=== PATIENT | female | born 1945 | race Caucasian/White ===

== ENCOUNTER 2019-05-28 03:19 | Inpatient (IN) | payer MEDICARE, OTHER ==
[2019-05-28] MEDS ORDERED: AZITHROMYCIN 500 MG in SODIUM CHLORIDE 0.9% 250 ML IVPB STA (03:22)
[2019-05-28] MEDS ORDERED: SODIUM CHLORIDE 0.9% 500 ML 500 ML IV STA (03:22)
[2019-05-28] MEDS ORDERED: SODIUM CHLORIDE 0.9% 1,000 ML IV STA (03:22)
[2019-05-28] MEDS ORDERED: IPRATROPIUM-ALBUTEROL 3 ML NEB INHALATION STA ×2 (03:22→06:12)
[2019-05-28] MEDS ORDERED: ACETAMINOPHEN TAB 500 MG TAB PO STA (03:52)
[2019-05-28] MEDS ORDERED: IBUPROFEN 800 MG TAB PO STA (03:52)
--- NOTE | 2019-05-28 03:53 | ED ---
SOB HPI - General Chief Complaint: Shortness of Breath Stated Complaint: SOB Time Seen by Provider: 05/28/19 03:21 Source: EMS, RN notes reviewed, old records reviewed Mode of arrival: EMS Limitations: no limitations - History of Present Illness Initial Comments: This is a 73-year-old female for strength secondary to breathing and shortness of breath coming in by EMS significant hypoxia at home. Patient's friend states that the friend the friend states the patient shortness breath for 2 days she better come to the hospital tonight patient was unable to complete hospital comes in by EMS EMS states patient was hypoxic on arrival significantly short of breath. Also patient admits to feeling warm palpitations fever and chills. MD Complaint: shortness of breath, cough, anxiety -: hour(s), days(s) Severity: severe Quality: aching Consistency: constant Improves With: nothing Worsens With: exertion, movement, coughing Known History Of: COPD Context: recent URI, anxiety, recent illness Associated Symptoms: fever, cough, sputum production, palpitations Treatments Prior to Arrival: oxygen - Related Data Home Medications Medication Instructions Recorded Confirmed Amitriptyline HCl 25 mg PO HS 05/28/19 05/28/19 Celecoxib [CeleBREX] 200 mg PO DAILY 05/28/19 05/28/19 Diclofenac Sodium Gel [Voltaren 2 gm TOPICAL TID 05/28/19 05/28/19 Gel] Fluticasone/Vilanterol [Breo 1 puff INHALATION RT-DAILY 05/28/19 05/28/19 Ellipta 200-25 Mcg INH] Furosemide [Lasix] 20 mg PO DAILY 05/28/19 05/28/19 Ipratropium-Albuterol Nebulize 3 ml INHALATION RT-QID 05/28/19 05/28/19 [Duoneb 0.5 mg-3 mg/3 ml Soln] Levofloxacin 500 mg PO DAILY 05/28/19 05/28/19 Lisinopril [Zestril] 10 mg PO DAILY 05/28/19 05/28/19 Loteprednol Etabonate [Lotemax] 1 drop OP TID 05/28/19 05/28/19 Metoprolol Succinate [Toprol XL] 50 mg PO DAILY 05/28/19 05/28/19 Nepafenac [Ilevro] 1 drop RIGHT EYE DAILY 05/28/19 05/28/19 Omeprazole 40 mg PO DAILY 05/28/19 05/28/19 Potassium Chloride ER [K-Dur 20] 20 meq PO DAILY 05/28/19 05/28/19 Pramipexole Di-HCl [Mirapex] 1.5 mg PO HS 05/28/19 05/28/19 Sertraline [Zoloft] 50 mg PO DAILY 05/28/19 05/28/19 Simvastatin 40 mg PO HS 05/28/19 05/28/19 cloNIDine HCL [Catapres] 0.1 mg PO BID 05/28/19 05/28/19 predniSONE See Taper PO DAILY 05/28/19 05/28/19 Allergies Allergy/AdvReac Type Severity Reaction Status Date / Time aspirin AdvReac Unknown Verified 05/28/19 03:29 Review of Systems ROS Statement: Those systems with pertinent positive or pertinent negative responses have been documented in the HPI. ROS Other: All systems not noted in ROS Statement are negative. Past Medical History Past Medical History: COPD History of Any Multi-Drug Resistant Organisms: None Reported Past Surgical History: Unable to Obtain Past Psychological History: Unable to Obtain Smoking Status: Former smoker Past Alcohol Use History: None Reported Past Drug Use History: None Reported General Exam Limitations: no limitations General appearance: alert, anxious, in distress Head exam: Present: atraumatic, normocephalic, normal inspection Eye exam: Present: normal appearance, PERRL, EOMI. Absent: scleral icterus, conjunctival injection, periorbital swelling ENT exam: Present: normal exam, mucous membranes dry Neck exam: Present: normal inspection. Absent: tenderness, meningismus, lymphadenopathy Respiratory exam: Present: respiratory distress, wheezes, rhonchi, accessory muscle use, decreased breath sounds, prolonged expiratory. Absent: rales, stridor Cardiovascular Exam: Present: normal rhythm, tachycardia, normal heart sounds. Absent: systolic murmur, diastolic murmur, rubs, gallop, clicks GI/Abdominal exam: Present: soft, normal bowel sounds. Absent: distended, tenderness, guarding, rebound, rigid Extremities exam: Present: normal inspection, full ROM, normal capillary refill. Absent: tenderness, pedal edema, joint swelling, calf tenderness Back exam: Present: normal inspection Neurological exam: Present: alert, oriented X3, CN II-XII intact Psychiatric exam: Present: normal affect, normal mood Skin exam: Present: warm, dry, intact, normal color. Absent: rash Course Vital Signs 05/28/19 05/28/19 05/28/19 03:20 03:59 04:00 Temperature 102.7 F H Pulse Rate 131 H 117 H 117 H Respiratory 32 H 21 Rate Blood Pressure 121/71 121/71 O2 Sat by Pulse 96 98 Oximetry 05/28/19 05/28/19 05/28/19 04:06 04:30 04:53 Temperature 101.1 F H Pulse Rate 115 H 113 H Respiratory 24 Rate Blood Pressure 110/75 O2 Sat by Pulse 94 L Oximetry 05/28/19 05/28/19 05/28/19 05:30 06:33 07:05 Temperature 100.8 F H Pulse Rate 117 H 111 H 110 H Respiratory 22 24 Rate Blood Pressure 122/70 102/76 O2 Sat by Pulse 93 L 96 Oximetry 05/28/19 07:14 Temperature Pulse Rate 112 H Respiratory Rate Blood Pressure O2 Sat by Pulse Oximetry - Reevaluation(s) Reevaluation #1: 05/28/19 04:26 Records reviewed. Reevaluation #2: 05/28/19 04:26 Patient denying any chest pain currently Reevaluation #3: 05/28/19 04:27 Fever improved symptoms are improved, patient breathing remains difficult but hypoxia is improving w supplemental o2 Medical Decision Making - Medical Decision Making 73-year-old female to the ER for evaluation patient's with fever shortness of breath, not feeling well. Patient's been off oxygen, she was 70% at home. Patient's brought in the ER feeling better now in the ER with treatment, no current chest pain. Increased cough and congestion still complaining of shortness of breath we will admit for treatment, pulmonary evaluation - Lab Data Result diagrams: 05/31/19 06:50 06/02/19 10:54 Lab Results 05/28/19 05/28/19 05/28/19 Range/Units 03:28 03:28 03:28 WBC 14.4 H (3.8-10.6) k/uL RBC 4.52 (3.80-5.40) m/uL Hgb 14.5 (11.4-16.0) gm/dL Hct 45.7 (34.0-46.0) % MCV 101.2 H (80.0-100.0) fL MCH 32.2 (25.0-35.0) pg MCHC 31.8 (31.0-37.0) g/dL RDW 13.3 (11.5-15.5) % Plt Count 70 L (150-450) k/uL Neutrophils % 92 % Lymphocytes % 0 % Monocytes % 5 % Eosinophils % 1 % Basophils % 3 % Neutrophils # 13.3 H (1.3-7.7) k/uL Lymphocytes # 0.0 L (1.0-4.8) k/uL Monocytes # 0.7 (0-1.0) k/uL Eosinophils # 0.1 (0-0.7) k/uL Basophils # 0.4 H (0-0.2) k/uL Manual Slide Review Performed Macrocytosis Slight PT (9.0-12.0) sec INR (<1.2) APTT (22.0-30.0) sec Sodium 129 L (137-145) mmol/L Potassium 5.3 H (3.5-5.1) mmol/L Chloride 93 L (98-107) mmol/L Carbon Dioxide 28 (22-30) mmol/L Anion Gap 8 mmol/L BUN 30 H (7-17) mg/dL Creatinine 0.91 (0.52-1.04) mg/dL Est GFR (CKD-EPI)AfAm 73 (>60 ml/min/1.73 sqM) Est GFR (CKD-EPI)NonAf 64 (>60 ml/min/1.73 sqM) Glucose 162 H (74-99) mg/dL Lactic Ac Sepsis Rflx Plasma Lactic Acid Barron (0.7-2.0) mmol/L Calcium 8.4 (8.4-10.2) mg/dL Magnesium 1.7 (1.6-2.3) mg/dL Total Bilirubin 1.2 (0.2-1.3) mg/dL AST 52 H (14-36) U/L ALT 26 (4-34) U/L Alkaline Phosphatase 54 (38-126) U/L Troponin I (0.000-0.034) ng/mL NT-Pro-B Natriuret Pep 7310 pg/mL Total Protein 6.3 (6.3-8.2) g/dL Albumin 3.4 L (3.5-5.0) g/dL Influenza Type A RNA (Not Detectd) Influenza Type B (PCR) (Not Detectd) 05/28/19 05/28/19 05/28/19 Range/Units 03:28 03:28 03:28 WBC (3.8-10.6) k/uL RBC (3.80-5.40) m/uL Hgb (11.4-16.0) gm/dL Hct (34.0-46.0) % MCV (80.0-100.0) fL MCH (25.0-35.0) pg MCHC (31.0-37.0) g/dL RDW (11.5-15.5) % Plt Count (150-450) k/uL Neutrophils % % Lymphocytes % % Monocytes % % Eosinophils % % Basophils % % Neutrophils # (1.3-7.7) k/uL Lymphocytes # (1.0-4.8) k/uL Monocytes # (0-1.0) k/uL Eosinophils # (0-0.7) k/uL Basophils # (0-0.2) k/uL Manual Slide Review Macrocytosis PT 10.4 (9.0-12.0) sec INR 1.0 (<1.2) APTT 22.2 (22.0-30.0) sec Sodium (137-145) mmol/L Potassium (3.5-5.1) mmol/L Chloride (98-107) mmol/L Carbon Dioxide (22-30) mmol/L Anion Gap mmol/L BUN (7-17) mg/dL Creatinine (0.52-1.04) mg/dL Est GFR (CKD-EPI)AfAm (>60 ml/min/1.73 sqM) Est GFR (CKD-EPI)NonAf (>60 ml/min/1.73 sqM) Glucose (74-99) mg/dL Lactic Ac Sepsis Rflx Plasma Lactic Acid Barron (0.7-2.0) mmol/L Calcium (8.4-10.2) mg/dL Magnesium (1.6-2.3) mg/dL Total Bilirubin (0.2-1.3) mg/dL AST (14-36) U/L ALT (4-34) U/L Alkaline Phosphatase (38-126) U/L Troponin I 2.660 H* (0.000-0.034) ng/mL NT-Pro-B Natriuret Pep pg/mL Total Protein (6.3-8.2) g/dL Albumin (3.5-5.0) g/dL Influenza Type A RNA Not Detected (Not Detectd) Influenza Type B (PCR) Not Detected (Not Detectd) 05/28/19 05/28/19 Range/Units 03:28 04:23 WBC (3.8-10.6) k/uL RBC (3.80-5.40) m/uL Hgb (11.4-16.0) gm/dL Hct (34.0-46.0) % MCV (80.0-100.0) fL MCH (25.0-35.0) pg MCHC (31.0-37.0) g/dL RDW (11.5-15.5) % Plt Count (150-450) k/uL Neutrophils % % Lymphocytes % % Monocytes % % Eosinophils % % Basophils % % Neutrophils # (1.3-7.7) k/uL Lymphocytes # (1.0-4.8) k/uL Monocytes # (0-1.0) k/uL Eosinophils # (0-0.7) k/uL Basophils # (0-0.2) k/uL Manual Slide Review Macrocytosis PT (9.0-12.0) sec INR (<1.2) APTT (22.0-30.0) sec Sodium (137-145) mmol/L Potassium (3.5-5.1) mmol/L Chloride (98-107) mmol/L Carbon Dioxide (22-30) mmol/L Anion Gap mmol/L BUN (7-17) mg/dL Creatinine (0.52-1.04) mg/dL Est GFR (CKD-EPI)AfAm (>60 ml/min/1.73 sqM) Est GFR (CKD-EPI)NonAf (>60 ml/min/1.73 sqM) Glucose (74-99) mg/dL Lactic Ac Sepsis Rflx Y Plasma Lactic Acid Barron 2.2 H* (0.7-2.0) mmol/L Calcium (8.4-10.2) mg/dL Magnesium (1.6-2.3) mg/dL Total Bilirubin (0.2-1.3) mg/dL AST (14-36) U/L ALT (4-34) U/L Alkaline Phosphatase (38-126) U/L Troponin I (0.000-0.034) ng/mL NT-Pro-B Natriuret Pep pg/mL Total Protein (6.3-8.2) g/dL Albumin (3.5-5.0) g/dL Influenza Type A RNA (Not Detectd) Influenza Type B (PCR) (Not Detectd) - EKG Data -: EKG Interpreted by Me (EKG shows sinus tachycardia of 120, para 120, QRS 70, QTc 440) - Radiology Data Radiology results: report reviewed (Chest x-rays negative for acute disease), image reviewed Critical Care Time Critical Care Time: Yes Total Critical Care Time: 31 Disposition Clinical Impression: Fever, NSTEMI (non-ST elevated myocardial infarction), Hypoxia Disposition: ADMITTED IP TO THIS HOSP Condition: Critical Is patient prescribed a controlled substance at d/c from ED?: No
[2019-05-28 03:58] LABS: Basophils # (A) 0.4 k/uL (0-0.2); Basophils % (A) 3 %; Eosinophils # (A) 0.1 k/uL (0-0.7); Eosinophils % (A) 1 %; HCT 45.7 % (34.0-46.0); HGB 14.5 gm/dL (11.4-16.0); Lymphocytes % (A) 0 %; MCH 32.2 pg (25.0-35.0); MCHC 31.8 g/dL (31.0-37.0); MCV 101.2 fL (80.0-100.0); Macrocytosis Slight; Monocytes # (A) 0.7 k/uL (0-1.0); Monocytes % (A) 5 %; Neutrophils # (A) 13.3 k/uL (1.3-7.7); Neutrophils % (A) 92 %; RBC 4.52 m/uL (3.80-5.40); RDW 13.3 % (11.5-15.5); WBC 14.4 k/uL (3.8-10.6)
[2019-05-28 04:04] LABS: Albumin 3.4 g/dL (3.5-5.0); Calcium 8.4 mg/dL (8.4-10.2); Magnesium 1.7 mg/dL (1.6-2.3); Total Bilirubin 1.2 mg/dL (0.2-1.3); Total Protein 6.3 g/dL (6.3-8.2)
[2019-05-28 04:05] LABS: Potassium 5.3 mmol/L (3.5-5.1)
--- NOTE | 2019-05-28 04:12 | XR ---
EXAMINATION TYPE: XR chest 1V portable DATE OF EXAM: 05/28/2019 COMPARISON: NONE HISTORY: Short of breath TECHNIQUE: Single view FINDINGS: Heart is enlarged. There are large central pulmonary arteries. There is no heart failure. T here are chest leads. Costophrenic angles are fairly clear. There is no pulmonary consolidation. Bony thorax appears intact. IMPRESSION: Cardiomegaly. Large pulmonary arteries could relate to pulmonary hypertension. No heart f ailure seen.
[2019-05-28 04:13] LABS: Partial Thromboplastin Time 22.2 sec (22.0-30.0); Prothrombin Time 10.4 sec (9.0-12.0)
[2019-05-28] MEDS ORDERED: NITROGLYCERIN SL TABS 0.4 MG TAB SUBLINGUAL PRN (04:24)
[2019-05-28 04:30] LABS: Platelet Count 70 k/uL (150-450)
[2019-05-28] MEDS ORDERED: SODIUM CHLORIDE 0.9% 500 ML 500 ML IV ONE (04:32)
[2019-05-28 05:01] LABS: Appearance,Urine Clear (Clear); Bilirubin,Urine Negative (Negative); Blood,Urine Small (Negative); Color,Urine Yellow; Glucose,Urine (UA) Negative (Negative); Ketones,Urine 1+ (Negative); Leukocyte Esterase,Urine Negative (Negative); Mucus,Urine Rare /hpf; Nitrite,Urine Negative (Negative); PH, Urine 7.5 (5.0-8.0); Protein,Urine 1+ (Negative); RBC,Urine 10 /hpf (0-5); Specific Gravity,Urine 1.016 (1.001-1.035); Urobilinogen,Urine <2.0 mg/dL (<2.0); WBC,Urine 1 /hpf (0-5)
--- NOTE | 2019-05-28 05:19 | CT ---
EXAMINATION TYPE: CT angio chest DATE OF EXAM: 05/28/2019 COMPARISON: HISTORY: Patient presents with [place]. CT DLP: 611.6 mGycm Automated exposure control for dose reduction was used. CONTRAST: Performed with IV Contrast, patient injected with 65mL mL of Isovue 370. There are 3-D post processed images. Thoracic aorta is atheromatous. Ascending aorta measures 3.9 cm. There is no dissection. Heart is enl arged. There is no pericardial effusion. There are large central pulmonary arteries. Right ventricle appears fairly normal. There is mild linear density at the lung bases consistent with subsegmental at electasis. There is no evidence of a pulmonary mass. There is normal contrast opacification of the pulmonary arteries. There are no filling defects. There is minor spurring in the thoracic spine. Bony thorax is intact. IMPRESSION: No evidence of pulmonary embolism. Large pulmonary arteries consistent with pulmonary hypertension. C ardiomegaly. Mild atelectasis at the posterior lung bases.
[2019-05-28] MEDS ORDERED: PIPERACILLIN-TAZOBACTAM 3.375 GM in SODIUM CHLORIDE 0.9% 100 ML IVPB STA (06:11)
[2019-05-28] MEDS: SODIUM CHLORIDE 0.9% 500 ML 500 ML IV SCH ×2 (06:18→06:19)
[2019-05-28] MEDS ORDERED: HEPARIN SODIUM,PORCINE 5,000 UNIT/ML 1 ML VIAL IV PRN (06:50)
[2019-05-28] MEDS ORDERED: HEPARIN SODIUM,PORCINE 5,000 UNIT/ML 1 ML VIAL IV ONE (06:50)
[2019-05-28] MEDS: HEPARIN SOD,PORK IN 0.45% NACL 25,000 UNIT in 0.45% NACL 1 250ML.BAG IV SCH (07:01)
[2019-05-28] MEDS: IPRATROPIUM-ALBUTEROL 3 ML NEB INHALATION SCH ×5 (07:05→23:17)
--- NOTE | 2019-05-28 08:26 | P.CRDCN ---
History of Present Illness Consult date: 05/28/19 Consult reason: non-Q-wave [place] History of present illness: This is a 73-year-old female. She has never followed with a student services counselor. She has past medical history of COPD, chronic hypoxic respiratory failure on home O2 at 4 L, restless leg syndrome. Patient is a poor historian, very hard of hearing. Patient states she came into the hospital due to weakness and lightheadedness. She also had chest pain that was in the midsternal area that started in her back came to the front and around her throat area. She intermittently feels it in her left arm. Patient denied having any fever or chills at home that she was aware of. She always has shortness of breath and is dyspneic just getting to the bathroom. She denies any sputum production. She states her left leg sometimes swells. Patient came in to [facility] emergency center for evaluation. She was found to have temperature 102.7, heart rate 131, respiratory rate 32, blood pressure 121/71, pulse ox 96% on nonrebreather. EKG was a sinus tachycardia. Chest x-ray revealed cardiomegaly, pulmonary hypertension and no heart failure. CTA of the chest was done that was negative for pulmonary embolism. There was pulmonary hypertension, cardiomegaly and mild atelectasis. Lactic acid was 2.2, troponin 2.660. Urinalysis was negative for UTI, influenza testing was negative. Sodium 129, potassium 5.3, chloride 93, CO2 28, BUN 30 and creatinine 0.91. WBC 14.4, hemoglobin 14.5, platelet count 70. Patient is status post 4 L of IV fluid and started on Zosyn and azithromycin. Echocardiogram has been ordered, blood culture and repeat troponins, lipid panel. At the time of this evaluation, patient is denying any chest pain. Review Of Systems: Constitutional: Reports fever, reports chills, reports night sweats. No weight change. Reports weakness, reports fatigue reports lethargy. Reports daytime sleepiness. EENT: No headache. No blurred vision or double vision, no loss of vision. No loss of Hearing, no ringing in the ears, no dizziness. No nasal drainage or congestion. No epistaxis. No sore throat. Lungs: Reports chronic shortness of breath, reports cough, no sputum production. No wheezing. Cardiovascular: No chest pain, no lower extremity edema. No palpitations. No paroxysmal nocturnal dyspnea. No orthopnea. No lightheadedness or dizziness. No syncopal episodes. Abdominal: No abdominal pain. No nausea, vomiting. No diarrhea. No constipation. No bloody or tarry stools. Genitourinary: No dysuria, increased frequency, urgency. No urinary retention. Musculoskeletal: No myalgias. Reports muscle weakness, no gait dysfunction, no frequent falls. No back pain. No neck pain. Integumentary: No wounds, no lesions. No rash or pruritus. No unusual bruising. Neurologic: No aphasia. No facial droop. No change in mentation. No head injury. No headache. No paralysis. No paresthesia. Psychiatric: No depression. No anxiety. No mood swings. Endocrine: No abnormal blood sugars. No weight change. No excessive sweating or thirst. No cold intolerance. No weight change. Physical examination: Gen: This is a 73-year-old female. She is resting in bed sleeping, she arouses to verbal stimuli. No significant respiratory distress noted while at rest. VS: Blood pressure 92/68, heart rate 103, pulse ox 96% on 6 L. HEENT: Head is atraumatic, normocephalic. Pupils equal, round. Sclerae is anicteric. Hard of hearing. NECK: Supple. No JVD. No lymphadenopathy. No thyromegaly. LUNGS: Scattered rhonchi. No intercostal retractions. HEART: Regular rate and rhythm. Systolic murmur. ABDOMEN: Soft. Bowel sounds are present. No masses. No tenderness. EXTREMITIES: No pedal edema. No calf tenderness. NEUROLOGICAL: Patient is awake, alert and oriented x3. Generalized weakness. Assessment: Possible acute non-ST elevated myocardial infarction, possible mismatch due to sepsis Sepsis of unclear etiology Acute on chronic hypoxic respiratory failure COPD Hyponatremia Pulmonary hypertension Ruled out for pulmonary embolism Plan: Start on aspirin 81 mg, note allergy: "thins my blood too much" Start Lipitor 80 mg daily, Lopressor 12.5 mg twice daily Serial troponins Obtain 2-D echocardiogram and Doppler study to assess cardiac structure and function Patient may require heart catheterization to evaluate coronary arteries Further medications to follow based upon clinical course Thank you kindly for this consultation. Nurse practitioner note has been reviewed, I agree with documented findings and plan of care. Patient was seen and examined. Past Medical History Past Medical History: COPD History of Any Multi-Drug Resistant Organisms: None Reported Past Surgical History: Unable to Obtain Past Psychological History: Unable to Obtain Smoking Status: Former smoker Past Alcohol Use History: None Reported Past Drug Use History: None Reported Medications and Allergies Home Medications Medication Instructions Recorded Confirmed Type Amitriptyline HCl [Elavil] 10 mg PO HS 07/17/15 07/17/15 History Cyclobenzaprine [Flexeril] 5 mg PO HS 07/17/15 07/17/15 History Furosemide [Lasix] 5 mg PO DAILY 07/17/15 07/17/15 History HYDROcodone/APAP 7.5-325MG [Campo 1 tab PO Q6HR PRN 07/17/15 07/17/15 History 7.5-325] Meloxicam [Mobic] 7.5 mg PO DAILY 07/17/15 07/17/15 History Allergies Allergy/AdvReac Type Severity Reaction Status Date / Time aspirin AdvReac Unknown Verified 05/28/19 03:29 Physical Exam Vitals: Vital Signs Temp Pulse Resp BP Pulse Ox 05/28/19 07:14 112 H 05/28/19 07:05 110 H 05/28/19 06:33 111 H 24 102/76 96 05/28/19 05:30 100.8 F H 117 H 22 122/70 93 L 05/28/19 04:53 101.1 F H 05/28/19 04:30 113 H 24 110/75 94 L 05/28/19 04:06 115 H 05/28/19 04:00 117 H 21 121/71 98 05/28/19 03:59 117 H 05/28/19 03:20 102.7 F H 131 H 32 H 121/71 96 Intake and Output 05/27/19 05/28/19 05/28/19 22:59 06:59 14:59 Other: Weight 90.718 kg Results 05/28/19 03:28 05/28/19 03:28 Cardiac Enzymes 05/28/19 05/28/19 Range/Units 03:28 03:28 AST 52 H (14-36) U/L Troponin I 2.660 H* (0.000-0.034) ng/mL Coagulation 05/28/19 Range/Units 03:28 PT 10.4 (9.0-12.0) sec APTT 22.2 (22.0-30.0) sec CBC 05/28/19 Range/Units 03:28 WBC 14.4 H (3.8-10.6) k/uL RBC 4.52 (3.80-5.40) m/uL Hgb 14.5 (11.4-16.0) gm/dL Hct 45.7 (34.0-46.0) % Plt Count 70 L (150-450) k/uL Comprehensive Metabolic Panel 05/28/19 Range/Units 03:28 Sodium 129 L (137-145) mmol/L Potassium 5.3 H (3.5-5.1) mmol/L Chloride 93 L (98-107) mmol/L Carbon Dioxide 28 (22-30) mmol/L BUN 30 H (7-17) mg/dL Creatinine 0.91 (0.52-1.04) mg/dL Glucose 162 H (74-99) mg/dL Calcium 8.4 (8.4-10.2) mg/dL AST 52 H (14-36) U/L ALT 26 (4-34) U/L Alkaline Phosphatase 54 (38-126) U/L Total Protein 6.3 (6.3-8.2) g/dL Albumin 3.4 L (3.5-5.0) g/dL Current Medications Generic Name Dose Route Start Last Admin Trade Name Freq PRN Reason Stop Dose Admin Albuterol/Ipratropium 3 ml 05/28/19 08:00 05/28/19 07:05 Duoneb 0.5 Mg-3 Mg/3 Ml Soln INHALATION 3 ml RT-Q4H FREDY Administration Heparin Sodium (Porcine) 0 unit 05/28/19 06:50 Heparin IV PER PROTOCOL PRN Low PTT Protocol Sodium Chloride 1,000 mls @ 100 mls/hr 05/28/19 03:22 05/28/19 04:12 Saline 0.9% IV 05/28/19 13:21 100 mls/hr .Q10H STA Administration Piperacillin Sod/Tazobactam 100 mls @ 25 mls/hr 05/28/19 16:00 Sod 3.375 gm/ Sodium Chloride IVPB Q8HR FREDY Heparin Sodium/Sodium Chloride 250 mls @ 10 mls/hr 05/28/19 07:00 05/28/19 07:01 25,000 unit/ Sodium Chloride IV 11.023 units/kg/hr .Q24H FREDY 10 mls/hr Administration Protocol 11.023 UNITS/KG/HR Morphine Sulfate 4 mg 05/28/19 04:24 Morphine Sulfate (Inj) IV Q4HR PRN Chest Pain Nitroglycerin 0.4 mg 05/28/19 04:24 Nitrostat SUBLINGUAL Q5M PRN Chest Pain Pantoprazole Sodium 40 mg 05/28/19 09:00 Protonix IV DAILY FREDY Intake and Output 05/27/19 05/28/19 05/28/19 22:59 06:59 14:59 Other: Weight 90.718 kg 05/28/19 03:28 05/28/19 03:28
[2019-05-28] MEDS ORDERED: PANTOPRAZOLE 40 MG/10 ML VIAL IV SCH (09:00)
[2019-05-28] MEDS: ASPIRIN 81 MG PO SCH (09:14)
[2019-05-28] MEDS: METOPROLOL TARTRATE 12.5 MG TAB PO SCH ×2 (09:14→20:20)
--- NOTE | 2019-05-28 13:14 | P.CNPUL ---
History of Present Illness Consult date: 05/28/19 Requesting physician: Mahamed Fernandez Reason for consult: dyspnea Chief complaint: Shortness of breath, pain between her shoulder blades History of present illness: This is a very pleasant 73-year-old female patient who follows with Dr. Glez as her primary care provider. She has a history of hypertension, hyperlipidemia, hard of hearing chronic obstructive pulmonary disease secondary to chronic tobacco dependence. She's not been seen by a delicatessen clerk in the past. Has been maintained on Breo, DuoNeb inhalations. She had recently been treated with Levaquin and a prednisone taper for cough and congestion. She presented here early this morning via EMS with shortness of breath and pain between her shoulder blades. CT angiogram ruled out pulmonary embolism. There was noted large pulmonary arteries consistent with pulmonary hypertension. Cardiomegaly and mild atelectasis of the lung bases. White count 14.4. Hemoglobin 14.5. Sodium 129. Potassium 5.3. Bicarb 28. Creatinine 0.91. Initial lactate 2.2. Down to 1.4. Troponin 2.66 and 3.96. ProBNP 7310. Influenza screen negative. She is seen today in consultation on the cardiac floor. She is currently resting comfortably in bed. Awake and alert in no acute distress. No worsening shortness of breath, cough or congestion. Maintaining O2 saturations in the low 90s on 5 L/m per nasal cannula. She did have a T-max of 102.7. Currently afebrile. She was initiated on Zosyn, Symbicort, DuoNeb inhalations, IV Solu-Medrol. Denies any further discomfort between her shoulder blades. Echocardiogram pending. She has been initiated on a heparin drip. Review of Systems REVIEW OF SYSTEMS: CONSTITUTIONAL: Denies any recent significant weight loss or weight gain. EYES: Denies change in vision. EARS, NOSE, MOUTH, THROAT: Denies headaches, denies sore throat. CARDIOVASCULAR: Denies chest pain, palpitations or syncopal episodes. Pain between her shoulder blades RESPIRATORY: Positive for shortness of breath, cough, congestion no hemoptysis. GASTROINTESTINAL: Denies change in appetite, denies abdominal pain GENITOURINARY: Denies hematuria, denies infections. MUSKULOSKELETAL: Denies pain, denies swelling. INTEGUMENTARY: Denies rash, denies eczema. NEUROLOGICAL: Denies recent memory loss, no recent seizure activity. PSYCHIATRIC: Denies anxiety, denies depression. HEMATOLOGIC/LYMPHATIC: Denies anemia, denies enlarged lymph nodes. Past Medical History Past Medical History: COPD Additional Past Medical History / Comment(s): Emphysema, 4-5L home O2, miscarriage History of Any Multi-Drug Resistant Organisms: None Reported Past Surgical History: Unable to Obtain Additional Past Surgical History / Comment(s): fibroid adhesions Past Anesthesia/Blood Transfusion Reactions: No Reported Reaction Past Psychological History: Unable to Obtain Smoking Status: Former smoker Past Alcohol Use History: None Reported Past Drug Use History: None Reported Additional History: The patient is unaware of any pertinent family history. Medications and Allergies Home Medications Medication Instructions Recorded Confirmed Type Amitriptyline HCl 25 mg PO HS 05/28/19 05/28/19 History Celecoxib [CeleBREX] 200 mg PO DAILY 05/28/19 05/28/19 History Diclofenac Sodium Gel [Voltaren 2 gm TOPICAL TID 05/28/19 05/28/19 History Gel] Fluticasone/Vilanterol [Breo 1 puff INHALATION RT-DAILY 05/28/19 05/28/19 History Ellipta 200-25 Mcg INH] Furosemide [Lasix] 20 mg PO DAILY 05/28/19 05/28/19 History Ipratropium-Albuterol Nebulize 3 ml INHALATION RT-QID 05/28/19 05/28/19 History [Duoneb 0.5 mg-3 mg/3 ml Soln] Levofloxacin 500 mg PO DAILY 05/28/19 05/28/19 History Lisinopril [Zestril] 10 mg PO DAILY 05/28/19 05/28/19 History Loteprednol Etabonate [Lotemax] 1 drop OP TID 05/28/19 05/28/19 History Metoprolol Succinate [Toprol XL] 50 mg PO DAILY 05/28/19 05/28/19 History Nepafenac [Ilevro] 1 drop RIGHT EYE DAILY 05/28/19 05/28/19 History Omeprazole 40 mg PO DAILY 05/28/19 05/28/19 History Potassium Chloride ER [K-Dur 20] 20 meq PO DAILY 05/28/19 05/28/19 History Pramipexole Di-HCl [Mirapex] 1.5 mg PO HS 05/28/19 05/28/19 History Sertraline [Zoloft] 50 mg PO DAILY 05/28/19 05/28/19 History Simvastatin 40 mg PO HS 05/28/19 05/28/19 History cloNIDine HCL [Catapres] 0.1 mg PO BID 05/28/19 05/28/19 History predniSONE See Taper PO DAILY 05/28/19 05/28/19 History Allergies Allergy/AdvReac Type Severity Reaction Status Date / Time aspirin AdvReac Unknown Verified 05/28/19 03:29 Physical Exam Vitals: Vital Signs Temp Pulse Pulse Resp BP BP Pulse Ox 05/28/19 12:00 109 H 05/28/19 11:42 108 H 05/28/19 08:10 98.6 F 102 H 20 92/68 93 L 05/28/19 07:14 112 H 05/28/19 07:05 110 H 05/28/19 06:33 111 H 24 102/76 96 05/28/19 05:30 100.8 F H 117 H 22 122/70 93 L 05/28/19 04:53 101.1 F H 05/28/19 04:30 113 H 24 110/75 94 L 05/28/19 04:06 115 H 05/28/19 04:00 117 H 21 121/71 98 05/28/19 03:59 117 H 05/28/19 03:20 102.7 F H 131 H 32 H 121/71 96 Intake and Output 05/27/19 05/28/19 05/28/19 22:59 06:59 14:59 Output Total 500 Balance -500 Output: Urine 500 Other: Voiding Method Bedpan # Bowel Movements 0 Weight 90.718 kg 90.718 kg GENERAL EXAM: Alert, pleasant 73-year-old female patient, very hard of hearing, on 5 L nasal cannula, comfortable in no apparent distress. HEAD: Normocephalic. EYES: Normal reaction of pupils, equal size. NOSE: Clear with pink turbinates. THROAT: No erythema or exudates. NECK: No masses, no JVD. CHEST: No chest wall deformity. LUNGS: Equal air entry with few scattered rhonchi, crackles in the posterior bases CVS: S1 and S2 normal with no audible murmur, regular rhythm. ABDOMEN: No hepatosplenomegaly, normal bowel sounds, no guarding or rigidity. SPINE: No scoliosis or deformity SKIN: No rashes CENTRAL NERVOUS SYSTEM: No focal deficits, tone is normal in all 4 extremities. EXTREMITIES: There is no peripheral edema. No clubbing, no cyanosis. Peripheral pulses are intact. Results - Laboratory Findings CBC and BMP: 05/28/19 03:28 05/28/19 03:28 PT/INR, D-dimer PT 10.4 sec (9.0-12.0) 05/28/19 03:28 INR 1.0 (<1.2) 05/28/19 03:28 Abnormal lab findings: Abnormal Labs 05/28/19 05/28/19 05/28/19 03:28 03:28 03:28 WBC 14.4 H MCV 101.2 H Plt Count 70 L Neutrophils # 13.3 H Lymphocytes # 0.0 L Basophils # 0.4 H Sodium 129 L Potassium 5.3 H Chloride 93 L BUN 30 H Glucose 162 H Plasma Lactic Acid Barron AST 52 H Troponin I 2.660 H* Albumin 3.4 L Urine Protein Urine Ketones Urine Blood Urine RBC Urine Mucus 05/28/19 05/28/19 05/28/19 03:28 04:52 07:48 WBC MCV Plt Count Neutrophils # Lymphocytes # Basophils # Sodium Potassium Chloride BUN Glucose Plasma Lactic Acid Barron 2.2 H* AST Troponin I 3.960 H* Albumin Urine Protein 1+ H Urine Ketones 1+ H Urine Blood Small H Urine RBC 10 H Urine Mucus Rare H - Diagnostic Findings Chest x-ray: image reviewed CT scan - chest: image reviewed Assessment and Plan Assessment: 1 Acute on chronic hypoxemic respiratory failure secondary to suspected systolic versus congestive heart failure, basilar atelectasis, acute exacerbation of chronic obstructive pulmonary disease 2 Non-ST segment elevation myocardial infarction, currently on heparin drip 3 History of chronic tobacco dependence 4 Pulmonary hypertension 5 Febrile illness with mild lactic acidosis, recovered 6 Hyperlipidemia 7 Hypertension 8 History of anxiety/depression 9 Gastroesophageal reflux disease Plan: The patient was seen and evaluated by Dr. Moreno CAT scan chest x-ray reviewed Continue Zosyn Continue DuoNeb's and Symbicort, IV Solu-Medrol Continue diuretics Echocardiogram pending Possible cardiac catheterization We will continue to follow I, the cosigning physician, performed a history & physical examination of the patient. Lungs sounds with few scattered rhonchi, crackles in the posterior bases. Maintaining good O2 saturations in the 90s on 5 L nasal cannula. I discussed the assessment and plan of care with my nurse practitioner, Mary Ann Melgar. I attest to the above consultation as dictated by her. Time with Patient: Greater than 30
--- NOTE | 2019-05-28 13:26 | HP ---
HISTORY AND PHYSICAL DATE OF SERVICE: 05/28/2019. CHIEF COMPLAINT: Chest pain, shortness of breath. HISTORY OF PRESENT ILLNESS: This 73-year-old woman with a past medical history of multiple medical problems including COPD, on 4 to 5 L home oxygen, remote history of nicotine dependence, being followed by Dr. Glez in the outpatient setting was complaining of increased shortness of breath. The patient also complained of chest pain which was initially felt in the back between the shoulders and subsequently radiating to the front of the chest and patient came to [facility] and admitted to the hospital for further evaluation and treatment. The patient also had a fever also. The patient had elevated troponin up to 2.6 and 3.[address]-segment elevation myocardial infarction. Cardiology has been consulted. The patient also had features of early sepsis with elevated lactic acid also. Broad-spectrum antibiotics have been initiated. There is no history of any headache, loss of consciousness, any palpitations, hematochezia or melena at this time. PAST MEDICAL HISTORY: History of COPD, history of fibroids. MEDICATIONS: The primary medications are: 1. Prednisone daily. 2. Mirapex 1.5 mg q.h.s. 3. Levaquin 500 mg p.o. daily. 4. Simvastatin 40 mg q.h.s. 5. Zoloft 50 mg p.o. daily. 6. K-Dur 20 mEq p.r.n. 7. Celebrex 200 mg daily. 8. Amitriptyline 25 mg q.h.s. 9. Metoprolol 50 mg p.o. daily. 10.Lisinopril 10 mg p.o. daily. 11.DuoNeb q.i.d. 12.Breo Ellipta 1 puff daily. 13.Catapres 0.1 b.i.d. 14.Lotemax 1 drop t.i.d. 15.Lasix 20 mg p.o. daily. 16.Omeprazole 40 mg p.o. daily. 17.Ilevro 1 drop right eye daily. 18.Voltaren gel 2 applications t.i.d. ALLERGIES: ASPIRIN. FAMILY HISTORY: No history of heart disease or strokes in the family. SOCIAL HISTORY: Previous history of smoking. No history of current smoking or alcohol intake. REVIEW OF SYSTEMS: ENT: Diminished hearing. Diminished vision. CARDIOVASCULAR system: As mentioned earlier. RESPIRATORY: As mentioned earlier. GI no nausea or vomiting. : No dysuria. CENTRAL NERVOUS SYSTEM: No numbness or weakness. ALLERGY/IMMUNOLOGY: No asthma or hayfever. MUSCULOSKELETAL as mentioned earlier. HEMATOLOGY/ONCOLOGY: No history of anemia. ENDOCRINE: No history of diabetes or hypothyroidism. CONSTITUTIONAL: As mentioned earlier. DERMATOLOGY: Negative. RHEUMATOLOGY negative. PSYCHIATRY as mentioned earlier. PHYSICAL EXAMINATION: Alert and oriented times three. Pulse 102, regular. Blood pressure 192/60, respiration 20, temperature 98.6, pulse ox 93% on 5 L. HEENT is conjunctivae normal. NECK: No JVD. CARDIOVASCULAR: S1, S2 muffled. RESPIRATIONS: Breath sounds diminished in the bases. Bilateral scattered rhonchi and crackles. Expiratory wheezing also present. ABDOMEN: Soft, nontender. No mass palpable. LEGS: No edema. No swelling. NERVOUS SYSTEM: Higher functions as mentioned earlier. Moves all 4 limbs. No focal motor or sensory deficits. LYMPHATICS: No lymph nodes palpable in the neck, axillae or groin. SKIN: No ulcer, rash or bleeding. JOINTS: No active deforming arthropathy. LAB: WBC 14.2, hemoglobin 14.5, otherwise sodium is 129, potassium 5.3, and lactic acid is 2.2. Troponin 2.60 and 3.960. EKG showed possibly sinus tachycardia with nonspecific ST-T changes and CT of the chest shows no evidence of pulmonary embolus, large pulmonary arteries and pulmonary hypertension. ASSESSMENT: 1. Chest pain possible acute non ST-segment elevation myocardial infarction. 2. Chronic obstructive pulmonary disease acute exacerbation with acute purulent tracheobronchitis with possible early sepsis, present on admission. 3. Severe pulmonary hypertension. 4. Acute on chronic hypoxic respiratory failure. 5. Hyponatremia. 6. Hyperkalemia. 7. Elevated random blood sugar. 8. Increased WBC. 9. Increased MCV. 10.Hyperlipidemia. 11.Hypertension. 12.Remote history of nicotine dependence. 13.Depression. 14.Gastroesophageal reflux disease. 15.FULL CODE. 16.Obesity with body mass index of 35.4. RECOMMENDATIONS AND DISCUSSION: In this 73-year-old woman who presented with multiple complex medical issues, we will monitor the patient closely, continue the current medications, symptomatic treatment. Otherwise, at this time, I recommend continue with current medications. Cardiology, pulmonology has been consulted. Otherwise, continue with acute coronary syndrome protocol. We will optimize bronchodilators. Continue with empiric antibiotics. Continue the rest of medications. Medication reconciliation done. The overall prognosis extremely guarded because of multiple complex medical issues including acute OR and COPD as well. See orders for details. The patient is started on IV Zosyn. Guarded prognosis. Further recommendations to follow. See orders for details. The patient is on IV heparin. Repeat labs are ordered. MMODL / IJN: [id number] /
[2019-05-28] MEDS ORDERED: VANCOMYCIN IV PER PHARMACY 1 EACH MISC MISCELLANE PRN (14:29)
[2019-05-28] MEDS: PIPERACILLIN-TAZOBACTAM 3.375 GM in SODIUM CHLORIDE 0.9% 100 ML IVPB SCH ×2 (15:30→23:04)
[2019-05-28] MEDS: prednisoLONE ACETATE 1% OPHTH DROPS 5 ML BTL BOTH EYES SCH ×3 (15:32→20:21)
[2019-05-28] MEDS: FUROSEMIDE 20 MG TAB PO SCH (15:32)
[2019-05-28] MEDS: methylPREDNISolone SOD SUCCI 40 MG/ML 1 ML VIAL IV SCH ×2 (15:32→23:04)
[2019-05-28] MEDS: VANCOMYCIN 1,500 MG in SODIUM CHLORIDE 0.9% 250 ML IVPB SCH (15:32)
[2019-05-28] MEDS: LISINOPRIL 10 MG TAB PO SCH (15:33)
[2019-05-28 17:01] LABS: Glucose,Whole Blood 181 mg/dL (75-99)
[2019-05-28] MEDS: INSULIN ASPART (NovoLOG) 100 UNIT/ML VIAL SQ SCH ×2 (17:38→20:21)
[2019-05-28] MEDS: SYMBICORT 160-4.5 MCG INHALER INHALATION SCH (19:28)
[2019-05-28 20:15] LABS: Glucose,Whole Blood 233 mg/dL (75-99)
[2019-05-28] MEDS: AMITRIPTYLINE HCL 25 MG TAB PO SCH (20:20)
[2019-05-28] MEDS: PRAMIPEXOLE 0.5 MG TAB PO SCH (20:20)
[2019-05-28] MEDS: ATORVASTATIN 80 MG TAB PO SCH (20:20)
[2019-05-28] MEDS ORDERED: FLUTICASONE 50MCG/SPRAY NASAL 16GM EA NOSTRIL PRN (23:10)
[2019-05-29] MEDS: ACETAMINOPHEN TAB 325 MG TAB PO PRN (00:51)
[2019-05-29] MEDS: IPRATROPIUM-ALBUTEROL 3 ML NEB INHALATION SCH ×5 (03:27→19:42)
[2019-05-29] MEDS: HEPARIN SOD,PORK IN 0.45% NACL 25,000 UNIT in 0.45% NACL 1 250ML.BAG IV SCH ×2 (05:50→23:09)
[2019-05-29 06:05] LABS: Glucose,Whole Blood 178 mg/dL (75-99)
[2019-05-29] MEDS: INSULIN ASPART (NovoLOG) 100 UNIT/ML VIAL SQ SCH ×4 (06:08→21:05)
[2019-05-29 06:13] LABS: Calcium 7.6 mg/dL (8.4-10.2); Potassium 4.1 mmol/L (3.5-5.1)
[2019-05-29 06:14] LABS: Basophils % (A) 0 %; Eosinophils % (A) 0 %; HCT 41.6 % (34.0-46.0); HGB 13.3 gm/dL (11.4-16.0); Lymphocytes # (A) 0.2 k/uL (1.0-4.8); Lymphocytes % (A) 2 %; MCH 33.3 pg (25.0-35.0); MCHC 31.9 g/dL (31.0-37.0); MCV 104.3 fL (80.0-100.0); Macrocytosis Slight; Mean Platelet Volume 9.8; Monocytes # (A) 0.6 k/uL (0-1.0); Monocytes % (A) 5 %; Neutrophils # (A) 10.4 k/uL (1.3-7.7); Neutrophils % (A) 92 %; Partial Thromboplastin Time 35.1 sec (22.0-30.0); Prothrombin Time 10.2 sec (9.0-12.0); RBC 3.98 m/uL (3.80-5.40); RDW 13.4 % (11.5-15.5); WBC 11.3 k/uL (3.8-10.6)
[2019-05-29 06:16] LABS: Platelet Count 70 k/uL (150-450)
[2019-05-29] MEDS: SYMBICORT 160-4.5 MCG INHALER INHALATION SCH ×2 (08:41→19:42)
[2019-05-29] MEDS: VANCOMYCIN 1,500 MG in SODIUM CHLORIDE 0.9% 250 ML IVPB SCH ×2 (08:56→23:01)
[2019-05-29] MEDS: PIPERACILLIN-TAZOBACTAM 3.375 GM in SODIUM CHLORIDE 0.9% 100 ML IVPB SCH ×3 (08:56→23:01)
[2019-05-29] MEDS: methylPREDNISolone SOD SUCCI 40 MG/ML 1 ML VIAL IV SCH ×3 (08:56→23:01)
[2019-05-29] MEDS: METOPROLOL TARTRATE 12.5 MG TAB PO SCH ×2 (08:57→20:17)
[2019-05-29] MEDS: PANTOPRAZOLE 40 MG TABLET PO SCH (08:57)
[2019-05-29] MEDS: prednisoLONE ACETATE 1% OPHTH DROPS 5 ML BTL BOTH EYES SCH ×3 (08:57→20:19)
[2019-05-29] MEDS: ASPIRIN 81 MG PO SCH (08:57)
[2019-05-29] MEDS: SERTRALINE 50 MG TAB PO SCH (08:57)
[2019-05-29] MEDS: FUROSEMIDE 20 MG TAB PO SCH (08:57)
[2019-05-29] MEDS: LISINOPRIL 10 MG TAB PO SCH (08:57)
[2019-05-29] MEDS ORDERED: NON FORMULARY DRUG (Omeprazole [Omeprazole] 40 MG) PO SCH (09:00)
[2019-05-29] MEDS: ILEVRO RIGHT EYE SCH (09:11)
--- NOTE | 2019-05-29 11:41 | ECHOF ---
Referral Reason:elevTrop MEASUREMENTS -------- HEIGHT: 160.0 cm WEIGHT: 91.2 kg BP: RVIDd: 2.8 cm (< 3.3) IVSd: 1.3 cm (0.6 - 1.1) LVIDd: 4.1 cm (3.9 - 5.3) LVPWd: 1.7 cm (0.6 - 1.1) IVSs: 1.5 cm LVIDs: 3.0 cm LVPWs: 2.0 cm LA Diam: 4.4 cm (2.7 - 3.8) MV EXCURSION: 16.659 mm (> 18.000) MV EF SLOPE: 91 mm/s (70 - 150) EPSS: 0.9 cm AV maxP.78 mmHg AV meanP.93 mmHg RAP: 5.00 mmHg RVSP: 17.78 mmHg FINDINGS -------- Atrial fibrillation. This was a techncally difficult study with suboptimal views, , Lumason utilized for enhancement of im ages. There is mild concentric left ventricular hypertrophy. Overall left ventricular systolic function i s low-normal with, an EF between 50 - 55 %. Left ventricular fillimg pressure cannot be estimated d ue to Atrial fibrillation. The right ventricle is normal in size. The left atrium is mildly dilated. The right atrial size is normal. 5.0mg OF Lumason UTLIZED: 2 OR MORE WALL SEGMENTS NOT VISUALIZED. The aortic valve was not well visualized. There is severe aortic stenosis present. Peak/mean grad ient across the Aortic Valve is 79.78mmHg / 55.93mmHg. The mitral valve was not well visualized. Mild mitral annular calcification present. Mild mitral regurgitation is present. Mild tricuspid regurgitation present. Right ventricular systolic pressure is normal at < 35 mmHg. There is no evidence of pulmonary hypertension. The pulmonic valve was not well visualized. The aortic root size is normal. There is a small, generalized pericardial effusion present. CONCLUSIONS -------- 1. Atrial fibrillation. 2. This was a techncally difficult study with suboptimal views, , Lumason utilized for enhancement of images. 3. There is mild concentric left ventricular hypertrophy. 4. Overall left ventricular systolic function is low-normal with, an EF between 50 - 55 %. 5. Left ventricular fillimg pressure cannot be estimated due to Atrial fibrillation. 6. The right ventricle is normal in size. 7. The left atrium is mildly dilated. 8. The right atrial size is normal. 9. 5.0mg OF Lumason UTLIZED: 2 OR MORE WALL SEGMENTS NOT VISUALIZED. 10. The aortic valve was not well visualized. 11. There is severe aortic stenosis present. 12. Peak/mean gradient across the Aortic Valve is 79.78mmHg / 55.93mmHg. 13. The mitral valve was not well visualized. 14. Mild mitral annular calcification present. 15. Mild mitral regurgitation is present. 16. Mild tricuspid regurgitation present. 17. Right ventricular systolic pressure is normal at < 35 mmHg. 18. There is no evidence of pulmonary hypertension. 19. The pulmonic valve was not well visualized. 20. The aortic root size is normal. 21. There is a small, generalized pericardial effusion present. SLATE ROOFER: Cira Schaeffer RDCS
[2019-05-29 11:50] LABS: Glucose,Whole Blood 219 mg/dL (75-99)
--- NOTE | 2019-05-29 14:09 | P.PN ---
Subjective Progress Note Date: 05/29/19 This is a 73-year-old female admitted with acute on chronic hypoxic respiratory failure, suspected CHF and COPD exacerbation, non-STEMI and multiple other medical issues. Maintained on nebulized bronchodilators, Zosyn, diuretics. Anticoagulated on heparin drip. Echo currently being completed at bedside. One of 3 initial blood cultures reporting presumptive MRSA, repeat blood cultures ordered. Objective - Vital Signs Vital signs: Vital Signs Temp 98.4 F 05/29/19 08:00 Pulse 100 05/29/19 12:38 Resp 24 05/29/19 08:00 BP 116/83 05/29/19 08:00 Pulse Ox 91 L 05/29/19 08:00 Intake & Output 05/28/19 05/29/19 05/29/19 18:59 06:59 18:59 Intake Total 360 232.834 240 Output Total 700 1400 400 Balance -340 -1167.166 -160 Weight 90.718 kg 91.3 kg 91.3 kg Intake: Intake, IV Titration 232.834 Amount Heparin Sod,Pork in 0.45% 232.834 NaCl 25,000 unit In 0.45 % NaCl 1 250ml.bag @ 11. 023 UNITS/KG/HR 10 mls/hr IV .Q24H FREDY Rx#: [id number] Oral 360 240 Output: Urine 700 1400 400 Other: Voiding Method Bedpan Bedside Commode # Voids 1 # Bowel Movements 0 1 1 - Exam PHYSICAL EXAM: VITAL SIGNS: As above GENERAL: Sitting up in bed, no acute distress, HEENT: Conjunctivae normal. eyes normal. Hard of hearing. NECK: No JVD. No thyroid enlargement. No LNs CARDIOVASCULAR: S1, S2 regular.Systolic murmur RESPIRATION: Breath sounds diminished in the bases. Scattered rhonchi and crackles. No wheezing ABDOMEN: Soft, nontender . No guarding. no masses palpable. No ascites, No hepatosplenomegaly.Bowel sounds heard. LEGS: No edema. no swelling PSYCHIATRY: Alert and oriented X3, mood and affect normal. NERVOUS SYSTEM: Cranial N 2-12 grossly normal. Moves all 4 limbs. Diffuse weakness No focal deficits. Strength and sensation grossly intact.. Skin: no rash - Labs CBC & Chem 7: 05/29/19 05:25 05/29/19 05:25 Labs: Abnormal Lab Results - Last 24 Hours (Table) 05/28/19 05/28/19 05/28/19 Range/Units 13:41 13:41 16:49 WBC (3.8-10.6) k/uL MCV (80.0-100.0) fL Plt Count (150-450) k/uL Neutrophils # (1.3-7.7) k/uL Lymphocytes # (1.0-4.8) k/uL APTT 55.5 H (22.0-30.0) sec Carbon Dioxide (22-30) mmol/L BUN (7-17) mg/dL Glucose (74-99) mg/dL POC Glucose (mg/dL) 181 H (75-99) mg/dL Calcium (8.4-10.2) mg/dL Troponin I 4.040 H* (0.000-0.034) ng/mL HDL Cholesterol (40-60) mg/dL 05/28/19 05/29/19 05/29/19 Range/Units 20:14 05:25 05:25 WBC 11.3 H (3.8-10.6) k/uL MCV 104.3 H (80.0-100.0) fL Plt Count 70 L (150-450) k/uL Neutrophils # 10.4 H (1.3-7.7) k/uL Lymphocytes # 0.2 L (1.0-4.8) k/uL APTT (22.0-30.0) sec Carbon Dioxide 32 H (22-30) mmol/L BUN 32 H (7-17) mg/dL Glucose 191 H (74-99) mg/dL POC Glucose (mg/dL) 233 H (75-99) mg/dL Calcium 7.6 L (8.4-10.2) mg/dL Troponin I (0.000-0.034) ng/mL HDL Cholesterol 38 L (40-60) mg/dL 05/29/19 05/29/19 05/29/19 Range/Units 05:25 06:03 11:42 WBC (3.8-10.6) k/uL MCV (80.0-100.0) fL Plt Count (150-450) k/uL Neutrophils # (1.3-7.7) k/uL Lymphocytes # (1.0-4.8) k/uL APTT 35.1 H (22.0-30.0) sec Carbon Dioxide (22-30) mmol/L BUN (7-17) mg/dL Glucose (74-99) mg/dL POC Glucose (mg/dL) 178 H 219 H (75-99) mg/dL Calcium (8.4-10.2) mg/dL Troponin I (0.000-0.034) ng/mL HDL Cholesterol (40-60) mg/dL 05/29/19 Range/Units 12:03 WBC (3.8-10.6) k/uL MCV (80.0-100.0) fL Plt Count (150-450) k/uL Neutrophils # (1.3-7.7) k/uL Lymphocytes # (1.0-4.8) k/uL APTT 38.5 H (22.0-30.0) sec Carbon Dioxide (22-30) mmol/L BUN (7-17) mg/dL Glucose (74-99) mg/dL POC Glucose (mg/dL) (75-99) mg/dL Calcium (8.4-10.2) mg/dL Troponin I (0.000-0.034) ng/mL HDL Cholesterol (40-60) mg/dL Microbiology - Last 24 Hours (Table) 05/28/19 14:35 Blood Culture Gram Stain - Preliminary Blood 05/28/19 04:09 Blood Culture Gram Stain - Preliminary Blood Blood Culture - Preliminary Presumptive MRSA 05/28/19 14:35 Blood Culture - Final Blood 05/28/19 04:09 Blood Culture - Final Blood Assessment and Plan Assessment: Acute on chronic hypoxic respiratory failure secondary to multifactorial, early sepsis-etiology unclear, present on admission , acute CHF exacerbation, acute COPD exacerbation, NSTEMI Possible acute NSTEMI Bacteremia, presumptive MRSA, repeat blood cultures in progress Pulmonary hypertension hypertension Lipidemia Gastroesophageal reflux disease Prior nicotine dependence Anxiety, depression Hyponatremia resolved Plan: Continue on current medication regime, monitoring and symptomatically treatment. Maintain nebulized bronchodilators, steroids, antibiotics, diuretics. Repeat blood cultures in progress. Anticoagulated on heparin drip, cardiac catheterization being discussed, echo results pending. The impression and plan of care has been dictated as directed. : I performed a history and examination of this patient, discussed the same with the dictator. I agree with the dictator's note ,documented as a scribe. Any additional findings or plans will be noted.
--- NOTE | 2019-05-29 14:33 | P.PN ---
Subjective Progress Note Date: 05/29/19 Principal diagnosis: Shortness of breath, pain between the shoulder blades This is a very pleasant 73-year-old female patient who follows with Dr. Glez as her primary care provider. She has a history of hypertension, hyperlipidemia, hard of hearing chronic obstructive pulmonary disease secondary to chronic tobacco dependence. She's not been seen by a bass fisher in the past. Has been maintained on Breo, DuoNeb inhalations. She had recently been treated with Levaquin and a prednisone taper for cough and congestion. She presented here early this morning via EMS with shortness of breath and pain between her shoulder blades. CT angiogram ruled out pulmonary embolism. There was noted large pulmonary arteries consistent with pulmonary hypertension. Cardiomegaly and mild atelectasis of the lung bases. White count 14.4. Hemoglobin 14.5. Sodium 129. Potassium 5.3. Bicarb 28. Creatinine 0.91. Initial lactate 2.2. Down to 1.4. Troponin 2.66 and 3.96. ProBNP 7310. Influenza screen negative. She is seen today in consultation on the cardiac floor. She is currently resting comfortably in bed. Awake and alert in no acute distress. No worsening shortness of breath, cough or congestion. Maintaining O2 saturations in the low 90s on 5 L/m per nasal cannula. She did have a T-max of 102.7. Currently afebrile. She was initiated on Zosyn, Symbicort, DuoNeb inhalations, IV Solu-Medrol. Denies any further discomfort between her shoulder blades. Echocardiogram pending. She has been initiated on a heparin drip. On 05/29/2019 patient is seen in follow-up on selective care unit. In no acute distress, currently on 5 L of oxygen and her pulse oximetry is still marginal with a pulse ox of 91%, afebrile, hemodynamically stable, denies any chest pain, no pain between the shoulder blades, she states she is feeling better today. Lung sounds are positive for a few bibasilar crackles, no rhonchi, no wheezes. Patient CTA chest showed no evidence of pulmonary embolism, he did show evidence of pulmonary hypertension, cardiomegaly and mild atelectasis at the posterior lung bases. Patient continues on nebulized bronchodilators, she is on weight-b ased heparin drip, and she is on empiric antibiotics in the form of Zosyn. Objective - Vital Signs Vital signs: Vital Signs Temp 98.4 F 05/29/19 08:00 Pulse 100 05/29/19 12:38 Resp 24 05/29/19 12:00 BP 130/76 05/29/19 12:00 Pulse Ox 94 L 05/29/19 12:00 Intake & Output 05/28/19 05/29/19 05/29/19 18:59 06:59 18:59 Intake Total 360 232.834 331.362 Output Total 700 1400 400 Balance -340 -1167.166 -68.638 Weight 90.718 kg 91.3 kg 91.3 kg Intake: Intake, IV Titration 232.834 91.362 Amount Heparin Sod,Pork in 0.45% 232.834 91.362 NaCl 25,000 unit In 0.45 % NaCl 1 250ml.bag @ 11. 023 UNITS/KG/HR 10 mls/hr IV .Q24H COUNTS INCLUDE 234 BEDS AT THE [facility] Rx#: [id number] Oral 360 240 Output: Urine 700 1400 400 Other: Voiding Method Bedpan Bedside Commode # Voids 1 # Bowel Movements 0 1 1 - Exam GENERAL EXAM: Alert, very pleasant, 73-year-old white female, 5 L of oxygen with a pulse ox of 91% comfortable in no apparent distress. HEAD: Normocephalic/atraumatic. EYES: Normal reaction of pupils, equal size. Conjunctiva pink, sclera white. NOSE: Clear with pink turbinates. THROAT: No erythema or exudates. NECK: No masses, no JVD, no thyroid enlargement, no adenopathy. CHEST: No chest wall deformity. Symmetrical expansion. LUNGS: Equal air entry with bibasilar crackles, but no wheeze, rhonchi or dullness. CVS: Regular rate and rhythm, normal S1 and S2, no gallops, no murmurs, no rubs ABDOMEN: Soft, nontender. No hepatosplenomegaly, normal bowel sounds, no guarding or rigidity. EXTREMITIES: No clubbing, no edema, no cyanosis, 2+ pulses and upper and lower extremities. MUSCULOSKELETAL: Muscle strength and tone normal. SPINE: No scoliosis or deformity SKIN: No rashes CENTRAL NERVOUS SYSTEM: Alert and oriented -3. No focal deficits, tone is normal in all 4 extremities. PSYCHIATRIC: Alert and oriented -3. Appropriate affect. Intact judgment and insight. - Labs CBC & Chem 7: 05/29/19 05:25 05/29/19 05:25 Labs: Abnormal Lab Results - Last 24 Hours (Table) 05/28/19 05/28/19 05/28/19 Range/Units 13:41 16:49 20:14 WBC (3.8-10.6) k/uL MCV (80.0-100.0) fL Plt Count (150-450) k/uL Neutrophils # (1.3-7.7) k/uL Lymphocytes # (1.0-4.8) k/uL APTT (22.0-30.0) sec Carbon Dioxide (22-30) mmol/L BUN (7-17) mg/dL Glucose (74-99) mg/dL POC Glucose (mg/dL) 181 H 233 H (75-99) mg/dL Calcium (8.4-10.2) mg/dL Troponin I 4.040 H* (0.000-0.034) ng/mL HDL Cholesterol (40-60) mg/dL 05/29/19 05/29/19 05/29/19 Range/Units 05:25 05:25 05:25 WBC 11.3 H (3.8-10.6) k/uL MCV 104.3 H (80.0-100.0) fL Plt Count 70 L (150-450) k/uL Neutrophils # 10.4 H (1.3-7.7) k/uL Lymphocytes # 0.2 L (1.0-4.8) k/uL APTT 35.1 H (22.0-30.0) sec Carbon Dioxide 32 H (22-30) mmol/L BUN 32 H (7-17) mg/dL Glucose 191 H (74-99) mg/dL POC Glucose (mg/dL) (75-99) mg/dL Calcium 7.6 L (8.4-10.2) mg/dL Troponin I (0.000-0.034) ng/mL HDL Cholesterol 38 L (40-60) mg/dL 05/29/19 05/29/19 05/29/19 Range/Units 06:03 11:42 12:03 WBC (3.8-10.6) k/uL MCV (80.0-100.0) fL Plt Count (150-450) k/uL Neutrophils # (1.3-7.7) k/uL Lymphocytes # (1.0-4.8) k/uL APTT 38.5 H (22.0-30.0) sec Carbon Dioxide (22-30) mmol/L BUN (7-17) mg/dL Glucose (74-99) mg/dL POC Glucose (mg/dL) 178 H 219 H (75-99) mg/dL Calcium (8.4-10.2) mg/dL Troponin I (0.000-0.034) ng/mL HDL Cholesterol (40-60) mg/dL Microbiology - Last 24 Hours (Table) 05/28/19 14:35 Blood Culture Gram Stain - Preliminary Blood 05/28/19 04:09 Blood Culture Gram Stain - Preliminary Blood Blood Culture - Preliminary Presumptive MRSA 05/28/19 14:35 Blood Culture - Final Blood 05/28/19 04:09 Blood Culture - Final Blood Assessment and Plan Plan: Assessment: 1 Acute on chronic hypoxemic respiratory failure secondary to suspected systolic versus congestive heart failure, basilar atelectasis, acute exacerbation of chronic obstructive pulmonary disease 2 Non-ST segment elevation myocardial infarction, currently on heparin drip 3 History of chronic tobacco dependence 4 Pulmonary hypertension 5 Febrile illness with mild lactic acidosis, recovered 6 Hyperlipidemia 7 Hypertension 8 History of anxiety/depression 9 Gastroesophageal reflux disease 10 preserved LV function with EF of 50-55%, severe aortic stenosis, 11 presumptive MRSA bacteremia, final culture is pending, patient is covered with Zosyn and vancomycin Plan: Continue current medical treatment continue Zosyn and vancomycin for presumptive MRSA bacteremia, awaiting final culture, continue oral Lasix, continue nebulized bronchodilators, no major rhonchi or wheezing, patient is feeling better today, still on 5 L of oxygen with a pulse ox of 91%, pleasant chest pain or pain between his shoulder blades. She is improving, breathing easier. Echocardiogram was reviewed showing low-normal EF of 50-55%, severe aortic stenosis, cardiology is following. We'll continue to follow I performed a history & physical examination of the patient and discussed their management with my nurse practitioner, Amanda Bateman. I reviewed the nurse practitioner's note and agree with the documented findings and plan of care. Lung sounds are positive for bibasilar crackles. The findings and the impression was discussed with the patient. I attest to the documentation by the nurse practitioner. Time with Patient: Less than 30
[2019-05-29 16:52] LABS: Glucose,Whole Blood 192 mg/dL (75-99)
--- NOTE | 2019-05-29 17:49 | P.PN ---
Subjective This is Tash Patiño PA-C dictating a progress note on this patient The patient was interviewed and examined by me as well as by Dr. De Oliveira Case discussed with Dr. De Oliveira and he agrees with the plan of care IMPRESSION / ASSESSMENT: Sepsis, blood cultures positive for staph aureus, unclear source, on IV antibiotics Abnormal troponins, no acute changes on EKG, possible non-ST elevation [place] versus type II [place] secondary to sepsis, pt currently chest pain free Acute on chronic hypoxic respiratory failure COPD Chest CT showing evidence of pulmonary hypertension Recent echo showing preserved LV systolic function aortic stenosis PLAN: continue aspirin and statins, beta blockers, heparin drip plan for heart catheterization once sepsis improves HPI/interval history Patient is a 73-year-old female with a past medical history of COPD who presented with complaints of weakness and shortness of breath. She also had some back pain between her shoulder blades that radiated around to her chest as well as some substernal chest discomfort. Upon presentation she was febrile and tachycardic. EKG showed sinus tachycardia with no acute ST or T-wave abnormalities. Blood cultures are positive for staph aureus. Troponins are abnormal and trending up. Patient is a poor historian and most of her history was gathered from the chart. Patient seen and examined resting in bed. States she is still short of breath but her breathing has improved. Denies any chest pain. Back pain has also improved. No cough or urinary symptoms. EXAMINATION Patient is afebrile, pulse in the 120s, respirations 24, blood pressure 116/83, oxygen saturation 91% on 3 L nasal cannula Patient seen and examined resting in bed, in no acute distress Lungs mildly diminished bilaterally Heart is tachycardic but regular, systolic murmur audible No elevated JVD No lower extremity edema REVIEW OF LABS, ECG WBC 11.3, hemoglobin 13.3, platelets 70, potassium 4.1, BUN 32, creatinine 0.88 Troponins 4.040, 3.96, 2.66 LDL 67 Echocardiogram shows EF 50-55%, mild concentric LVH, severe aortic stenosis Objective - Vital Signs Vital signs: Vital Signs Temp 98.4 F 05/29/19 08:00 Pulse 100 05/29/19 12:38 Resp 24 05/29/19 12:00 BP 130/76 05/29/19 12:00 Pulse Ox 94 L 05/29/19 12:00 Intake & Output 05/28/19 05/29/19 05/29/19 18:59 06:59 18:59 Intake Total 360 232.834 331.362 Output Total 700 1400 400 Balance -340 -1167.166 -68.638 Weight 90.718 kg 91.3 kg 91.3 kg Intake: Intake, IV Titration 232.834 91.362 Amount Heparin Sod,Pork in 0.45% 232.834 91.362 NaCl 25,000 unit In 0.45 % NaCl 1 250ml.bag @ 11. 023 UNITS/KG/HR 10 mls/hr IV .Q24H [facility] Rx#: [id number] Oral 360 240 Output: Urine 700 1400 400 Other: Voiding Method Bedpan Bedside Commode # Voids 1 # Bowel Movements 0 1 1 - Labs CBC & Chem 7: 05/29/19 05:25 05/29/19 05:25 Labs: Abnormal Lab Results - Last 24 Hours (Table) 05/28/19 05/28/19 05/29/19 Range/Units 16:49 20:14 05:25 WBC (3.8-10.6) k/uL MCV (80.0-100.0) fL Plt Count (150-450) k/uL Neutrophils # (1.3-7.7) k/uL Lymphocytes # (1.0-4.8) k/uL APTT (22.0-30.0) sec Carbon Dioxide 32 H (22-30) mmol/L BUN 32 H (7-17) mg/dL Glucose 191 H (74-99) mg/dL POC Glucose (mg/dL) 181 H 233 H (75-99) mg/dL Calcium 7.6 L (8.4-10.2) mg/dL HDL Cholesterol 38 L (40-60) mg/dL 05/29/19 05/29/19 05/29/19 Range/Units 05:25 05:25 06:03 WBC 11.3 H (3.8-10.6) k/uL MCV 104.3 H (80.0-100.0) fL Plt Count 70 L (150-450) k/uL Neutrophils # 10.4 H (1.3-7.7) k/uL Lymphocytes # 0.2 L (1.0-4.8) k/uL APTT 35.1 H (22.0-30.0) sec Carbon Dioxide (22-30) mmol/L BUN (7-17) mg/dL Glucose (74-99) mg/dL POC Glucose (mg/dL) 178 H (75-99) mg/dL Calcium (8.4-10.2) mg/dL HDL Cholesterol (40-60) mg/dL 05/29/19 05/29/19 Range/Units 11:42 12:03 WBC (3.8-10.6) k/uL MCV (80.0-100.0) fL Plt Count (150-450) k/uL Neutrophils # (1.3-7.7) k/uL Lymphocytes # (1.0-4.8) k/uL APTT 38.5 H (22.0-30.0) sec Carbon Dioxide (22-30) mmol/L BUN (7-17) mg/dL Glucose (74-99) mg/dL POC Glucose (mg/dL) 219 H (75-99) mg/dL Calcium (8.4-10.2) mg/dL HDL Cholesterol (40-60) mg/dL Microbiology - Last 24 Hours (Table) 05/28/19 14:35 Blood Culture Gram Stain - Preliminary Blood 05/28/19 04:09 Blood Culture Gram Stain - Preliminary Blood Blood Culture - Preliminary Presumptive MRSA 05/28/19 14:35 Blood Culture - Final Blood 05/28/19 04:09 Blood Culture - Final Blood
[2019-05-29] MEDS: ATORVASTATIN 80 MG TAB PO SCH (20:16)
[2019-05-29] MEDS: AMITRIPTYLINE HCL 25 MG TAB PO SCH (20:16)
[2019-05-29] MEDS: PRAMIPEXOLE 0.5 MG TAB PO SCH (20:17)
[2019-05-29 20:47] LABS: Glucose,Whole Blood 280 mg/dL (75-99)
[2019-05-30] MEDS: IPRATROPIUM-ALBUTEROL 3 ML NEB INHALATION SCH ×7 (00:34→23:50)
[2019-05-30] MEDS: ALPRAZolam 0.25 MG TAB PO PRN ×2 (00:52→23:11)
[2019-05-30] MEDS: METOPROLOL TARTRATE 12.5 MG TAB PO SCH ×2 (03:29→21:03)
[2019-05-30] MEDS ORDERED: DILTIAZEM DRIP BOLUS FROM BAG 1 MG SOLN IV ONE (03:34)
[2019-05-30] MEDS ORDERED: DILTIAZEM 125 MG in SODIUM CHLORIDE 0.9% 100 ML IV SCH ×2 (04:00→10:00)
[2019-05-30 04:02] LABS: Basophils % (A) 1 %; Eosinophils % (A) 0 %; HCT 40.2 % (34.0-46.0); HGB 12.4 gm/dL (11.4-16.0); Hypochromasia Slight; Lymphocytes # (A) 0.3 k/uL (1.0-4.8); Lymphocytes % (A) 3 %; MCH 32.8 pg (25.0-35.0); MCHC 30.9 g/dL (31.0-37.0); MCV 106.1 fL (80.0-100.0); Macrocytosis Moderate; Mean Platelet Volume 10.1; Monocytes # (A) 0.4 k/uL (0-1.0); Monocytes % (A) 4 %; Neutrophils % (A) 91 %; RBC 3.79 m/uL (3.80-5.40); RDW 13.3 % (11.5-15.5); WBC 9.9 k/uL (3.8-10.6)
[2019-05-30 04:06] LABS: Platelet Count 59 k/uL (150-450)
[2019-05-30 04:47] LABS: Potassium 4.4 mmol/L (3.5-5.1)
[2019-05-30 04:50] LABS: Calcium 7.8 mg/dL (8.4-10.2); Magnesium 2.4 mg/dL (1.6-2.3)
[2019-05-30] MEDS: DILTIAZEM DRIP BOLUS FROM BAG 1 MG SOLN IV ONE ×2 (06:00→06:09)
[2019-05-30 06:27] LABS: Partial Thromboplastin Time 52.1 sec (22.0-30.0); Prothrombin Time 10.1 sec (9.0-12.0)
[2019-05-30 06:38] LABS: Glucose,Whole Blood 223 mg/dL (75-99)
[2019-05-30] MEDS: INSULIN ASPART (NovoLOG) 100 UNIT/ML VIAL SQ SCH ×4 (06:56→21:04)
[2019-05-30] MEDS: SYMBICORT 160-4.5 MCG INHALER INHALATION SCH ×2 (08:02→21:22)
[2019-05-30] MEDS: PIPERACILLIN-TAZOBACTAM 3.375 GM in SODIUM CHLORIDE 0.9% 100 ML IVPB SCH ×3 (09:22→23:11)
[2019-05-30] MEDS: methylPREDNISolone SOD SUCCI 40 MG/ML 1 ML VIAL IV SCH ×3 (09:22→23:10)
[2019-05-30] MEDS: ILEVRO RIGHT EYE SCH (09:23)
[2019-05-30] MEDS: FUROSEMIDE 20 MG TAB PO SCH (09:23)
[2019-05-30] MEDS: SERTRALINE 50 MG TAB PO SCH (09:23)
[2019-05-30] MEDS: PANTOPRAZOLE 40 MG TABLET PO SCH (09:23)
[2019-05-30] MEDS: LISINOPRIL 10 MG TAB PO SCH (09:23)
[2019-05-30] MEDS: ASPIRIN 81 MG PO SCH (09:23)
[2019-05-30] MEDS: prednisoLONE ACETATE 1% OPHTH DROPS 5 ML BTL BOTH EYES SCH ×3 (09:23→21:03)
[2019-05-30 11:56] LABS: Glucose,Whole Blood 247 mg/dL (75-99)
--- NOTE | 2019-05-30 14:33 | P.PN ---
Subjective Progress Note Date: 05/30/19 Principal diagnosis: Shortness of breath, pain between the shoulder blades This is a very pleasant 73-year-old female patient who follows with Dr. Glez as her primary care provider. She has a history of hypertension, hyperlipidemia, hard of hearing chronic obstructive pulmonary disease secondary to chronic tobacco dependence. She's not been seen by a career development facilitator in the past. Has been maintained on Breo, DuoNeb inhalations. She had recently been treated with Levaquin and a prednisone taper for cough and congestion. She presented here early this morning via EMS with shortness of breath and pain between her shoulder blades. CT angiogram ruled out pulmonary embolism. There was noted large pulmonary arteries consistent with pulmonary hypertension. Cardiomegaly and mild atelectasis of the lung bases. White count 14.4. Hemoglobin 14.5. Sodium 129. Potassium 5.3. Bicarb 28. Creatinine 0.91. Initial lactate 2.2. Down to 1.4. Troponin 2.66 and 3.96. ProBNP 7310. Influenza screen negative. She is seen today in consultation on the cardiac floor. She is currently resting comfortably in bed. Awake and alert in no acute distress. No worsening shortness of breath, cough or congestion. Maintaining O2 saturations in the low 90s on 5 L/m per nasal cannula. She did have a T-max of 102.7. Currently afebrile. She was initiated on Zosyn, Symbicort, DuoNeb inhalations, IV Solu-Medrol. Denies any further discomfort between her shoulder blades. Echocardiogram pending. She has been initiated on a heparin drip. On 05/29/2019 patient is seen in follow-up on selective care unit. In no acute distress, currently on 5 L of oxygen and her pulse oximetry is still marginal with a pulse ox of 91%, afebrile, hemodynamically stable, denies any chest pain, no pain between the shoulder blades, she states she is feeling better today. Lung sounds are positive for a few bibasilar crackles, no rhonchi, no wheezes. Patient CTA chest showed no evidence of pulmonary embolism, he did show evidence of pulmonary hypertension, cardiomegaly and mild atelectasis at the posterior lung bases. Patient continues on nebulized bronchodilators, she is on weight-b ased heparin drip, and she is on empiric antibiotics in the form of Zosyn. On 05/30/2019 patient seen in follow-up on selective care unit, she is calm and comfortable, denies any worsening shortness of breath, lung sounds are clear, she is currently on 5 L of oxygen the pulse ox of 93%, afebrile, hemodynamically patient is stable, Cardizem drip has been discontinued, she remains on heparin drip per weight base protocol. Patient is in sinus rhythm with a rate of 89. Denies any chest pain, denies any difficulty breathing. Objective - Vital Signs Vital signs: Vital Signs Temp 98.5 F 05/30/19 12:00 Pulse 92 05/30/19 13:14 Resp 18 05/30/19 12:26 BP 115/62 05/30/19 12:00 Pulse Ox 93 L 05/30/19 12:00 Intake & Output 05/29/19 05/30/19 05/30/19 18:59 06:59 18:59 Intake Total 571.362 612.739 480 Output Total 400 700 1 Balance 171.362 -87.261 479 Weight 91.3 kg 92.3 kg Intake: Intake, IV Titration 91.362 372.739 Amount Heparin Sod,Pork in 0.45% 91.362 122.739 NaCl 25,000 unit In 0.45 % NaCl 1 250ml.bag @ 11. 023 UNITS/KG/HR 10 mls/hr IV .Q24H [facility] Rx#: [id number] Vancomycin 1,500 mg In 250 Sodium Chloride 0.9% 250 ml @ 125 mls/hr IVPB Q16H [facility] Rx#:[id number] Oral 480 240 480 Output: Urine 400 700 Stool 1 Other: Voiding Method Bedside Commode Bedside Commode # Voids 3 1 # Bowel Movements 1 - Exam GENERAL EXAM: Alert, very pleasant, 73-year-old white female, 5 L of oxygen with a pulse ox of 93% comfortable in no apparent distress. HEAD: Normocephalic/atraumatic. EYES: Normal reaction of pupils, equal size. Conjunctiva pink, sclera white. NOSE: Clear with pink turbinates. THROAT: No erythema or exudates. NECK: No masses, no JVD, no thyroid enlargement, no adenopathy. CHEST: No chest wall deformity. Symmetrical expansion. LUNGS: Equal air entry with bibasilar crackles, but no wheeze, rhonchi or dullness. CVS: Regular rate and rhythm, normal S1 and S2, no gallops, no murmurs, no rubs ABDOMEN: Soft, nontender. No hepatosplenomegaly, normal bowel sounds, no guarding or rigidity. EXTREMITIES: No clubbing, no edema, no cyanosis, 2+ pulses and upper and lower extremities. MUSCULOSKELETAL: Muscle strength and tone normal. SPINE: No scoliosis or deformity SKIN: No rashes CENTRAL NERVOUS SYSTEM: Alert and oriented -3. No focal deficits, tone is normal in all 4 extremities. PSYCHIATRIC: Alert and oriented -3. Appropriate affect. Intact judgment and insight. - Labs CBC & Chem 7: 05/30/19 03:41 05/30/19 03:41 Labs: Abnormal Lab Results - Last 24 Hours (Table) 05/29/19 05/29/19 05/29/19 Range/Units 16:44 20:08 20:44 RBC (3.80-5.40) m/uL MCV (80.0-100.0) fL MCHC (31.0-37.0) g/dL Plt Count (150-450) k/uL Neutrophils # (1.3-7.7) k/uL Lymphocytes # (1.0-4.8) k/uL APTT 68.2 H (22.0-30.0) sec Carbon Dioxide (22-30) mmol/L BUN (7-17) mg/dL Glucose (74-99) mg/dL POC Glucose (mg/dL) 192 H 280 H (75-99) mg/dL Calcium (8.4-10.2) mg/dL Magnesium (1.6-2.3) mg/dL Troponin I (0.000-0.034) ng/mL 05/30/19 05/30/19 05/30/19 Range/Units 03:41 03:41 03:41 RBC 3.79 L (3.80-5.40) m/uL MCV 106.1 H (80.0-100.0) fL MCHC 30.9 L (31.0-37.0) g/dL Plt Count 59 L (150-450) k/uL Neutrophils # 9.0 H (1.3-7.7) k/uL Lymphocytes # 0.3 L (1.0-4.8) k/uL APTT (22.0-30.0) sec Carbon Dioxide 37 H (22-30) mmol/L BUN 42 H (7-17) mg/dL Glucose 201 H (74-99) mg/dL POC Glucose (mg/dL) (75-99) mg/dL Calcium 7.8 L (8.4-10.2) mg/dL Magnesium 2.4 H (1.6-2.3) mg/dL Troponin I 2.060 H* (0.000-0.034) ng/mL 05/30/19 05/30/19 05/30/19 Range/Units 05:29 06:25 11:47 RBC (3.80-5.40) m/uL MCV (80.0-100.0) fL MCHC (31.0-37.0) g/dL Plt Count (150-450) k/uL Neutrophils # (1.3-7.7) k/uL Lymphocytes # (1.0-4.8) k/uL APTT 52.1 H (22.0-30.0) sec Carbon Dioxide (22-30) mmol/L BUN (7-17) mg/dL Glucose (74-99) mg/dL POC Glucose (mg/dL) 223 H 247 H (75-99) mg/dL Calcium (8.4-10.2) mg/dL Magnesium (1.6-2.3) mg/dL Troponin I (0.000-0.034) ng/mL Microbiology - Last 24 Hours (Table) 05/29/19 05:25 Blood Culture Gram Stain - Preliminary Blood Blood Culture - Preliminary Presumptive MRSA 05/28/19 14:35 Blood Culture Gram Stain - Final Blood Blood Culture - Final Methicillin resist S. aureus 05/28/19 04:09 Blood Culture Gram Stain - Final Blood Blood Culture - Final Methicillin resist S. aureus 05/29/19 05:25 Blood Culture - Final Blood Assessment and Plan Plan: Assessment: 1 Acute on chronic hypoxemic respiratory failure secondary to suspected systolic versus congestive heart failure, basilar atelectasis, acute exacerbation of chronic obstructive pulmonary disease 2 Non-ST segment elevation myocardial infarction, currently on heparin drip 3 History of chronic tobacco dependence 4 Pulmonary hypertension 5 Febrile illness with mild lactic acidosis, recovered 6 Hyperlipidemia 7 Hypertension 8 History of anxiety/depression 9 Gastroesophageal reflux disease 10 preserved LV function with EF of 50-55%, severe aortic stenosis, 11 presumptive MRSA bacteremia, final culture is pending, patient is covered with Zosyn and vancomycin Plan: No worsening dyspnea, continue weaning FiO2, continue antibiotics per ID service recommendations, patient is being treated for MRSA bacteremia, patient is currently in sinus rhythm with a controlled rate, Cardizem drip is off, patient is afebrile, she is feeling better, we'll continue to follow I performed a history & physical examination of the patient and discussed their management with my nurse practitioner, Amanda Bateman. I reviewed the nurse practitioner's note and agree with the documented findings and plan of care. Lung sounds are positive for bibasilar crackles. The findings and the impression was discussed with the patient. I attest to the documentation by the nurse practitioner. Time with Patient: Less than 30
[2019-05-30] MEDS: VANCOMYCIN 1,500 MG in SODIUM CHLORIDE 0.9% 250 ML IVPB SCH (15:24)
--- NOTE | 2019-05-30 16:13 | P.PN ---
Subjective Progress Note Date: 05/30/19 This is a 73-year-old female admitted with acute on chronic hypoxic respiratory failure, suspected CHF and COPD exacerbation, non-STEMI and multiple other medical issues. Maintained on nebulized bronchodilators, Zosyn, diuretics. Anticoagulated on heparin drip. Echo currently being completed at bedside. One of 3 initial blood cultures reporting presumptive MRSA, repeat blood cultures ordered. 05/30/2019 Feels better today. Last night developed atrial fibrillation with RVR, initiated on Cardizem drip. Converted to sinus rhythm, Cardizem drip discontinued.denies chest pain, palpitations or increased shortness of breath. maintained on heparin drip. Currently on 5 L nasal cannula with pulse ox in the low 90s. Continues on Zosyn and vancomycin, secondary to MRSA bacteremia. Repeat cultures reporting presumptive MRSA. Afebrile, normal WBC. Objective - Vital Signs Vital signs: Vital Signs Temp 98.3 F 05/30/19 15:22 Pulse 93 05/30/19 15:42 Resp 18 05/30/19 15:22 BP 109/66 05/30/19 15:22 Pulse Ox 91 L 05/30/19 15:22 Intake & Output 05/29/19 05/30/19 05/30/19 18:59 06:59 18:59 Intake Total 571.362 612.739 480 Output Total 400 700 1 Balance 171.362 -87.261 479 Weight 91.3 kg 92.3 kg Intake: Intake, IV Titration 91.362 372.739 Amount Heparin Sod,Pork in 0.45% 91.362 122.739 NaCl 25,000 unit In 0.45 % NaCl 1 250ml.bag @ 11. 023 UNITS/KG/HR 10 mls/hr IV .Q24H [facility] Rx#: [id number] Vancomycin 1,500 mg In 250 Sodium Chloride 0.9% 250 ml @ 125 mls/hr IVPB Q16H [facility] Rx#:[id number] Oral 480 240 480 Output: Urine 400 700 Stool 1 Other: Voiding Method Bedside Commode Bedside Commode # Voids 3 1 # Bowel Movements 1 - Exam PHYSICAL EXAM: VITAL SIGNS: As above GENERAL: Sitting up in bed, no acute distress, HEENT: Conjunctivae normal. eyes normal. Hard of hearing. NECK: No JVD. No thyroid enlargement. No LNs CARDIOVASCULAR: S1, S2 regular.Systolic murmur RESPIRATION: Breath sounds diminished in the bases. Scattered crackles. No wheezing. ABDOMEN: Soft, nontender . No guarding. no masses palpable. No ascites, No hepatosplenomegaly.Bowel sounds heard. LEGS: No edema. no swelling. PSYCHIATRY: Alert and oriented X3, mood and affect normal. NERVOUS SYSTEM: Cranial N 2-12 grossly normal. Moves all 4 limbs. Diffuse weakness No focal deficits. Strength and sensation grossly intact.. Skin: no rash - Labs CBC & Chem 7: 05/30/19 03:41 05/30/19 03:41 Labs: Abnormal Lab Results - Last 24 Hours (Table) 05/29/19 05/29/19 05/29/19 Range/Units 16:44 20:08 20:44 RBC (3.80-5.40) m/uL MCV (80.0-100.0) fL MCHC (31.0-37.0) g/dL Plt Count (150-450) k/uL Neutrophils # (1.3-7.7) k/uL Lymphocytes # (1.0-4.8) k/uL APTT 68.2 H (22.0-30.0) sec Carbon Dioxide (22-30) mmol/L BUN (7-17) mg/dL Glucose (74-99) mg/dL POC Glucose (mg/dL) 192 H 280 H (75-99) mg/dL Calcium (8.4-10.2) mg/dL Magnesium (1.6-2.3) mg/dL Troponin I (0.000-0.034) ng/mL 05/30/19 05/30/19 05/30/19 Range/Units 03:41 03:41 03:41 RBC 3.79 L (3.80-5.40) m/uL MCV 106.1 H (80.0-100.0) fL MCHC 30.9 L (31.0-37.0) g/dL Plt Count 59 L (150-450) k/uL Neutrophils # 9.0 H (1.3-7.7) k/uL Lymphocytes # 0.3 L (1.0-4.8) k/uL APTT (22.0-30.0) sec Carbon Dioxide 37 H (22-30) mmol/L BUN 42 H (7-17) mg/dL Glucose 201 H (74-99) mg/dL POC Glucose (mg/dL) (75-99) mg/dL Calcium 7.8 L (8.4-10.2) mg/dL Magnesium 2.4 H (1.6-2.3) mg/dL Troponin I 2.060 H* (0.000-0.034) ng/mL 05/30/19 05/30/19 05/30/19 Range/Units 05:29 06:25 11:47 RBC (3.80-5.40) m/uL MCV (80.0-100.0) fL MCHC (31.0-37.0) g/dL Plt Count (150-450) k/uL Neutrophils # (1.3-7.7) k/uL Lymphocytes # (1.0-4.8) k/uL APTT 52.1 H (22.0-30.0) sec Carbon Dioxide (22-30) mmol/L BUN (7-17) mg/dL Glucose (74-99) mg/dL POC Glucose (mg/dL) 223 H 247 H (75-99) mg/dL Calcium (8.4-10.2) mg/dL Magnesium (1.6-2.3) mg/dL Troponin I (0.000-0.034) ng/mL Microbiology - Last 24 Hours (Table) 05/29/19 05:25 Blood Culture Gram Stain - Preliminary Blood Blood Culture - Preliminary Presumptive MRSA 05/28/19 14:35 Blood Culture Gram Stain - Final Blood Blood Culture - Final Methicillin resist S. aureus 05/28/19 04:09 Blood Culture Gram Stain - Final Blood Blood Culture - Final Methicillin resist S. aureus 05/29/19 05:25 Blood Culture - Final Blood Assessment and Plan Assessment: Acute on chronic hypoxic respiratory failure secondary to multifactorial, early sepsis-secondary to MRSA bacteremia, present on admission , acute CHF exacerbation, acute COPD exacerbation, NSTEMI Possible acute NSTEMI MRSA Bacteremia, preliminary repeat blood culture presumptive MRSA Pulmonary hypertension hypertension Lipidemia Gastroesophageal reflux disease Prior nicotine dependence Anxiety, depression Hyponatremia resolved Plan: Continue on current medication regime, monitoring and symptomatically treatment. Maintain Zosyn, vancomycin ,nebulized bronchodilators, steroids, antibiotics, diuretics. Final Repeat blood cultures in progress. Anticoagulated on heparin drip, cardiac catheterization pending improvement of infection/sepsis. The impression and plan of care has been dictated as directed. : I performed a history and examination of this patient, discussed the same with the dictator. I agree with the dictator's note ,documented as a scribe. Any additional findings or plans will be noted.
[2019-05-30 16:47] LABS: Glucose,Whole Blood 254 mg/dL (75-99)
--- NOTE | 2019-05-30 16:58 | P.PN ---
Subjective This is Tash Patiño PA-C dictating a progress note on this patient The patient was interviewed and examined by me as well as by Dr. De Oliveira Case discussed with Dr. De Oliveira and he agrees with the plan of care IMPRESSION / ASSESSMENT: Sepsis, blood cultures positive for staph aureus, unclear source, on IV antibiotics Abnormal troponins, trending down, no acute changes on EKG, possible non-ST elevation CA versus type II CA secondary to sepsis, pt currently chest pain free Paroxysmal atrial fibrillation with RVR, currently in sinus rhythm Acute on chronic hypoxic respiratory failure COPD Chest CT showing evidence of pulmonary hypertension Recent echo showing preserved LV systolic function aortic stenosis Hypertension PLAN: start anticoagulation with eliquis 5 mg twice a day Consider AMARIS to rule out bacterial endocarditis continue aspirin and statins, beta blockers plan for heart catheterization once sepsis improves Check TSH HPI/interval history Patient is a 73-year-old female with a past medical history of COPD who presented with complaints of weakness and shortness of breath. Blood cultures positive for staph aureus, repeat cultures are again positive today. Troponins are abnormal, trending down today. Overnight the patient went into atrial fibrillation with RVR and was started on IV Cardizem. She converted to sinus rhythm this morning. Patient seen and examined resting in the chair. States she is feeling tired. She did feel fluttering in her neck when she was in atrial fibrillation. No chest pain currently. EXAMINATION Temperature 98.3F, pulse in the 80s, respirations 18, blood pressure 109/66, oxygen saturation 91% on 5 L nasal cannula Patient seen and examined sitting up in the chair, in no acute distress Lungs mildly diminished bilaterally, few scattered wheezes Heart is tachycardic but regular, systolic murmur audible No elevated JVD No lower extremity edema REVIEW OF LABS, ECG WBC 9.9, hemoglobin 12.4, platelets 59, potassium 4.4, BUN 42, creatinine 0.98 Troponins 2.06, 4.040, 3.96, 2.66 LDL 67 Echocardiogram shows EF 50-55%, mild concentric LVH, severe aortic stenosis Objective - Vital Signs Vital signs: Vital Signs Temp 98.3 F 05/30/19 15:22 Pulse 93 05/30/19 15:42 Resp 18 05/30/19 15:22 BP 109/66 05/30/19 15:22 Pulse Ox 91 L 05/30/19 15:22 Intake & Output 05/29/19 05/30/19 05/30/19 18:59 06:59 18:59 Intake Total 571.362 612.739 480 Output Total 400 700 1 Balance 171.362 -87.261 479 Weight 91.3 kg 92.3 kg Intake: Intake, IV Titration 91.362 372.739 Amount Heparin Sod,Pork in 0.45% 91.362 122.739 NaCl 25,000 unit In 0.45 % NaCl 1 250ml.bag @ 11. 023 UNITS/KG/HR 10 mls/hr IV .Q24H [facility] Rx#: [id number] Vancomycin 1,500 mg In 250 Sodium Chloride 0.9% 250 ml @ 125 mls/hr IVPB Q16H [facility] Rx#:[id number] Oral 480 240 480 Output: Urine 400 700 Stool 1 Other: Voiding Method Bedside Commode Bedside Commode # Voids 3 1 # Bowel Movements 1 - Labs CBC & Chem 7: 05/30/19 03:41 05/30/19 03:41 Labs: Abnormal Lab Results - Last 24 Hours (Table) 05/29/19 05/29/19 05/30/19 Range/Units 20:08 20:44 03:41 RBC 3.79 L (3.80-5.40) m/uL MCV 106.1 H (80.0-100.0) fL MCHC 30.9 L (31.0-37.0) g/dL Plt Count 59 L (150-450) k/uL Neutrophils # 9.0 H (1.3-7.7) k/uL Lymphocytes # 0.3 L (1.0-4.8) k/uL APTT 68.2 H (22.0-30.0) sec Carbon Dioxide (22-30) mmol/L BUN (7-17) mg/dL Glucose (74-99) mg/dL POC Glucose (mg/dL) 280 H (75-99) mg/dL Calcium (8.4-10.2) mg/dL Magnesium (1.6-2.3) mg/dL Troponin I (0.000-0.034) ng/mL 05/30/19 05/30/19 05/30/19 Range/Units 03:41 03:41 05:29 RBC (3.80-5.40) m/uL MCV (80.0-100.0) fL MCHC (31.0-37.0) g/dL Plt Count (150-450) k/uL Neutrophils # (1.3-7.7) k/uL Lymphocytes # (1.0-4.8) k/uL APTT 52.1 H (22.0-30.0) sec Carbon Dioxide 37 H (22-30) mmol/L BUN 42 H (7-17) mg/dL Glucose 201 H (74-99) mg/dL POC Glucose (mg/dL) (75-99) mg/dL Calcium 7.8 L (8.4-10.2) mg/dL Magnesium 2.4 H (1.6-2.3) mg/dL Troponin I 2.060 H* (0.000-0.034) ng/mL 05/30/19 05/30/19 05/30/19 Range/Units 06:25 11:47 16:36 RBC (3.80-5.40) m/uL MCV (80.0-100.0) fL MCHC (31.0-37.0) g/dL Plt Count (150-450) k/uL Neutrophils # (1.3-7.7) k/uL Lymphocytes # (1.0-4.8) k/uL APTT (22.0-30.0) sec Carbon Dioxide (22-30) mmol/L BUN (7-17) mg/dL Glucose (74-99) mg/dL POC Glucose (mg/dL) 223 H 247 H 254 H (75-99) mg/dL Calcium (8.4-10.2) mg/dL Magnesium (1.6-2.3) mg/dL Troponin I (0.000-0.034) ng/mL Microbiology - Last 24 Hours (Table) 05/29/19 05:25 Blood Culture Gram Stain - Preliminary Blood Blood Culture - Preliminary Presumptive MRSA 05/28/19 14:35 Blood Culture Gram Stain - Final Blood Blood Culture - Final Methicillin resist S. aureus 05/28/19 04:09 Blood Culture Gram Stain - Final Blood Blood Culture - Final Methicillin resist S. aureus 05/29/19 05:25 Blood Culture - Final Blood
[2019-05-30 20:41] LABS: Glucose,Whole Blood 267 mg/dL (75-99)
[2019-05-30 20:42] LABS: T4, Free (Free Thyroxine) 1.27 ng/dL (0.78-2.19)
[2019-05-30] MEDS: AMITRIPTYLINE HCL 25 MG TAB PO SCH (21:03)
[2019-05-30] MEDS: ATORVASTATIN 80 MG TAB PO SCH (21:03)
[2019-05-30] MEDS: APIXABAN 5 MG TAB PO SCH (21:03)
[2019-05-30] MEDS: PRAMIPEXOLE 0.5 MG TAB PO SCH (21:04)
[2019-05-31 00:47] LABS: Hemoglobin A1C 5.7 % (4.0-6.0)
[2019-05-31] MEDS: IPRATROPIUM-ALBUTEROL 3 ML NEB INHALATION SCH ×5 (03:25→19:48)
[2019-05-31 06:10] LABS: Glucose,Whole Blood 296 mg/dL (75-99)
[2019-05-31] MEDS ORDERED: VANCOMYCIN TROUGH DUE 1 EACH MISC MISCELLANE ONE (07:00)
[2019-05-31] MEDS: INSULIN ASPART (NovoLOG) 100 UNIT/ML VIAL SQ SCH ×4 (07:00→20:48)
[2019-05-31 07:32] LABS: Basophils % (A) 1 %; Eosinophils % (A) 0 %; HCT 36.3 % (34.0-46.0); HGB 11.5 gm/dL (11.4-16.0); Hypochromasia Moderate; Lymphocytes # (A) 0.3 k/uL (1.0-4.8); Lymphocytes % (A) 4 %; MCH 33.4 pg (25.0-35.0); MCHC 31.5 g/dL (31.0-37.0); Macrocytosis Moderate; Mean Platelet Volume 9.8; Monocytes # (A) 0.3 k/uL (0-1.0); Monocytes % (A) 4 %; Neutrophils # (A) 6.3 k/uL (1.3-7.7); Neutrophils % (A) 91 %; RBC 3.43 m/uL (3.80-5.40); RDW 13.3 % (11.5-15.5)
[2019-05-31 07:37] LABS: Platelet Count 76 k/uL (150-450)
[2019-05-31 07:40] LABS: Prothrombin Time 10.3 sec (9.0-12.0)
[2019-05-31 07:44] LABS: Calcium 7.7 mg/dL (8.4-10.2); Potassium 4.4 mmol/L (3.5-5.1)
[2019-05-31] MEDS: SYMBICORT 160-4.5 MCG INHALER INHALATION SCH ×2 (08:09→19:48)
[2019-05-31] MEDS: methylPREDNISolone SOD SUCCI 40 MG/ML 1 ML VIAL IV SCH ×3 (08:23→23:08)
[2019-05-31] MEDS: PIPERACILLIN-TAZOBACTAM 3.375 GM in SODIUM CHLORIDE 0.9% 100 ML IVPB SCH ×3 (08:23→23:08)
[2019-05-31] MEDS: ASPIRIN 81 MG PO SCH (08:24)
[2019-05-31] MEDS: FUROSEMIDE 20 MG TAB PO SCH (08:24)
[2019-05-31] MEDS: PANTOPRAZOLE 40 MG TABLET PO SCH (08:24)
[2019-05-31] MEDS: LISINOPRIL 10 MG TAB PO SCH (08:24)
[2019-05-31] MEDS: METOPROLOL TARTRATE 12.5 MG TAB PO SCH (08:24)
[2019-05-31] MEDS: APIXABAN 5 MG TAB PO SCH ×2 (08:24→20:48)
[2019-05-31] MEDS: SERTRALINE 50 MG TAB PO SCH (08:25)
[2019-05-31] MEDS: ILEVRO RIGHT EYE SCH (08:42)
[2019-05-31 11:40] LABS: Glucose,Whole Blood 230 mg/dL (75-99)
[2019-05-31] MEDS: VANCOMYCIN 1,750 MG in SODIUM CHLORIDE 0.9% 500 ML 500 ML IVPB SCH (12:34)
--- NOTE | 2019-05-31 13:56 | P.PN ---
Subjective Progress Note Date: 05/31/19 Principal diagnosis: Shortness of breath, pain between the shoulder blades This is a very pleasant 73-year-old female patient who follows with Dr. Glez as her primary care provider. She has a history of hypertension, hyperlipidemia, hard of hearing chronic obstructive pulmonary disease secondary to chronic tobacco dependence. She's not been seen by a lift driver in the past. Has been maintained on Breo, DuoNeb inhalations. She had recently been treated with Levaquin and a prednisone taper for cough and congestion. She presented here early this morning via EMS with shortness of breath and pain between her shoulder blades. CT angiogram ruled out pulmonary embolism. There was noted large pulmonary arteries consistent with pulmonary hypertension. Cardiomegaly and mild atelectasis of the lung bases. White count 14.4. Hemoglobin 14.5. Sodium 129. Potassium 5.3. Bicarb 28. Creatinine 0.91. Initial lactate 2.2. Down to 1.4. Troponin 2.66 and 3.96. ProBNP 7310. Influenza screen negative. She is seen today in consultation on the cardiac floor. She is currently resting comfortably in bed. Awake and alert in no acute distress. No worsening shortness of breath, cough or congestion. Maintaining O2 saturations in the low 90s on 5 L/m per nasal cannula. She did have a T-max of 102.7. Currently afebrile. She was initiated on Zosyn, Symbicort, DuoNeb inhalations, IV Solu-Medrol. Denies any further discomfort between her shoulder blades. Echocardiogram pending. She has been initiated on a heparin drip. On 05/29/2019 patient is seen in follow-up on selective care unit. In no acute distress, currently on 5 L of oxygen and her pulse oximetry is still marginal with a pulse ox of 91%, afebrile, hemodynamically stable, denies any chest pain, no pain between the shoulder blades, she states she is feeling better today. Lung sounds are positive for a few bibasilar crackles, no rhonchi, no wheezes. Patient CTA chest showed no evidence of pulmonary embolism, he did show evidence of pulmonary hypertension, cardiomegaly and mild atelectasis at the posterior lung bases. Patient continues on nebulized bronchodilators, she is on weight-b ased heparin drip, and she is on empiric antibiotics in the form of Zosyn. On 05/30/2019 patient seen in follow-up on selective care unit, she is calm and comfortable, denies any worsening shortness of breath, lung sounds are clear, she is currently on 5 L of oxygen the pulse ox of 93%, afebrile, hemodynamically patient is stable, Cardizem drip has been discontinued, she remains on heparin drip per weight base protocol. Patient is in sinus rhythm with a rate of 89. Denies any chest pain, denies any difficulty breathing. On 05/31/2019 patient seen in follow-up. Doing well, she states she is feeling much better, she is afebrile, FiO2 is down to 4 L, her pulse ox is 93%, hemodynamically stable, she denies any difficulty breathing, she remains on Zosyn and vancomycin. Cardiology is following, patient is being considered for AMARIS to rule out bacterial endocarditis. In the plan is for heart catheterization once sepsis improves Objective - Vital Signs Vital signs: Vital Signs Temp 97.9 F 05/31/19 12:00 Pulse 96 05/31/19 12:00 Resp 20 05/31/19 12:00 BP 156/89 05/31/19 12:00 Pulse Ox 93 L 05/31/19 12:00 Intake & Output 05/30/19 05/31/19 05/31/19 18:59 06:59 18:59 Intake Total 720 800 Output Total 1 602 2 Balance 719 -602 798 Weight 95.2 kg Intake: Oral 720 800 Output: Urine 600 Stool 1 2 2 Other: Voiding Method Bedside Commode Toilet Toilet # Voids 1 2 300 # Bowel Movements 1 - Exam GENERAL EXAM: Alert, very pleasant, 73-year-old white female, 4 L of oxygen with a pulse ox of 93% comfortable in no apparent distress. HEAD: Normocephalic/atraumatic. EYES: Normal reaction of pupils, equal size. Conjunctiva pink, sclera white. NOSE: Clear with pink turbinates. THROAT: No erythema or exudates. NECK: No masses, no JVD, no thyroid enlargement, no adenopathy. CHEST: No chest wall deformity. Symmetrical expansion. LUNGS: Equal air entry with bibasilar crackles, but no wheeze, rhonchi or dullness. CVS: Regular rate and rhythm, normal S1 and S2, no gallops, no murmurs, no rubs ABDOMEN: Soft, nontender. No hepatosplenomegaly, normal bowel sounds, no guarding or rigidity. EXTREMITIES: No clubbing, no edema, no cyanosis, 2+ pulses and upper and lower extremities. MUSCULOSKELETAL: Muscle strength and tone normal. SPINE: No scoliosis or deformity SKIN: No rashes CENTRAL NERVOUS SYSTEM: Alert and oriented -3. No focal deficits, tone is normal in all 4 extremities. PSYCHIATRIC: Alert and oriented -3. Appropriate affect. Intact judgment and insight. - Labs CBC & Chem 7: 05/31/19 06:50 05/31/19 06:50 Labs: Abnormal Lab Results - Last 24 Hours (Table) 05/30/19 05/30/19 05/30/19 Range/Units 03:41 16:36 20:31 RBC (3.80-5.40) m/uL MCV (80.0-100.0) fL Plt Count (150-450) k/uL Lymphocytes # (1.0-4.8) k/uL Carbon Dioxide (22-30) mmol/L BUN (7-17) mg/dL Glucose (74-99) mg/dL POC Glucose (mg/dL) 254 H 267 H (75-99) mg/dL Calcium (8.4-10.2) mg/dL TSH 0.369 L (0.465-4.680) mIU/L 05/31/19 05/31/19 05/31/19 Range/Units 05:54 06:50 06:50 RBC 3.43 L (3.80-5.40) m/uL MCV 106.0 H (80.0-100.0) fL Plt Count 76 L (150-450) k/uL Lymphocytes # 0.3 L (1.0-4.8) k/uL Carbon Dioxide 36 H (22-30) mmol/L BUN 42 H (7-17) mg/dL Glucose 280 H (74-99) mg/dL POC Glucose (mg/dL) 296 H (75-99) mg/dL Calcium 7.7 L (8.4-10.2) mg/dL TSH (0.465-4.680) mIU/L 05/31/19 Range/Units 11:38 RBC (3.80-5.40) m/uL MCV (80.0-100.0) fL Plt Count (150-450) k/uL Lymphocytes # (1.0-4.8) k/uL Carbon Dioxide (22-30) mmol/L BUN (7-17) mg/dL Glucose (74-99) mg/dL POC Glucose (mg/dL) 230 H (75-99) mg/dL Calcium (8.4-10.2) mg/dL TSH (0.465-4.680) mIU/L Microbiology - Last 24 Hours (Table) 05/28/19 04:09 Blood Culture Gram Stain - Final Blood Blood Culture - Final Methicillin resist S. aureus 05/29/19 05:25 Blood Culture Gram Stain - Preliminary Blood Blood Culture - Preliminary Presumptive MRSA 05/28/19 14:35 Blood Culture Gram Stain - Final Blood Blood Culture - Final Methicillin resist S. aureus Assessment and Plan Plan: Assessment: 1 Acute on chronic hypoxemic respiratory failure secondary to suspected systolic versus congestive heart failure, basilar atelectasis, acute exacerbation of chronic obstructive pulmonary disease 2 Non-ST segment elevation myocardial infarction, currently on heparin drip 3 History of chronic tobacco dependence 4 Pulmonary hypertension 5 Febrile illness with mild lactic acidosis, recovered 6 Hyperlipidemia 7 Hypertension 8 History of anxiety/depression 9 Gastroesophageal reflux disease 10 preserved LV function with EF of 50-55%, severe aortic stenosis, 11 MRSA bacteremia, final culture is pending, patient is covered with Zosyn and vancomycin Plan: Continue with antibiotics per ID service recommendations, no fever, no chills, continue weaning FiO2, continue Symbicort and nebulized bronchodilators continue IV steroids we'll continue to follow with cardiology. I performed a history & physical examination of the patient and discussed their management with my nurse practitioner, Amanda Bateman. I reviewed the nurse practitioner's note and agree with the documented findings and plan of care. Lung sounds are positive for bibasilar crackles. The findings and the impression was discussed with the patient. I attest to the documentation by the nurse practitioner. Time with Patient: Less than 30
--- NOTE | 2019-05-31 15:06 | P.PN ---
Subjective This is Tash Patiño PA-C dictating a progress note on this patient The patient was interviewed and examined by me as well as by Dr. De Oliveira Case discussed with Dr. De Oliveira and he agrees with the plan of care IMPRESSION / ASSESSMENT: Sepsis, blood cultures positive for staph aureus, unclear source, on IV antibiotics repeat cultures are positive preliminarily Abnormal troponins, trending down, no acute changes on EKG, possible non-ST e levation NC versus type II NC secondary to sepsis, pt remains chest pain free Paroxysmal atrial fibrillation with RVR, currently in sinus rhythm, anticoagulation with eliquis Acute on chronic hypoxic respiratory failure COPD Chest CT showing evidence of pulmonary hypertension Recent echo showing preserved LV systolic function aortic stenosis Hypertension, blood pressure is been elevated Abnormal TSH PLAN: Increase metoprolol to [address] De Oliveira will speak with Dr. Madrigal, plan for AMARIS tomorrow to rule out bacterial endocarditis plan for heart catheterization once sepsis improves Management of abnormal TSH by medicine HPI/interval history Patient is a 73-year-old female with a past medical history of COPD who presented with complaints of weakness and shortness of breath. She was febrile and her Blood cultures positive for staph aureus, repeat cultures were positive. She had an episode of atrial fibrillation with RVR. She converted on IV Cardizem she has been in sinus rhythm overnight. She was started on anticoagulation yesterday. Patient seen and examined resting in bed. States her breathing has improved. No chest pain or palpitations. EXAMINATION Patient is afebrile, pulse in the 90s, respirations 20, blood pressure 156/89, oxygen saturation 93% on 3 L nasal cannula Patient seen and examined resting in bed, appears comfortable, in no acute distress Lungs mildly diminished bilaterally, expiratory wheezing Heart is tachycardic but regular, systolic murmur audible No elevated JVD No lower extremity edema REVIEW OF LABS, ECG WBC 7.0, hemoglobin 11.5, platelets 76, potassium 4.4, BUN 42, creatinine 0.93 TSH suppressed at 0.369 Echocardiogram shows EF 50-55%, mild concentric LVH, severe aortic stenosis Objective - Vital Signs Vital signs: Vital Signs Temp 97.9 F 05/31/19 12:00 Pulse 96 05/31/19 12:00 Resp 20 05/31/19 12:00 BP 156/89 05/31/19 12:00 Pulse Ox 93 L 05/31/19 12:00 Intake & Output 05/30/19 05/31/19 05/31/19 18:59 06:59 18:59 Intake Total 720 800 Output Total 1 602 2 Balance 719 -602 798 Weight 95.2 kg Intake: Oral 720 800 Output: Urine 600 Stool 1 2 2 Other: Voiding Method Bedside Commode Toilet Toilet # Voids 1 2 300 # Bowel Movements 1 - Labs CBC & Chem 7: 05/31/19 06:50 05/31/19 06:50 Labs: Abnormal Lab Results - Last 24 Hours (Table) 05/30/19 05/30/19 05/30/19 Range/Units 03:41 16:36 20:31 RBC (3.80-5.40) m/uL MCV (80.0-100.0) fL Plt Count (150-450) k/uL Lymphocytes # (1.0-4.8) k/uL Carbon Dioxide (22-30) mmol/L BUN (7-17) mg/dL Glucose (74-99) mg/dL POC Glucose (mg/dL) 254 H 267 H (75-99) mg/dL Calcium (8.4-10.2) mg/dL TSH 0.369 L (0.465-4.680) mIU/L 05/31/19 05/31/19 05/31/19 Range/Units 05:54 06:50 06:50 RBC 3.43 L (3.80-5.40) m/uL MCV 106.0 H (80.0-100.0) fL Plt Count 76 L (150-450) k/uL Lymphocytes # 0.3 L (1.0-4.8) k/uL Carbon Dioxide 36 H (22-30) mmol/L BUN 42 H (7-17) mg/dL Glucose 280 H (74-99) mg/dL POC Glucose (mg/dL) 296 H (75-99) mg/dL Calcium 7.7 L (8.4-10.2) mg/dL TSH (0.465-4.680) mIU/L 05/31/19 Range/Units 11:38 RBC (3.80-5.40) m/uL MCV (80.0-100.0) fL Plt Count (150-450) k/uL Lymphocytes # (1.0-4.8) k/uL Carbon Dioxide (22-30) mmol/L BUN (7-17) mg/dL Glucose (74-99) mg/dL POC Glucose (mg/dL) 230 H (75-99) mg/dL Calcium (8.4-10.2) mg/dL TSH (0.465-4.680) mIU/L Microbiology - Last 24 Hours (Table) 05/28/19 04:09 Blood Culture Gram Stain - Final Blood Blood Culture - Final Methicillin resist S. aureus 05/29/19 05:25 Blood Culture Gram Stain - Preliminary Blood Blood Culture - Preliminary Presumptive MRSA
[2019-05-31 16:30] LABS: Glucose,Whole Blood 240 mg/dL (75-99)
[2019-05-31] MEDS: prednisoLONE ACETATE 1% OPHTH DROPS 5 ML BTL BOTH EYES SCH ×3 (16:45→20:48)
--- NOTE | 2019-05-31 16:57 | P.PN ---
Subjective Progress Note Date: 05/31/19 This is a 73-year-old female admitted with acute on chronic hypoxic respiratory failure, suspected CHF and COPD exacerbation, non-STEMI and multiple other medical issues. Maintained on nebulized bronchodilators, Zosyn, diuretics. Anticoagulated on heparin drip. Echo currently being completed at bedside. One of 3 initial blood cultures reporting presumptive MRSA, repeat blood cultures ordered. 05/30/2019 Feels better today. Last night developed atrial fibrillation with RVR, initiated on Cardizem drip. Converted to sinus rhythm, Cardizem drip discontinued.denies chest pain, palpitations or increased shortness of breath. maintained on heparin drip. Currently on 5 L nasal cannula with pulse ox in the low 90s. Continues on Zosyn and vancomycin, secondary to MRSA bacteremia. Repeat cultures reporting presumptive MRSA. Afebrile, normal WBC. 05/31/2019 maintained on Zosyn, vancomycin .feels better today, breathing improved with less exertional shortness of breath. Denies cough. Denies chest pain. Ambulated in the ghotra, tolerating exertion well. Heart catheterization pending as per cardiology. Scheduled for AMARIS tomorrow , ruling out bacterial endocarditis. Afebrile, oxygen weaned down to 4 L, maintaining O2 sats of 90s. Objective - Vital Signs Vital signs: Vital Signs Temp 98.0 F 05/31/19 08:34 Pulse 97 05/31/19 08:34 Resp 19 05/31/19 08:34 BP 148/86 05/31/19 08:34 Pulse Ox 98 05/31/19 08:34 Intake & Output 05/30/19 05/31/19 05/31/19 18:59 06:59 18:59 Intake Total 720 280 Output Total 1 602 1 Balance 719 -602 279 Weight 95.2 kg Intake: Oral 720 280 Output: Urine 600 Stool 1 2 1 Other: Voiding Method Bedside Commode Toilet Toilet # Voids 1 2 300 # Bowel Movements 1 - Exam PHYSICAL EXAM: VITAL SIGNS: As above GENERAL: Sitting up in chair, no acute distress HEENT: Conjunctivae normal. eyes normal. Hard of hearing. NECK: No JVD. No thyroid enlargement. No LNs CARDIOVASCULAR: S1, S2 regular.Systolic murmur RESPIRATION: Breath sounds diminished in the bases. bibasilar crackles. No wheezing. ABDOMEN: Soft, nontender . No guarding. no masses palpable. No ascites, No hepatosplenomegaly.Bowel sounds heard. LEGS: No edema. no swelling. PSYCHIATRY: Alert and oriented X3, mood and affect normal. NERVOUS SYSTEM: Cranial N 2-12 grossly normal. Moves all 4 limbs. Diffuse w eakness No focal deficits. Strength and sensation grossly intact.. Skin: no rash - Labs CBC & Chem 7: 05/31/19 06:50 05/31/19 06:50 Labs: Abnormal Lab Results - Last 24 Hours (Table) 05/30/19 05/30/19 05/30/19 Range/Units 03:41 11:47 16:36 RBC (3.80-5.40) m/uL MCV (80.0-100.0) fL Plt Count (150-450) k/uL Lymphocytes # (1.0-4.8) k/uL Carbon Dioxide (22-30) mmol/L BUN (7-17) mg/dL Glucose (74-99) mg/dL POC Glucose (mg/dL) 247 H 254 H (75-99) mg/dL Calcium (8.4-10.2) mg/dL TSH 0.369 L (0.465-4.680) mIU/L 05/30/19 05/31/19 05/31/19 Range/Units 20:31 05:54 06:50 RBC 3.43 L (3.80-5.40) m/uL MCV 106.0 H (80.0-100.0) fL Plt Count 76 L (150-450) k/uL Lymphocytes # 0.3 L (1.0-4.8) k/uL Carbon Dioxide (22-30) mmol/L BUN (7-17) mg/dL Glucose (74-99) mg/dL POC Glucose (mg/dL) 267 H 296 H (75-99) mg/dL Calcium (8.4-10.2) mg/dL TSH (0.465-4.680) mIU/L 05/31/19 Range/Units 06:50 RBC (3.80-5.40) m/uL MCV (80.0-100.0) fL Plt Count (150-450) k/uL Lymphocytes # (1.0-4.8) k/uL Carbon Dioxide 36 H (22-30) mmol/L BUN 42 H (7-17) mg/dL Glucose 280 H (74-99) mg/dL POC Glucose (mg/dL) (75-99) mg/dL Calcium 7.7 L (8.4-10.2) mg/dL TSH (0.465-4.680) mIU/L Microbiology - Last 24 Hours (Table) 05/28/19 04:09 Blood Culture Gram Stain - Final Blood Blood Culture - Final Methicillin resist S. aureus 05/29/19 05:25 Blood Culture Gram Stain - Preliminary Blood Blood Culture - Preliminary Presumptive MRSA 05/28/19 14:35 Blood Culture Gram Stain - Final Blood Blood Culture - Final Methicillin resist S. aureus Assessment and Plan Assessment: Acute on chronic hypoxic respiratory failure secondary to multifactorial, early sepsis-secondary to MRSA bacteremia, present on admission , acute CHF exacerbation, acute COPD exacerbation, NSTEMI Possible acute NSTEMI MRSA Bacteremia, preliminary repeat blood culture presumptive MRSA Pulmonary hypertension hypertension Lipidemia Gastroesophageal reflux disease Prior nicotine dependence Anxiety, depression Hyponatremia resolved Plan: Continue on current medication regime, monitoring and symptomatically treatment. AMARIS pending .continue antibiotics, nebulized bronchodilators, steroids, antibiotics, diuretics. Final Repeat blood cultures in progress. cardiac catheterization pending. Patient expressing significant worry and stress related to her dog, possible eviction from apartment; rn social services assisting. The impression and plan of care has been dictated as directed. : I performed a history and examination of this patient, discussed the same with the dictator. I agree with the dictator's note ,documented as a scribe. Any additional findings or plans will be noted.
[2019-05-31] MEDS ORDERED: DILTIAZEM DRIP BOLUS FROM BAG 1 MG SOLN IV ONE (20:09)
[2019-05-31] MEDS: DILTIAZEM 125 MG in SODIUM CHLORIDE 0.9% 100 ML IV SCH (20:34)
[2019-05-31 20:36] LABS: Glucose,Whole Blood 311 mg/dL (75-99)
[2019-05-31] MEDS: METOPROLOL TARTRATE 25 MG TAB PO SCH (20:47)
[2019-05-31] MEDS: PRAMIPEXOLE 0.5 MG TAB PO SCH (20:48)
[2019-05-31] MEDS: ATORVASTATIN 80 MG TAB PO SCH (20:48)
[2019-05-31] MEDS: AMITRIPTYLINE HCL 25 MG TAB PO SCH (20:48)
[2019-05-31] MEDS: VANCOMYCIN 1,500 MG in SODIUM CHLORIDE 0.9% 250 ML IVPB SCH (21:25)
[2019-06-01] MEDS: IPRATROPIUM-ALBUTEROL 3 ML NEB INHALATION SCH ×7 (00:09→23:43)
[2019-06-01] MEDS: VANCOMYCIN 1,750 MG in SODIUM CHLORIDE 0.9% 500 ML 500 ML IVPB SCH ×2 (03:39→20:27)
[2019-06-01 06:38] LABS: Glucose,Whole Blood 215 mg/dL (75-99)
[2019-06-01] MEDS: INSULIN ASPART (NovoLOG) 100 UNIT/ML VIAL SQ SCH ×4 (07:06→20:43)
[2019-06-01] MEDS: methylPREDNISolone SOD SUCCI 40 MG/ML 1 ML VIAL IV SCH ×2 (08:02→20:28)
[2019-06-01] MEDS: PIPERACILLIN-TAZOBACTAM 3.375 GM in SODIUM CHLORIDE 0.9% 100 ML IVPB SCH ×3 (08:02→23:32)
[2019-06-01] MEDS: ILEVRO RIGHT EYE SCH (08:03)
[2019-06-01] MEDS: prednisoLONE ACETATE 1% OPHTH DROPS 5 ML BTL BOTH EYES SCH ×3 (08:03→20:35)
[2019-06-01] MEDS: SYMBICORT 160-4.5 MCG INHALER INHALATION SCH ×2 (08:38→18:58)
[2019-06-01] MEDS ORDERED: fentaNYL (PF) 50 MCG/ML 2 ML AMP ONE (10:57)
[2019-06-01] MEDS ORDERED: SODIUM CHLORIDE 0.9% 500 ML 500 ML IV ONE (11:29)
[2019-06-01] MEDS: BENZOCAINE SPRAY 1 CAN MUCOUS MEM ONE ×2 (11:29→11:46)
[2019-06-01] MEDS ORDERED: MIDAZOLAM 2 MG/2 ML VIAL IVP ONE (11:46)
[2019-06-01] MEDS ORDERED: fentaNYL (PF) 50 MCG/ML 2 ML AMP IV ONE (11:46)
[2019-06-01] MEDS: ASPIRIN 81 MG PO SCH (12:22)
[2019-06-01] MEDS: APIXABAN 5 MG TAB PO SCH ×2 (12:23→20:27)
[2019-06-01] MEDS: SERTRALINE 50 MG TAB PO SCH (12:23)
[2019-06-01] MEDS: FUROSEMIDE 20 MG TAB PO SCH (12:23)
[2019-06-01] MEDS: LISINOPRIL 10 MG TAB PO SCH (12:23)
[2019-06-01] MEDS: PANTOPRAZOLE 40 MG TABLET PO SCH (12:23)
[2019-06-01] MEDS: METOPROLOL TARTRATE 25 MG TAB PO SCH ×2 (12:23→20:27)
[2019-06-01] MEDS: DILTIAZEM 125 MG in SODIUM CHLORIDE 0.9% 100 ML IV SCH ×2 (12:25→20:35)
--- NOTE | 2019-06-01 13:00 | P.PN ---
Subjective Progress Note Date: 06/01/19 Principal diagnosis: Shortness of breath, pain between the shoulder blades This is a very pleasant 73-year-old female patient who follows with Dr. Glez as her primary care provider. She has a history of hypertension, hyperlipidemia, hard of hearing chronic obstructive pulmonary disease secondary to chronic tobacco dependence. 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 Has been maintained on Breo, DuoNeb inhalations. She had recently been treated with Levaquin and a prednisone taper for cough and congestion. She presented here early this morning via EMS with shortness of breath and pain between her shoulder blades. CT angiogram ruled out pulmonary embolism. There was noted large pulmonary arteries consistent with pulmonary hypertension. Cardiomegaly and mild atelectasis of the lung bases. White count 14.4. Hemoglobin 14.5. Sodium 129. Potassium 5.3. Bicarb 28. Creatinine 0.91. Initial lactate 2.2. Down to 1.4. Troponin 2.66 and 3.96. ProBNP 7310. Influenza screen negative. She is seen today in consultation on the cardiac floor. She is currently resting comfortably in bed. Awake and alert in no acute distress. No worsening shortness of breath, cough or congestion. Maintaining O2 saturations in the low 90s on 5 L/m per nasal cannula. She did have a T-max of 102.7. Currently afebrile. She was initiated on Zosyn, Symbicort, DuoNeb inhalations, IV Solu-Medrol. Denies any further discomfort between her shoulder blades. Echocardiogram pending. She has been initiated on a heparin drip. On 05/29/2019 patient is seen in follow-up on selective care unit. In no acute distress, currently on 5 L of oxygen and her pulse oximetry is still marginal with a pulse ox of 91%, afebrile, hemodynamically stable, denies any chest pain, no pain between the shoulder blades, she states she is feeling better today. Lung sounds are positive for a few bibasilar crackles, no rhonchi, no wheezes. Patient CTA chest showed no evidence of pulmonary embolism, he did show evidence of pulmonary hypertension, cardiomegaly and mild atelectasis at the posterior lung bases. Patient continues on nebulized bronchodilators, she is on weight-b ased heparin drip, and she is on empiric antibiotics in the form of Zosyn. On 05/30/2019 patient seen in follow-up on selective care unit, she is calm and comfortable, denies any worsening shortness of breath, lung sounds are clear, she is currently on 5 L of oxygen the pulse ox of 93%, afebrile, hemodynamically patient is stable, Cardizem drip has been discontinued, she remains on heparin drip per weight base protocol. Patient is in sinus rhythm with a rate of 89. Denies any chest pain, denies any difficulty breathing. On 05/31/2019 patient seen in follow-up. Doing well, she states she is feeling much better, she is afebrile, FiO2 is down to 4 L, her pulse ox is 93%, hemodynamically stable, she denies any difficulty breathing, she remains on Zosyn and vancomycin. Cardiology is following, patient is being considered for AMARIS to rule out bacterial endocarditis. In the plan is for heart catheterization once sepsis improves. On 06/01/2019 patient seen in follow-up. Doing well, sitting up in bed, currently on 5 L of oxygen, her pulse ox 92%, she is afebrile, hemodynamically stable, she is awaiting her transesophageal echocardiogram to rule out infective endocarditis, she remains on oral anticoagulation, and antibiotics form of vancomycin and Zosyn for MRSA bacteremia. From pulmonary perspective she denies any cough or congestion, she denies any chest pain, lung sounds are clear, diminished at the bases. Patient is in sinus rhythm, but she is on Cardizem drip currently at 5 mg per hour. Objective - Vital Signs Vital signs: Vital Signs Temp 98.3 F 06/01/19 12:26 Pulse 76 06/01/19 12:45 Resp 20 06/01/19 12:26 BP 125/71 06/01/19 12:26 Pulse Ox 92 L 06/01/19 12:26 Intake & Output 05/31/19 06/01/19 06/01/19 18:59 06:59 18:59 Intake Total 920 100 100 Output Total 3 2 Balance 917 100 98 Weight 96.2 kg Intake: IV 100 Intake, IV Titration 100 Amount Piperacillin-Tazobactam 3 100 .375 gm In Sodium Chloride 0.9% 100 ml @ 25 mls/hr IVPB Q8HR [facility] Rx# :[id number] Oral 920 0 Output: Stool 3 2 Other: Voiding Method Toilet Toilet Toilet # Voids 300 1 0 # Bowel Movements 1 0 - Exam GENERAL EXAM: Alert, very pleasant, 73-year-old white female, 4 L of oxygen with a pulse ox of 93% comfortable in no apparent distress. HEAD: Normocephalic/atraumatic. EYES: Normal reaction of pupils, equal size. Conjunctiva pink, sclera white. NOSE: Clear with pink turbinates. THROAT: No erythema or exudates. NECK: No masses, no JVD, no thyroid enlargement, no adenopathy. CHEST: No chest wall deformity. Symmetrical expansion. LUNGS: Equal air entry with bibasilar crackles, but no wheeze, rhonchi or dullness. CVS: Regular rate and rhythm, normal S1 and S2, no gallops, systolic murmur, no rubs ABDOMEN: Soft, nontender. No hepatosplenomegaly, normal bowel sounds, no guarding or rigidity. EXTREMITIES: No clubbing, no edema, no cyanosis, 2+ pulses and upper and lower extremities. MUSCULOSKELETAL: Muscle strength and tone normal. SPINE: No scoliosis or deformity SKIN: No rashes CENTRAL NERVOUS SYSTEM: Alert and oriented -3. No focal deficits, tone is normal in all 4 extremities. PSYCHIATRIC: Alert and oriented -3. Appropriate affect. Intact judgment and insight. - Labs CBC & Chem 7: 05/31/19 06:50 05/31/19 06:50 Labs: Abnormal Lab Results - Last 24 Hours (Table) 05/31/19 05/31/19 06/01/19 Range/Units 16:29 20:30 06:36 POC Glucose (mg/dL) 240 H 311 H 215 H (75-99) mg/dL Microbiology - Last 24 Hours (Table) 05/29/19 05:25 Blood Culture Gram Stain - Final Blood Blood Culture - Final Methicillin resist S. aureus 05/28/19 04:09 Blood Culture Gram Stain - Final Blood Blood Culture - Final Methicillin resist S. aureus Assessment and Plan Plan: Assessment: 1 Acute on chronic hypoxemic respiratory failure secondary to suspected systolic versus congestive heart failure, basilar atelectasis, acute exacerbation of chronic obstructive pulmonary disease 2 Non-ST segment elevation myocardial infarction, currently on heparin drip 3 History of chronic tobacco dependence 4 Pulmonary hypertension 5 Febrile illness with mild lactic acidosis, recovered 6 Hyperlipidemia 7 Hypertension 8 History of anxiety/depression 9 Gastroesophageal reflux disease 10 preserved LV function with EF of 50-55%, severe aortic stenosis, 11 MRSA bacteremia, final culture is pending, patient is covered with Zosyn and vancomycin Plan: Continue current medical treatment, breathing treatments, antibiotics per ID service recommendations, patient is on a combination of Zosyn and vancomycin, she is undergoing AMARIS to rule out infective endocarditis, continue weaning FiO2. Patient has been started on oral anticoagulation. We'll drop the IV steroids down to 40 mg every 12 hours. I performed a history & physical examination of the patient and discussed their management with my nurse practitioner, Amanda Bateman. I reviewed the nurse practitioner's note and agree with the documented findings and plan of care. Lung sounds are positive for bibasilar crackles. The findings and the impression was discussed with the patient. I attest to the documentation by the nurse practitioner. Time with Patient: Less than 30
--- NOTE | 2019-06-01 15:06 | ECHOT ---
TRANSESOPHAGEAL ECHOCARDIOGRAM TRANSESOPHAGEAL ECHOCARDIOGRAM This transesophageal echocardiogram was performed to rule out any evidence of endocarditis. The patient was given intravenous sedation with Versed and fentanyl and transesophageal echocardiogram was performed without any complications. FINDINGS: The left ventricular chamber is normal in size with normal left ventricular systolic functions. Mitral valve morphology was normal. There was no definite evidence of any vegetations. Left atrium was enlarged and left atrial appendage was normal. Pulmonary vein flow was normal. Right ventricle and right atrial chamber are normal in size. Intra-atrial septum is intact. There is no evidence of any vegetations on the tricuspid valve. Aortic valve was very heavily calcified with very diminished opening. We could not see any definite vegetations in the aortic valve. FINAL IMPRESSION: 1. Heavily calcified aortic valve with severe aortic stenosis. We could not see any definite vegetations. 2. Mitral and tricuspid valve morphology is normal. There is no evidence of any vegetations. 3. Mild mitral regurgitation is noted. 4. Left ventricular systolic function is normal. 5. Intra-atrial septum is intact. 6. There is evidence of diffuse atherosclerotic plaque noted in the descending thoracic aorta. MMODL / IJN: [id number] /
--- NOTE | 2019-06-01 16:56 | P.PN ---
Subjective Progress Note Date: 06/01/19 This is a 73-year-old female admitted with acute on chronic hypoxic respiratory failure, suspected CHF and COPD exacerbation, non-STEMI and multiple other medical issues. Maintained on nebulized bronchodilators, Zosyn, diuretics. Anticoagulated on heparin drip. Echo currently being completed at bedside. One of 3 initial blood cultures reporting presumptive MRSA, repeat blood cultures ordered. 05/30/2019 Feels better today. Last night developed atrial fibrillation with RVR, initiated on Cardizem drip. Converted to sinus rhythm, Cardizem drip discontinued.denies chest pain, palpitations or increased shortness of breath. maintained on heparin drip. Currently on 5 L nasal cannula with pulse ox in the low 90s. Continues on Zosyn and vancomycin, secondary to MRSA bacteremia. Repeat cultures reporting presumptive MRSA. Afebrile, normal WBC. 05/31/2019 maintained on Zosyn, vancomycin .feels better today, breathing improved with less exertional shortness of breath. Denies cough. Denies chest pain. Ambulated in the ghotra, tolerating exertion well. Heart catheterization pending as per cardiology. Scheduled for AMARIS tomorrow , ruling out bacterial endocarditis. Afebrile, oxygen weaned down to 4 L, maintaining O2 sats of 90s. 06/01/19 Continues on IV antibiotics of vancomycin, Zosyn for MRSA bacteremia. NPO, awaiting AMARIS. Last night returned into atrial fibrillation with RVR, Cardizem drip initiated; currently at 5 mg per hour. Currently sinus rhythm. Earlier this morning, run of 6 white complex tachycardia, asymptomatic. Potassium and magnesium levels ordered, pending.VSS, maintaining O2 sats in the 90s on 5 L nasal cannula. Objective - Vital Signs Vital signs: Vital Signs Temp 98.1 F 06/01/19 08:06 Pulse 72 06/01/19 08:06 Resp 20 06/01/19 08:06 BP 132/76 06/01/19 08:06 Pulse Ox 92 L 06/01/19 08:06 Intake & Output 05/31/19 06/01/19 06/01/19 18:59 06:59 18:59 Intake Total 920 100 Output Total 3 1 Balance 917 100 -1 Weight 96.2 kg Intake: Intake, IV Titration 100 Amount Piperacillin-Tazobactam 3 100 .375 gm In Sodium Chloride 0.9% 100 ml @ 25 mls/hr IVPB Q8HR [facility] Rx# :[id number] Oral 920 Output: Stool 3 1 Other: Voiding Method Toilet Toilet Toilet # Voids 300 1 # Bowel Movements 1 - Exam PHYSICAL EXAM: VITAL SIGNS: As above GENERAL: Sitting up in chair, no acute distress HEENT: Conjunctivae normal. eyes normal. Hard of hearing. NECK: No JVD. No thyroid enlargement. No LNs CARDIOVASCULAR: S1, S2 regular.Systolic murmur RESPIRATION: Breath sounds diminished in the bases. bibasilar crackles. Faint expiratory wheezing. ABDOMEN: Soft, nontender . No guarding. no masses palpable. No ascites, No hepatosplenomegaly.Bowel sounds heard. LEGS: No edema. no swelling. PSYCHIATRY: Alert and oriented X3, mood and affect normal. NERVOUS SYSTEM: Cranial N 2-12 grossly normal. Moves all 4 limbs. Diffuse weakness No focal deficits. Strength and sensation grossly intact.. Skin: no rash - Labs CBC & Chem 7: 05/31/19 06:50 05/31/19 06:50 Labs: Abnormal Lab Results - Last 24 Hours (Table) 05/31/19 05/31/19 05/31/19 Range/Units 11:38 16:29 20:30 POC Glucose (mg/dL) 230 H 240 H 311 H (75-99) mg/dL 06/01/19 Range/Units 06:36 POC Glucose (mg/dL) 215 H (75-99) mg/dL Microbiology - Last 24 Hours (Table) 05/29/19 05:25 Blood Culture Gram Stain - Final Blood Blood Culture - Final Methicillin resist S. aureus 05/28/19 04:09 Blood Culture Gram Stain - Final Blood Blood Culture - Final Methicillin resist S. aureus Assessment and Plan Assessment: Acute on chronic hypoxic respiratory failure secondary to multifactorial, early sepsis-secondary to MRSA bacteremia, present on admission , acute CHF exacerbation, acute COPD exacerbation, NSTEMI Acute NSTEMI MRSA Bacteremia Pulmonary hypertension hypertension Lipidemia Gastroesophageal reflux disease Prior nicotine dependence Anxiety, depression Hyponatremia resolved Plan: Continue on current medication regime, monitoring and symptomatically treatment. AMARIS pending .Antibiotics as per ID. Nebulized bronchodilators, steroids, diuretics. Steroid tapering in progress as per pulmonary. Cardiac catheterization pending. The impression and plan of care has been dictated as directed. : I performed a history and examination of this patient, discussed the same with the dictator. I agree with the dictator's note ,documented as a scribe. Any additional findings or plans will be noted.
[2019-06-01 16:59] LABS: Glucose,Whole Blood 293 mg/dL (75-99)
[2019-06-01 19:34] LABS: Potassium 4.3 mmol/L (3.5-5.1)
[2019-06-01] MEDS: ATORVASTATIN 80 MG TAB PO SCH (20:27)
[2019-06-01] MEDS: PRAMIPEXOLE 0.5 MG TAB PO SCH (20:27)
[2019-06-01] MEDS: AMITRIPTYLINE HCL 25 MG TAB PO SCH (20:27)
[2019-06-01 20:43] LABS: Glucose,Whole Blood 318 mg/dL (75-99)
--- NOTE | 2019-06-01 22:57 | P.CONS ---
History of Present Illness - Reason for Consult Consult date: 06/01/19 bacteremia MRSA Requesting physician: Sebastian Glez - Chief Complaint shortness of breath x days - History of Present Illness Patient is a 73-year female presenting to the ER at [facility] on May 28, 2019 for evaluation of increasing shortness of breath and anxiety apparently the patient symptoms have been going on for a few days before she presented to hospital patient did have some cough with occasional sputum production and no hemoptysis denies any nausea no vomiting no choking on food no abdominal pain no diarrhea and no urinary symptoms patient on presentation to the hospital did have a fever of 102 F patient did have mild tachycardia on admission she did have a chest x-ray which shows cardiomegaly and enlarged pulmonary arteries could relate to pulmonary hypertension and no heart failure patient has been evaluated by cardiology and pulmonary service and has been treated with for possible pneumonia chest x-ray negative patient UA was negative influenza serology was negative patient blood cultures came back positive on 05/28/19 and 05/29/19 at the patient has been treated with vancomycin no further blood culture has been done after the she did have a AMARIS done this morning and it did not show large vegetation infectious disease was consulted today day 5 of admission for further management of her bacteremia patient currently did not have any open sores or joint swelling she did mention she did have a hardware in her left leg after she did have a femur fracture from fall however currently the patient has no symptoms referable to her left thigh or arm area. Review of Systems Positive point has been mentioned in HPI rest of the systems are negative Past Medical History Past Medical History: COPD Additional Past Medical History / Comment(s): Emphysema, 4-5L home O2, miscarriage History of Any Multi-Drug Resistant Organisms: MRSA Year Discovered:: 05/28/19 MDRO Source:: Blood Past Surgical History: Unable to Obtain Additional Past Surgical History / Comment(s): fibroid adhesions Past Anesthesia/Blood Transfusion Reactions: No Reported Reaction Past Psychological History: Unable to Obtain Smoking Status: Former smoker Past Alcohol Use History: None Reported Past Drug Use History: None Reported Medications and Allergies Home Medications Medication Instructions Recorded Confirmed Type Amitriptyline HCl 25 mg PO HS 05/28/19 05/28/19 History Celecoxib [CeleBREX] 200 mg PO DAILY 05/28/19 05/28/19 History Diclofenac Sodium Gel [Voltaren 2 gm TOPICAL TID 05/28/19 05/28/19 History Gel] Fluticasone/Vilanterol [Breo 1 puff INHALATION RT-DAILY 05/28/19 05/28/19 History Ellipta 200-25 Mcg INH] Furosemide [Lasix] 20 mg PO DAILY 05/28/19 05/28/19 History Ipratropium-Albuterol Nebulize 3 ml INHALATION RT-QID 05/28/19 05/28/19 History [Duoneb 0.5 mg-3 mg/3 ml Soln] Levofloxacin 500 mg PO DAILY 05/28/19 05/28/19 History Lisinopril [Zestril] 10 mg PO DAILY 05/28/19 05/28/19 History Loteprednol Etabonate [Lotemax] 1 drop OP TID 05/28/19 05/28/19 History Metoprolol Succinate [Toprol XL] 50 mg PO DAILY 05/28/19 05/28/19 History Nepafenac [Ilevro] 1 drop RIGHT EYE DAILY 05/28/19 05/28/19 History Omeprazole 40 mg PO DAILY 05/28/19 05/28/19 History Potassium Chloride ER [K-Dur 20] 20 meq PO DAILY 05/28/19 05/28/19 History Pramipexole Di-HCl [Mirapex] 1.5 mg PO HS 05/28/19 05/28/19 History Sertraline [Zoloft] 50 mg PO DAILY 05/28/19 05/28/19 History Simvastatin 40 mg PO HS 05/28/19 05/28/19 History cloNIDine HCL [Catapres] 0.1 mg PO BID 05/28/19 05/28/19 History predniSONE See Taper PO DAILY 05/28/19 05/28/19 History Allergies Allergy/AdvReac Type Severity Reaction Status Date / Time aspirin AdvReac Unknown Verified 05/28/19 03:29 Physical Exam Vitals: Vital Signs Temp Pulse Pulse Resp BP Pulse Ox 06/01/19 16:29 84 06/01/19 16:19 80 06/01/19 16:00 98.5 F 84 16 152/88 93 L 06/01/19 12:45 76 06/01/19 12:36 72 06/01/19 12:26 98.3 F 87 16 125/71 92 L 06/01/19 11:58 84 139/60 92 L 06/01/19 11:55 82 147/59 89 L 06/01/19 11:51 82 154/70 89 L 06/01/19 11:48 84 148/59 84 L 06/01/19 11:24 83 168/81 88 L 06/01/19 08:50 74 06/01/19 08:39 72 06/01/19 08:06 98.1 F 72 20 132/76 92 L 06/01/19 04:11 84 06/01/19 04:04 76 06/01/19 03:42 98.0 F 81 20 116/70 90 L 06/01/19 00:16 74 06/01/19 00:11 76 05/31/19 23:15 98.2 F 77 20 108/73 93 L 05/31/19 20:54 157 H 124/78 05/31/19 20:43 160 H 100/75 05/31/19 20:36 98.5 F 143 H 20 133/77 91 L 05/31/19 20:07 126 H 05/31/19 19:48 122 H 22 Intake and Output 06/01/19 06/01/19 06/01/19 06:59 14:59 22:59 Intake Total 100 340 120 Output Total 2 1 Balance 100 338 119 Intake: IV 100 Intake, IV Titration 100 Amount Piperacillin-Tazobactam 3 100 .375 gm In Sodium Chloride 0.9% 100 ml @ 25 mls/hr IVPB Q8HR [facility] Rx# :[id number] Oral 240 120 Output: Stool 2 1 Other: Voiding Method Toilet Toilet # Voids 1 0 2 # Bowel Movements 0 1 Weight 96.2 kg GENERAL DESCRIPTION: Elderly female decreased breath sounds with lying in bed, no distress. No tachypnea or accessory muscle of respiration use. HEENT: Shows Pallor , no scleral icterus. Oral mucous membrane is dry. NECK: Trachea central, no thyromegaly. LUNGS: Unlabored breathing. Decreased breath sound at the base. No wheeze or crackle. HEART: S1, S2, regular rate and rhythm. Systolic murmur ABDOMEN: Soft, no tenderness , guarding or rigidity EXTREMITIES: No edema of feet. SKIN: No rash, no masses palpable. NEUROLOGICAL: The patient is awake, alert, oriented x3, mood and affect normal. Results CBC & Chem 7: 05/31/19 06:50 06/01/19 17:47 Labs: Abnormal Lab Results - Last 24 Hours (Table) 05/31/19 06/01/19 06/01/19 Range/Units 20:30 06:36 16:58 POC Glucose (mg/dL) 311 H 215 H 293 H (75-99) mg/dL Microbiology - Last 24 Hours (Table) 05/29/19 05:25 Blood Culture Gram Stain - Final Blood Blood Culture - Final Methicillin resist S. aureus Assessment and Plan Assessment: patient presented to the hospital with sepsis in this patient who did have fever tachycardia elevated white count with evidence of MRSA bacteremia concerning likely for endovascular source in view of persistent bacteremia patient did have an echocardiogram did show heavily calcified aortic valve and patient currently no other definite focus of infection patient did have hardware in the left thigh area but there was no signs of inflammation on clinical examination (1) MRSA bacteremia Current Visit: Yes Status: Acute Code(s): R78.81 - BACTEREMIA SNOMED Code (s): 61208918371115535 (2) Sepsis Current Visit: Yes Status: Acute Code(s): A41.9 - SEPSIS, UNSPECIFIED ORGANISM SNOMED Code(s): 85477954 Plan: 1-blood cultures will be repeated to document clearance of bacteremia. 2-vancomycin pharmacy to dose her with a target trough of 15 while watching her kidney function and Vanco trough closely. 3-WBC tagged scan We will follow on clinical condition and cultures to further adjust medication if needed Thank you for this consultation we will follow the patient along with you Time with Patient: Greater than 30
[2019-06-02] MEDS: IPRATROPIUM-ALBUTEROL 3 ML NEB INHALATION SCH ×6 (03:41→23:25)
[2019-06-02 06:08] LABS: Glucose,Whole Blood 271 mg/dL (75-99)
[2019-06-02] MEDS: INSULIN ASPART (NovoLOG) 100 UNIT/ML VIAL SQ SCH ×4 (06:18→20:30)
[2019-06-02] MEDS: SYMBICORT 160-4.5 MCG INHALER INHALATION SCH ×2 (08:16→19:27)
[2019-06-02] MEDS: DILTIAZEM 125 MG in SODIUM CHLORIDE 0.9% 100 ML IV SCH (08:34)
[2019-06-02] MEDS: LISINOPRIL 10 MG TAB PO SCH (08:34)
[2019-06-02] MEDS: methylPREDNISolone SOD SUCCI 40 MG/ML 1 ML VIAL IV SCH ×2 (08:34→20:30)
[2019-06-02] MEDS: PANTOPRAZOLE 40 MG TABLET PO SCH (08:34)
[2019-06-02] MEDS: ASPIRIN 81 MG PO SCH (08:35)
[2019-06-02] MEDS: METOPROLOL TARTRATE 25 MG TAB PO SCH ×2 (08:35→20:30)
[2019-06-02] MEDS: SERTRALINE 50 MG TAB PO SCH (08:35)
[2019-06-02] MEDS: FUROSEMIDE 20 MG TAB PO SCH (08:35)
[2019-06-02] MEDS: APIXABAN 5 MG TAB PO SCH ×2 (08:35→20:30)
[2019-06-02] MEDS: PIPERACILLIN-TAZOBACTAM 3.375 GM in SODIUM CHLORIDE 0.9% 100 ML IVPB SCH ×3 (08:35→23:27)
[2019-06-02] MEDS: prednisoLONE ACETATE 1% OPHTH DROPS 5 ML BTL BOTH EYES SCH ×3 (08:48→20:33)
[2019-06-02] MEDS ORDERED: VANCOMYCIN TROUGH DUE 1 EACH MISC MISCELLANE ONE (10:00)
[2019-06-02] MEDS: VANCOMYCIN 1,750 MG in SODIUM CHLORIDE 0.9% 500 ML 500 ML IVPB SCH (11:19)
[2019-06-02 11:40] LABS: Glucose,Whole Blood 248 mg/dL (75-99)
[2019-06-02] MEDS: ILEVRO RIGHT EYE SCH (11:41)
[2019-06-02] MEDS ORDERED: FUROSEMIDE 10 MG/ML 4 ML VIAL IV STA (11:42)
[2019-06-02 12:19] LABS: C Reactive Protein 18.2 mg/L (<10.0)
--- NOTE | 2019-06-02 13:28 | P.PN ---
Progress Note - Text We'll sign off on this patient at this time. Once her infection is treated she will see Dr. Goldman as an outpatient for further evaluation of coronary artery disease and aortic valve disease
--- NOTE | 2019-06-02 15:08 | P.PN ---
Subjective Progress Note Date: 06/02/19 This is a 73-year-old female admitted with acute on chronic hypoxic respiratory failure, suspected CHF and COPD exacerbation, non-STEMI and multiple other medical issues. Maintained on nebulized bronchodilators, Zosyn, diuretics. Anticoagulated on heparin drip. Echo currently being completed at bedside. One of 3 initial blood cultures reporting presumptive MRSA, repeat blood cultures ordered. 05/30/2019 Feels better today. Last night developed atrial fibrillation with RVR, initiated on Cardizem drip. Converted to sinus rhythm, Cardizem drip discontinued.denies chest pain, palpitations or increased shortness of breath. maintained on heparin drip. Currently on 5 L nasal cannula with pulse ox in the low 90s. Continues on Zosyn and vancomycin, secondary to MRSA bacteremia. Repeat cultures reporting presumptive MRSA. Afebrile, normal WBC. 05/31/2019 maintained on Zosyn, vancomycin .feels better today, breathing improved with less exertional shortness of breath. Denies cough. Denies chest pain. Ambulated in the ghotra, tolerating exertion well. Heart catheterization pending as per cardiology. Scheduled for AMARIS tomorrow , ruling out bacterial endocarditis. Afebrile, oxygen weaned down to 4 L, maintaining O2 sats of 90s. 06/01/19 Continues on IV antibiotics of vancomycin, Zosyn for MRSA bacteremia. NPO, awaiting AMARIS. Last night returned into atrial fibrillation with RVR, Cardizem drip initiated; currently at 5 mg per hour. Currently sinus rhythm. Earlier this morning, run of 6 white complex tachycardia, asymptomatic. Potassium and magnesium levels ordered, pending.VSS, maintaining O2 sats in the 90s on 5 L nasal cannula. 06/02/2019 Underwent AMARIS yesterday reporting heavy calcified aortic valve with no definite vegetations seen. Repeat blood cultures in progress. Continues on vancomycin. Creatinine 0.79 Tagged WBC scan ordered. Maintained on Cardizem dr ip. Telemetry sinus rhythm. Denies chest pain, palpitations or increasing shortness of breath. Afebrile Objective - Vital Signs Vital signs: Vital Signs Temp 97.8 F 06/02/19 12:00 Pulse 80 06/02/19 12:00 Resp 18 06/02/19 12:00 BP 136/78 06/02/19 12:00 Pulse Ox 93 L 06/02/19 12:00 Intake & Output 06/01/19 06/02/19 06/02/19 18:59 06:59 18:59 Intake Total 585 479.833 Output Total 3 2 Balance 582 477.833 Weight 100.3 kg Intake: IV 100 Intake, IV Titration 125 119.833 Amount Diltiazem 125 mg In 125 119.833 Sodium Chloride 0.9% 100 ml @ 10 MG/HR 10 mls/hr IV .[id number] [facility] Rx#: [id number] Oral 360 360 Output: Stool 3 2 Other: Voiding Method Toilet Toilet # Voids 2 1 1 # Bowel Movements 1 2 1 - Exam PHYSICAL EXAM: VITAL SIGNS: As above GENERAL: Sitting up in bed, no acute distress HEENT: Conjunctivae normal. eyes normal. NECK: No JVD. No thyroid enlargement. No LNs CARDIOVASCULAR: S1, S2 regular.Systolic murmur RESPIRATION: Good air entry Breath sounds diminished in the bases. Faint expiratory wheezing. ABDOMEN: Soft, nontender . No guarding. no masses palpable. Bowel sounds heard. LEGS: Mild edema, nontender. PSYCHIATRY: Alert and oriented X3, mood and affect normal. NERVOUS SYSTEM: Cranial N 2-12 grossly normal. Moves all 4 limbs. Diffuse weakness No focal deficits. Strength and sensation grossly intact.. Skin: no rash - Labs CBC & Chem 7: 05/31/19 06:50 06/02/19 10:54 Labs: Abnormal Lab Results - Last 24 Hours (Table) 06/01/19 06/01/19 06/02/19 Range/Units 16:58 20:41 06:07 POC Glucose (mg/dL) 293 H 318 H 271 H (75-99) mg/dL C-Reactive Protein (<10.0) mg/L 06/02/19 06/02/19 Range/Units 10:54 11:39 POC Glucose (mg/dL) 248 H (75-99) mg/dL C-Reactive Protein 18.2 H (<10.0) mg/L Microbiology - Last 24 Hours (Table) 05/29/19 05:25 Blood Culture Gram Stain - Final Blood Blood Culture - Final Methicillin resist S. aureus Assessment and Plan Assessment: Acute on chronic hypoxic respiratory failure secondary to multifactorial, early sepsis-secondary to MRSA bacteremia, present on admission , acute CHF exacerbation, acute COPD exacerbation, NSTEMI Acute NSTEMI MRSA Bacteremia, etiology unclear,AMARIS reported heavy calcified aortic valve with no definite vegetations seen. Severe aortic stenosis Pulmonary hypertension hypertension Hyperlipidemia Gastroesophageal reflux disease Prior nicotine dependence Anxiety, depression Hyponatremia resolved Plan: Continue on current medication regime, monitoring and symptomatically treatment. Lasix 40 IV push 1 today then 20 mg IV starting tomorrow . Tagged WBC pending. Antibiotics as per ID. Nebulized bronchodilators, steroids, diuretics. Cardiology signed off, OP Cardiac catheterization pending. The impression and plan of care has been dictated as directed. : I performed a history and examination of this patient, discussed the same with the dictator. I agree with the dictator's note ,documented as a scribe. Any additional findings or plans will be noted.
[2019-06-02 16:44] LABS: Glucose,Whole Blood 214 mg/dL (75-99)
--- NOTE | 2019-06-02 18:57 | PN ---
PROGRESS NOTE DATE OF SERVICE: 06/02/2019 REASON FOR FOLLOWUP: MRSA bacteremia. INTERVAL HISTORY: The patient is currently afebrile. The patient is still complaining of shortness of breath. No chest pain. No cough. No nausea, no vomiting. No abdominal pain or diarrhea. PHYSICAL EXAMINATION: Blood pressure 136/70 with a pulse of 76, temperature 97.8. She is 93% on 5 L nasal cannula. General description is an elderly female up in the bed in no distress. RESPIRATORY SYSTEM: Unlabored breathing with decreased breath sounds at the base. No wheeze. HEART: S1, S2. Regular rate and rhythm. ABDOMEN: Soft. No tenderness. EXTREMITIES: No edema of the feet. LABS: White count not checked. Sedimentation rate is only 20. Vancomycin level therapeutic. Blood cultures obtained this morning are currently pending. DIAGNOSTIC IMPRESSION AND PLAN: Patient with MRSA bacteremia. In view of the persistent bacteremia, there is concern for endovascular source. AMARIS was negative. WBC scan is pending. Continue with vancomycin and monitor clinical course closely. MMODL / IJN: [id number] /
[2019-06-02 20:05] LABS: Glucose,Whole Blood 309 mg/dL (75-99)
[2019-06-02] MEDS: ATORVASTATIN 80 MG TAB PO SCH (20:30)
[2019-06-02] MEDS: PRAMIPEXOLE 0.5 MG TAB PO SCH (21:17)
[2019-06-02] MEDS: AMITRIPTYLINE HCL 25 MG TAB PO SCH (21:17)
[2019-06-03] MEDS: IPRATROPIUM-ALBUTEROL 3 ML NEB INHALATION SCH ×5 (03:48→20:16)
[2019-06-03] MEDS: VANCOMYCIN 1,750 MG in SODIUM CHLORIDE 0.9% 500 ML 500 ML IVPB SCH ×2 (03:58→19:45)
[2019-06-03 07:02] LABS: Glucose,Whole Blood 257 mg/dL (75-99)
[2019-06-03] MEDS: PIPERACILLIN-TAZOBACTAM 3.375 GM in SODIUM CHLORIDE 0.9% 100 ML IVPB SCH ×2 (07:19→15:40)
[2019-06-03] MEDS: INSULIN ASPART (NovoLOG) 100 UNIT/ML VIAL SQ SCH ×4 (07:19→22:56)
[2019-06-03] MEDS: PANTOPRAZOLE 40 MG TABLET PO SCH (07:20)
[2019-06-03] MEDS: methylPREDNISolone SOD SUCCI 40 MG/ML 1 ML VIAL IV SCH ×2 (07:20→22:55)
[2019-06-03] MEDS: METOPROLOL TARTRATE 25 MG TAB PO SCH ×2 (07:20→23:06)
[2019-06-03] MEDS: ASPIRIN 81 MG PO SCH (07:20)
[2019-06-03] MEDS: FUROSEMIDE 20 MG TAB PO SCH (07:20)
[2019-06-03] MEDS: LISINOPRIL 10 MG TAB PO SCH (07:20)
[2019-06-03] MEDS: APIXABAN 5 MG TAB PO SCH ×2 (07:20→22:53)
[2019-06-03] MEDS: SERTRALINE 50 MG TAB PO SCH (07:20)
[2019-06-03] MEDS: prednisoLONE ACETATE 1% OPHTH DROPS 5 ML BTL BOTH EYES SCH ×3 (07:21→23:05)
[2019-06-03] MEDS: ILEVRO RIGHT EYE SCH (07:21)
[2019-06-03 07:30] LABS: WBC 17.9 k/uL (3.8-10.6)
[2019-06-03 07:31] LABS: Basophils # (A) 0.1 k/uL (0-0.2); Basophils % (A) 1 %; Eosinophils % (A) 0 %; HCT 30.1 % (34.0-46.0); Hypochromasia Slight; Lymphocytes # (A) 0.4 k/uL (1.0-4.8); Lymphocytes % (A) 2 %; MCH 33.3 pg (25.0-35.0); MCHC 31.8 g/dL (31.0-37.0); MCV 104.9 fL (80.0-100.0); Macrocytosis Slight; Mean Platelet Volume 9.3; Monocytes # (A) 0.4 k/uL (0-1.0); Monocytes % (A) 2 %; Neutrophils # (A) 16.8 k/uL (1.3-7.7); Neutrophils % (A) 94 %; RBC 2.87 m/uL (3.80-5.40); RDW 13.6 % (11.5-15.5)
[2019-06-03 07:33] LABS: HGB 9.6 gm/dL (11.4-16.0); Platelet Count 164 k/uL (150-450)
[2019-06-03 07:56] LABS: Calcium 7.7 mg/dL (8.4-10.2); Potassium 4.3 mmol/L (3.5-5.1)
[2019-06-03] MEDS: SYMBICORT 160-4.5 MCG INHALER INHALATION SCH ×2 (08:34→20:16)
[2019-06-03] MEDS: MORPHINE SULFATE 4 MG/ML SYRINGE IV PRN ×2 (10:46→22:19)
[2019-06-03 11:46] LABS: Glucose,Whole Blood 235 mg/dL (75-99)
[2019-06-03 12:02] LABS: Creatine Kinase MB 1.5 ng/mL (0.0-2.4)
[2019-06-03 12:03] LABS: Troponin I 0.659 ng/mL (0.000-0.034)
[2019-06-03 12:58] LABS: Glucose,Whole Blood 202 mg/dL (75-99)
--- NOTE | 2019-06-03 14:25 | NM ---
EXAMINATION TYPE: NM WBC whole body DATE OF EXAM: 06/03/2019 COMPARISON: NONE HISTORY: MRSA infection TECHNIQUE: Following administration of 16.6 mCi Tc99m Ceretec. Images obtained 4 hour(s) and N/A ho ur(s) post injection. FINDINGS: There is some tracer accumulation in the right colon which is within normal limits. There is normal t racer accumulation in the liver spleen urinary bladder. Bone marrow uptake is within normal limits. I see no abnormal increased uptake to suggest a pyogenic infection. IMPRESSION: Negative white blood cell scan.
--- NOTE | 2019-06-03 15:27 | P.PN ---
Subjective Progress Note Date: 06/03/19 Principal diagnosis: Acute on chronic hypoxic respiratory failure Suspected CHF COPD exacerbation, non-STEMI 06/03/2019 Patient is admitted with acute on chronic hypoxic respiratory failure secondary to CHF and COPD exacerbation; non-ST elevation NE; patient started on IV antibiotics in form of vancomycin and Zosyn for MRSA bacteremia; AMARIS was done w hich was unremarkable; patient remains on IV Cardizem for rapid atrial fibrillation; ID recommending packed WBC for source of bacteremia Patient did have an episode of chest pain with some EKG changes admit this morning; cardiology is following patient and has recommended transfer of patient to cardiac floor; await further cardiology recommendations Objective - Vital Signs Vital signs: Vital Signs Temp 98.1 F 06/03/19 07:02 Pulse 88 06/03/19 08:45 Resp 19 06/03/19 07:02 BP 131/83 06/03/19 07:02 Pulse Ox 94 L 06/03/19 07:02 Intake & Output 06/02/19 06/03/19 06/03/19 18:59 06:59 18:59 Intake Total 479.833 180 Output Total 3 Balance 476.833 180 Weight 96.3 kg Intake: Intake, IV Titration 119.833 Amount Diltiazem 125 mg In 119.833 Sodium Chloride 0.9% 100 ml @ 10 MG/HR 10 mls/hr IV .[id number] [facility] Rx#: [id number] Oral 360 180 Output: Stool 3 Other: Voiding Method Toilet Toilet Toilet # Voids 1 1 # Bowel Movements 1 1 - Exam GENERAL: Sitting up in bed, no acute distress HEENT: Conjunctivae normal. eyes normal. NECK: No JVD. No thyroid enlargement. No LNs CARDIOVASCULAR: S1, S2 regular.Systolic murmur RESPIRATION: Good air entry Breath sounds diminished in the bases. Faint expiratory wheezing. ABDOMEN: Soft, nontender . No guarding. no masses palpable. Bowel sounds heard. LEGS: Mild edema, nontender. - Labs CBC & Chem 7: 06/03/19 06:32 06/03/19 06:32 Labs: Abnormal Lab Results - Last 24 Hours (Table) 06/02/19 06/02/19 06/02/19 Range/Units 10:54 11:39 16:43 WBC (3.8-10.6) k/uL RBC (3.80-5.40) m/uL Hgb (11.4-16.0) gm/dL Hct (34.0-46.0) % MCV (80.0-100.0) fL Neutrophils # (1.3-7.7) k/uL Lymphocytes # (1.0-4.8) k/uL Chloride (98-107) mmol/L Carbon Dioxide (22-30) mmol/L BUN (7-17) mg/dL Glucose (74-99) mg/dL POC Glucose (mg/dL) 248 H 214 H (75-99) mg/dL Calcium (8.4-10.2) mg/dL C-Reactive Protein 18.2 H (<10.0) mg/L 06/02/19 06/03/19 06/03/19 Range/Units 20:02 06:32 06:32 WBC 17.9 H (3.8-10.6) k/uL RBC 2.87 L (3.80-5.40) m/uL Hgb 9.6 L D (11.4-16.0) gm/dL Hct 30.1 L (34.0-46.0) % MCV 104.9 H (80.0-100.0) fL Neutrophils # 16.8 H (1.3-7.7) k/uL Lymphocytes # 0.4 L (1.0-4.8) k/uL Chloride 95 L (98-107) mmol/L Carbon Dioxide 37 H (22-30) mmol/L BUN 62 H (7-17) mg/dL Glucose 250 H (74-99) mg/dL POC Glucose (mg/dL) 309 H (75-99) mg/dL Calcium 7.7 L (8.4-10.2) mg/dL C-Reactive Protein (<10.0) mg/L 06/03/19 Range/Units 07:00 WBC (3.8-10.6) k/uL RBC (3.80-5.40) m/uL Hgb (11.4-16.0) gm/dL Hct (34.0-46.0) % MCV (80.0-100.0) fL Neutrophils # (1.3-7.7) k/uL Lymphocytes # (1.0-4.8) k/uL Chloride (98-107) mmol/L Carbon Dioxide (22-30) mmol/L BUN (7-17) mg/dL Glucose (74-99) mg/dL POC Glucose (mg/dL) 257 H (75-99) mg/dL Calcium (8.4-10.2) mg/dL C-Reactive Protein (<10.0) mg/L Microbiology - Last 24 Hours (Table) 06/02/19 10:54 Blood Culture - Final Blood 05/29/19 05:25 Blood Culture Gram Stain - Final Blood Blood Culture - Final Methicillin resist S. aureus Assessment and Plan Assessment: Acute on chronic hypoxic respiratory failure secondary to multifactorial, early sepsis-secondary to MRSA bacteremia, present on admission , acute CHF exacerbation, acute COPD exacerbation, NSTEMI Acute NSTEMI MRSA Bacteremia, etiology unclear,AMARIS reported heavy calcified aortic valve with no definite vegetations seen. Severe aortic stenosis Pulmonary hypertension hypertension Hyperlipidemia Gastroesophageal reflux disease Prior nicotine dependence Anxiety, depression Hyponatremia resolved Plan: Continue on current medication regime, monitoring and symptomatically treatment. Lasix 40 IV push 1 today then 20 mg IV starting tomorrow . Tagged WBC pending. Antibiotics as per ID. Nebulized bronchodilators, steroids, diuretics. Cardiology had signed off with recommendations for an OP Cardiac catheterization. Patient has been transferred to the cardiac floor per cardiology recommendations and further evaluation is pending Time with Patient: Greater than 30
[2019-06-03 17:14] LABS: Glucose,Whole Blood 226 mg/dL (75-99)
[2019-06-03 21:45] LABS: Glucose,Whole Blood 350 mg/dL (75-99)
[2019-06-03] MEDS: AMITRIPTYLINE HCL 25 MG TAB PO SCH (22:53)
[2019-06-03] MEDS: ATORVASTATIN 80 MG TAB PO SCH (22:53)
[2019-06-03] MEDS: PRAMIPEXOLE 0.5 MG TAB PO SCH (22:54)
[2019-06-04] MEDS: IPRATROPIUM-ALBUTEROL 3 ML NEB INHALATION SCH ×6 (00:17→20:32)
[2019-06-04] MEDS: PIPERACILLIN-TAZOBACTAM 3.375 GM in SODIUM CHLORIDE 0.9% 100 ML IVPB SCH ×3 (02:13→17:59)
[2019-06-04] MEDS: ALPRAZolam 0.25 MG TAB PO PRN ×2 (03:40→23:01)
[2019-06-04 05:02] LABS: Basophils # (A) 0.1 k/uL (0-0.2); Basophils % (A) 0 %; Eosinophils # (A) 0.1 k/uL (0-0.7); Eosinophils % (A) 0 %; HCT 27.6 % (34.0-46.0); HGB 8.6 gm/dL (11.4-16.0); Hypochromasia Slight; Lymphocytes # (A) 1.1 k/uL (1.0-4.8); Lymphocytes % (A) 6 %; MCH 32.5 pg (25.0-35.0); MCV 104.7 fL (80.0-100.0); Macrocytosis Slight; Mean Platelet Volume 9.6; Monocytes # (A) 0.7 k/uL (0-1.0); Monocytes % (A) 3 %; Neutrophils # (A) 18.3 k/uL (1.3-7.7); Neutrophils % (A) 90 %; Platelet Count 176 k/uL (150-450); RBC 2.64 m/uL (3.80-5.40); RDW 13.9 % (11.5-15.5); WBC 20.3 k/uL (3.8-10.6)
[2019-06-04 05:15] LABS: Potassium 4.6 mmol/L (3.5-5.1)
[2019-06-04] MEDS: INSULIN ASPART (NovoLOG) 100 UNIT/ML VIAL SQ SCH ×4 (06:16→20:08)
[2019-06-04 06:17] LABS: Glucose,Whole Blood 165 mg/dL (75-99)
[2019-06-04] MEDS: SYMBICORT 160-4.5 MCG INHALER INHALATION SCH ×2 (07:17→20:30)
[2019-06-04] MEDS: METOPROLOL TARTRATE 25 MG TAB PO SCH ×2 (09:07→20:08)
[2019-06-04] MEDS: SERTRALINE 50 MG TAB PO SCH (09:07)
[2019-06-04] MEDS: LISINOPRIL 10 MG TAB PO SCH (09:07)
[2019-06-04] MEDS: PANTOPRAZOLE 40 MG TABLET PO SCH (09:07)
[2019-06-04] MEDS: methylPREDNISolone SOD SUCCI 40 MG/ML 1 ML VIAL IV SCH ×2 (09:07→20:09)
[2019-06-04] MEDS: APIXABAN 5 MG TAB PO SCH ×2 (09:07→20:08)
[2019-06-04] MEDS: FUROSEMIDE 20 MG TAB PO SCH (09:08)
[2019-06-04] MEDS: ASPIRIN 81 MG PO SCH (09:08)
[2019-06-04] MEDS: ILEVRO RIGHT EYE SCH (09:27)
[2019-06-04 12:48] LABS: Glucose,Whole Blood 235 mg/dL (75-99)
[2019-06-04] MEDS: prednisoLONE ACETATE 1% OPHTH DROPS 5 ML BTL BOTH EYES SCH ×3 (13:25→21:58)
--- NOTE | 2019-06-04 13:34 | P.PN ---
Subjective Progress Note Date: 06/04/19 On exam, the patient is currently resting comfortably in bed. She was transferred back to the cardiac floor after experiencing an episode of chest discomfort last night. She states it was an ache in her chest which radiated through her shoulder blades. EKG showed sinus rhythm with nonspecific ST or T-wave changes. She also has been experiencing dizziness with positional changes while being in the hospital. She denies any shortness of breath, palpitations, or syncope. She did not have any episodes of atrial fibrillation during this time according to telemetry. After completing her IV antibiotics, she was going to follow-up with Dr. Goldman outpatient for coronary angiography. GENERAL: Well-appearing, well-nourished and in no acute distress. NECK: Supple without JVD or thyromegaly. LUNGS: Breath sounds clear to auscultation bilaterally. Respiration equal and unlabored. No wheezes, rales or rhonchi. HEART: Regular rate and rhythm without rubs or gallops. Systolic murmur audible at RUSB. S1 and S2 heard. EXTREMITIES: Normal range of motion, no edema. No clubbing or cyanosis. Peripheral pulses intact and strong. Labs: WBC 20.3, hemoglobin 8.6, hematocrit 27.6, platelet 176, sodium 137, potassium 4.6, CO2 41, BUN 57, creatinine 0.95 Vital signs: Afebrile with temperature 98.2 Fahrenheit, pulse 88, blood pressure 109/71, and maintaining saturations greater than 90% on 6 L nasal cannula Impression/plan: #1 sepsis, with cultures positive for staph aureus #2 NSTEMI, episode of chest pain without EKG changes #3 elevated troponins possible non-ST elevated NC versus type II NC secondary to sepsis #4 paroxysmal atrial fibrillation with RVR, currently on Eliquis #5 chronic hypoxic respiratory failure, history of COPD #6 pulmonary hypertension #7 severe aortic stenosis #8 hypertension Plan: Continue current medication regimen. Will discuss with Dr. Goldman to evaluate whether she will be tomorrow or outpatient. Objective - Vital Signs Vital signs: Vital Signs Temp 98.2 F 06/04/19 06:01 Pulse 82 06/04/19 11:14 Resp 18 06/04/19 06:01 BP 109/71 06/04/19 06:01 Pulse Ox 94 L 06/04/19 06:01 Intake & Output 06/03/19 06/04/19 06/04/19 18:59 06:59 18:59 Intake Total 100 240 360 Output Total 1 Balance 100 239 360 Weight 95.4 kg 95.4 kg Intake: IV 240 0.9 NS 240 Intake, IV Titration 100 Amount Piperacillin-Tazobactam 3 100 .375 gm In Sodium Chloride 0.9% 100 ml @ 25 mls/hr IVPB Q8HR [facility] Rx# :[id number] Oral 360 Output: Stool 1 Other: Voiding Method Toilet Toilet # Voids 1 2 # Bowel Movements 1 - Labs CBC & Chem 7: 06/04/19 04:15 06/04/19 04:15 Labs: Abnormal Lab Results - Last 24 Hours (Table) 06/03/19 06/03/19 06/04/19 Range/Units 17:13 21:43 04:15 WBC (3.8-10.6) k/uL RBC (3.80-5.40) m/uL Hgb (11.4-16.0) gm/dL Hct (34.0-46.0) % MCV (80.0-100.0) fL Neutrophils # (1.3-7.7) k/uL Chloride 94 L (98-107) mmol/L Carbon Dioxide 41 H* (22-30) mmol/L BUN 57 H (7-17) mg/dL Glucose 141 H (74-99) mg/dL POC Glucose (mg/dL) 226 H 350 H (75-99) mg/dL Calcium 8.0 L (8.4-10.2) mg/dL 06/04/19 06/04/19 06/04/19 Range/Units 04:15 06:15 12:46 WBC 20.3 H (3.8-10.6) k/uL RBC 2.64 L (3.80-5.40) m/uL Hgb 8.6 L (11.4-16.0) gm/dL Hct 27.6 L (34.0-46.0) % MCV 104.7 H (80.0-100.0) fL Neutrophils # 18.3 H (1.3-7.7) k/uL Chloride (98-107) mmol/L Carbon Dioxide (22-30) mmol/L BUN (7-17) mg/dL Glucose (74-99) mg/dL POC Glucose (mg/dL) 165 H 235 H (75-99) mg/dL Calcium (8.4-10.2) mg/dL Microbiology - Last 24 Hours (Table) 06/02/19 10:54 Blood Culture Gram Stain - Preliminary Blood Blood Culture - Preliminary Presumptive MRSA 06/02/19 10:54 Blood Culture - Final Blood
[2019-06-04] MEDS: VANCOMYCIN 1,750 MG in SODIUM CHLORIDE 0.9% 500 ML 500 ML IVPB SCH (14:38)
--- NOTE | 2019-06-04 14:59 | P.PN ---
Subjective Progress Note Date: 06/04/19 Principal diagnosis: Acute on chronic hypoxic respiratory failure Suspected CHF COPD exacerbation, non-STEMI 06/03/2019 Patient is admitted with acute on chronic hypoxic respiratory failure secondary to CHF and COPD exacerbation; non-ST elevation [place]; patient started on IV antibiotics in form of vancomycin and Zosyn for MRSA bacteremia; AMARIS was done w hich was unremarkable; patient remains on IV Cardizem for rapid atrial fibrillation; ID recommending packed WBC for source of bacteremia Patient did have an episode of chest pain with some EKG changes admit this morning; cardiology is following patient and has recommended transfer of patient to cardiac floor; await further cardiology recommendations 06/04/2019 Patient seen and evaluated in selective care; denies any further episodes of chest pain or shortness of breath; patient was transferred back to cardiac floor after she had an episode of chest pain at which time EKG showed nonspecific ST-T wave changes; patient has been admitted with type 2 non-ST elevation KS and had been planned cardiac catheterization as an outpatient after patient completes treatment for MRSA septicemia; cardiology hasn't reconsulted with possibility of cardiac catheterization tomorrow versus outpatient Patient remains on IV antibiotics for MRSA bacteremia; AMARIS and intact WBC scan has been negative; IDs following for IV antibiotics and will be reevaluating patient tomorrow and making further recommendations Objective - Vital Signs Vital signs: Vital Signs Temp 98.2 F 06/04/19 06:01 Pulse 92 06/04/19 07:31 Resp 18 06/04/19 06:01 BP 109/71 06/04/19 06:01 Pulse Ox 94 L 06/04/19 06:01 Intake & Output 06/03/19 06/04/19 06/04/19 18:59 06:59 18:59 Intake Total 100 240 360 Output Total 1 Balance 100 239 360 Weight 95.4 kg Intake: IV 240 0.9 NS 240 Intake, IV Titration 100 Amount Piperacillin-Tazobactam 3 100 .375 gm In Sodium Chloride 0.9% 100 ml @ 25 mls/hr IVPB Q8HR [facility] Rx# :[id number] Oral 360 Output: Stool 1 Other: Voiding Method Toilet Toilet # Voids 1 2 # Bowel Movements 1 - Exam GENERAL: Sitting up in bed, no acute distress HEENT: Conjunctivae normal. eyes normal. NECK: No JVD. No thyroid enlargement. No LNs CARDIOVASCULAR: S1, S2 regular.Systolic murmur RESPIRATION: Good air entry Breath sounds diminished in the bases. Faint expiratory wheezing. ABDOMEN: Soft, nontender . No guarding. no masses palpable. Bowel sounds heard. LEGS: Mild edema, nontender. - Labs CBC & Chem 7: 06/04/19 04:15 06/04/19 04:15 Labs: Abnormal Lab Results - Last 24 Hours (Table) 06/03/19 06/03/19 06/03/19 Range/Units 06:32 11:43 12:57 WBC (3.8-10.6) k/uL RBC (3.80-5.40) m/uL Hgb (11.4-16.0) gm/dL Hct (34.0-46.0) % MCV (80.0-100.0) fL Neutrophils # (1.3-7.7) k/uL Chloride (98-107) mmol/L Carbon Dioxide (22-30) mmol/L BUN (7-17) mg/dL Glucose (74-99) mg/dL POC Glucose (mg/dL) 235 H 202 H (75-99) mg/dL Calcium (8.4-10.2) mg/dL Troponin I 0.659 H* (0.000-0.034) ng/mL 06/03/19 06/03/19 06/04/19 Range/Units 17:13 21:43 04:15 WBC (3.8-10.6) k/uL RBC (3.80-5.40) m/uL Hgb (11.4-16.0) gm/dL Hct (34.0-46.0) % MCV (80.0-100.0) fL Neutrophils # (1.3-7.7) k/uL Chloride 94 L (98-107) mmol/L Carbon Dioxide 41 H* (22-30) mmol/L BUN 57 H (7-17) mg/dL Glucose 141 H (74-99) mg/dL POC Glucose (mg/dL) 226 H 350 H (75-99) mg/dL Calcium 8.0 L (8.4-10.2) mg/dL Troponin I (0.000-0.034) ng/mL 06/04/19 06/04/19 Range/Units 04:15 06:15 WBC 20.3 H (3.8-10.6) k/uL RBC 2.64 L (3.80-5.40) m/uL Hgb 8.6 L (11.4-16.0) gm/dL Hct 27.6 L (34.0-46.0) % MCV 104.7 H (80.0-100.0) fL Neutrophils # 18.3 H (1.3-7.7) k/uL Chloride (98-107) mmol/L Carbon Dioxide (22-30) mmol/L BUN (7-17) mg/dL Glucose (74-99) mg/dL POC Glucose (mg/dL) 165 H (75-99) mg/dL Calcium (8.4-10.2) mg/dL Troponin I (0.000-0.034) ng/mL Microbiology - Last 24 Hours (Table) 06/02/19 10:54 Blood Culture Gram Stain - Preliminary Blood Blood Culture - Preliminary Presumptive MRSA 06/02/19 10:54 Blood Culture - Final Blood Assessment and Plan Assessment: Acute on chronic hypoxic respiratory failure secondary to multifactorial, early sepsis-secondary to MRSA bacteremia, present on admission , acute CHF exacerbation, acute COPD exacerbation, NSTEMI Acute NSTEMI MRSA Bacteremia, etiology unclear,AMARIS reported heavy calcified aortic valve with no definite vegetations seen. Severe aortic stenosis Pulmonary hypertension hypertension Hyperlipidemia Gastroesophageal reflux disease Prior nicotine dependence Anxiety, depression Hyponatremia resolved Plan: Continue on current medication regime, monitoring and symptomatically tr eatment. Lasix 40 IV push 1 today then 20 mg IV starting tomorrow . Tagged WBC pending. Antibiotics as per ID. Nebulized bronchodilators, steroids, diuretics. Cardiology had signed off with recommendations for an OP Cardiac catheterization. Patient has been transferred to the cardiac floor per cardiology recommendations and further evaluation is pending
[2019-06-04 17:29] LABS: Glucose,Whole Blood 196 mg/dL (75-99)
[2019-06-04] MEDS ORDERED: PIPERACILLIN-TAZOBACTAM 3.375 GM in SODIUM CHLORIDE 0.9% 100 ML IVPB SCH (18:00)
[2019-06-04 20:07] LABS: Glucose,Whole Blood 256 mg/dL (75-99)
[2019-06-04] MEDS: ATORVASTATIN 80 MG TAB PO SCH (20:08)
[2019-06-04] MEDS: AMITRIPTYLINE HCL 25 MG TAB PO SCH (20:08)
[2019-06-04] MEDS ORDERED: IPRATROPIUM-ALBUTEROL 3 ML NEB INHALATION PRN (21:14)
[2019-06-04] MEDS: PRAMIPEXOLE 0.5 MG TAB PO SCH (22:05)
[2019-06-05] MEDS: VANCOMYCIN 1,750 MG in SODIUM CHLORIDE 0.9% 500 ML 500 ML IVPB SCH (03:16)
[2019-06-05 06:09] LABS: Glucose,Whole Blood 164 mg/dL (75-99)
--- NOTE | 2019-06-05 06:33 | PN ---
PROGRESS NOTE DATE OF SERVICE: 06/04/2019 REASON FOR FOLLOWUP: MRSA bacteremia. INTERVAL HISTORY: The patient is currently afebrile. The patient is breathing comfortably. Denies having any chest pain. Some cough. No nausea, vomiting. No abdominal pain. No diarrhea. PHYSICAL EXAMINATION: Blood pressure 114/72 with a pulse of 80, temperature 98.4. She is 97% on 6 L nasal cannula. General description is an elderly female up in the bed in no distress. RESPIRATORY SYSTEM: Unlabored breathing. Decreased breath sounds in the bases. No wheeze. HEART: S1, S2. Regular rate and rhythm. ABDOMEN: Soft. No tenderness. EXTREMITIES: No edema of the feet. LABS: Hemoglobin 8.6, white count 20.3, BUN of 57, creatinine 0.97. DIAGNOSTIC IMPRESSION AND PLAN: 1. Patient with MRSA bacteremia with concern for possible or endovascular source. Unfortunately AMARIS was negative and WBC scan has been negative as well. She will continue with vancomycin. Blood cultures repeated bacteremia and continue supportive care. 2. Elevated white count likely steroid effect and no evidence of any worsening infection clinically. MMODL / IJN: [id number] /
[2019-06-05] MEDS: INSULIN ASPART (NovoLOG) 100 UNIT/ML VIAL SQ SCH ×4 (06:38→21:10)
[2019-06-05 07:19] LABS: Potassium 4.4 mmol/L (3.5-5.1)
[2019-06-05] MEDS: SYMBICORT 160-4.5 MCG INHALER INHALATION SCH ×2 (07:20→21:25)
[2019-06-05] MEDS: IPRATROPIUM-ALBUTEROL 3 ML NEB INHALATION SCH ×4 (07:20→21:25)
[2019-06-05] MEDS: methylPREDNISolone SOD SUCCI 40 MG/ML 1 ML VIAL IV SCH ×2 (08:12→21:10)
[2019-06-05] MEDS: FUROSEMIDE 20 MG TAB PO SCH (08:13)
[2019-06-05] MEDS: LISINOPRIL 10 MG TAB PO SCH (08:13)
[2019-06-05] MEDS: APIXABAN 5 MG TAB PO SCH ×2 (08:13→21:10)
[2019-06-05 08:14] LABS: Basophils # (A) 0.1 k/uL (0-0.2); Basophils % (A) 0 %; Eosinophils # (A) 0.1 k/uL (0-0.7); Eosinophils % (A) 0 %; HCT 27.9 % (34.0-46.0); HGB 8.4 gm/dL (11.4-16.0); Hypochromasia Slight; Lymphocytes # (A) 1.2 k/uL (1.0-4.8); Lymphocytes % (A) 5 %; MCH 31.7 pg (25.0-35.0); MCHC 30.3 g/dL (31.0-37.0); MCV 104.5 fL (80.0-100.0); Macrocytosis Slight; Mean Platelet Volume 10.9; Monocytes # (A) 0.5 k/uL (0-1.0); Monocytes % (A) 2 %; Neutrophils # (A) 19.4 k/uL (1.3-7.7); Neutrophils % (A) 91 %; Platelet Count 205 k/uL (150-450); RBC 2.67 m/uL (3.80-5.40); WBC 21.4 k/uL (3.8-10.6)
[2019-06-05] MEDS: SERTRALINE 50 MG TAB PO SCH (08:14)
[2019-06-05] MEDS: METOPROLOL TARTRATE 25 MG TAB PO SCH ×2 (08:14→21:10)
[2019-06-05] MEDS: ASPIRIN 81 MG PO SCH (08:14)
[2019-06-05] MEDS: PANTOPRAZOLE 40 MG TABLET PO SCH (08:14)
[2019-06-05] MEDS: prednisoLONE ACETATE 1% OPHTH DROPS 5 ML BTL BOTH EYES SCH ×3 (08:15→21:13)
[2019-06-05] MEDS: ILEVRO RIGHT EYE SCH (09:29)
--- NOTE | 2019-06-05 11:12 | P.PN ---
Subjective Progress Note Date: 06/05/19 Patient was seen and examined this morning, she is comfortable today, denies any shortness of breath, and states that she had no further episodes of chest discomfort. Patient does state that she had an episode of chest discomfort which lasted approximately 20 minutes yesterday. Blood pressure 94/60 with a heart rate in the 90s, 93% on 5 L of oxygen. White blood cell count 21.4, hemoglobin 8.4, platelet count 205. Sodium 137, potassium 4.4, BUN 52, creatinine 0.9. Objective - Vital Signs Vital signs: Vital Signs Temp 98.3 F 06/05/19 08:00 Pulse 90 06/05/19 08:00 Resp 20 06/05/19 08:00 BP 94/57 06/05/19 08:00 Pulse Ox 93 L 06/05/19 08:00 Intake & Output 06/04/19 06/05/19 06/05/19 18:59 06:59 18:59 Intake Total 822 340 320 Output Total 4 1 Balance 822 336 319 Weight 95.4 kg 95.8 kg Intake: Intake, IV Titration 100 Amount Piperacillin-Tazobactam 3 100 .375 gm In Sodium Chloride 0.9% 100 ml @ 25 mls/hr IVPB Q8H [facility] Rx#: [id number] Oral 822 240 320 Output: Urine 1 Stool 3 1 Other: Voiding Method Toilet Toilet # Voids 2 1 - Exam GENERAL: Well-appearing, well-nourished and in no acute distress. NECK: Supple without JVD or thyromegaly. LUNGS: Breath sounds clear to auscultation bilaterally. Respiration equal and unlabored. No wheezes, rales or rhonchi. HEART: Regular rate and rhythm without rubs or gallops. Systolic murmur audible at RUSB. S1 and S2 heard. EXTREMITIES: Normal range of motion, no edema. No clubbing or cyanosis. Erinn pheral pulses intact and strong. - Labs CBC & Chem 7: 06/05/19 06:40 06/05/19 06:40 Labs: Abnormal Lab Results - Last 24 Hours (Table) 06/04/19 06/04/19 06/04/19 Range/Units 12:46 17:26 20:06 WBC (3.8-10.6) k/uL RBC (3.80-5.40) m/uL Hgb (11.4-16.0) gm/dL Hct (34.0-46.0) % MCV (80.0-100.0) fL MCHC (31.0-37.0) g/dL Neutrophils # (1.3-7.7) k/uL Chloride (98-107) mmol/L Carbon Dioxide (22-30) mmol/L BUN (7-17) mg/dL Glucose (74-99) mg/dL POC Glucose (mg/dL) 235 H 196 H 256 H (75-99) mg/dL Calcium (8.4-10.2) mg/dL 06/05/19 06/05/19 06/05/19 Range/Units 06:08 06:40 06:40 WBC 21.4 H (3.8-10.6) k/uL RBC 2.67 L (3.80-5.40) m/uL Hgb 8.4 L (11.4-16.0) gm/dL Hct 27.9 L (34.0-46.0) % MCV 104.5 H (80.0-100.0) fL MCHC 30.3 L (31.0-37.0) g/dL Neutrophils # 19.4 H (1.3-7.7) k/uL Chloride 96 L (98-107) mmol/L Carbon Dioxide 39 H (22-30) mmol/L BUN 52 H (7-17) mg/dL Glucose 131 H (74-99) mg/dL POC Glucose (mg/dL) 164 H (75-99) mg/dL Calcium 8.0 L (8.4-10.2) mg/dL Microbiology - Last 24 Hours (Table) 06/02/19 10:54 Blood Culture Gram Stain - Preliminary Blood Blood Culture - Preliminary Methicillin resist S. aureus Assessment and Plan Plan: Impression/plan: #1 sepsis, with cultures positive for staph aureus #2 NSTEMI, episode of chest pain yesterday without EKG changes #3 elevated troponins possible non-ST elevated CA versus type II CA secondary to sepsis #4 paroxysmal atrial fibrillation with RVR, currently on Eliquis #5 chronic hypoxic respiratory failure, history of COPD #6 pulmonary hypertension #7 severe aortic stenosis #[address] De Oliveira's recommendation to the patient is that she undergo cardiac cathet erization prior to her discharge from here. We'll speak with Dr. Vargas regarding possible cardiac catheterization on Wednesday or so of this week. Further recommendations to follow. DNP note has been reviewed, I agree with a documented findings and plan of care. Patient was seen and examined.
[2019-06-05 11:59] LABS: Glucose,Whole Blood 214 mg/dL (75-99)
--- NOTE | 2019-06-05 16:30 | P.PN ---
Subjective Progress Note Date: 06/05/19 This is a 73-year-old female admitted with acute on chronic hypoxic respiratory failure, suspected CHF and COPD exacerbation, non-STEMI and multiple other medical issues. Maintained on nebulized bronchodilators, Zosyn, diuretics. Anticoagulated on heparin drip. Echo currently being completed at bedside. One of 3 initial blood cultures reporting presumptive MRSA, repeat blood cultures ordered. 05/30/2019 Feels better today. Last night developed atrial fibrillation with RVR, initiated on Cardizem drip. Converted to sinus rhythm, Cardizem drip discontinued.denies chest pain, palpitations or increased shortness of breath. maintained on heparin drip. Currently on 5 L nasal cannula with pulse ox in the low 90s. Continues on Zosyn and vancomycin, secondary to MRSA bacteremia. Repeat cultures reporting presumptive MRSA. Afebrile, normal WBC. 05/31/2019 maintained on Zosyn, vancomycin .feels better today, breathing improved with less exertional shortness of breath. Denies cough. Denies chest pain. Ambulated in the ghotra, tolerating exertion well. Heart catheterization pending as per cardiology. Scheduled for AMARIS tomorrow , ruling out bacterial endocarditis. Afebrile, oxygen weaned down to 4 L, maintaining O2 sats of 90s. 06/01/19 Continues on IV antibiotics of vancomycin, Zosyn for MRSA bacteremia. NPO, awaiting AMARIS. Last night returned into atrial fibrillation with RVR, Cardizem drip initiated; currently at 5 mg per hour. Currently sinus rhythm. Earlier this morning, run of 6 white complex tachycardia, asymptomatic. Potassium and magnesium levels ordered, pending.VSS, maintaining O2 sats in the 90s on 5 L nasal cannula. 06/02/2019 Underwent AMARIS yesterday reporting heavy calcified aortic valve with no definite vegetations seen. Repeat blood cultures in progress. Continues on vancomycin. Creatinine 0.79 Tagged WBC scan ordered. Maintained on Cardizem dr ip. Telemetry sinus rhythm. Denies chest pain, palpitations or increasing shortness of breath. Afebrile 06/05/2019 maintained on vancomycin .afebrile, repeat cultures of 06/02 reporting MRSA bacteremia; AMARIS/WBC scan reported negative. Repeat cultures in progress. Denies abdominal pain. Denies chest pain, palpitations or increased shortness of breath. Objective - Vital Signs Vital signs: Vital Signs Temp 97.8 F 06/05/19 15:25 Pulse 86 06/05/19 15:54 Resp 17 06/05/19 15:25 BP 87/56 06/05/19 15:25 Pulse Ox 95 06/05/19 15:25 Intake & Output 06/04/19 06/05/19 06/05/19 18:59 06:59 18:59 Intake Total 822 340 320 Output Total 4 1 Balance 822 336 319 Weight 95.4 kg 95.8 kg Intake: Intake, IV Titration 100 Amount Piperacillin-Tazobactam 3 100 .375 gm In Sodium Chloride 0.9% 100 ml @ 25 mls/hr IVPB Q8H [facility] Rx#: [id number] Oral 822 240 320 Output: Urine 1 Stool 3 1 Other: Voiding Method Toilet Toilet # Voids 2 1 - Exam PHYSICAL EXAM: VITAL SIGNS: As above GENERAL: Sitting up in bed, no acute distress HEENT: Conjunctivae normal. eyes normal. NECK: No JVD. No thyroid enlargement. No LNs CARDIOVASCULAR: S1, S2 regular.Systolic murmur RESPIRATION: Good air entry Breath sounds diminished in the bases. ABDOMEN: Soft, nontender . No guarding. no masses palpable. Bowel sounds heard. LEGS: Mild edema, nontender. PSYCHIATRY: Alert and oriented X3, mood and affect normal. NERVOUS SYSTEM: Cranial N 2-12 grossly normal. Moves all 4 limbs. Diffuse wea kness No focal deficits. Strength and sensation grossly intact.. Skin: no rash , right arm multiple bruises. - Labs CBC & Chem 7: 06/05/19 06:40 06/05/19 06:40 Labs: Abnormal Lab Results - Last 24 Hours (Table) 06/04/19 06/04/19 06/05/19 Range/Units 17:26 20:06 06:08 WBC (3.8-10.6) k/uL RBC (3.80-5.40) m/uL Hgb (11.4-16.0) gm/dL Hct (34.0-46.0) % MCV (80.0-100.0) fL MCHC (31.0-37.0) g/dL Neutrophils # (1.3-7.7) k/uL Chloride (98-107) mmol/L Carbon Dioxide (22-30) mmol/L BUN (7-17) mg/dL Glucose (74-99) mg/dL POC Glucose (mg/dL) 196 H 256 H 164 H (75-99) mg/dL Calcium (8.4-10.2) mg/dL 06/05/19 06/05/19 06/05/19 Range/Units 06:40 06:40 11:57 WBC 21.4 H (3.8-10.6) k/uL RBC 2.67 L (3.80-5.40) m/uL Hgb 8.4 L (11.4-16.0) gm/dL Hct 27.9 L (34.0-46.0) % MCV 104.5 H (80.0-100.0) fL MCHC 30.3 L (31.0-37.0) g/dL Neutrophils # 19.4 H (1.3-7.7) k/uL Chloride 96 L (98-107) mmol/L Carbon Dioxide 39 H (22-30) mmol/L BUN 52 H (7-17) mg/dL Glucose 131 H (74-99) mg/dL POC Glucose (mg/dL) 214 H (75-99) mg/dL Calcium 8.0 L (8.4-10.2) mg/dL Microbiology - Last 24 Hours (Table) 06/02/19 10:54 Blood Culture Gram Stain - Final Blood Blood Culture - Final Methicillin resist S. aureus 06/04/19 16:54 Blood Culture - Preliminary Blood Assessment and Plan Assessment: Acute on chronic hypoxic respiratory failure secondary to multifactorial, early sepsis-secondary to MRSA bacteremia, present on admission , acute CHF exacerbation, acute COPD exacerbation, NSTEMI Acute NSTEMI MRSA Bacteremia, etiology unclear,AMARIS reported heavy calcified aortic valve with no definite vegetations seen. Negative white blood cell scan. Severe aortic stenosis Pulmonary hypertension hypertension Hyperlipidemia Gastroesophageal reflux disease Prior nicotine dependence Anxiety, depression Hyponatremia resolved Plan: Continue on current medication regime, monitoring and symptomatically treatment. Antibiotics as per ID. Nebulized bronchodilators, steroids, diuretics. Cardiology now discussing potential cardiac catheterization inpatient. Discharge planning in progress pending repeat cultures are negative 48 hours. The impression and plan of care has been dictated as directed. : I performed a history and examination of this patient, discussed the same with the dictator. I agree with the dictator's note ,documented as a scribe. Any additional findings or plans will be noted.
[2019-06-05 16:55] LABS: Glucose,Whole Blood 223 mg/dL (75-99)
[2019-06-05] MEDS ORDERED: DOFETILIDE 500 MCG CAP PO SCH (18:00)
[2019-06-05] MEDS ORDERED: VANCOMYCIN TROUGH DUE 1 EACH MISC MISCELLANE ONE (18:00)
[2019-06-05] MEDS: LORATADINE 10 MG TAB PO SCH (18:06)
--- NOTE | 2019-06-05 18:46 | CT ---
EXAMINATION TYPE: CT chest wo con DATE OF EXAM: 06/05/2019 COMPARISON: CT chest 05/28/2019 HISTORY: Shortness of breath CT DLP: 448.4 mGycm. Automated Exposure Control for Dose Reduction was Utilized. TECHNIQUE: CT scan of the thorax is performed without IV contrast. Automated exposure control for do se reduction. FINDINGS: LUNGS: The lungs are grossly clear, there is small nodular density abutting the mediastinum in the ri ght middle lobe on axial image #33 which may represent some focal atelectatic change. There is no p leural effusion or pneumothorax seen. The tracheobronchial tree is patent. MEDIASTINUM: Lack of IV contrast is noted to limit evaluation for mediastinal and especially hilar ad enopathy. There are no definitive greater than 1 cm hilar or mediastinal lymph nodes. No cardiomega ly or pericardial effusion is seen. There are coronary artery calcifications. Artifact at the root of aorta suggests postop change. Prominent pulmonary artery suggests pulmonary artery hypertension. The heart is enlarged. OTHER: No additional significant abnormality is seen. Lack of intravenous contrast could compromise sensitivity. Multilevel thoracic spondylosis is present. Degenerative disc changes noted in the lumba r spine. IMPRESSION: Again noted cardiomegaly with possible pulmonary artery hypertension. Noncontrast exam. S ome possible focal atelectatic change as described right middle lobe. Additional findings above.
[2019-06-05 20:21] LABS: Glucose,Whole Blood 180 mg/dL (75-99)
[2019-06-05] MEDS ORDERED: VANCOMYCIN 1,500 MG in SODIUM CHLORIDE 0.9% 250 ML IVPB SCH (21:00)
[2019-06-05] MEDS: AMITRIPTYLINE HCL 25 MG TAB PO SCH (21:10)
[2019-06-05] MEDS: ATORVASTATIN 80 MG TAB PO SCH (21:10)
[2019-06-05] MEDS: PRAMIPEXOLE 0.5 MG TAB PO SCH (21:11)
[2019-06-05] MEDS ORDERED: IOPAMIDOL CONTRAST (ORAL USE) VIAL PO PRN (22:15)
[2019-06-06] MEDS: ALPRAZolam 0.25 MG TAB PO PRN (01:25)
--- NOTE | 2019-06-06 01:56 | PN ---
PROGRESS NOTE DATE OF SERVICE: 06/05/2019 REASON FOR FOLLOWUP: MRSA bacteremia. INTERVAL HISTORY: The patient is currently afebrile. The patient has pain. Breathing comfortably. The patient denies having any chest pain. She did have some cough, not bringing up any sputum. No nausea, vomiting, no abdominal pain, no diarrhea. PHYSICAL EXAMINATION: Blood pressure is 106/55 with a pulse of 84, temperature 98.3. She is 95% on 5 L nasal cannula. General description is an elderly female up in the bed in no distress. Respiratory system: Unlabored breathing. Clear to auscultation anteriorly. Heart S1, S2. Regular rate and rhythm. Abdomen soft. No tenderness. Extremities: No edema of the feet. LABS: Vanco trough has been low at 8.9. Blood cultures from yesterday morning show positive as well. DIAGNOSTIC IMPRESSION AND PLAN: Patient with MRSA bacteremia now with persistent bacteremia for almost a week with concern for possible endovascular source though AMARIS was negative. CT of chest negative for any pneumonia. Reason for persistent bacteremia could be the patient vanco trough has been very low and this time, we will discontinue the vancomycin with likely concern for vancomycin failure and daptomycin at 6 mg/kg. Repeat blood cultures tomorrow. Also we will obtain a CT of abdomen and pelvis with oral contrast in a.m. and monitor clinical course closely. MMODL / IJN: [id number] /
[2019-06-06 06:14] LABS: Glucose,Whole Blood 279 mg/dL (75-99)
[2019-06-06] MEDS: INSULIN ASPART (NovoLOG) 100 UNIT/ML VIAL SQ SCH ×4 (06:26→20:36)
[2019-06-06] MEDS: IPRATROPIUM-ALBUTEROL 3 ML NEB INHALATION SCH ×4 (07:00→20:15)
[2019-06-06] MEDS: SYMBICORT 160-4.5 MCG INHALER INHALATION SCH ×2 (07:00→20:15)
[2019-06-06 07:08] LABS: Basophils % (A) 0 %; Eosinophils % (A) 0 %; HGB 7.8 gm/dL (11.4-16.0); Hypochromasia Slight; Lymphocytes # (A) 0.4 k/uL (1.0-4.8); Lymphocytes % (A) 3 %; MCH 31.4 pg (25.0-35.0); MCV 104.7 fL (80.0-100.0); Macrocytosis Slight; Mean Platelet Volume 9.6; Monocytes # (A) 0.3 k/uL (0-1.0); Monocytes % (A) 2 %; Neutrophils # (A) 13.8 k/uL (1.3-7.7); Neutrophils % (A) 95 %; Platelet Count 193 k/uL (150-450); RBC 2.49 m/uL (3.80-5.40); RDW 14.1 % (11.5-15.5); WBC 14.5 k/uL (3.8-10.6)
[2019-06-06 07:27] LABS: Calcium 7.8 mg/dL (8.4-10.2); Potassium 4.2 mmol/L (3.5-5.1)
[2019-06-06] MEDS: IOPAMIDOL CONTRAST (ORAL USE) VIAL PO PRN ×2 (09:03→10:08)
[2019-06-06] MEDS: ASPIRIN 81 MG PO SCH (09:05)
[2019-06-06] MEDS: methylPREDNISolone SOD SUCCI 40 MG/ML 1 ML VIAL IV SCH ×2 (09:05→20:35)
[2019-06-06] MEDS: APIXABAN 5 MG TAB PO SCH ×2 (09:05→20:36)
[2019-06-06] MEDS: LORATADINE 10 MG TAB PO SCH (09:06)
[2019-06-06] MEDS: FUROSEMIDE 20 MG TAB PO SCH (09:06)
[2019-06-06] MEDS: LISINOPRIL 10 MG TAB PO SCH (09:06)
[2019-06-06] MEDS: METOPROLOL TARTRATE 25 MG TAB PO SCH ×2 (09:06→20:36)
[2019-06-06] MEDS: SERTRALINE 50 MG TAB PO SCH (09:06)
[2019-06-06] MEDS: PANTOPRAZOLE 40 MG TABLET PO SCH (09:06)
[2019-06-06] MEDS: ILEVRO RIGHT EYE SCH (09:26)
[2019-06-06] MEDS: prednisoLONE ACETATE 1% OPHTH DROPS 5 ML BTL BOTH EYES SCH ×3 (09:27→20:35)
--- NOTE | 2019-06-06 11:16 | CT ---
EXAMINATION TYPE: CT abdomen pelvis w con DATE OF EXAM: 06/06/2019 COMPARISON: 08/05/2009 HISTORY: No Abdominal complaints @TOS CT DLP: 1727.1 mGycm CONTRAST: CT scan of the abdomen and pelvis is performed with Oral Contrast and with IV Contrast, patient injec silvia with 100 mL of Isovue 300. FINDINGS: LUNG BASES-: No visible nodule. No infiltrate. LIVER/GB: The gallbladder is surgically absent. No space occupying hepatic lesion. Biliary tree is of normal caliber. PANCREAS: No inflammation. No distinct mass. SPLEEN: No splenic enlargement. No lesion seen. ADRENALS: No nodule. No thickening. KIDNEYS/BLADDER: No hydronephrosis. No nephrolithiasis. No distinct renal mass. Urinary bladder g rossly unremarkable. BOWEL: Normal appendix. Normal bowel caliber. No inflammation. Moderate fecal stasis. No evidence f or abscess. GENITAL ORGANS: No gross abnormality. LYMPH NODES: No greater than 1cm abdominal or pelvic lymph nodes are appreciated. AORTA: No significant abnormality. OSSEOUS STRUCTURES: Remote pelvic fractures and postoperative changes left hip. OTHER: No significant additional abnormality is seen. IMPRESSION: 1. No evidence for abscess at this time. 2. Moderate fecal stasis.
[2019-06-06] MEDS ORDERED: MENTHOL (NICE) LOZENGE MUCOUS MEM PRN (11:47)
[2019-06-06 11:59] LABS: Glucose,Whole Blood 116 mg/dL (75-99)
--- NOTE | 2019-06-06 12:16 | P.PN ---
Subjective Progress Note Date: 06/06/19 Patient was seen and examined this morning, she is comfortable today, denies any shortness of breath, and states that she had no further episodes of chest discomfort. Patient does state that she had an episode of chest discomfort which lasted approximately 20 minutes yesterday. Blood pressure 94/60 with a heart rate in the 90s, 93% on 5 L of oxygen. White blood cell count 21.4, hemoglobin 8.4, platelet count 205. Sodium 137, potassium 4.4, BUN 52, creatinine 0.9. 06/06/2019 Patient seen and examined this morning, complaining of some abdominal discomfort. It is noted this morning that her hemoglobin is down to 7.8, on admission her hemoglobin was 14.5. Blood cultures positive for gram-positive cocci in clusters. Blood pressure 108/68, heart rate in the 70s, 98% on 5 L of oxygen. White blood cell count 14.5, hemoglobin 7.8, platelet count 193. Sodium 136, potassium 4.2, BUN 45, creatinine 0.8. Objective - Vital Signs Vital signs: Vital Signs Temp 97.8 F 06/06/19 11:29 Pulse 79 06/06/19 11:29 Resp 18 06/06/19 11:29 BP 107/67 06/06/19 11:29 Pulse Ox 98 06/06/19 11:29 Intake & Output 06/05/19 06/06/19 06/06/19 18:59 06:59 18:59 Intake Total 560 120 Output Total 2 560 Balance 558 -560 120 Weight 95.3 kg Intake: Oral 560 120 Output: Urine 560 Stool 2 Other: Voiding Method Toilet Toilet # Voids 1 # Bowel Movements 1 - Exam GENERAL: Well-appearing, well-nourished and in no acute distress. NECK: Supple without JVD or thyromegaly. LUNGS: Breath sounds clear to auscultation bilaterally. Respiration equal and unlabored. No wheezes, rales or rhonchi. HEART: Regular rate and rhythm without rubs or gallops. Systolic murmur audible at RUSB. S1 and S2 heard. EXTREMITIES: Normal range of motion, no edema. No clubbing or cyanosis. Peripheral pulses intact and strong. - Labs CBC & Chem 7: 06/06/19 05:56 06/06/19 05:56 Labs: Abnormal Lab Results - Last 24 Hours (Table) 06/05/19 06/05/19 06/06/19 Range/Units 16:54 20:19 05:56 WBC 14.5 H (3.8-10.6) k/uL RBC 2.49 L (3.80-5.40) m/uL Hgb 7.8 L (11.4-16.0) gm/dL Hct 26.0 L (34.0-46.0) % MCV 104.7 H (80.0-100.0) fL MCHC 30.0 L (31.0-37.0) g/dL Neutrophils # 13.8 H (1.3-7.7) k/uL Lymphocytes # 0.4 L (1.0-4.8) k/uL Sodium (137-145) mmol/L Chloride (98-107) mmol/L Carbon Dioxide (22-30) mmol/L BUN (7-17) mg/dL Glucose (74-99) mg/dL POC Glucose (mg/dL) 223 H 180 H (75-99) mg/dL Calcium (8.4-10.2) mg/dL 06/06/19 06/06/19 06/06/19 Range/Units 05:56 06:12 11:57 WBC (3.8-10.6) k/uL RBC (3.80-5.40) m/uL Hgb (11.4-16.0) gm/dL Hct (34.0-46.0) % MCV (80.0-100.0) fL MCHC (31.0-37.0) g/dL Neutrophils # (1.3-7.7) k/uL Lymphocytes # (1.0-4.8) k/uL Sodium 136 L (137-145) mmol/L Chloride 97 L (98-107) mmol/L Carbon Dioxide 34 H (22-30) mmol/L BUN 45 H (7-17) mg/dL Glucose 240 H (74-99) mg/dL POC Glucose (mg/dL) 279 H 116 H (75-99) mg/dL Calcium 7.8 L (8.4-10.2) mg/dL Microbiology - Last 24 Hours (Table) 06/05/19 06:40 Blood Culture Gram Stain - Preliminary Blood 06/05/19 06:40 Blood Culture - Final Blood 06/04/19 16:54 Blood Culture Gram Stain - Preliminary Blood Blood Culture - Preliminary Staphylococcus aureus 06/02/19 10:54 Blood Culture Gram Stain - Final Blood Blood Culture - Final Methicillin resist S. aureus 06/04/19 16:54 Blood Culture - Preliminary Blood Assessment and Plan Plan: Impression/plan: #1 sepsis, with cultures positive for staph aureus #2 NSTEMI, episode of chest pain yesterday without EKG changes #3 elevated troponins possible non-ST elevated KS versus type II KS secondary to sepsis #4 paroxysmal atrial fibrillation with RVR, currently on Eliquis #5 chronic hypoxic respiratory failure, history of COPD #6 pulmonary hypertension #7 severe aortic stenosis #8 hypertension Plan Patient's hemoglobin, down to 7.8 today, we'll just continue with current medical therapy as long as the patient remains asymptomatic. Add some nitro paste to the medication regime. DNP note has been reviewed, I agree with a documented findings and plan of care. Patient was seen and examined.
[2019-06-06] MEDS: NITROGLYCERIN OINT 1 INCH/GM PACKET TOPICAL SCH ×2 (15:33→23:31)
[2019-06-06] MEDS ORDERED: BISACODYL 5 MG TABLET.DR PO STA (15:40)
--- NOTE | 2019-06-06 15:46 | P.PN ---
Subjective Progress Note Date: 06/06/19 This is a 73-year-old female admitted with acute on chronic hypoxic respiratory failure, suspected CHF and COPD exacerbation, non-STEMI and multiple other medical issues. Maintained on nebulized bronchodilators, Zosyn, diuretics. Anticoagulated on heparin drip. Echo currently being completed at bedside. One of 3 initial blood cultures reporting presumptive MRSA, repeat blood cultures ordered. 05/30/2019 Feels better today. Last night developed atrial fibrillation with RVR, initiated on Cardizem drip. Converted to sinus rhythm, Cardizem drip discontinued.denies chest pain, palpitations or increased shortness of breath. maintained on heparin drip. Currently on 5 L nasal cannula with pulse ox in the low 90s. Continues on Zosyn and vancomycin, secondary to MRSA bacteremia. Repeat cultures reporting presumptive MRSA. Afebrile, normal WBC. 05/31/2019 maintained on Zosyn, vancomycin .feels better today, breathing improved with less exertional shortness of breath. Denies cough. Denies chest pain. Ambulated in the ghotra, tolerating exertion well. Heart catheterization pending as per cardiology. Scheduled for AMARIS tomorrow , ruling out bacterial endocarditis. Afebrile, oxygen weaned down to 4 L, maintaining O2 sats of 90s. 06/01/19 Continues on IV antibiotics of vancomycin, Zosyn for MRSA bacteremia. NPO, awaiting AMARIS. Last night returned into atrial fibrillation with RVR, Cardizem drip initiated; currently at 5 mg per hour. Currently sinus rhythm. Earlier this morning, run of 6 white complex tachycardia, asymptomatic. Potassium and magnesium levels ordered, pending.VSS, maintaining O2 sats in the 90s on 5 L nasal cannula. 06/02/2019 Underwent AMARIS yesterday reporting heavy calcified aortic valve with no definite vegetations seen. Repeat blood cultures in progress. Continues on vancomycin. Creatinine 0.79 Tagged WBC scan ordered. Maintained on Cardizem dr ip. Telemetry sinus rhythm. Denies chest pain, palpitations or increasing shortness of breath. Afebrile 06/05/2019 maintained on vancomycin .afebrile, repeat cultures of 06/02 reporting MRSA bacteremia; AMARIS/WBC scan reported negative. Repeat cultures in progress. Denies abdominal pain. Denies chest pain, palpitations or increased shortness of breath. 06/06/2019 Persistent bacteremia possibly related to Vancomycin failure, trough has been low; antibiotics adjusted to daptomycin. Repeat blood cultures obtained today.Chest CT performed yesterday reporting negative for pneumonia, small nodular density abutting the mediastinum in the right middle lobe, possible focal atelectatic change no definitive greater than 1 cm hilar or mediastinal lymph nodes, pulmonary hypertension, enlarged heart. Hemoglobin continues trending down from admission to 7.8. Abdomen/pelvis CT performed reporting no evidence for abscess, moderate fecal stasis. One bowel movement documented for this morning. Objective - Vital Signs Vital signs: Vital Signs Temp 97.8 F 06/06/19 11:29 Pulse 79 06/06/19 11:29 Resp 18 06/06/19 11:29 BP 107/67 06/06/19 11:29 Pulse Ox 98 06/06/19 11:29 Intake & Output 06/05/19 06/06/19 06/06/19 18:59 06:59 18:59 Intake Total 560 600 Output Total 2 560 Balance 558 -560 600 Weight 95.3 kg Intake: Oral 560 600 Output: Urine 560 Stool 2 Other: Voiding Method Toilet Toilet # Voids 1 1 # Bowel Movements 1 - Exam PHYSICAL EXAM: VITAL SIGNS: As above GENERAL: Sitting up in bed, no acute distress HEENT: Conjunctivae normal. eyes normal. Oral mucosa moist. NECK: No JVD. No thyroid enlargement. No LNs CARDIOVASCULAR: S1, S2 regular.Systolic murmur RESPIRATION: Good air entry Breath sounds diminished in the bases. ABDOMEN: Soft, nondistended, nontender . No guarding. no masses palpable. Bowel sounds heard. LEGS: Mild edema, nontender. PSYCHIATRY: Alert and oriented X3, mood and affect normal. NERVOUS SYSTEM: Cranial N 2-12 grossly normal. Moves all 4 limbs. Diffuse weak ness, No focal deficits. Strength and sensation grossly intact. Skin: no rash , right arm multiple bruises. - Labs CBC & Chem 7: 06/06/19 05:56 06/06/19 05:56 Labs: Abnormal Lab Results - Last 24 Hours (Table) 06/05/19 06/05/19 06/06/19 Range/Units 16:54 20:19 05:56 WBC 14.5 H (3.8-10.6) k/uL RBC 2.49 L (3.80-5.40) m/uL Hgb 7.8 L (11.4-16.0) gm/dL Hct 26.0 L (34.0-46.0) % MCV 104.7 H (80.0-100.0) fL MCHC 30.0 L (31.0-37.0) g/dL Neutrophils # 13.8 H (1.3-7.7) k/uL Lymphocytes # 0.4 L (1.0-4.8) k/uL Sodium (137-145) mmol/L Chloride (98-107) mmol/L Carbon Dioxide (22-30) mmol/L BUN (7-17) mg/dL Glucose (74-99) mg/dL POC Glucose (mg/dL) 223 H 180 H (75-99) mg/dL Calcium (8.4-10.2) mg/dL 06/06/19 06/06/19 06/06/19 Range/Units 05:56 06:12 11:57 WBC (3.8-10.6) k/uL RBC (3.80-5.40) m/uL Hgb (11.4-16.0) gm/dL Hct (34.0-46.0) % MCV (80.0-100.0) fL MCHC (31.0-37.0) g/dL Neutrophils # (1.3-7.7) k/uL Lymphocytes # (1.0-4.8) k/uL Sodium 136 L (137-145) mmol/L Chloride 97 L (98-107) mmol/L Carbon Dioxide 34 H (22-30) mmol/L BUN 45 H (7-17) mg/dL Glucose 240 H (74-99) mg/dL POC Glucose (mg/dL) 279 H 116 H (75-99) mg/dL Calcium 7.8 L (8.4-10.2) mg/dL Microbiology - Last 24 Hours (Table) 06/05/19 06:40 Blood Culture Gram Stain - Preliminary Blood 06/05/19 06:40 Blood Culture - Final Blood 06/04/19 16:54 Blood Culture Gram Stain - Preliminary Blood Blood Culture - Preliminary Staphylococcus aureus 06/02/19 10:54 Blood Culture Gram Stain - Final Blood Blood Culture - Final Methicillin resist S. aureus 06/04/19 16:54 Blood Culture - Preliminary Blood Assessment and Plan Assessment: Acute on chronic hypoxic respiratory failure secondary to multifactorial, early sepsis-secondary to MRSA bacteremia, present on admission , acute CHF exacerbation, acute COPD exacerbation, NSTEMI Acute NSTEMI Persistent MRSA Bacteremia, etiology unclear,AMARIS reported heavy calcified aortic valve with no definite vegetations seen. Negative white blood cell scan. Possibly secondary to vancomycin failure. Severe aortic stenosis Pulmonary hypertension hypertension Hyperlipidemia Gastroesophageal reflux disease Prior nicotine dependence Anxiety, depression Hyponatremia resolved Atelectasis Anemia, etiology unclear Plan: Continue on current medication regime, monitoring and symptomatically treatment. Antibiotics adjusted as per ID. Nebulized bronchodilators, steroids, diuretics. Eventually patient will need a cardiac catheterization. GI consulted regarding anemia. The impression and plan of care has been dictated as directed. : I performed a history and examination of this patient, discussed the same with the dictator. I agree with the dictator's note ,documented as a scribe. Any additional findings or plans will be noted.
[2019-06-06] MEDS: DOCUSATE 100 MG CAP PO SCH ×2 (16:52→20:39)
[2019-06-06 16:59] LABS: Glucose,Whole Blood 258 mg/dL (75-99)
[2019-06-06 20:07] LABS: Glucose,Whole Blood 154 mg/dL (75-99)
[2019-06-06] MEDS: AMITRIPTYLINE HCL 25 MG TAB PO SCH (20:36)
[2019-06-06] MEDS: SENNOSIDES-DOCUSATE SODIUM 1 EACH TAB PO SCH (20:37)
[2019-06-06] MEDS: PRAMIPEXOLE 0.5 MG TAB PO SCH (20:40)
--- NOTE | 2019-06-06 23:35 | PN ---
PROGRESS NOTE DATE OF SERVICE: 06/06/2019 REASON FOR FOLLOWUP: MRSA bacteremia. INTERVAL HISTORY: The patient is currently afebrile. The patient is breathing comfortably. The patient denies having any chest pain or shortness of breath. Occasional cough. No nausea or vomiting. No abdominal pain. No diarrhea. PHYSICAL EXAMINATION: On examination, her blood pressure is 102/59 with a pulse of 88, temperature 97.9. She is 95% on 5 L nasal cannula. General description is an elderly female up in the bed in no distress. RESPIRATORY SYSTEM: Unlabored breathing with decreased intensity of breath sounds. No wheeze. HEART: S1, S2. Regular rate and rhythm. ABDOMEN: Soft. No tenderness. LABS: Hemoglobin is 7.8, white count down to 14.5 with a creatinine of 0.85. Blood culture from 06/05 is also positive. DIAGNOSTIC IMPRESSION AND PLAN: Patient with methicillin-resistant Staphylococcus aeruginosa bacteremia concerning for a possible endovascular source. However, the patient did have AMARIS that was negative. CT chest, abdomen and pelvis has been negative as well. The patient did have left hip fracture repair with hardware. However, the bone WBC scan did not light up at that spot. The patient's antibiotic was switched over to daptomycin yesterday. That will be continued. Blood culture will be repeated until she clears her bacteremia. Subsequently she will need a PICC line for outpatient IV antibiotic therapy for at least 6 weeks and continue with supportive care. ALICIA / GINI: [id number] /
[2019-06-07] MEDS: ACETAMINOPHEN TAB 325 MG TAB PO PRN (04:07)
[2019-06-07 06:13] LABS: Glucose,Whole Blood 226 mg/dL (75-99)
[2019-06-07] MEDS: INSULIN ASPART (NovoLOG) 100 UNIT/ML VIAL SQ SCH ×4 (06:19→21:59)
[2019-06-07 06:52] LABS: Basophils % (A) 0 %; Eosinophils % (A) 0 %; HCT 24.8 % (34.0-46.0); HGB 7.6 gm/dL (11.4-16.0); Hypochromasia Moderate; Lymphocytes # (A) 0.4 k/uL (1.0-4.8); Lymphocytes % (A) 3 %; MCH 32.1 pg (25.0-35.0); MCHC 30.6 g/dL (31.0-37.0); MCV 104.7 fL (80.0-100.0); Macrocytosis Moderate; Mean Platelet Volume 9.2; Monocytes # (A) 0.3 k/uL (0-1.0); Monocytes % (A) 2 %; Neutrophils # (A) 12.3 k/uL (1.3-7.7); Neutrophils % (A) 94 %; Platelet Count 192 k/uL (150-450); RBC 2.37 m/uL (3.80-5.40); RDW 14.3 % (11.5-15.5)
[2019-06-07] MEDS: SYMBICORT 160-4.5 MCG INHALER INHALATION SCH ×2 (06:52→19:15)
[2019-06-07] MEDS: IPRATROPIUM-ALBUTEROL 3 ML NEB INHALATION SCH ×4 (06:52→19:15)
[2019-06-07 07:04] LABS: African American GFR (CKD) >90 (>60 ml/min/1.73 sqM); Anion Gap 4 mmol/L; Blood Urea Nitrogen 41 mg/dL (7-17); Calcium 7.7 mg/dL (8.4-10.2); Carbon Dioxide 35 mmol/L (22-30); Chloride 97 mmol/L (98-107); Glucose 208 mg/dL (74-99); Non-African American GFR(CKD) 85 (>60 ml/min/1.73 sqM); Potassium 4.8 mmol/L (3.5-5.1); Sodium 136 mmol/L (137-145)
[2019-06-07] MEDS: LISINOPRIL 10 MG TAB PO SCH (08:58)
[2019-06-07] MEDS: PANTOPRAZOLE 40 MG TABLET PO SCH ×2 (08:58→17:19)
[2019-06-07] MEDS: SENNOSIDES-DOCUSATE SODIUM 1 EACH TAB PO SCH ×2 (08:58→21:57)
[2019-06-07] MEDS: FUROSEMIDE 20 MG TAB PO SCH (08:58)
[2019-06-07] MEDS: LORATADINE 10 MG TAB PO SCH (08:58)
[2019-06-07] MEDS: SERTRALINE 50 MG TAB PO SCH (08:58)
[2019-06-07] MEDS: METOPROLOL TARTRATE 25 MG TAB PO SCH ×2 (08:59→21:57)
[2019-06-07] MEDS: DOCUSATE 100 MG CAP PO SCH ×2 (08:59→21:57)
[2019-06-07] MEDS: APIXABAN 5 MG TAB PO SCH (08:59)
[2019-06-07] MEDS: methylPREDNISolone SOD SUCCI 40 MG/ML 1 ML VIAL IV SCH ×2 (08:59→21:59)
[2019-06-07] MEDS: ASPIRIN 81 MG PO SCH (08:59)
[2019-06-07] MEDS: NITROGLYCERIN OINT 1 INCH/GM PACKET TOPICAL SCH ×3 (08:59→23:30)
[2019-06-07] MEDS: ILEVRO RIGHT EYE SCH (09:00)
[2019-06-07] MEDS: prednisoLONE ACETATE 1% OPHTH DROPS 5 ML BTL BOTH EYES SCH ×3 (09:01→21:59)
[2019-06-07] MEDS: BENZOCAINE/MENTHOL LOZENG 1 EACH LOZENGE MUCOUS MEM PRN (09:14)
[2019-06-07 11:26] LABS: Reticulocyte % 9.8 % (0.5-2.0)
[2019-06-07 11:54] LABS: Glucose,Whole Blood 154 mg/dL (75-99)
--- NOTE | 2019-06-07 14:01 | P.PN ---
Subjective Progress Note Date: 06/07/19 Patient was seen and examined this morning, she is comfortable today, denies any shortness of breath, and states that she had no further episodes of chest discomfort. Patient does state that she had an episode of chest discomfort which lasted approximately 20 minutes yesterday. Blood pressure 94/60 with a heart rate in the 90s, 93% on 5 L of oxygen. White blood cell count 21.4, hemoglobin 8.4, platelet count 205. Sodium 137, potassium 4.4, BUN 52, creatinine 0.9. 06/06/2019 Patient seen and examined this morning, complaining of some abdominal discomfort. It is noted this morning that her hemoglobin is down to 7.8, on admission her hemoglobin was 14.5. Blood cultures positive for gram-positive cocci in clusters. Blood pressure 108/68, heart rate in the 70s, 98% on 5 L of oxygen. White blood cell count 14.5, hemoglobin 7.8, platelet count 193. Sodium 136, potassium 4.2, BUN 45, creatinine 0.8. 06/07/2019 Patient seen and examined this morning, but pressure 112/70 with a heart rate in the 100, 98% on 5 L of oxygen. White blood cell count 13.0, hemoglobin 7.6, platelet count 192. Sodium 136, potassium 4.8, BUN 41, creatinine 0.7. Objective - Vital Signs Vital signs: Vital Signs Temp 97.9 F 06/07/19 08:00 Pulse 82 06/07/19 11:09 Resp 26 H 06/07/19 08:00 BP 112/73 06/07/19 08:00 Pulse Ox 98 06/07/19 08:00 Intake & Output 06/06/19 06/07/19 06/07/19 18:59 06:59 18:59 Intake Total 780 240 Output Total 630 Balance 780 -630 240 Weight 95.1 kg Intake: Oral 780 240 Output: Urine 630 Other: Voiding Method Toilet Toilet # Voids 1 1 # Bowel Movements 1 - Exam GENERAL: Well-appearing, well-nourished and in no acute distress. NECK: Supple without JVD or thyromegaly. LUNGS: Breath sounds clear to auscultation bilaterally. Respiration equal and unlabored. No wheezes, rales or rhonchi. HEART: Regular rate and rhythm without rubs or gallops. Systolic murmur audible at RUSB. S1 and S2 heard. EXTREMITIES: Normal range of motion, no edema. No clubbing or cyanosis. Erinn pheral pulses intact and strong. - Labs CBC & Chem 7: 06/07/19 06:23 06/07/19 06:23 Labs: Abnormal Lab Results - Last 24 Hours (Table) 06/06/19 06/06/19 06/07/19 Range/Units 16:57 20:06 06:11 WBC (3.8-10.6) k/uL RBC (3.80-5.40) m/uL Hgb (11.4-16.0) gm/dL Hct (34.0-46.0) % MCV (80.0-100.0) fL MCHC (31.0-37.0) g/dL Neutrophils # (1.3-7.7) k/uL Lymphocytes # (1.0-4.8) k/uL Retic Count (0.5-2.0) % Sodium (137-145) mmol/L Chloride (98-107) mmol/L Carbon Dioxide (22-30) mmol/L BUN (7-17) mg/dL Glucose (74-99) mg/dL POC Glucose (mg/dL) 258 H 154 H 226 H (75-99) mg/dL Calcium (8.4-10.2) mg/dL 06/07/19 06/07/19 06/07/19 Range/Units 06:23 06:23 06:23 WBC 13.0 H (3.8-10.6) k/uL RBC 2.37 L (3.80-5.40) m/uL Hgb 7.6 L (11.4-16.0) gm/dL Hct 24.8 L (34.0-46.0) % MCV 104.7 H (80.0-100.0) fL MCHC 30.6 L (31.0-37.0) g/dL Neutrophils # 12.3 H (1.3-7.7) k/uL Lymphocytes # 0.4 L (1.0-4.8) k/uL Retic Count 9.8 H (0.5-2.0) % Sodium 136 L (137-145) mmol/L Chloride 97 L (98-107) mmol/L Carbon Dioxide 35 H (22-30) mmol/L BUN 41 H (7-17) mg/dL Glucose 208 H (74-99) mg/dL POC Glucose (mg/dL) (75-99) mg/dL Calcium 7.7 L (8.4-10.2) mg/dL 06/07/19 Range/Units 11:50 WBC (3.8-10.6) k/uL RBC (3.80-5.40) m/uL Hgb (11.4-16.0) gm/dL Hct (34.0-46.0) % MCV (80.0-100.0) fL MCHC (31.0-37.0) g/dL Neutrophils # (1.3-7.7) k/uL Lymphocytes # (1.0-4.8) k/uL Retic Count (0.5-2.0) % Sodium (137-145) mmol/L Chloride (98-107) mmol/L Carbon Dioxide (22-30) mmol/L BUN (7-17) mg/dL Glucose (74-99) mg/dL POC Glucose (mg/dL) 154 H (75-99) mg/dL Calcium (8.4-10.2) mg/dL Microbiology - Last 24 Hours (Table) 06/06/19 05:56 Blood Culture Gram Stain - Preliminary Blood 06/05/19 06:40 Blood Culture Gram Stain - Preliminary Blood Blood Culture - Preliminary Presumptive MRSA 06/06/19 05:56 Blood Culture - Final Blood 06/04/19 16:54 Blood Culture Gram Stain - Final Blood Blood Culture - Final Methicillin resist S. aureus Assessment and Plan Plan: Impression/plan: #1 sepsis, with cultures positive for staph aureus #2 NSTEMI, episode of chest pain yesterday without EKG changes #3 elevated troponins possible non-ST elevated VA versus type II VA secondary to sepsis #4 paroxysmal atrial fibrillation with RVR, currently on Eliquis #5 chronic hypoxic respiratory failure, history of COPD #6 pulmonary hypertension #7 severe aortic stenosis #8 hypertension Plan Patient's hemoglobin, down to 7.6 today, we'll just continue with current medical therapy as long as the patient remains asymptomatic. DNP note has been reviewed, I agree with a documented findings and plan of care. Patient was seen and examined.
[2019-06-07 17:05] LABS: Glucose,Whole Blood 232 mg/dL (75-99)
--- NOTE | 2019-06-07 17:55 | P.PN ---
Subjective Progress Note Date: 06/07/19 This is a 73-year-old female admitted with acute on chronic hypoxic respiratory failure, suspected CHF and COPD exacerbation, non-STEMI and multiple other medical issues. Maintained on nebulized bronchodilators, Zosyn, diuretics. Anticoagulated on heparin drip. Echo currently being completed at bedside. One of 3 initial blood cultures reporting presumptive MRSA, repeat blood cultures ordered. 05/30/2019 Feels better today. Last night developed atrial fibrillation with RVR, initiated on Cardizem drip. Converted to sinus rhythm, Cardizem drip discontinued.denies chest pain, palpitations or increased shortness of breath. maintained on heparin drip. Currently on 5 L nasal cannula with pulse ox in the low 90s. Continues on Zosyn and vancomycin, secondary to MRSA bacteremia. Repeat cultures reporting presumptive MRSA. Afebrile, normal WBC. 05/31/2019 maintained on Zosyn, vancomycin .feels better today, breathing improved with less exertional shortness of breath. Denies cough. Denies chest pain. Ambulated in the ghotra, tolerating exertion well. Heart catheterization pending as per cardiology. Scheduled for AMARIS tomorrow , ruling out bacterial endocarditis. Afebrile, oxygen weaned down to 4 L, maintaining O2 sats of 90s. 06/01/19 Continues on IV antibiotics of vancomycin, Zosyn for MRSA bacteremia. NPO, awaiting AMARIS. Last night returned into atrial fibrillation with RVR, Cardizem drip initiated; currently at 5 mg per hour. Currently sinus rhythm. Earlier this morning, run of 6 white complex tachycardia, asymptomatic. Potassium and magnesium levels ordered, pending.VSS, maintaining O2 sats in the 90s on 5 L nasal cannula. 06/02/2019 Underwent AMARIS yesterday reporting heavy calcified aortic valve with no definite vegetations seen. Repeat blood cultures in progress. Continues on vancomycin. Creatinine 0.79 Tagged WBC scan ordered. Maintained on Cardizem dr ip. Telemetry sinus rhythm. Denies chest pain, palpitations or increasing shortness of breath. Afebrile 06/05/2019 maintained on vancomycin .afebrile, repeat cultures of 06/02 reporting MRSA bacteremia; AMARIS/WBC scan reported negative. Repeat cultures in progress. Denies abdominal pain. Denies chest pain, palpitations or increased shortness of breath. 06/06/2019 Persistent bacteremia possibly related to Vancomycin failure, trough has been low; antibiotics adjusted to daptomycin. Repeat blood cultures obtained today.Chest CT performed yesterday reporting negative for pneumonia, small nodular density abutting the mediastinum in the right middle lobe, possible focal atelectatic change no definitive greater than 1 cm hilar or mediastinal lymph nodes, pulmonary hypertension, enlarged heart. Hemoglobin continues trending down from admission to 7.8. Abdomen/pelvis CT performed reporting no evidence for abscess, moderate fecal stasis. One bowel movement documented for this morning. 06/07/2019 continues on daptomycin, current repeat blood cultures negative at 24 hours. Afebrile, WBC trending down to 13. Hemoglobin down to 7.6. Denies chest pain, palpitations or increased shortness of breath with the exception of exertional shortness of breath when ambulating. Objective - Vital Signs Vital signs: Vital Signs Temp 98.2 F 06/07/19 12:00 Pulse 91 06/07/19 15:32 Resp 20 06/07/19 12:00 BP 89/50 06/07/19 12:00 Pulse Ox 97 06/07/19 15:20 Intake & Output 06/06/19 06/07/19 06/07/19 18:59 06:59 18:59 Intake Total 780 240 Output Total 630 Balance 780 -630 240 Weight 95.1 kg Intake: Oral 780 240 Output: Urine 630 Other: Voiding Method Toilet Toilet # Voids 1 1 # Bowel Movements 1 - Exam PHYSICAL EXAM: VITAL SIGNS: As above GENERAL: Sitting up in bed, no acute distress HEENT: Conjunctivae normal. eyes normal. Oral mucosa moist. NECK: No JVD. No thyroid enlargement. No LNs CARDIOVASCULAR: S1, S2 regular.Systolic murmur RESPIRATION: Good air entry Breath sounds diminished in the bases. ABDOMEN: Soft, nondistended, nontender . No guarding. no masses palpable. Bowel sounds heard. LEGS: Mild edema, nontender. PSYCHIATRY: Alert and oriented X3, mood and affect normal. NERVOUS SYSTEM: Cranial N 2-12 grossly normal. Moves all 4 limbs. Diffuse weakness, No focal deficits. Strength and sensation grossly intact. Skin: no rash. - Labs CBC & Chem 7: 06/07/19 06:23 06/07/19 06:23 Labs: Abnormal Lab Results - Last 24 Hours (Table) 01/06/07/19 06/07/19 Range/Units 20:06 06:11 06:23 WBC 13.0 H (3.8-10.6) k/uL RBC 2.37 L (3.80-5.40) m/uL Hgb 7.6 L (11.4-16.0) gm/dL Hct 24.8 L (34.0-46.0) % MCV 104.7 H (80.0-100.0) fL MCHC 30.6 L (31.0-37.0) g/dL Neutrophils # 12.3 H (1.3-7.7) k/uL Lymphocytes # 0.4 L (1.0-4.8) k/uL Retic Count (0.5-2.0) % Sodium (137-145) mmol/L Chloride (98-107) mmol/L Carbon Dioxide (22-30) mmol/L BUN (7-17) mg/dL Glucose (74-99) mg/dL POC Glucose (mg/dL) 154 H 226 H (75-99) mg/dL Calcium (8.4-10.2) mg/dL 06/07/19 06/07/19 06/07/19 Range/Units 06:23 06:23 11:50 WBC (3.8-10.6) k/uL RBC (3.80-5.40) m/uL Hgb (11.4-16.0) gm/dL Hct (34.0-46.0) % MCV (80.0-100.0) fL MCHC (31.0-37.0) g/dL Neutrophils # (1.3-7.7) k/uL Lymphocytes # (1.0-4.8) k/uL Retic Count 9.8 H (0.5-2.0) % Sodium 136 L (137-145) mmol/L Chloride 97 L (98-107) mmol/L Carbon Dioxide 35 H (22-30) mmol/L BUN 41 H (7-17) mg/dL Glucose 208 H (74-99) mg/dL POC Glucose (mg/dL) 154 H (75-99) mg/dL Calcium 7.7 L (8.4-10.2) mg/dL 06/07/19 Range/Units 17:03 WBC (3.8-10.6) k/uL RBC (3.80-5.40) m/uL Hgb (11.4-16.0) gm/dL Hct (34.0-46.0) % MCV (80.0-100.0) fL MCHC (31.0-37.0) g/dL Neutrophils # (1.3-7.7) k/uL Lymphocytes # (1.0-4.8) k/uL Retic Count (0.5-2.0) % Sodium (137-145) mmol/L Chloride (98-107) mmol/L Carbon Dioxide (22-30) mmol/L BUN (7-17) mg/dL Glucose (74-99) mg/dL POC Glucose (mg/dL) 232 H (75-99) mg/dL Calcium (8.4-10.2) mg/dL Microbiology - Last 24 Hours (Table) 06/06/19 05:56 Blood Culture Gram Stain - Preliminary Blood 06/05/19 06:40 Blood Culture Gram Stain - Preliminary Blood Blood Culture - Preliminary Presumptive MRSA 06/06/19 05:56 Blood Culture - Final Blood 06/04/19 16:54 Blood Culture Gram Stain - Final Blood Blood Culture - Final Methicillin resist S. aureus Assessment and Plan Assessment: Acute on chronic hypoxic respiratory failure secondary to multifactorial, early sepsis-secondary to MRSA bacteremia, present on admission , acute CHF exacerbation, acute COPD exacerbation, NSTEMI Acute NSTEMI Persistent MRSA Bacteremia, etiology unclear,AMARIS reported heavy calcified aortic valve with no definite vegetations seen. Negative white blood cell scan. Possibly secondary to vancomycin failure. Severe aortic stenosis Pulmonary hypertension hypertension Hyperlipidemia Gastroesophageal reflux disease Prior nicotine dependence Anxiety, depression Hyponatremia resolved Atelectasis Anemia, etiology unclear, GI following. Plan: Continue on current medication regime, monitoring and symptomatically treatment. Continue on antibiotics as per ID,nebulized bronchodilators, steroids, diuretics. Continue following cultures closely, will need a PICC line. Eventual cardiac catheterization, once infection clears. GI consult in place, recommendations pending, regarding anemia. The impression and plan of care has been dictated as directed. : I performed a history and examination of this patient, discussed the same with the dictator. I agree with the dictator's note ,documented as a scribe. Any additional findings or plans will be noted.
[2019-06-07 18:44] LABS: Ferritin 40.1 ng/mL (10.0-291.0)
[2019-06-07 18:47] LABS: % Iron Saturation 9.56 (12.00-45.00); Folate, Serum 10.6 ng/mL
[2019-06-07 20:56] LABS: Glucose,Whole Blood 296 mg/dL (75-99)
--- NOTE | 2019-06-07 21:51 | PN ---
PROGRESS NOTE DATE OF SERVICE: 06/07/2019 REASON FOR FOLLOWUP: MRSA bacteremia. INTERVAL HISTORY: The patient is currently afebrile. The patient has been breathing more comfortably. She denies having any chest pain. Some shortness of breath. Occasional cough. No nausea or vomiting. No abdominal pain and diarrhea. PHYSICAL EXAMINATION: Blood pressure is 92/55 with a pulse of 92, temperature 98. She is 92% on 5 L nasal cannula. General description is an elderly female up in the bed in no distress. RESPIRATORY SYSTEM: Unlabored breathing with decreased intensity of breath sounds. No wheeze. HEART: S1, S2. Regular rate and rhythm. ABDOMEN: Soft. No tenderness. LABS: Hemoglobin 7.6, white count 13, with a BUN of 41, creatinine 0.72. Blood cultures from yesterday are positive as well. DIAGNOSTIC IMPRESSION AND PLAN: Patient with methicillin-resistant Staphylococcus aeruginosa bacteremia in this patient who did have persistent bacteremia. She did have extensive workup, including a AMARIS, CT of chest, abdomen and pelvis; all of them have been negative. The patient did have left hip hardware; however, the WBCs did not in that location. Antibiotic has just been adjusted to daptomycin; that will be continued. Blood cultures will be repeated today and tomorrow. Once the blood culture is negative for 72 hours, she will get a PICC line for outpatient IV antibiotic therapy. Continue with supportive care. MMODL / IJN: [id number] /
[2019-06-07] MEDS: PRAMIPEXOLE 0.5 MG TAB PO SCH (21:56)
[2019-06-07] MEDS: AMITRIPTYLINE HCL 25 MG TAB PO SCH (21:58)
[2019-06-08] MEDS: ALPRAZolam 0.25 MG TAB PO PRN (04:24)
[2019-06-08] MEDS: NITROGLYCERIN OINT 1 INCH/GM PACKET TOPICAL SCH ×3 (04:25→17:24)
[2019-06-08 06:15] LABS: Glucose,Whole Blood 253 mg/dL (75-99)
[2019-06-08] MEDS: PANTOPRAZOLE 40 MG TABLET PO SCH ×2 (06:26→17:31)
[2019-06-08] MEDS: INSULIN ASPART (NovoLOG) 100 UNIT/ML VIAL SQ SCH ×4 (06:26→21:47)
--- NOTE | 2019-06-08 06:26 | P.CONS ---
History of Present Illness - Reason for Consult Consult date: 06/07/19 Anemia Requesting physician: Sebastian Glez - Chief Complaint Short of breath, weak - History of Present Illness 73-year-old female with multiple medical comorbidities, currently admitted and being treated for acute on chronic hypoxic respiratory failure, suspected congestive heart failure and COPD exacerbation. Patient currently on oxygen with scheduled nebulized bronchodilators. She is being anticoagulated due to her diagnosis of atrial fibrillation and on antibiotic treatments for bacteremia and MRSA. The gastroenterology service was consult is to see the patient to a following the patient's hemoglobin from 14.5 on admission to 7.6. The patient denies any overt signs or symptoms of GI bleeding. She denies any lack tarry stools currently, but does report over the past 3 years, she has seen dark colored stool intermittently. She is not on any iron therapy or Pepto-Bismol. She denies any coffee-ground emesis, nausea or vomiting. No history of ulcer. She does take Celebrex daily and has been on prednisone in the past. No other NSAID therapy. Her last colonoscopy was over 5 years ago. She does not believe that she has had an EGD in the past. Computed tomography scan on admission was negative for any intra-abdominal pathology, but did show fecal stasis. Hemoglobin current 7.6, WBC 13, platelet count 192,000, reticulocyte count 9.8. Review of Systems REVIEW OF SYSTEMS: CONSTITUTIONAL: Denies any fevers, chills, weight change or fatigue. CARDIOVASCULAR: Denies any chest pain, palpitations high or low blood pressures, has been diagnosed with atrial fibrillation RESPIRATORY: Denies any hemoptysis or cough, but does report shortness of breath. GENITOURINARY: No dysuria or hematuria. MUSCULOSKELETAL: No weakness reported. SKIN: Denies any new rashes or lesions, jaundice or pallor. PSYCHIATRIC: Denies any depression or anxiety. NEUROLOGY: Denies headache, denies any new focal deficits. EARS/NOSE/THROAT: No recent hearing change, congestion, nasal discharge or sore throat. EYES: No pain in eyes, discharge or change in vision. GASTROINTESTINAL: As per HPI. Past Medical History Past Medical History: COPD Additional Past Medical History / Comment(s): Emphysema, 4-5L home O2, miscarriage History of Any Multi-Drug Resistant Organisms: MRSA Year Discovered:: 06/04/19 MDRO Source:: Blood Past Surgical History: Unable to Obtain Additional Past Surgical History / Comment(s): fibroid adhesions Past Anesthesia/Blood Transfusion Reactions: No Reported Reaction Past Psychological History: Unable to Obtain Smoking Status: Former smoker Past Alcohol Use History: None Reported Past Drug Use History: None Reported Additional History: Family history: Reviewed with the patient and noncontributory to current medical presentation. Medications and Allergies Home Medications Medication Instructions Recorded Confirmed Type Amitriptyline HCl 25 mg PO HS 05/28/19 05/28/19 History Celecoxib [CeleBREX] 200 mg PO DAILY 05/28/19 05/28/19 History Diclofenac Sodium Gel [Voltaren 2 gm TOPICAL TID 05/28/19 05/28/19 History Gel] Fluticasone/Vilanterol [Breo 1 puff INHALATION RT-DAILY 05/28/19 05/28/19 History Ellipta 200-25 Mcg INH] Furosemide [Lasix] 20 mg PO DAILY 05/28/19 05/28/19 History Ipratropium-Albuterol Nebulize 3 ml INHALATION RT-QID 05/28/19 05/28/19 History [Duoneb 0.5 mg-3 mg/3 ml Soln] Levofloxacin 500 mg PO DAILY 05/28/19 05/28/19 History Lisinopril [Zestril] 10 mg PO DAILY 05/28/19 05/28/19 History Loteprednol Etabonate [Lotemax] 1 drop OP TID 05/28/19 05/28/19 History Metoprolol Succinate [Toprol XL] 50 mg PO DAILY 05/28/19 05/28/19 History Nepafenac [Ilevro] 1 drop RIGHT EYE DAILY 05/28/19 05/28/19 History Omeprazole 40 mg PO DAILY 05/28/19 05/28/19 History Potassium Chloride ER [K-Dur 20] 20 meq PO DAILY 05/28/19 05/28/19 History Pramipexole Di-HCl [Mirapex] 1.5 mg PO HS 05/28/19 05/28/19 History Sertraline [Zoloft] 50 mg PO DAILY 05/28/19 05/28/19 History Simvastatin 40 mg PO HS 05/28/19 05/28/19 History cloNIDine HCL [Catapres] 0.1 mg PO BID 05/28/19 05/28/19 History predniSONE See Taper PO DAILY 05/28/19 05/28/19 History Allergies Allergy/AdvReac Type Severity Reaction Status Date / Time aspirin AdvReac Unknown Verified 05/28/19 03:29 Physical Exam Vitals: Vital Signs Temp Pulse Pulse Resp BP Pulse Ox 06/07/19 11:09 82 06/07/19 10:58 86 06/07/19 08:00 97.9 F 103 H 26 H 112/73 98 06/07/19 07:04 84 06/07/19 06:54 77 06/07/19 03:33 85 18 118/66 96 06/06/19 23:34 95 18 06/06/19 23:31 97.8 F 95 18 111/56 97 06/06/19 20:26 88 06/06/19 20:16 86 06/06/19 20:00 92 18 113/51 98 06/06/19 16:13 88 06/06/19 16:01 86 06/06/19 15:34 97.9 F 88 18 102/59 95 Intake and Output 06/06/19 06/07/19 06/07/19 22:59 06:59 14:59 Intake Total 180 240 Output Total 220 410 Balance -40 -410 240 Intake: Oral 180 240 Output: Urine 220 410 Other: Voiding Method Toilet # Voids 1 1 # Bowel Movements 1 Weight 95.1 kg On physical examination, patient appears comfortable in no apparent distress. HEAD: Normocephalic, atraumatic. EYES: No scleral icterus. No conjunctival injection. MOUTH: No lesions, tongue midline. NECK: Trachea midline, no gross abnormalities. CHEST: Decreased air entry in all lung smith. HEART: S1, S2 appreciated, irregularly irregular. ABDOMEN: Soft, obese. Bowel sounds are positive. No organomegaly. No guarding or rigidity. EXTREMITIES: +1 bilateral pedal edema. SKIN: No rashes, no jaundice. NEUROLOGIC: Alert and oriented x3. No focal deficits. Results CBC & Chem 7: 06/07/19 06:23 06/07/19 06:23 Labs: Abnormal Lab Results - Last 24 Hours (Table) 06/06/19 06/06/19 06/07/19 Range/Units 16:57 20:06 06:11 WBC (3.8-10.6) k/uL RBC (3.80-5.40) m/uL Hgb (11.4-16.0) gm/dL Hct (34.0-46.0) % MCV (80.0-100.0) fL MCHC (31.0-37.0) g/dL Neutrophils # (1.3-7.7) k/uL Lymphocytes # (1.0-4.8) k/uL Retic Count (0.5-2.0) % Sodium (137-145) mmol/L Chloride (98-107) mmol/L Carbon Dioxide (22-30) mmol/L BUN (7-17) mg/dL Glucose (74-99) mg/dL POC Glucose (mg/dL) 258 H 154 H 226 H (75-99) mg/dL Calcium (8.4-10.2) mg/dL 06/07/19 06/07/19 06/07/19 Range/Units 06:23 06:23 06:23 WBC 13.0 H (3.8-10.6) k/uL RBC 2.37 L (3.80-5.40) m/uL Hgb 7.6 L (11.4-16.0) gm/dL Hct 24.8 L (34.0-46.0) % MCV 104.7 H (80.0-100.0) fL MCHC 30.6 L (31.0-37.0) g/dL Neutrophils # 12.3 H (1.3-7.7) k/uL Lymphocytes # 0.4 L (1.0-4.8) k/uL Retic Count 9.8 H (0.5-2.0) % Sodium 136 L (137-145) mmol/L Chloride 97 L (98-107) mmol/L Carbon Dioxide 35 H (22-30) mmol/L BUN 41 H (7-17) mg/dL Glucose 208 H (74-99) mg/dL POC Glucose (mg/dL) (75-99) mg/dL Calcium 7.7 L (8.4-10.2) mg/dL 06/07/19 Range/Units 11:50 WBC (3.8-10.6) k/uL RBC (3.80-5.40) m/uL Hgb (11.4-16.0) gm/dL Hct (34.0-46.0) % MCV (80.0-100.0) fL MCHC (31.0-37.0) g/dL Neutrophils # (1.3-7.7) k/uL Lymphocytes # (1.0-4.8) k/uL Retic Count (0.5-2.0) % Sodium (137-145) mmol/L Chloride (98-107) mmol/L Carbon Dioxide (22-30) mmol/L BUN (7-17) mg/dL Glucose (74-99) mg/dL POC Glucose (mg/dL) 154 H (75-99) mg/dL Calcium (8.4-10.2) mg/dL Microbiology - Last 24 Hours (Table) 06/05/19 06:40 Blood Culture Gram Stain - Preliminary Blood Blood Culture - Preliminary Presumptive MRSA 06/06/19 05:56 Blood Culture - Final Blood 06/04/19 16:54 Blood Culture Gram Stain - Final Blood Blood Culture - Final Methicillin resist S. aureus CT scan - abdomen: report reviewed (Computed tomography scan of the abdomen with findings of fecal stasis.) Assessment and Plan (1) Macrocytic anemia Narrative/Plan: 73-year-old female with multiple medical comorbidities, currently being treated for atrial fibrillation, and acute exacerbation of her chronic lung disease was noted to have a fall in her hemoglobin during her presentation. She denies any signs or symptoms of overt bleeding but has reported intermittent dark stool over the past 3 years. Hemoglobin was normal on presentation at 14.5 and trended to 7.6. The patient denies any hematemesis, coffee-ground emesis, blood in stool or melanotic stool. She denies any abdominal pain. CT of the abdomen was significant only for fecal stasis. She reports her last colonoscopy was over 5 years ago. No history of NSAID therapy that she does take Celebrex and prednisone in the outpatient setting. Unclear etiology of patient's anemia with concern for possible GI bleed, the gastroenterology service was called for further evaluation. Current Visit: Yes Status: Acute Code(s): D53.9 - NUTRITIONAL ANEMIA, UNSPECIFIED SNOMED Code(s): 01582797 Plan: Supportive care Continue to monitor CBC and transfuse as needed. Continue to monitor for signs or symptoms of GI bleeding. Continue Protonix therapy. Hold anticoagulation therapy for now. Plan for EGD and colonoscopy for further evaluation of anemia, extensive discussion with the patient about the risks, benefits and side effects of proceeding with the procedure. With all of the patient's questions answered to her satisfaction. Laboratory evaluation of anemia ordered. Thank you for allowing us to participate in the care of this patient we will continue to follow.
[2019-06-08 06:39] LABS: Basophils % (A) 0 %; Eosinophils % (A) 0 %; Hypochromasia Marked; Lymphocytes # (A) 0.3 k/uL (1.0-4.8); Lymphocytes % (A) 2 %; MCH 30.8 pg (25.0-35.0); MCHC 29.3 g/dL (31.0-37.0); MCV 104.8 fL (80.0-100.0); Macrocytosis Moderate; Mean Platelet Volume 9.2; Monocytes # (A) 0.2 k/uL (0-1.0); Monocytes % (A) 2 %; Neutrophils # (A) 11.2 k/uL (1.3-7.7); Neutrophils % (A) 96 %; Platelet Count 227 k/uL (150-450); RBC 2.29 m/uL (3.80-5.40); RDW 14.1 % (11.5-15.5); WBC 11.8 k/uL (3.8-10.6)
[2019-06-08] MEDS: IPRATROPIUM-ALBUTEROL 3 ML NEB INHALATION SCH ×4 (08:45→20:49)
[2019-06-08] MEDS: SYMBICORT 160-4.5 MCG INHALER INHALATION SCH ×2 (08:45→20:49)
[2019-06-08] MEDS: methylPREDNISolone SOD SUCCI 40 MG/ML 1 ML VIAL IV SCH ×2 (08:57→21:47)
[2019-06-08] MEDS: ASPIRIN 81 MG PO SCH (08:59)
[2019-06-08] MEDS: LISINOPRIL 10 MG TAB PO SCH (09:00)
[2019-06-08] MEDS: DOCUSATE 100 MG CAP PO SCH ×2 (09:00→21:47)
[2019-06-08] MEDS: FUROSEMIDE 20 MG TAB PO SCH (09:00)
[2019-06-08] MEDS: METOPROLOL TARTRATE 25 MG TAB PO SCH ×2 (09:01→21:47)
[2019-06-08] MEDS: LORATADINE 10 MG TAB PO SCH (09:01)
[2019-06-08] MEDS: prednisoLONE ACETATE 1% OPHTH DROPS 5 ML BTL BOTH EYES SCH ×3 (09:02→21:53)
[2019-06-08] MEDS: SENNOSIDES-DOCUSATE SODIUM 1 EACH TAB PO SCH ×2 (09:03→21:47)
[2019-06-08] MEDS: SERTRALINE 50 MG TAB PO SCH (09:03)
[2019-06-08] MEDS: ILEVRO RIGHT EYE SCH (09:15)
[2019-06-08] MEDS: BENZOCAINE/MENTHOL LOZENG 1 EACH LOZENGE MUCOUS MEM PRN (10:42)
[2019-06-08 12:02] LABS: Glucose,Whole Blood 190 mg/dL (75-99)
[2019-06-08 14:59] VITALS: BMI 35.8
--- NOTE | 2019-06-08 15:25 | P.PN ---
Subjective Progress Note Date: 06/08/19 Patient was seen and examined this morning, she is comfortable today, denies any shortness of breath, and states that she had no further episodes of chest discomfort. Patient does state that she had an episode of chest discomfort which lasted approximately 20 minutes yesterday. Blood pressure 94/60 with a heart rate in the 90s, 93% on 5 L of oxygen. White blood cell count 21.4, hemoglobin 8.4, platelet count 205. Sodium 137, potassium 4.4, BUN 52, creatinine 0.9. 06/06/2019 Patient seen and examined this morning, complaining of some abdominal discomfort. It is noted this morning that her hemoglobin is down to 7.8, on admission her hemoglobin was 14.5. Blood cultures positive for gram-positive cocci in clusters. Blood pressure 108/68, heart rate in the 70s, 98% on 5 L of oxygen. White blood cell count 14.5, hemoglobin 7.8, platelet count 193. Sodium 136, potassium 4.2, BUN 45, creatinine 0.8. 06/07/2019 Patient seen and examined this morning, but pressure 112/70 with a heart rate in the 100, 98% on 5 L of oxygen. White blood cell count 13.0, hemoglobin 7.6, platelet count 192. Sodium 136, potassium 4.8, BUN 41, creatinine 0.7. 06/08/2019 patient seen and examined this morning, scheduled to undergo an EGD and colonoscopy. Denies any chest pain. blood pressure 90/50 with a heart rate in the 90s, 97% on 5 liters of oxygen. Objective - Vital Signs Vital signs: Vital Signs Temp 98.6 F 06/08/19 12:34 Pulse 94 06/08/19 12:34 Resp 21 06/08/19 12:34 BP 90/54 06/08/19 12:34 Pulse Ox 67 L 06/08/19 12:34 Intake & Output 06/07/19 06/08/19 06/08/19 18:59 06:59 18:59 Intake Total 240 240 240 Output Total 1 1 Balance 239 240 239 Weight 91.7 kg 91.7 kg Intake: Oral 240 240 240 Output: Stool 1 1 Other: Voiding Method Toilet Toilet # Voids 1 - Exam GENERAL: Well-appearing, well-nourished and in no acute distress. NECK: Supple without JVD or thyromegaly. LUNGS: Breath sounds clear to auscultation bilaterally. Respiration equal and unlabored. No wheezes, rales or rhonchi. HEART: Regular rate and rhythm without rubs or gallops. Systolic murmur audible at RUSB. S1 and S2 heard. EXTREMITIES: Normal range of motion, no edema. No clubbing or cyanosis. Peripheral pulses intact and strong. - Labs CBC & Chem 7: 06/08/19 06:00 06/07/19 06:23 Labs: Abnormal Lab Results - Last 24 Hours (Table) 06/07/19 06/07/19 06/07/19 Range/Units 06:23 17:03 20:55 WBC (3.8-10.6) k/uL RBC (3.80-5.40) m/uL Hgb (11.4-16.0) gm/dL Hct (34.0-46.0) % MCV (80.0-100.0) fL MCHC (31.0-37.0) g/dL Neutrophils # (1.3-7.7) k/uL Lymphocytes # (1.0-4.8) k/uL POC Glucose (mg/dL) 232 H 296 H (75-99) mg/dL Iron 28 L (50-170) ug/dL % Saturation 9.56 L (12.00-45.00) Vitamin B12 1046.0 H (200.0-944.0) pg/mL 06/08/19 06/08/19 06/08/19 Range/Units 06:00 06:03 11:58 WBC 11.8 H (3.8-10.6) k/uL RBC 2.29 L (3.80-5.40) m/uL Hgb 7.0 L (11.4-16.0) gm/dL Hct 24.0 L (34.0-46.0) % MCV 104.8 H (80.0-100.0) fL MCHC 29.3 L (31.0-37.0) g/dL Neutrophils # 11.2 H (1.3-7.7) k/uL Lymphocytes # 0.3 L (1.0-4.8) k/uL POC Glucose (mg/dL) 253 H 190 H (75-99) mg/dL Iron (50-170) ug/dL % Saturation (12.00-45.00) Vitamin B12 (200.0-944.0) pg/mL Microbiology - Last 24 Hours (Table) 06/06/19 05:56 Blood Culture Gram Stain - Preliminary Blood Blood Culture - Preliminary Presumptive MRSA 06/05/19 06:40 Blood Culture Gram Stain - Final Blood Blood Culture - Final Methicillin resist S. aureus 06/04/19 16:54 Blood Culture - Final Blood Assessment and Plan Plan: Impression/plan: #1 sepsis, with cultures positive for staph aureus #2 NSTEMI, episode of chest pain yesterday without EKG changes #3 elevated troponins possible non-ST elevated AR versus type II AR secondary to sepsis #4 paroxysmal atrial fibrillation with RVR, currently on Eliquis #5 chronic hypoxic respiratory failure, history of COPD #6 pulmonary hypertension #7 severe aortic stenosis #8 hypertension Plan Patient's hemoglobin, down to 7.0 today, we'll just continue with current medi mayo therapy as long as the patient remains asymptomatic. scheduled for EGD and colonoscopy today DNP note has been reviewed, I agree with a documented findings and plan of care. Patient was seen and examined.
--- NOTE | 2019-06-08 15:47 | P.PN ---
Subjective Progress Note Date: 06/08/19 This is a 73-year-old female admitted with acute on chronic hypoxic respiratory failure, suspected CHF and COPD exacerbation, non-STEMI and multiple other medical issues. Maintained on nebulized bronchodilators, Zosyn, diuretics. Anticoagulated on heparin drip. Echo currently being completed at bedside. One of 3 initial blood cultures reporting presumptive MRSA, repeat blood cultures ordered. 05/30/2019 Feels better today. Last night developed atrial fibrillation with RVR, initiated on Cardizem drip. Converted to sinus rhythm, Cardizem drip discontinued.denies chest pain, palpitations or increased shortness of breath. maintained on heparin drip. Currently on 5 L nasal cannula with pulse ox in the low 90s. Continues on Zosyn and vancomycin, secondary to MRSA bacteremia. Repeat cultures reporting presumptive MRSA. Afebrile, normal WBC. 05/31/2019 maintained on Zosyn, vancomycin .feels better today, breathing improved with less exertional shortness of breath. Denies cough. Denies chest pain. Ambulated in the ghotra, tolerating exertion well. Heart catheterization pending as per cardiology. Scheduled for AMARIS tomorrow , ruling out bacterial endocarditis. Afebrile, oxygen weaned down to 4 L, maintaining O2 sats of 90s. 06/01/19 Continues on IV antibiotics of vancomycin, Zosyn for MRSA bacteremia. NPO, awaiting AMARIS. Last night returned into atrial fibrillation with RVR, Cardizem drip initiated; currently at 5 mg per hour. Currently sinus rhythm. Earlier this morning, run of 6 white complex tachycardia, asymptomatic. Potassium and magnesium levels ordered, pending.VSS, maintaining O2 sats in the 90s on 5 L nasal cannula. 06/02/2019 Underwent AMARIS yesterday reporting heavy calcified aortic valve with no definite vegetations seen. Repeat blood cultures in progress. Continues on vancomycin. Creatinine 0.79 Tagged WBC scan ordered. Maintained on Cardizem dr ip. Telemetry sinus rhythm. Denies chest pain, palpitations or increasing shortness of breath. Afebrile 06/05/2019 maintained on vancomycin .afebrile, repeat cultures of 06/02 reporting MRSA bacteremia; AMARIS/WBC scan reported negative. Repeat cultures in progress. Denies abdominal pain. Denies chest pain, palpitations or increased shortness of breath. 06/06/2019 Persistent bacteremia possibly related to Vancomycin failure, trough has been low; antibiotics adjusted to daptomycin. Repeat blood cultures obtained today.Chest CT performed yesterday reporting negative for pneumonia, small nodular density abutting the mediastinum in the right middle lobe, possible focal atelectatic change no definitive greater than 1 cm hilar or mediastinal lymph nodes, pulmonary hypertension, enlarged heart. Hemoglobin continues trending down from admission to 7.8. Abdomen/pelvis CT performed reporting no evidence for abscess, moderate fecal stasis. One bowel movement documented for this morning. 06/07/2019 continues on daptomycin, current repeat blood cultures negative at 24 hours. Afebrile, WBC trending down to 13. Hemoglobin down to 7.6. Denies chest pain, palpitations or increased shortness of breath with the exception of exertional shortness of breath when ambulating. 06/08/2019 One repeat cultures of 128 reporting gram-positive cocci in clusters. Maintained on daptomycin as per ID. reporting loose dark stools .hemoglobin continues trending down to 7 .denies abdominal pain .Scheduled for EGD and colonoscopy today. Denies chest pain, palpitations. Complains of sore mouth/throat. Objective - Vital Signs Vital signs: Vital Signs Temp 98.6 F 06/08/19 12:34 Pulse 94 06/08/19 12:34 Resp 21 06/08/19 12:34 BP 90/54 06/08/19 12:34 Pulse Ox 67 L 06/08/19 12:34 Intake & Output 06/07/19 06/08/19 06/08/19 18:59 06:59 18:59 Intake Total 240 240 240 Output Total 1 1 Balance 239 240 239 Weight 91.7 kg Intake: Oral 240 240 240 Output: Stool 1 1 Other: Voiding Method Toilet Toilet # Voids 1 - Exam PHYSICAL EXAM: VITAL SIGNS: As above GENERAL: Sitting up in bed, no acute distress HEENT: Conjunctivae normal. eyes normal. no oral sores visualized. NECK: No JVD. No thyroid enlargement. No LNs CARDIOVASCULAR: S1, S2 regular.Systolic murmur RESPIRATION: Good air entry Breath sounds diminished in the bases. ABDOMEN: Soft, nondistended, nontender . No guarding. no masses palpable. Bowel sounds heard. LEGS: Mild edema, nontender. PSYCHIATRY: Alert and oriented X3, mood and affect normal. NERVOUS SYSTEM: Cranial N 2-12 grossly normal. Moves all 4 limbs. Diffuse weakness, No focal deficits. Strength and sensation grossly intact. Skin: no rash. - Labs CBC & Chem 7: 06/08/19 06:00 06/07/19 06:23 Labs: Abnormal Lab Results - Last 24 Hours (Table) 06/07/19 06/07/19 06/07/19 Range/Units 06:23 17:03 20:55 WBC (3.8-10.6) k/uL RBC (3.80-5.40) m/uL Hgb (11.4-16.0) gm/dL Hct (34.0-46.0) % MCV (80.0-100.0) fL MCHC (31.0-37.0) g/dL Neutrophils # (1.3-7.7) k/uL Lymphocytes # (1.0-4.8) k/uL POC Glucose (mg/dL) 232 H 296 H (75-99) mg/dL Iron 28 L (50-170) ug/dL % Saturation 9.56 L (12.00-45.00) Vitamin B12 1046.0 H (200.0-944.0) pg/mL 06/08/19 06/08/19 06/08/19 Range/Units 06:00 06:03 11:58 WBC 11.8 H (3.8-10.6) k/uL RBC 2.29 L (3.80-5.40) m/uL Hgb 7.0 L (11.4-16.0) gm/dL Hct 24.0 L (34.0-46.0) % MCV 104.8 H (80.0-100.0) fL MCHC 29.3 L (31.0-37.0) g/dL Neutrophils # 11.2 H (1.3-7.7) k/uL Lymphocytes # 0.3 L (1.0-4.8) k/uL POC Glucose (mg/dL) 253 H 190 H (75-99) mg/dL Iron (50-170) ug/dL % Saturation (12.00-45.00) Vitamin B12 (200.0-944.0) pg/mL Microbiology - Last 24 Hours (Table) 06/06/19 05:56 Blood Culture Gram Stain - Preliminary Blood Blood Culture - Preliminary Presumptive MRSA 06/05/19 06:40 Blood Culture Gram Stain - Final Blood Blood Culture - Final Methicillin resist S. aureus 06/04/19 16:54 Blood Culture - Final Blood Assessment and Plan Assessment: Acute on chronic hypoxic respiratory failure secondary to multifactorial, early sepsis-secondary to MRSA bacteremia, present on admission , acute CHF exac erbation, acute COPD exacerbation, NSTEMI Acute NSTEMI Persistent MRSA Bacteremia, etiology unclear,AMARIS reported heavy calcified aortic valve with no definite vegetations seen. Negative white blood cell scan. Possibly secondary to vancomycin failure. Etiology unclear Severe aortic stenosis Pulmonary hypertension hypertension Hyperlipidemia Gastroesophageal reflux disease Prior nicotine dependence Anxiety, depression Hyponatremia resolved Atelectasis Anemia, etiology unclear, GI following. Plan: Continue on current medication regime, monitoring and symptomatically treatment. EGD and colonoscopy pending. Close monitoring of hemoglobin, repeat labs ordered for a.m. Maintain PPI,antibiotics, nebulized bronchodilators, steroids. Continue following cultures closely. Eventual cardiac catheterization, once infection clears. Prognosis guarded given multiple complex medical issues. The impression and plan of care has been dictated as directed. : I performed a history and examination of this patient, discussed the same with the dictator. I agree with the dictator's note ,documented as a scribe. Any additional findings or plans will be noted.
[2019-06-08] MEDS ORDERED: PEG 3350-NA SULF,BICARB,CL/KCL 4,000 ML BOTTLE PO ONE (17:00)
[2019-06-08 17:05] LABS: Glucose,Whole Blood 264 mg/dL (75-99)
[2019-06-08] MEDS: MAG HYDROX/AL HYDROX/SIMETH 30 ML, LIDOCAINE VISCOUS 30 ML, diphenhydrAMINE ELIXIR 75 M... PO SCH ×8 (17:25→21:57)
[2019-06-08 20:38] LABS: Glucose,Whole Blood 205 mg/dL (75-99)
--- NOTE | 2019-06-08 21:29 | P.PN ---
Subjective Progress Note Date: 06/08/19 Principal diagnosis: Macrocytic anemia, iron deficiency anemia The patient is seen lying in bed denying any abdominal pain. No signs or symptoms of GI bleed. Tolerating her diet. Objective - Vital Signs Vital signs: Vital Signs Temp 98.6 F 06/08/19 12:34 Pulse 94 06/08/19 12:34 Resp 21 06/08/19 12:34 BP 90/54 06/08/19 12:34 Pulse Ox 67 L 06/08/19 12:34 Intake & Output 06/07/19 06/08/19 06/08/19 18:59 06:59 18:59 Intake Total 240 240 240 Output Total 1 1 Balance 239 240 239 Weight 91.7 kg Intake: Oral 240 240 240 Output: Stool 1 1 Other: Voiding Method Toilet Toilet # Voids 1 - Exam On physical examination, patient appears comfortable in no apparent distress. HEAD: Normocephalic, atraumatic. EYES: No scleral icterus. No conjunctival injection. MOUTH: No lesions, tongue midline. NECK: Trachea midline, no gross abnormalities. CHEST: Decreased air entry in all lung smith. ABDOMEN: Soft, nontender to palpation. Bowel sounds are positive. No organomegaly. No guarding or rigidity. EXTREMITIES: No pedal edema. SKIN: No rashes, no jaundice. NEUROLOGIC: Alert and oriented x3. No focal deficits. - Labs CBC & Chem 7: 06/08/19 06:00 06/07/19 06:23 Labs: Abnormal Lab Results - Last 24 Hours (Table) 06/07/19 06/07/19 06/07/19 Range/Units 06:23 17:03 20:55 WBC (3.8-10.6) k/uL RBC (3.80-5.40) m/uL Hgb (11.4-16.0) gm/dL Hct (34.0-46.0) % MCV (80.0-100.0) fL MCHC (31.0-37.0) g/dL Neutrophils # (1.3-7.7) k/uL Lymphocytes # (1.0-4.8) k/uL POC Glucose (mg/dL) 232 H 296 H (75-99) mg/dL Iron 28 L (50-170) ug/dL % Saturation 9.56 L (12.00-45.00) Vitamin B12 1046.0 H (200.0-944.0) pg/mL 06/08/19 06/08/19 06/08/19 Range/Units 06:00 06:03 11:58 WBC 11.8 H (3.8-10.6) k/uL RBC 2.29 L (3.80-5.40) m/uL Hgb 7.0 L (11.4-16.0) gm/dL Hct 24.0 L (34.0-46.0) % MCV 104.8 H (80.0-100.0) fL MCHC 29.3 L (31.0-37.0) g/dL Neutrophils # 11.2 H (1.3-7.7) k/uL Lymphocytes # 0.3 L (1.0-4.8) k/uL POC Glucose (mg/dL) 253 H 190 H (75-99) mg/dL Iron (50-170) ug/dL % Saturation (12.00-45.00) Vitamin B12 (200.0-944.0) pg/mL Microbiology - Last 24 Hours (Table) 06/06/19 05:56 Blood Culture Gram Stain - Preliminary Blood Blood Culture - Preliminary Presumptive MRSA 06/05/19 06:40 Blood Culture Gram Stain - Final Blood Blood Culture - Final Methicillin resist S. aureus 06/04/19 16:54 Blood Culture - Final Blood Assessment and Plan (1) Macrocytic anemia Narrative/Plan: 73-year-old female with multiple medical comorbidities, currently being treated for atrial fibrillation, and acute exacerbation of her chronic lung disease and was noted to have a fall in her hemoglobin after her presentation. She denies any signs or symptoms of overt bleeding but has reported intermittent dark stool over the past 3 years. Hemoglobin was normal on presentation at 14.5 and trended to 7.6 yesterday and 7 today. The patient denies any hematemesis, coffee-ground emesis, blood in stool or melanotic stool. She denies any abdominal pain. CT of the abdomen was significant only for fecal stasis. She reports her last colonoscopy was over 5 years ago. No history of NSAID therapy that she does take Celebrex and prednisone in the outpatient setting. Unclear etiology of patient's anemia with concern for possible GI bleed, the gastroenter ology service was called for further evaluation. Current Visit: Yes Status: Acute Code(s): D53.9 - NUTRITIONAL ANEMIA, UN SPECIFIED SNOMED Code(s): 31915018 Plan: Supportive care Continue to monitor CBC and transfuse as needed. Continue to monitor for signs or symptoms of GI bleeding. Continue Protonix therapy. Hold anticoagulation therapy for now. Plan for EGD and colonoscopy for further evaluation of anemia, extensive discussion with the patient about the risks, benefits and side effects of proceeding with the procedure, with all of the patient's questions answered to her satisfaction. Laboratory evaluation of anemia ordered, with normal retic count, folate and vitamin B12 her studies did suggest iron deficiency. IV Iron/Ferrelicit ordered x 3 days/infusions and recommend oral iron supplement upon discharge. Thank you for allowing us to participate in the care of this patient we will continue to follow.
[2019-06-08] MEDS: AMITRIPTYLINE HCL 25 MG TAB PO SCH (21:47)
[2019-06-08] MEDS: PRAMIPEXOLE 0.5 MG TAB PO SCH (21:56)
--- NOTE | 2019-06-08 23:20 | PN ---
PROGRESS NOTE DATE OF SERVICE: 06/08/2019 REASON FOR FOLLOWUP: MRSA bacteremia. INTERVAL HISTORY: The patient is currently afebrile. The patient has been breathing comfortably. The patient denies having any chest pain, shortness of breath or cough. No nausea, no vomiting, no abdominal pain or diarrhea. Patient is drinking prep for a GI workup tomorrow. PHYSICAL EXAMINATION: Her blood pressure is 98/62 with a pulse of 83, temperature 98. She is 98% on 5 L nasal cannula. General description is an elderly female lying in bed in no distress. RESPIRATORY SYSTEM: Unlabored breathing. Clear to auscultation anteriorly. HEART: S1, S2. Regular rate and rhythm. ABDOMEN: Soft. No tenderness. LAB: Blood culture from 06/07/19 so far negative. DIAGNOSTIC IMPRESSION AND PLAN: Patient with MRSA bacteremia that has been persistent. Concern is likely for deep source, though she did have extensive workup and no definite source was noted. Patient at this point will continue with daptomycin. If the blood culture remains negative at 72 hours, to get a PICC line for continuation of IV daptomycin in the outpatient setting for a total of 6 weeks. Will monitor clinical course closely. MMODL / IJN: [id number] /
[2019-06-09 06:06] LABS: Glucose,Whole Blood 115 mg/dL (75-99)
[2019-06-09 06:11] LABS: Basophils % (A) 0 %; Eosinophils % (A) 0 %; Hypochromasia Moderate; Lymphocytes # (A) 0.4 k/uL (1.0-4.8); Lymphocytes % (A) 6 %; MCH 31.5 pg (25.0-35.0); MCHC 30.5 g/dL (31.0-37.0); MCV 103.4 fL (80.0-100.0); Macrocytosis Slight; Mean Platelet Volume 8.9; Monocytes # (A) 0.3 k/uL (0-1.0); Monocytes % (A) 4 %; Neutrophils % (A) 90 %; Platelet Count 187 k/uL (150-450); RBC 2.13 m/uL (3.80-5.40); RDW 14.4 % (11.5-15.5); WBC 7.7 k/uL (3.8-10.6)
[2019-06-09 06:12] LABS: Calcium 7.8 mg/dL (8.4-10.2); Potassium 4.7 mmol/L (3.5-5.1)
[2019-06-09 06:19] LABS: HGB 6.7 gm/dL (11.4-16.0)
[2019-06-09] MEDS: NITROGLYCERIN OINT 1 INCH/GM PACKET TOPICAL SCH ×4 (06:35→23:29)
[2019-06-09] MEDS: IPRATROPIUM-ALBUTEROL 3 ML NEB INHALATION SCH ×4 (07:20→19:12)
[2019-06-09] MEDS: SYMBICORT 160-4.5 MCG INHALER INHALATION SCH ×2 (07:20→19:12)
[2019-06-09] MEDS: INSULIN ASPART (NovoLOG) 100 UNIT/ML VIAL SQ SCH ×4 (08:06→21:23)
[2019-06-09] MEDS: PANTOPRAZOLE 40 MG TABLET PO SCH ×2 (08:30→16:53)
[2019-06-09] MEDS: ASPIRIN 81 MG PO SCH (08:59)
[2019-06-09] MEDS: LORATADINE 10 MG TAB PO SCH (09:00)
[2019-06-09] MEDS: DOCUSATE 100 MG CAP PO SCH ×3 (09:00→21:14)
[2019-06-09] MEDS: FUROSEMIDE 20 MG TAB PO SCH (09:00)
[2019-06-09] MEDS: LISINOPRIL 10 MG TAB PO SCH (09:00)
[2019-06-09] MEDS: METOPROLOL TARTRATE 25 MG TAB PO SCH ×2 (09:00→21:11)
[2019-06-09] MEDS: ILEVRO RIGHT EYE SCH (09:01)
[2019-06-09] MEDS: SENNOSIDES-DOCUSATE SODIUM 1 EACH TAB PO SCH ×2 (09:02→21:11)
[2019-06-09] MEDS: MAG HYDROX/AL HYDROX/SIMETH 30 ML, LIDOCAINE VISCOUS 30 ML, diphenhydrAMINE ELIXIR 75 M... PO SCH ×12 (09:03→21:11)
[2019-06-09] MEDS: SERTRALINE 50 MG TAB PO SCH (09:03)
[2019-06-09] MEDS: prednisoLONE ACETATE 1% OPHTH DROPS 5 ML BTL BOTH EYES SCH ×3 (09:32→21:15)
[2019-06-09] MEDS: methylPREDNISolone SOD SUCCI 40 MG/ML 1 ML VIAL IV SCH ×2 (10:33→21:10)
[2019-06-09 11:54] LABS: Glucose,Whole Blood 75 mg/dL (75-99)
[2019-06-09] MEDS: GENTAMICIN PER PHARMACY MISCELLANE SCH (11:54)
[2019-06-09] MEDS ORDERED: GENTAMICIN 350 MG in SODIUM CHLORIDE 0.9% 100 ML IVPB ONE (12:00)
[2019-06-09] MEDS ORDERED: PROPOFOL 10 MG/ML 20 ML VIAL IV ONE (13:19)
[2019-06-09] MEDS ORDERED: MIDAZOLAM 2 MG/2 ML VIAL ONE (13:19)
[2019-06-09] MEDS ORDERED: LIDOCAINE 1% INJ 10MG/ML (20 ML MDV) ONE (13:19)
[2019-06-09] MEDS ORDERED: GLYCOPYRROLATE 0.2 MG/ML 2 ML VIAL ONE (13:19)
[2019-06-09] MEDS ORDERED: KETAMINE 10 MG/ML 20 ML VIAL ONE (13:19)
[2019-06-09] MEDS ORDERED: IV FLUID CONTINUATION 600 ML IV ONE (13:27)
--- NOTE | 2019-06-09 13:45 | P.PCN ---
Date of Procedure: 06/09/19 Procedure(s) Performed: Brief history: Patient is a pleasant 73-year-old white female admitted hospital with severe symptomatic anemia and hemoglobin of 6.7 g/dL requiring blood transfusion. She denies any GI symptoms. Has been having occasional black tarry stools. She is hence scheduled for an upper endoscopy as well as colonoscopy as a part of evaluation of severe anemia. Procedure performed: Esophagogastroduodenoscopy with biopsy Colonoscopy with snare polypectomy Preoperative diagnosis: Severe symptomatic iron deficiency anemia Anesthesia: MAC Procedure: After informed consent was obtained from the patient was brought into the endoscopy unit and IV sedation was administered by anesthesia under continuous monitoring. Initially upper endoscopy was done. The Olympus GF 160 video endoscope was inserted inserted into the mouth and esophagus intubated without any difficulty and was gradually advanced into the stomach and duodenum and carefully examined. The bulb and second part of the duodenum appeared normal. Biopsies were done from this area to rule out celiac disease. The scope was then withdrawn into the stomach adequately insufflated with air and upon careful examination the antrum and body, cardia and fundus appeared normal. The scope was then withdrawn into the esophagus. The GE junction was located at 40 cm to the incisors. It appeared regular with no erythema erosions or ulcerations. There was some erythema noted in the distal esophagus consistent with mild esophagitis. Rest of the esophagus appeared normal. Patient tolerated the procedure well. At this time the patient continued to remain sedation. Initial digital rectal examination was normal. Olympus CF 160 video colonoscope was then inserted into the rectum and gradually advanced to the cecum without any difficulty. Careful examination was performed as the scope was gradually being withdrawn. The prep was excellent. The cecum, ascending colon, transverse colon, appeared normal. In the descending colon there was a 5-6 mm sessile polyp removed by snare polypectomy. descending colon, sigmoid colon and rectum appeared normal. Retroflexion was performed in the rectum and no lesions were noted. Scattered left sided diverticulosis. Patient tolerated the procedure well. Impression: 1. Upper endoscopy revealed mild esophagitis, no evidence of peptic ulcer disease 2. Colonoscopy revealed 5-6 mm descending colon polyp status post polypectomy and scattered left-sided diverticulosis Recommendations: Findings of this examination were discussed with the patient. He was advised to follow with the biopsy results. If the biopsy shows an adenoma she can have a repeat colonoscopy in 5 years
[2019-06-09 17:02] LABS: Glucose,Whole Blood 179 mg/dL (75-99)
[2019-06-09] MEDS: SODIUM FERRIC GLUCONAT-SUCROSE 125 MG in SODIUM CHLORIDE 0.9% 100 ML IVPB SCH (17:42)
--- NOTE | 2019-06-09 17:43 | P.PN ---
Subjective Progress Note Date: 06/09/19 This is a 73-year-old female admitted with acute on chronic hypoxic respiratory failure, suspected CHF and COPD exacerbation, non-STEMI and multiple other medical issues. Maintained on nebulized bronchodilators, Zosyn, diuretics. Anticoagulated on heparin drip. Echo currently being completed at bedside. One of 3 initial blood cultures reporting presumptive MRSA, repeat blood cultures ordered. 05/30/2019 Feels better today. Last night developed atrial fibrillation with RVR, initiated on Cardizem drip. Converted to sinus rhythm, Cardizem drip discontinued.denies chest pain, palpitations or increased shortness of breath. maintained on heparin drip. Currently on 5 L nasal cannula with pulse ox in the low 90s. Continues on Zosyn and vancomycin, secondary to MRSA bacteremia. Repeat cultures reporting presumptive MRSA. Afebrile, normal WBC. 05/31/2019 maintained on Zosyn, vancomycin .feels better today, breathing improved with less exertional shortness of breath. Denies cough. Denies chest pain. Ambulated in the ghotra, tolerating exertion well. Heart catheterization pending as per cardiology. Scheduled for AMARIS tomorrow , ruling out bacterial endocarditis. Afebrile, oxygen weaned down to 4 L, maintaining O2 sats of 90s. 06/01/19 Continues on IV antibiotics of vancomycin, Zosyn for MRSA bacteremia. NPO, awaiting AMARIS. Last night returned into atrial fibrillation with RVR, Cardizem drip initiated; currently at 5 mg per hour. Currently sinus rhythm. Earlier this morning, run of 6 white complex tachycardia, asymptomatic. Potassium and magnesium levels ordered, pending.VSS, maintaining O2 sats in the 90s on 5 L nasal cannula. 06/02/2019 Underwent AMARIS yesterday reporting heavy calcified aortic valve with no definite vegetations seen. Repeat blood cultures in progress. Continues on vancomycin. Creatinine 0.79 Tagged WBC scan ordered. Maintained on Cardizem dr ip. Telemetry sinus rhythm. Denies chest pain, palpitations or increasing shortness of breath. Afebrile 06/05/2019 maintained on vancomycin .afebrile, repeat cultures of 06/02 reporting MRSA bacteremia; AMARIS/WBC scan reported negative. Repeat cultures in progress. Denies abdominal pain. Denies chest pain, palpitations or increased shortness of breath. 06/06/2019 Persistent bacteremia possibly related to Vancomycin failure, trough has been low; antibiotics adjusted to daptomycin. Repeat blood cultures obtained today.Chest CT performed yesterday reporting negative for pneumonia, small nodular density abutting the mediastinum in the right middle lobe, possible focal atelectatic change no definitive greater than 1 cm hilar or mediastinal lymph nodes, pulmonary hypertension, enlarged heart. Hemoglobin continues trending down from admission to 7.8. Abdomen/pelvis CT performed reporting no evidence for abscess, moderate fecal stasis. One bowel movement documented for this morning. 06/07/2019 continues on daptomycin, current repeat blood cultures negative at 24 hours. Afebrile, WBC trending down to 13. Hemoglobin down to 7.6. Denies chest pain, palpitations or increased shortness of breath with the exception of exertional shortness of breath when ambulating. 06/08/2019 One repeat cultures of 128 reporting gram-positive cocci in clusters. Maintained on daptomycin as per ID. reporting loose dark stools .hemoglobin continues trending down to 7 .denies abdominal pain .Scheduled for EGD and colonoscopy today. Denies chest pain, palpitations. Complains of sore mouth/throat. 06/09/2019 hemoglobin 6.7, scheduled to receive 1 unit of packed RBCs.NPO, scheduled for EGD and colonoscopy today. Positive blood cultures continue. Maintained on IV antibiotics as per infectious disease. Afebrile, normal WBC. Denies chest pain, palpitations or shortness of breath. Denies abdominal pain. Objective - Vital Signs Vital signs: Vital Signs Temp 98.1 F 06/09/19 08:10 Pulse 74 06/09/19 08:10 Resp 17 06/09/19 08:25 BP 126/68 06/09/19 08:10 Pulse Ox 97 06/09/19 08:10 Intake & Output 06/08/19 06/09/19 06/09/19 18:59 06:59 18:59 Intake Total 480 Output Total 1 414 1 Balance 479 -414 -1 Weight 91.7 kg 94.9 kg Intake: Oral 480 Output: Urine 410 Stool 1 4 1 Other: Voiding Method Toilet Toilet Toilet # Voids 1 - Exam PHYSICAL EXAM: VITAL SIGNS: As above GENERAL: Sitting up in bed, no acute distress HEENT: Conjunctivae normal. eyes normal. NECK: No JVD. No thyroid enlargement. No LNs CARDIOVASCULAR: S1, S2 regular.Systolic murmur RESPIRATION: Good air entry Breath sounds diminished in the bases. ABDOMEN: Soft, nondistended, nontender . No guarding. no masses palpable. Bowel sounds heard. LEGS: Mild edema, nontender. PSYCHIATRY: Alert and oriented X3, mood and affect normal. NERVOUS SYSTEM: Cranial N 2-12 grossly normal. Moves all 4 limbs. Diffuse weakness, No focal deficits. Strength and sensation grossly intact. Skin: no rash. - Labs CBC & Chem 7: 06/09/19 05:39 06/09/19 05:39 Labs: Abnormal Lab Results - Last 24 Hours (Table) 06/08/19 06/08/19 06/08/19 Range/Units 11:58 16:40 20:36 RBC (3.80-5.40) m/uL Hgb (11.4-16.0) gm/dL Hct (34.0-46.0) % MCV (80.0-100.0) fL MCHC (31.0-37.0) g/dL Lymphocytes # (1.0-4.8) k/uL Sodium (137-145) mmol/L Chloride (98-107) mmol/L Carbon Dioxide (22-30) mmol/L BUN (7-17) mg/dL POC Glucose (mg/dL) 190 H 264 H 205 H (75-99) mg/dL Calcium (8.4-10.2) mg/dL 06/09/19 06/09/19 06/09/19 Range/Units 05:39 05:39 06:05 RBC 2.13 L (3.80-5.40) m/uL Hgb 6.7 L* (11.4-16.0) gm/dL Hct 22.0 L (34.0-46.0) % MCV 103.4 H (80.0-100.0) fL MCHC 30.5 L (31.0-37.0) g/dL Lymphocytes # 0.4 L (1.0-4.8) k/uL Sodium 136 L (137-145) mmol/L Chloride 97 L (98-107) mmol/L Carbon Dioxide 39 H (22-30) mmol/L BUN 34 H (7-17) mg/dL POC Glucose (mg/dL) 115 H (75-99) mg/dL Calcium 7.8 L (8.4-10.2) mg/dL Microbiology - Last 24 Hours (Table) 06/05/19 06:40 Blood Culture Gram Stain - Final Blood Blood Culture - Final Methicillin resist S. aureus 06/08/19 06:00 Blood Culture Gram Stain - Preliminary Blood 06/08/19 06:00 Blood Culture - Final Blood 06/07/19 21:18 Blood Culture Gram Stain - Preliminary Blood 06/07/19 21:18 Blood Culture - Final Blood 06/06/19 05:56 Blood Culture Gram Stain - Preliminary Blood Blood Culture - Preliminary Presumptive MRSA 06/04/19 16:54 Blood Culture - Final Blood Assessment and Plan Assessment: Acute on chronic hypoxic respiratory failure secondary to multifactorial, early sepsis-secondary to MRSA bacteremia, present on admission , acute CHF exacerbation, acute COPD exacerbation, NSTEMI Acute NSTEMI Persistent MRSA Bacteremia, etiology unclear,AMARIS reported heavy calcified aortic valve with no definite vegetations seen. Negative white blood cell scan. Possibly secondary to vancomycin failure. Etiology unclear Severe aortic stenosis Pulmonary hypertension hypertension Hyperlipidemia Gastroesophageal reflux disease Prior nicotine dependence Anxiety, depression Hyponatremia resolved Atelectasis Acute blood loss Anemia, status post transfusion of packed RBCs, etiology unclear, GI following. Plan: Continue on current medication regime, monitoring and symptomatically treatment. Continue on PPI, antibiotics, nebulized bronchodilators, steroids. Antibiotics as per ID/follow cultures closely. EGD and colonoscopy scheduled for today. Transfuse 1 unit of packed RBCs with close monitoring of hemoglobin, repeat labs ordered for a.m. Eventual cardiac catheterization. Prognosis guarded given multiple complex medical issues. The impression and plan of care has been dictated as directed. : I performed a history and examination of this patient, discussed the same with the dictator. I agree with the dictator's note ,documented as a scribe. Any additional findings or plans will be noted.
[2019-06-09 20:39] LABS: Glucose,Whole Blood 228 mg/dL (75-99)
[2019-06-09] MEDS: BENZOCAINE/MENTHOL LOZENG 1 EACH LOZENGE MUCOUS MEM PRN (21:10)
[2019-06-09] MEDS: AMITRIPTYLINE HCL 25 MG TAB PO SCH (21:11)
[2019-06-09] MEDS: PRAMIPEXOLE 0.5 MG TAB PO SCH (21:13)
--- NOTE | 2019-06-09 22:49 | PN ---
PROGRESS NOTE DATE OF SERVICE: 06/09/2019 REASON FOR FOLLOW UP: MRSA bacteremia. INTERVAL HISTORY: The patient is currently afebrile. The patient has been breathing comfortably. He denies having any chest pain or any cough. No nausea, vomiting. No abdominal pain. No diarrhea. PHYSICAL EXAMINATION: Blood pressure 128/53 with a pulse of 98, temperature 98.7. She is 93% on 4 L nasal cannula. General description is an elderly female lying in bed in no distress. Respiratory system: Unlabored breathing. Clear to auscultation anteriorly. Heart S1, S2. Regular rate and rhythm. Abdomen soft, no tenderness. LABS: Hemoglobin 6.7, white count 7.7, BUN of 34, creatinine 0.78. Blood cultures from 06/08 also positive. DIAGNOSTIC IMPRESSION AND PLAN: Patient with prolonged MRSA bacteremia in this patient who did have extensive workup with no localizing focus on this infection. The patient is currently covered with daptomycin. We will add gentamicin for synergistic effect. Blood cultures repeated today as well as tomorrow and we will monitor clinical course closely. MMODL / IJN: [id number] /
[2019-06-10 05:53] LABS: Glucose,Whole Blood 219 mg/dL (75-99)
[2019-06-10] MEDS: PANTOPRAZOLE 40 MG TABLET PO SCH ×2 (06:39→15:23)
[2019-06-10] MEDS: INSULIN ASPART (NovoLOG) 100 UNIT/ML VIAL SQ SCH ×4 (06:39→21:04)
[2019-06-10 07:32] LABS: Basophils % (A) 0 %; Eosinophils % (A) 0 %; HCT 26.1 % (34.0-46.0); Hypochromasia Moderate; Lymphocytes # (A) 0.4 k/uL (1.0-4.8); Lymphocytes % (A) 4 %; MCH 30.8 pg (25.0-35.0); MCHC 30.5 g/dL (31.0-37.0); Macrocytosis Slight; Mean Platelet Volume 9.1; Monocytes # (A) 0.3 k/uL (0-1.0); Monocytes % (A) 4 %; Neutrophils # (A) 8.2 k/uL (1.3-7.7); Neutrophils % (A) 92 %; Platelet Count 207 k/uL (150-450); Poikilocytosis Moderate; RBC 2.59 m/uL (3.80-5.40); RDW 15.8 % (11.5-15.5)
[2019-06-10 07:44] LABS: Calcium 7.8 mg/dL (8.4-10.2); Potassium 5.6 mmol/L (3.5-5.1)
[2019-06-10] MEDS: IPRATROPIUM-ALBUTEROL 3 ML NEB INHALATION SCH ×4 (08:11→19:44)
[2019-06-10] MEDS: SYMBICORT 160-4.5 MCG INHALER INHALATION SCH ×2 (08:12→19:59)
[2019-06-10] MEDS: ASPIRIN 81 MG PO SCH (09:06)
[2019-06-10] MEDS: FUROSEMIDE 20 MG TAB PO SCH (09:06)
[2019-06-10] MEDS: methylPREDNISolone SOD SUCCI 40 MG/ML 1 ML VIAL IV SCH (09:07)
[2019-06-10] MEDS: SERTRALINE 50 MG TAB PO SCH (09:07)
[2019-06-10] MEDS: LORATADINE 10 MG TAB PO SCH (09:07)
[2019-06-10] MEDS: SENNOSIDES-DOCUSATE SODIUM 1 EACH TAB PO SCH ×2 (09:07→21:04)
[2019-06-10] MEDS: NITROGLYCERIN OINT 1 INCH/GM PACKET TOPICAL SCH ×2 (09:07→15:24)
[2019-06-10] MEDS: METOPROLOL TARTRATE 25 MG TAB PO SCH ×2 (09:07→21:04)
[2019-06-10] MEDS: LISINOPRIL 10 MG TAB PO SCH (09:07)
[2019-06-10] MEDS: MAG HYDROX/AL HYDROX/SIMETH 30 ML, LIDOCAINE VISCOUS 30 ML, diphenhydrAMINE ELIXIR 75 M... PO SCH ×12 (09:08→21:11)
[2019-06-10] MEDS: ILEVRO RIGHT EYE SCH (09:09)
[2019-06-10] MEDS: prednisoLONE ACETATE 1% OPHTH DROPS 5 ML BTL BOTH EYES SCH ×3 (09:10→21:10)
[2019-06-10] MEDS: SODIUM FERRIC GLUCONAT-SUCROSE 125 MG in SODIUM CHLORIDE 0.9% 100 ML IVPB SCH (09:22)
--- NOTE | 2019-06-10 10:29 | PN ---
PROGRESS NOTE DATE OF DICTATION: 06/10/2019 Patient is a 73-year-old pleasant white female admitted to the hospital with exacerbation of COPD and congestive heart failure. While in the hospital she was noted to have anemia with a hemoglobin of 6.7, requiring 2 units of blood transfusion. She underwent an EGD and colonoscopy by me yesterday. The upper endoscopy revealed mild gastritis and mild esophagitis. Colonoscopy revealed a 1 cm colon polyp and small hemorrhoids. The patient is doing well. She denies any symptoms today. Reports no abdominal pain. No nausea, no vomiting. PHYSICAL EXAMINATION: She appears comfortable, in no apparent distress. VITAL SIGNS: Stable. Blood pressure is 133/86, pulse rate 89 per minute. HEENT examination unremarkable. Conjunctivae pink. Sclerae anicteric. Oral cavity no lesions. NECK: No JVD or lymph node enlargement. HEART: Regular rate and rhythm. ABDOMEN: Soft. Bowel sounds are positive. No organomegaly. EXTREMITIES: No pedal edema. SKIN: No rashes. NEUROLOGIC: Alert and oriented x3. No focal deficits. LABS: Labs from today show WBC 9, hemoglobin 8, platelets 207. BUN 28, creatinine 0.8. IMPRESSION: 1. Symptomatic anemia with clinically no evidence of active ongoing bleeding, status post EGD and colonoscopy yesterday that showed mild esophagitis a colon polyp and small internal hemorrhoids. Biopsies are still pending. No active bleeding noted. 2. Methicillin-resistant Staphylococcus aeruginosa bacteremia, presently on antibiotics. 3. Exacerbation of congestive heart failure, which is gradually improving. 4. History of chronic obstructive pulmonary disease. RECOMMENDATIONS: 1. Await biopsy results. 2. Advance diet as tolerated. 3. Continue current medications. 4. Will follow with you closely. Thank you for this consultation. MMODL / IJN: [id number] /
[2019-06-10 11:47] LABS: Glucose,Whole Blood 107 mg/dL (75-99)
[2019-06-10] MEDS ORDERED: SODIUM POLYSTYRENE SULFONATE 15 GM/60 ML BOTTLE PO STA (12:52)
[2019-06-10] MEDS: GENTAMICIN PER PHARMACY MISCELLANE SCH (13:53)
--- NOTE | 2019-06-10 16:08 | P.PN ---
Subjective 73-year-old female admitted with acute on chronic hypoxic respiratory failure, suspected CHF and COPD exacerbation, non-STEMI and multiple other medical issues. Maintained on nebulized bronchodilators, Zosyn, diuretics. Anticoagulated on heparin drip. Echo currently being completed at bedside. One of 3 initial blood cultures reporting presumptive MRSA, repeat blood cultures ordered. 06/10/2019 Patient underwent upper GI endoscopy and colonoscopy which showed gastritis, reticulosis. Patient received 1 unit of PRBC transfusion as today patient feels fine patient hasn't apparently discontinues to have persistent bacteremia repeat blood cultures will be obtained. Patient is on vancomycin and gentamicin at this time. Patient probably has back chronic rhinitis although no lesions were seen on AMARIS. Constitutional: Denied any fatigue denied any fever. Cardio vascular: denied any chest pain, palpitations Gastrointestinal denied any nausea vomiting Pulmonary: Denied any shortness of breath cough Neurologic denied any new focal deficits All inpatient medications were reviewed and appropriate changes in these medications as dictated in the interval history and assessment and plan. Objective - Vital Signs Vital signs: Vital Signs Temp 98.2 F 06/10/19 15:04 Pulse 82 06/10/19 15:05 Resp 20 06/10/19 15:05 BP 113/63 06/10/19 15:04 Pulse Ox 94 L 06/10/19 15:04 Intake & Output 06/09/19 06/10/19 06/10/19 18:59 06:59 18:59 Intake Total 710 860 970 Output Total 3 Balance 707 860 970 Weight 95.6 kg Intake: IV 400 50 30 0.9 NS 50 Invasive Line 7 30 Intake, IV Titration 150 Amount DAPTOmycin 600 mg In 50 Sodium Chloride 0.9% 50 ml @ 100 mls/hr IVPB Q24H [facility] Rx#:[id number] Sodium Ferric Gluconat- 100 Sucrose 125 mg In Sodium Chloride 0.9% 100 ml @ 100 mls/hr IVPB DAILY [facility] Rx#:[id number] Oral 660 940 Blood Product 310 Rc As-3 Unit 310 [id number] Output: Stool 3 Other: Voiding Method Toilet Toilet # Voids 2 2 # Bowel Movements 0 - Exam PHYSICAL EXAMINATION: GENERAL: The patient is alert and oriented x3, not in any acute distress. Well developed, well nourished. HEENT: Pupils are round and equally reacting to light. EOMI. No scleral icterus. No conjunctival pallor. Normocephalic, atraumatic. No pharyngeal erythema. No thyromegaly. CARDIOVASCULAR: S1 and S2 present. No murmurs, rubs, or gallops. PULMONARY: Chest is clear to auscultation, no wheezing or crackles. ABDOMEN: Soft, nontender, nondistended, normoactive bowel sounds. No palpable organomegaly. MUSCULOSKELETAL: No joint swelling or deformity. EXTREMITIES: No cyanosis, clubbing, or pedal edema. NEUROLOGICAL: Gross neurological examination did not reveal any focal deficits. SKIN: No rashes. - Labs CBC & Chem 7: 06/10/19 05:40 06/10/19 05:40 Labs: Abnormal Lab Results - Last 24 Hours (Table) 06/09/19 06/09/19 06/09/19 Range/Units 07:58 16:58 20:37 RBC (3.80-5.40) m/uL Hgb (11.4-16.0) gm/dL Hct (34.0-46.0) % MCV (80.0-100.0) fL MCHC (31.0-37.0) g/dL RDW (11.5-15.5) % Neutrophils # (1.3-7.7) k/uL Lymphocytes # (1.0-4.8) k/uL Sodium (137-145) mmol/L Potassium (3.5-5.1) mmol/L Carbon Dioxide (22-30) mmol/L BUN (7-17) mg/dL Glucose (74-99) mg/dL POC Glucose (mg/dL) 179 H 228 H (75-99) mg/dL Calcium (8.4-10.2) mg/dL Crossmatch See Detail 06/10/19 06/10/19 06/10/19 Range/Units 05:40 05:40 05:51 RBC 2.59 L (3.80-5.40) m/uL Hgb 8.0 L (11.4-16.0) gm/dL Hct 26.1 L (34.0-46.0) % MCV 101.0 H (80.0-100.0) fL MCHC 30.5 L (31.0-37.0) g/dL RDW 15.8 H (11.5-15.5) % Neutrophils # 8.2 H (1.3-7.7) k/uL Lymphocytes # 0.4 L (1.0-4.8) k/uL Sodium 135 L (137-145) mmol/L Potassium 5.6 H (3.5-5.1) mmol/L Carbon Dioxide 32 H (22-30) mmol/L BUN 28 H (7-17) mg/dL Glucose 176 H (74-99) mg/dL POC Glucose (mg/dL) 219 H (75-99) mg/dL Calcium 7.8 L (8.4-10.2) mg/dL Crossmatch 06/10/19 Range/Units 11:41 RBC (3.80-5.40) m/uL Hgb (11.4-16.0) gm/dL Hct (34.0-46.0) % MCV (80.0-100.0) fL MCHC (31.0-37.0) g/dL RDW (11.5-15.5) % Neutrophils # (1.3-7.7) k/uL Lymphocytes # (1.0-4.8) k/uL Sodium (137-145) mmol/L Potassium (3.5-5.1) mmol/L Carbon Dioxide (22-30) mmol/L BUN (7-17) mg/dL Glucose (74-99) mg/dL POC Glucose (mg/dL) 107 H (75-99) mg/dL Calcium (8.4-10.2) mg/dL Crossmatch Microbiology - Last 24 Hours (Table) 06/07/19 21:18 Blood Culture Gram Stain - Final Blood Blood Culture - Final Methicillin resist S. aureus 06/09/19 05:39 Blood Culture Gram Stain - Preliminary Blood 06/09/19 05:39 Blood Culture - Final Blood 06/08/19 06:00 Blood Culture Gram Stain - Preliminary Blood Blood Culture - Preliminary Presumptive MRSA 06/06/19 05:56 Blood Culture Gram Stain - Final Blood Blood Culture - Final Methicillin resist S. aureus Assessment and Plan Plan: Acute on chronic hypoxic respiratory failure secondary to multifactorial, early sepsis-secondary to MRSA bacteremia, present on admission , acute CHF exacerbation, acute COPD exacerbation, NSTEMI -Possible bacterial endocarditis persistent bacteremia continue with vancomycin and gentamicin. Acute NSTEMI Severe aortic stenosis Pulmonary hypertension hypertension Hyperlipidemia Gastroesophageal reflux disease Prior nicotine dependence Anxiety, depression Hyponatremia resolved Atelectasis Acute blood loss Anemia, status post transfusion of packed RBCs, etiology unc lear, GI following. Possibly of upper GI bleed
[2019-06-10 16:38] LABS: Glucose,Whole Blood 198 mg/dL (75-99)
[2019-06-10 20:46] LABS: Glucose,Whole Blood 176 mg/dL (75-99)
[2019-06-10] MEDS: DOCUSATE 100 MG CAP PO SCH (21:04)
[2019-06-10] MEDS: AMITRIPTYLINE HCL 25 MG TAB PO SCH (21:04)
[2019-06-10] MEDS: PRAMIPEXOLE 0.5 MG TAB PO SCH (21:10)
[2019-06-10] MEDS: GENTAMICIN 70 MG in SODIUM CHLORIDE 0.9% 100 ML IVPB SCH (22:43)
--- NOTE | 2019-06-10 23:57 | PN ---
PROGRESS NOTE DATE OF SERVICE: 06/10/2019 REASON FOR FOLLOWUP: MRSA bacteremia. INTERVAL HISTORY: The patient is currently afebrile. Patient has been breathing comfortably. The patient denies having any chest pain. No shortness of breath. Occasional cough. No nausea, no vomiting. No abdominal pain. No diarrhea. PHYSICAL EXAMINATION: Blood pressure 100/49 with a pulse of 91. Temperature of 98.2. She is 94% on 4 L nasal cannula. General description is an elderly female up in the bed in no distress. Respiratory system: Unlabored breathing, decreased breath sounds, no wheeze. Heart S1, S2. Regular rate and rhythm. ABDOMEN: Soft, no tenderness. 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 LABS: BUN of 28, creatinine 0.80. Blood cultures from June 09 positive. DIAGNOSTIC IMPRESSION AND PLAN: Patient with prolonged MRSA bacteremia. This patient did have extensive workup including WBC scan, CT of chest, abdominal, pelvis did not show any source , the UA was negative as well. The patient did have a left hip hardware could be the source, but the patient that area and the area did not lie to him on the WBC scan. At this point we will increase the dose of daptomycin to 8 mg/kg. Continue gentamicin. Monitor clinical course and culture closely. Continue supportive care. MMODL / IJN: [id number] /
[2019-06-11] MEDS: NITROGLYCERIN OINT 1 INCH/GM PACKET TOPICAL SCH ×3 (01:34→16:17)
[2019-06-11 06:06] LABS: Glucose,Whole Blood 137 mg/dL (75-99)
[2019-06-11] MEDS: PANTOPRAZOLE 40 MG TABLET PO SCH ×2 (06:32→16:17)
[2019-06-11] MEDS: INSULIN ASPART (NovoLOG) 100 UNIT/ML VIAL SQ SCH ×4 (06:32→21:16)
[2019-06-11] MEDS: BENZOCAINE/MENTHOL LOZENG 1 EACH LOZENGE MUCOUS MEM PRN (06:35)
[2019-06-11 06:38] LABS: HCT 25.7 % (34.0-46.0); HGB 7.9 gm/dL (11.4-16.0); Hypochromasia Marked; MCH 30.8 pg (25.0-35.0); MCHC 30.5 g/dL (31.0-37.0); MCV 100.7 fL (80.0-100.0); Macrocytosis Slight; Mean Platelet Volume 8.5; Platelet Count 188 k/uL (150-450); Poikilocytosis Slight; RBC 2.56 m/uL (3.80-5.40); RDW 15.7 % (11.5-15.5); WBC 11.5 k/uL (3.8-10.6)
[2019-06-11 06:56] LABS: Potassium 4.4 mmol/L (3.5-5.1)
[2019-06-11] MEDS: SYMBICORT 160-4.5 MCG INHALER INHALATION SCH ×2 (08:31→20:29)
[2019-06-11] MEDS: IPRATROPIUM-ALBUTEROL 3 ML NEB INHALATION SCH ×4 (08:31→20:29)
[2019-06-11] MEDS ORDERED: LISINOPRIL 10 MG TAB PO SCH (09:00)
--- NOTE | 2019-06-11 09:36 | PN ---
PROGRESS NOTE REQUESTING PHYSICIAN: Dr. Sebastian Glez. HISTORY OF PRESENT ILLNESS: The patient is a 73-year-old pleasant white female admitted to the hospital with severe symptomatic anemia. She underwent an EGD and colonoscopy on Wednesday that showed colon polyps, gastritis and esophagitis. Biopsies are still pending. Patient denies any symptoms. She is on broad-spectrum antibiotics for MRSA bacteremia. Dr. Arellano following the patient today. She denies any symptoms. No bowel movements for the last 2 days. No abdominal pain. No nausea, vomiting. PHYSICAL EXAMINATION: Blood pressure 97/54, pulse 90, temperature 98.8. HEENT examination unremarkable. Conjunctivae pink. Sclerae anicteric. Oral cavity no lesions. NECK: No JVD or lymph node enlargement. CHEST: Clear to auscultation. HEART: Regular rate and rhythm. ABDOMEN: Obese. Bowel sounds are positive. No organomegaly. EXTREMITIES: No pedal edema. SKIN no rashes. NEUROLOGIC: Alert and oriented x3. No focal deficits. LABS: WBC 11.4, hemoglobin 7.9, platelets normal. Basic metabolic panel, BUN is 28, creatinine 0.98. IMPRESSION: 1. Severe symptomatic anemia, status post one unit of PRBC transfusion 2 days ago for hemoglobin of 6.7. She underwent EGD colonoscopy 2 days ago that showed gastritis, esophagitis, and small colon polyp. Biopsies are still pending. Anemia probably could be multifactorial in etiology, possibly anemia of chronic disease. Hemoglobin remains stable. 2. MRSA bacteremia on antibiotics. Dr. Arellano following the patient closely. RECOMMENDATIONS: Monitor CBC on a daily basis. We will sign off at this time. Please call us if needed. Thank you for this consultation. MMODL / IJN: [id number] /
[2019-06-11] MEDS: DOCUSATE 100 MG CAP PO SCH ×2 (09:56→21:23)
[2019-06-11] MEDS: GENTAMICIN 70 MG in SODIUM CHLORIDE 0.9% 100 ML IVPB SCH ×2 (09:56→21:24)
[2019-06-11] MEDS: METOPROLOL TARTRATE 25 MG TAB PO SCH ×2 (09:56→21:23)
[2019-06-11] MEDS: SERTRALINE 50 MG TAB PO SCH (09:56)
[2019-06-11] MEDS: SENNOSIDES-DOCUSATE SODIUM 1 EACH TAB PO SCH ×2 (09:56→21:23)
[2019-06-11] MEDS: FUROSEMIDE 20 MG TAB PO SCH (09:56)
[2019-06-11] MEDS: predniSONE 20 MG TAB PO SCH (09:56)
[2019-06-11] MEDS: SODIUM FERRIC GLUCONAT-SUCROSE 125 MG in SODIUM CHLORIDE 0.9% 100 ML IVPB SCH (09:56)
[2019-06-11] MEDS: ASPIRIN 81 MG PO SCH (09:56)
[2019-06-11] MEDS: MAG HYDROX/AL HYDROX/SIMETH 30 ML, LIDOCAINE VISCOUS 30 ML, diphenhydrAMINE ELIXIR 75 M... PO SCH ×12 (09:57→21:25)
[2019-06-11] MEDS: LORATADINE 10 MG TAB PO SCH (09:57)
[2019-06-11] MEDS: ILEVRO RIGHT EYE SCH (09:58)
[2019-06-11] MEDS: prednisoLONE ACETATE 1% OPHTH DROPS 5 ML BTL BOTH EYES SCH ×3 (09:58→21:25)
--- NOTE | 2019-06-11 11:06 | P.PN ---
Subjective 73-year-old female admitted with acute on chronic hypoxic respiratory failure, suspected CHF and COPD exacerbation, non-STEMI and multiple other medical issues. Maintained on nebulized bronchodilators, Zosyn, diuretics. Anticoagulated on heparin drip. Echo currently being completed at bedside. One of 3 initial blood cultures reporting presumptive MRSA, repeat blood cultures ordered. 06/10/2019 Patient underwent upper GI endoscopy and colonoscopy which showed gastritis, reticulosis. Patient received 1 unit of PRBC transfusion as today patient feels fine patient hasn't apparently discontinues to have persistent bacteremia repeat blood cultures will be obtained. Patient is on vancomycin and gentamicin at this time. Patient probably has back chronic rhinitis although no lesions were seen on AMARIS. 06/11/2019 Patient blood cultures from remain positive although no significant change in her clinical condition patient feels well. Constitutional: Denied any fatigue denied any fever. Cardio vascular: denied any chest pain, palpitations Gastrointestinal denied any nausea vomiting Pulmonary: Denied any shortness of breath cough Neurologic denied any new focal deficits All inpatient medications were reviewed and appropriate changes in these medications as dictated in the interval history and assessment and plan. Objective - Vital Signs Vital signs: Vital Signs Temp 98.0 F 06/11/19 08:00 Pulse 74 06/11/19 08:43 Resp 18 06/11/19 08:00 BP 92/54 06/11/19 08:00 Pulse Ox 92 L 06/11/19 08:00 Intake & Output 06/10/19 06/11/19 06/11/19 18:59 06:59 18:59 Intake Total 1170 360 240 Balance 1170 360 240 Weight 94.4 kg Intake: IV 30 Invasive Line 7 30 Oral 1140 360 240 Other: Voiding Method Toilet Toilet # Voids 1 2 # Bowel Movements 0 - Exam PHYSICAL EXAMINATION: GENERAL: The patient is alert and oriented x3, not in any acute distress. Well developed, well nourished. HEENT: Pupils are round and equally reacting to light. EOMI. No scleral icterus. No conjunctival pallor. Normocephalic, atraumatic. No pharyngeal erythema. No thyromegaly. CARDIOVASCULAR: S1 and S2 present. No murmurs, rubs, or gallops. PULMONARY: Chest is clear to auscultation, no wheezing or crackles. ABDOMEN: Soft, nontender, nondistended, normoactive bowel sounds. No palpable organomegaly. MUSCULOSKELETAL: No joint swelling or deformity. EXTREMITIES: No cyanosis, clubbing, or pedal edema. NEUROLOGICAL: Gross neurological examination did not reveal any focal deficits. SKIN: No rashes. - Labs CBC & Chem 7: 06/11/19 05:29 06/11/19 05:29 Labs: Abnormal Lab Results - Last 24 Hours (Table) 06/10/19 06/10/19 06/10/19 Range/Units 11:41 16:34 20:44 WBC (3.8-10.6) k/uL RBC (3.80-5.40) m/uL Hgb (11.4-16.0) gm/dL Hct (34.0-46.0) % MCV (80.0-100.0) fL MCHC (31.0-37.0) g/dL RDW (11.5-15.5) % Carbon Dioxide (22-30) mmol/L BUN (7-17) mg/dL Glucose (74-99) mg/dL POC Glucose (mg/dL) 107 H 198 H 176 H (75-99) mg/dL Calcium (8.4-10.2) mg/dL 06/11/19 06/11/19 06/11/19 Range/Units 05:29 05:29 06:04 WBC 11.5 H (3.8-10.6) k/uL RBC 2.56 L (3.80-5.40) m/uL Hgb 7.9 L (11.4-16.0) gm/dL Hct 25.7 L (34.0-46.0) % MCV 100.7 H (80.0-100.0) fL MCHC 30.5 L (31.0-37.0) g/dL RDW 15.7 H (11.5-15.5) % Carbon Dioxide 37 H (22-30) mmol/L BUN 28 H (7-17) mg/dL Glucose 114 H (74-99) mg/dL POC Glucose (mg/dL) 137 H (75-99) mg/dL Calcium 8.0 L (8.4-10.2) mg/dL Microbiology - Last 24 Hours (Table) 06/10/19 05:40 Blood Culture - Preliminary Blood No Growth after 24 hours 06/09/19 05:39 Blood Culture Gram Stain - Preliminary Blood Blood Culture - Preliminary Presumptive MRSA 06/08/19 06:00 Blood Culture Gram Stain - Final Blood Blood Culture - Final Methicillin resist S. aureus 06/07/19 21:18 Blood Culture Gram Stain - Final Blood Blood Culture - Final Methicillin resist S. aureus Assessment and Plan Plan: Acute on chronic hypoxic respiratory failure secondary to multifactorial, early sepsis-secondary to MRSA bacteremia, present on admission , acute CHF exacerbation, acute COPD exacerbation, NSTEMI -Possible bacterial endocarditis persistent bacteremia continue with vancomycin and gentamicin. Acute NSTEMI Severe aortic stenosis Pulmonary hypertension hypertension Hyperlipidemia Gastroesophageal reflux disease Prior nicotine dependence Anxiety, depression Hyponatremia resolved Atelectasis Acute blood loss Anemia, status post transfusion of packed RBCs, etiology unclear, GI following. Possibly of upper GI bleed
[2019-06-11 11:49] LABS: Glucose,Whole Blood 127 mg/dL (75-99)
[2019-06-11 16:34] LABS: Glucose,Whole Blood 184 mg/dL (75-99)
[2019-06-11 20:47] LABS: Glucose,Whole Blood 120 mg/dL (75-99)
[2019-06-11] MEDS: AMITRIPTYLINE HCL 25 MG TAB PO SCH (21:24)
[2019-06-11] MEDS: PRAMIPEXOLE 0.5 MG TAB PO SCH (21:29)
[2019-06-12] MEDS: NITROGLYCERIN OINT 1 INCH/GM PACKET TOPICAL SCH ×2 (00:42→08:50)
[2019-06-12] MEDS: ALPRAZolam 0.25 MG TAB PO PRN (03:09)
[2019-06-12 06:16] LABS: Glucose,Whole Blood 96 mg/dL (75-99)
[2019-06-12] MEDS: INSULIN ASPART (NovoLOG) 100 UNIT/ML VIAL SQ SCH ×4 (06:24→21:33)
[2019-06-12] MEDS: PANTOPRAZOLE 40 MG TABLET PO SCH ×2 (06:26→17:27)
[2019-06-12 06:59] LABS: HCT 28.3 % (34.0-46.0); HGB 8.5 gm/dL (11.4-16.0); Hypochromasia Marked; MCH 30.6 pg (25.0-35.0); MCHC 30.1 g/dL (31.0-37.0); MCV 101.7 fL (80.0-100.0); Macrocytosis Slight; Mean Platelet Volume 8.9; Platelet Count 157 k/uL (150-450); RBC 2.78 m/uL (3.80-5.40); WBC 11.5 k/uL (3.8-10.6)
[2019-06-12 07:06] LABS: Calcium 8.1 mg/dL (8.4-10.2); Potassium 3.8 mmol/L (3.5-5.1)
[2019-06-12] MEDS: IPRATROPIUM-ALBUTEROL 3 ML NEB INHALATION SCH ×4 (08:45→20:32)
[2019-06-12] MEDS: SYMBICORT 160-4.5 MCG INHALER INHALATION SCH ×2 (08:45→20:33)
[2019-06-12] MEDS: FUROSEMIDE 20 MG TAB PO SCH (08:54)
[2019-06-12] MEDS: SENNOSIDES-DOCUSATE SODIUM 1 EACH TAB PO SCH ×2 (08:54→20:52)
[2019-06-12] MEDS: MAG HYDROX/AL HYDROX/SIMETH 30 ML, LIDOCAINE VISCOUS 30 ML, diphenhydrAMINE ELIXIR 75 M... PO SCH ×12 (08:55→20:53)
[2019-06-12] MEDS: SERTRALINE 50 MG TAB PO SCH (08:55)
[2019-06-12] MEDS: ASPIRIN 81 MG PO SCH (08:55)
[2019-06-12] MEDS: DOCUSATE 100 MG CAP PO SCH ×2 (08:55→20:53)
[2019-06-12] MEDS: METOPROLOL TARTRATE 25 MG TAB PO SCH ×2 (08:55→20:52)
[2019-06-12] MEDS: prednisoLONE ACETATE 1% OPHTH DROPS 5 ML BTL BOTH EYES SCH ×3 (08:55→20:53)
[2019-06-12] MEDS: predniSONE 20 MG TAB PO SCH (08:55)
[2019-06-12] MEDS: LORATADINE 10 MG TAB PO SCH (08:55)
[2019-06-12] MEDS: ILEVRO RIGHT EYE SCH (09:01)
[2019-06-12] MEDS: GENTAMICIN 70 MG in SODIUM CHLORIDE 0.9% 100 ML IVPB SCH ×2 (09:01→21:33)
[2019-06-12] MEDS ORDERED: GENTAMICIN TROUGH DUE 1 EACH MISC MISCELLANE ONE (09:30)
--- NOTE | 2019-06-12 10:27 | PN ---
PROGRESS NOTE DATE OF SERVICE: 06/11/2019 REASON FOR FOLLOWUP: MRSA bacteremia. INTERVAL HISTORY: The patient is currently afebrile. Patient has been breathing comfortably. The patient denies having any chest pain or shortness of breath. Occasional cough. No nausea, no vomiting. No abdominal pain no diarrhea. PHYSICAL EXAMINATION: Blood pressure 101/54 with a pulse of 95, temperature 98.3, she is 97% on 4 L nasal cannula. General description is an elderly female, up in the bed in no distress. RESPIRATORY SYSTEM: Unlabored breathing. Decreased breath sounds at the base, no wheeze. HEART: S1, S2. Regular rate and rhythm. ABDOMEN: Soft, no tenderness. LABS: Hemoglobin 7.8, white count 11.5, BUN of 20, creatinine 0.88. Blood cultures 06/10 so far negative. DIAGNOSTIC IMPRESSION AND PLAN: Patient with MRSA bacteremia, extensive. This patient did have extensive workup with no evidence of any deep abscess. Consult likely for the left hip fracture site hardware. The patient is currently covered with daptomycin and gentamicin to continue while watching the kidney function closely. Once the blood cultures is negative at 2 0, she will need a PICC line for condition of IV daptomycin outpatient setting, continue supportive care. MMODL / IJN: [id number] /
[2019-06-12 12:07] LABS: Glucose,Whole Blood 138 mg/dL (75-99)
--- NOTE | 2019-06-12 12:19 | P.PN ---
Subjective Progress Note Date: 06/12/19 Patient was seen and examined this morning, she is comfortable today, denies any shortness of breath, and states that she had no further episodes of chest discomfort. Patient does state that she had an episode of chest discomfort which lasted approximately 20 minutes yesterday. Blood pressure 94/60 with a heart rate in the 90s, 93% on 5 L of oxygen. White blood cell count 21.4, hemoglobin 8.4, platelet count 205. Sodium 137, potassium 4.4, BUN 52, creatinine 0.9. 06/06/2019 Patient seen and examined this morning, complaining of some abdominal discomfort. It is noted this morning that her hemoglobin is down to 7.8, on admission her hemoglobin was 14.5. Blood cultures positive for gram-positive cocci in clusters. Blood pressure 108/68, heart rate in the 70s, 98% on 5 L of oxygen. White blood cell count 14.5, hemoglobin 7.8, platelet count 193. Sodium 136, potassium 4.2, BUN 45, creatinine 0.8. 06/07/2019 Patient seen and examined this morning, but pressure 112/70 with a heart rate in the 100, 98% on 5 L of oxygen. White blood cell count 13.0, hemoglobin 7.6, platelet count 192. Sodium 136, potassium 4.8, BUN 41, creatinine 0.7. 06/08/2019 patient seen and examined this morning, scheduled to undergo an EGD and colonoscopy. Denies any chest pain. blood pressure 90/50 with a heart rate in the 90s, 97% on 5 liters of oxygen. 06/12/2019 Patient was seen and examined today, overall feels well. Anticipating possible transfer to [facility] today. Hemodynamically she is stable, blood pressure 110/60 with a heart rate in the 80s, 94% on 4 L of oxygen. White blood cell count 11.5, hemoglobin 8.5, platelet count 157. Sodium 136, potassium 3.8, BUN 28, creatinine 0.8. Objective - Vital Signs Vital signs: Vital Signs Temp 98 F 06/12/19 08:45 Pulse 86 06/12/19 12:14 Resp 14 06/12/19 08:45 BP 109/65 06/12/19 08:45 Pulse Ox 94 L 06/12/19 08:45 Intake & Output 02/06/2906/12/19 06/12/19 18:59 06:59 18:59 Intake Total 1240 250 440 Output Total 301 Balance 939 250 440 Weight 93.5 kg Intake: IV 100 0.9 NS 100 Intake, IV Titration 150 Amount DAPTOmycin 800 mg In 50 Sodium Chloride 0.9% 50 ml @ 100 mls/hr IVPB Q24H [facility] Rx#:[id number] Gentamicin 70 mg In 100 Sodium Chloride 0.9% 100 ml @ 101.75 mls/hr IVPB Q12H [facility] Rx#:[id number] Oral 1240 440 Output: Urine 300 Stool 1 Other: Voiding Method Toilet Toilet # Voids 1 1 # Bowel Movements 1 1 - Exam GENERAL: Well-appearing, well-nourished and in no acute distress. NECK: Supple without JVD or thyromegaly. LUNGS: Breath sounds clear to auscultation bilaterally. Respiration equal and unlabored. No wheezes, rales or rhonchi. HEART: Regular rate and rhythm without rubs or gallops. Systolic murmur audible at RUSB. S1 and S2 heard. EXTREMITIES: Normal range of motion, no edema. No clubbing or cyanosis. Peripheral pulses intact and strong. - Labs CBC & Chem 7: 06/12/19 06:35 06/12/19 06:35 Labs: Abnormal Lab Results - Last 24 Hours (Table) 06/11/19 06/11/19 06/12/19 Range/Units 16:32 20:46 06:35 WBC (3.8-10.6) k/uL RBC (3.80-5.40) m/uL Hgb (11.4-16.0) gm/dL Hct (34.0-46.0) % MCV (80.0-100.0) fL MCHC (31.0-37.0) g/dL RDW (11.5-15.5) % Sodium 136 L (137-145) mmol/L Carbon Dioxide 35 H (22-30) mmol/L BUN 28 H (7-17) mg/dL POC Glucose (mg/dL) 184 H 120 H (75-99) mg/dL Calcium 8.1 L (8.4-10.2) mg/dL 06/12/19 06/12/19 Range/Units 06:35 12:06 WBC 11.5 H (3.8-10.6) k/uL RBC 2.78 L (3.80-5.40) m/uL Hgb 8.5 L (11.4-16.0) gm/dL Hct 28.3 L (34.0-46.0) % MCV 101.7 H (80.0-100.0) fL MCHC 30.1 L (31.0-37.0) g/dL RDW 16.0 H (11.5-15.5) % Sodium (137-145) mmol/L Carbon Dioxide (22-30) mmol/L BUN (7-17) mg/dL POC Glucose (mg/dL) 138 H (75-99) mg/dL Calcium (8.4-10.2) mg/dL Microbiology - Last 24 Hours (Table) 06/11/19 05:29 Blood Culture Gram Stain - Preliminary Blood 06/10/19 05:40 Blood Culture - Preliminary Blood No Growth after 48 hours 06/11/19 05:29 Blood Culture - Final Blood 06/09/19 05:39 Blood Culture Gram Stain - Final Blood Blood Culture - Final Methicillin resist S. aureus Assessment and Plan Plan: Impression/plan: #1 sepsis, with cultures positive for staph aureus #2 NSTEMI, episode of chest pain yesterday without EKG changes #3 elevated troponins possible non-ST elevated NJ versus type II NJ secondary to sepsis #4 paroxysmal atrial fibrillation with RVR, currently on Eliquis #5 chronic hypoxic respiratory failure, history of COPD #6 pulmonary hypertension #7 severe aortic stenosis #8 hypertension Plan From cardiology's perspective, we'll recommend to continue this patient on her current medications. We will make her a follow-up appointment to see Dr. Santana in the office post discharge. At which time an outpatient stress test may also be performed. DNP note has been reviewed, I agree with a documented findings and plan of care. Patient was seen and examined.
--- NOTE | 2019-06-12 15:11 | P.PN ---
Subjective Progress Note Date: 06/12/19 This is a 73-year-old female admitted with acute on chronic hypoxic respiratory failure, suspected CHF and COPD exacerbation, non-STEMI and multiple other medical issues. Maintained on nebulized bronchodilators, Zosyn, diuretics. Anticoagulated on heparin drip. Echo currently being completed at bedside. One of 3 initial blood cultures reporting presumptive MRSA, repeat blood cultures ordered. 05/30/2019 Feels better today. Last night developed atrial fibrillation with RVR, initiated on Cardizem drip. Converted to sinus rhythm, Cardizem drip discontinued.denies chest pain, palpitations or increased shortness of breath. maintained on heparin drip. Currently on 5 L nasal cannula with pulse ox in the low 90s. Continues on Zosyn and vancomycin, secondary to MRSA bacteremia. Repeat cultures reporting presumptive MRSA. Afebrile, normal WBC. 05/31/2019 maintained on Zosyn, vancomycin .feels better today, breathing improved with less exertional shortness of breath. Denies cough. Denies chest pain. Ambulated in the ghotra, tolerating exertion well. Heart catheterization pending as per cardiology. Scheduled for [facility] tomorrow , ruling out bacterial endocarditis. Afebrile, oxygen weaned down to 4 L, maintaining O2 sats of 90s. 06/01/19 Continues on IV antibiotics of vancomycin, Zosyn for MRSA bacteremia. NPO, awaiting [facility]. Last night returned into atrial fibrillation with RVR, Cardizem drip initiated; currently at 5 mg per hour. Currently sinus rhythm. Earlier this morning, run of 6 white complex tachycardia, asymptomatic. Potassium and magnesium levels ordered, pending.VSS, maintaining O2 sats in the 90s on 5 L nasal cannula. 06/02/2019 Underwent [facility] yesterday reporting heavy calcified aortic valve with no definite vegetations seen. Repeat blood cultures in progress. Continues on vancomycin. Creatinine 0.79 Tagged WBC scan ordered. Maintained on Cardizem dr ip. Telemetry sinus rhythm. Denies chest pain, palpitations or increasing shortness of breath. Afebrile 06/05/2019 maintained on vancomycin .afebrile, repeat cultures of 06/02 reporting MRSA bacteremia; [facility]/WBC scan reported negative. Repeat cultures in progress. Denies abdominal pain. Denies chest pain, palpitations or increased shortness of breath. 06/06/2019 Persistent bacteremia possibly related to Vancomycin failure, trough has been low; antibiotics adjusted to daptomycin. Repeat blood cultures obtained today.Chest CT performed yesterday reporting negative for pneumonia, small nodular density abutting the mediastinum in the right middle lobe, possible focal atelectatic change no definitive greater than 1 cm hilar or mediastinal lymph nodes, pulmonary hypertension, enlarged heart. Hemoglobin continues trending down from admission to 7.8. Abdomen/pelvis CT performed reporting no evidence for abscess, moderate fecal stasis. One bowel movement documented for this morning. 06/07/2019 continues on daptomycin, current repeat blood cultures negative at 24 hours. Afebrile, WBC trending down to 13. Hemoglobin down to 7.6. Denies chest pain, palpitations or increased shortness of breath with the exception of exertional shortness of breath when ambulating. 06/08/2019 One repeat cultures of 128 reporting gram-positive cocci in clusters. Maintained on daptomycin as per ID. reporting loose dark stools .hemoglobin continues trending down to 7 .denies abdominal pain .Scheduled for EGD and colonoscopy today. Denies chest pain, palpitations. Complains of sore mouth/throat. 06/09/2019 hemoglobin 6.7, scheduled to receive 1 unit of packed RBCs.NPO, scheduled for EGD and colonoscopy today. Positive blood cultures continue. Maintained on IV antibiotics as per infectious disease. Afebrile, normal WBC. Denies chest pain, palpitations or shortness of breath. Denies abdominal pain. 06/12/2019 repeat blood cultures reporting no growth 48 hours, on daptomycin. Denies chest pain, palpitations or shortness of breath. Vital signs stable. Afebrile, WBC 11.5. Objective - Vital Signs Vital signs: Vital Signs Temp 98.8 F 06/12/19 12:00 Pulse 86 06/12/19 12:27 Resp 16 06/12/19 12:00 BP 114/71 06/12/19 12:00 Pulse Ox 93 L 06/12/19 12:00 Intake & Output 06/11/19 06/12/19 06/12/19 18:59 06:59 18:59 Intake Total 1240 250 840 Output Total 301 Balance 939 250 840 Weight 93.5 kg Intake: IV 100 0.9 NS 100 Intake, IV Titration 150 Amount DAPTOmycin 800 mg In 50 Sodium Chloride 0.9% 50 ml @ 100 mls/hr IVPB Q24H [facility] Rx#:[id number] Gentamicin 70 mg In 100 Sodium Chloride 0.9% 100 ml @ 101.75 mls/hr IVPB Q12H [facility] Rx#:[id number] Oral 1240 840 Output: Urine 300 Stool 1 Other: Voiding Method Toilet Toilet # Voids 1 1 # Bowel Movements 1 1 - Exam PHYSICAL EXAM: VITAL SIGNS: As above GENERAL: Sitting up in bed, no acute distress HEENT: Conjunctivae normal. eyes normal. Oral mucosa moist NECK: No JVD. No thyroid enlargement. No LNs CARDIOVASCULAR: S1, S2 regular.Systolic murmur RESPIRATION: Good air entry Breath sounds CTA. ABDOMEN: Soft, nondistended, nontender . No guarding. no masses palpable. Bowel sounds heard. LEGS: Mild decreasing edema, nontender. PSYCHIATRY: Alert and oriented X3, mood and affect normal. NERVOUS SYSTEM: Cranial N 2-12 grossly normal. Moves all 4 limbs. Diffuse weakness, No focal deficits. Strength and sensation grossly intact. Skin: no rash. - Labs CBC & Chem 7: 06/12/19 06:35 06/12/19 06:35 Labs: Abnormal Lab Results - Last 24 Hours (Table) 06/11/19 06/11/19 06/12/19 Range/Units 16:32 20:46 06:35 WBC (3.8-10.6) k/uL RBC (3.80-5.40) m/uL Hgb (11.4-16.0) gm/dL Hct (34.0-46.0) % MCV (80.0-100.0) fL MCHC (31.0-37.0) g/dL RDW (11.5-15.5) % Sodium 136 L (137-145) mmol/L Carbon Dioxide 35 H (22-30) mmol/L BUN 28 H (7-17) mg/dL POC Glucose (mg/dL) 184 H 120 H (75-99) mg/dL Calcium 8.1 L (8.4-10.2) mg/dL 06/12/19 06/12/19 Range/Units 06:35 12:06 WBC 11.5 H (3.8-10.6) k/uL RBC 2.78 L (3.80-5.40) m/uL Hgb 8.5 L (11.4-16.0) gm/dL Hct 28.3 L (34.0-46.0) % MCV 101.7 H (80.0-100.0) fL MCHC 30.1 L (31.0-37.0) g/dL RDW 16.0 H (11.5-15.5) % Sodium (137-145) mmol/L Carbon Dioxide (22-30) mmol/L BUN (7-17) mg/dL POC Glucose (mg/dL) 138 H (75-99) mg/dL Calcium (8.4-10.2) mg/dL Microbiology - Last 24 Hours (Table) 06/11/19 05:29 Blood Culture Gram Stain - Preliminary Blood Blood Culture - Preliminary Staphylococcus aureus 06/10/19 05:40 Blood Culture - Preliminary Blood No Growth after 48 hours 06/11/19 05:29 Blood Culture - Final Blood 06/09/19 05:39 Blood Culture Gram Stain - Final Blood Blood Culture - Final Methicillin resist S. aureus Assessment and Plan Assessment: Acute on chronic hypoxic respiratory failure secondary to multifactorial, early sepsis-secondary to MRSA bacteremia, present on admission , acute CHF exacerbation, acute COPD exacerbation, NSTEMI Acute NSTEMI Persistent MRSA Bacteremia, etiology unclear,[facility] reported heavy calcified aortic valve with no definite vegetations seen. Negative white blood cell scan. Possibly secondary to vancomycin failure. Etiology unclear Severe aortic stenosis Pulmonary hypertension hypertension Hyperlipidemia Gastroesophageal reflux disease Prior nicotine dependence Anxiety, depression Hyponatremia resolved Atelectasis Acute blood loss Anemia, status post transfusion of packed RBCs. ETT reported mild esophagitis with no evidence of peptic ulcer disease. Colonoscopy revealed 5-6 mm descending colon polyp status post polypectomy with scattered left-sided diverticulosis. Biopsies pending Plan: Continue on current medication regime, monitoring and symptomatically treatment. Maintain IV antibiotics. Outpatient cardiac catheterization versus stress test being discussed as per cardiology. Discharge planning in progress for subacute rehab tomorrow pending repeat blood cultures remain negative and c leared by infectious disease. Prognosis guarded given multiple complex medical issues. The impression and plan of care has been dictated as directed. : I performed a history and examination of this patient, discussed the same with the dictator. I agree with the dictator's note ,documented as a scribe. Any additional findings or plans will be noted.
[2019-06-12 16:56] LABS: Glucose,Whole Blood 224 mg/dL (75-99)
[2019-06-12] MEDS: ISOSORBIDE MONONITRATE ER 30 MG TAB.ER.24H PO SCH (17:27)
[2019-06-12] MEDS: PRAMIPEXOLE 0.5 MG TAB PO SCH (20:51)
[2019-06-12] MEDS: AMITRIPTYLINE HCL 25 MG TAB PO SCH (20:52)
--- NOTE | 2019-06-12 20:57 | PN ---
PROGRESS NOTE DATE OF SERVICE: 06/12/2019. REASON FOR FOLLOWUP: MRSA bacteremia. INTERVAL HISTORY: The patient is currently afebrile. The patient has been breathing comfortably. The patient denies having any chest pain or shortness of breath. Minimal cough. No nausea, no vomiting and no diarrhea. PHYSICAL EXAMINATION: On examination, her blood pressure is 98/57 with a pulse of 90, temperature 99. General description is an elderly female up in the bed in no distress. RESPIRATORY SYSTEM: Unlabored breathing with decreased breath sounds at the base. No wheeze. HEART: S1, S2. Regular rate and rhythm. ABDOMEN: Soft. No tenderness. LABS: Hemoglobin 8.5, white count 11.5. BUN of 28, creatinine 0.86. Blood cultures from 06/11 are positive as well. DIAGNOSTIC IMPRESSION AND PLAN: Patient with prolonged MRSA bacteremia, possibly a deep source, in this patient who did have extensive workup. CT was reviewed with Dr. Ledesma. Both abdomen and pelvis and the chest, including the spine, did not show any focus of infection. The patient unfortunately did have hardware in the left heel which did not significantly light up on the WBC scan either. However, the patient had no symptoms referable to the left hip. The patient is currently covered with a high dose of daptomycin and gentamicin; to continue. Blood culture will be repeated to document clearance of her bacteremia. Continue with supportive care. MMODL / IJN: [id number] /
[2019-06-12 21:09] LABS: Glucose,Whole Blood 214 mg/dL (75-99)
[2019-06-13] MEDS: ACETAMINOPHEN TAB 325 MG TAB PO PRN (04:48)
[2019-06-13 06:36] LABS: Glucose,Whole Blood 126 mg/dL (75-99)
[2019-06-13] MEDS: PANTOPRAZOLE 40 MG TABLET PO SCH ×2 (06:39→18:05)
[2019-06-13] MEDS: INSULIN ASPART (NovoLOG) 100 UNIT/ML VIAL SQ SCH ×4 (06:39→22:10)
[2019-06-13] MEDS: IPRATROPIUM-ALBUTEROL 3 ML NEB INHALATION SCH ×4 (07:07→19:23)
[2019-06-13] MEDS: SYMBICORT 160-4.5 MCG INHALER INHALATION SCH ×2 (07:08→19:24)
[2019-06-13] MEDS: GENTAMICIN 70 MG in SODIUM CHLORIDE 0.9% 100 ML IVPB SCH ×2 (08:22→23:03)
[2019-06-13] MEDS: ASPIRIN 81 MG PO SCH (08:27)
[2019-06-13] MEDS: FUROSEMIDE 20 MG TAB PO SCH (08:27)
[2019-06-13] MEDS: ISOSORBIDE MONONITRATE ER 30 MG TAB.ER.24H PO SCH (08:27)
[2019-06-13] MEDS: METOPROLOL TARTRATE 25 MG TAB PO SCH ×2 (08:27→20:15)
[2019-06-13] MEDS: SERTRALINE 50 MG TAB PO SCH (08:27)
[2019-06-13] MEDS: LORATADINE 10 MG TAB PO SCH (08:27)
[2019-06-13] MEDS: predniSONE 20 MG TAB PO SCH (08:27)
[2019-06-13] MEDS: prednisoLONE ACETATE 1% OPHTH DROPS 5 ML BTL BOTH EYES SCH ×3 (08:27→23:02)
[2019-06-13] MEDS: ILEVRO RIGHT EYE SCH (08:28)
[2019-06-13] MEDS: MAG HYDROX/AL HYDROX/SIMETH 30 ML, LIDOCAINE VISCOUS 30 ML, diphenhydrAMINE ELIXIR 75 M... PO SCH ×12 (08:31→23:06)
[2019-06-13] MEDS: DOCUSATE 100 MG CAP PO SCH ×2 (08:31→20:15)
[2019-06-13] MEDS: SENNOSIDES-DOCUSATE SODIUM 1 EACH TAB PO SCH ×2 (08:31→20:14)
[2019-06-13 11:39] LABS: Glucose,Whole Blood 124 mg/dL (75-99)
[2019-06-13 12:09] LABS: Anisocytosis Slight; Basophils # (A) 0.1 k/uL (0-0.2); Basophils % (A) 1 %; Eosinophils # (A) 0.1 k/uL (0-0.7); Eosinophils % (A) 1 %; HCT 27.2 % (34.0-46.0); HGB 8.1 gm/dL (11.4-16.0); Hypochromasia Marked; Lymphocytes # (A) 0.6 k/uL (1.0-4.8); Lymphocytes % (A) 6 %; MCH 31.4 pg (25.0-35.0); MCHC 29.9 g/dL (31.0-37.0); Macrocytosis Moderate; Mean Platelet Volume 9.4; Monocytes # (A) 0.3 k/uL (0-1.0); Monocytes % (A) 3 %; Neutrophils # (A) 8.5 k/uL (1.3-7.7); Neutrophils % (A) 88 %; Platelet Count 151 k/uL (150-450); RBC 2.59 m/uL (3.80-5.40); RDW 16.8 % (11.5-15.5); WBC 9.7 k/uL (3.8-10.6)
--- NOTE | 2019-06-13 12:20 | P.PN ---
Subjective Progress Note Date: 06/13/19 This is a 73-year-old female admitted with acute on chronic hypoxic respiratory failure, suspected CHF and COPD exacerbation, non-STEMI and multiple other medical issues. Maintained on nebulized bronchodilators, Zosyn, diuretics. Anticoagulated on heparin drip. Echo currently being completed at bedside. One of 3 initial blood cultures reporting presumptive MRSA, repeat blood cultures ordered. 05/30/2019 Feels better today. Last night developed atrial fibrillation with RVR, initiated on Cardizem drip. Converted to sinus rhythm, Cardizem drip discontinued.denies chest pain, palpitations or increased shortness of breath. maintained on heparin drip. Currently on 5 L nasal cannula with pulse ox in the low 90s. Continues on Zosyn and vancomycin, secondary to MRSA bacteremia. Repeat cultures reporting presumptive MRSA. Afebrile, normal WBC. 05/31/2019 maintained on Zosyn, vancomycin .feels better today, breathing improved with less exertional shortness of breath. Denies cough. Denies chest pain. Ambulated in the ghotra, tolerating exertion well. Heart catheterization pending as per cardiology. Scheduled for [facility] tomorrow , ruling out bacterial endocarditis. Afebrile, oxygen weaned down to 4 L, maintaining O2 sats of 90s. 06/01/19 Continues on IV antibiotics of vancomycin, Zosyn for MRSA bacteremia. NPO, awaiting [facility]. Last night returned into atrial fibrillation with RVR, Cardizem drip initiated; currently at 5 mg per hour. Currently sinus rhythm. Earlier this morning, run of 6 white complex tachycardia, asymptomatic. Potassium and magnesium levels ordered, pending.VSS, maintaining O2 sats in the 90s on 5 L nasal cannula. 06/02/2019 Underwent [facility] yesterday reporting heavy calcified aortic valve with no definite vegetations seen. Repeat blood cultures in progress. Continues on vancomycin. Creatinine 0.79 Tagged WBC scan ordered. Maintained on Cardizem dr ip. Telemetry sinus rhythm. Denies chest pain, palpitations or increasing shortness of breath. Afebrile 06/05/2019 maintained on vancomycin .afebrile, repeat cultures of 06/02 reporting MRSA bacteremia; [facility]/WBC scan reported negative. Repeat cultures in progress. Denies abdominal pain. Denies chest pain, palpitations or increased shortness of breath. 06/06/2019 Persistent bacteremia possibly related to Vancomycin failure, trough has been low; antibiotics adjusted to daptomycin. Repeat blood cultures obtained today.Chest CT performed yesterday reporting negative for pneumonia, small nodular density abutting the mediastinum in the right middle lobe, possible focal atelectatic change no definitive greater than 1 cm hilar or mediastinal lymph nodes, pulmonary hypertension, enlarged heart. Hemoglobin continues trending down from admission to 7.8. Abdomen/pelvis CT performed reporting no evidence for abscess, moderate fecal stasis. One bowel movement documented for this morning. 06/07/2019 continues on daptomycin, current repeat blood cultures negative at 24 hours. Afebrile, WBC trending down to 13. Hemoglobin down to 7.6. Denies chest pain, palpitations or increased shortness of breath with the exception of exertional shortness of breath when ambulating. 06/08/2019 One repeat cultures of 128 reporting gram-positive cocci in clusters. Maintained on daptomycin as per ID. reporting loose dark stools .hemoglobin continues trending down to 7 .denies abdominal pain .Scheduled for EGD and colonoscopy today. Denies chest pain, palpitations. Complains of sore mouth/throat. 06/09/2019 hemoglobin 6.7, scheduled to receive 1 unit of packed RBCs.NPO, scheduled for EGD and colonoscopy today. Positive blood cultures continue. Maintained on IV antibiotics as per infectious disease. Afebrile, normal WBC. Denies chest pain, palpitations or shortness of breath. Denies abdominal pain. 06/12/2019 repeat blood cultures reporting no growth 48 hours, on daptomycin. Denies chest pain, palpitations or shortness of breath. Vital signs stable. Afebrile, WBC 11.5. 06/13/2019 repeat blood cultures 06/11/19 now growing MRSA. New cultures redrawn, continues on Daptomycin, gentamicin as per infectious disease. Afebrile, normal WBC, mild tachycardia. Denies chest pain, palpitations or shortness of breath. Maintaining O2 sats in the 90s on 4 L nasal cannula. Objective - Vital Signs Vital signs: Vital Signs Temp 98.3 F 06/13/19 07:00 Pulse 106 H 06/13/19 11:12 Resp 18 06/13/19 07:00 BP 110/61 06/13/19 07:00 Pulse Ox 94 L 06/13/19 07:00 Intake & Output 06/12/19 06/13/19 06/13/19 18:59 06:59 18:59 Intake Total 1850 351 240 Output Total 300 1 Balance 1550 350 240 Intake: IV 10 50 0.9 NS 50 Invasive Line 8 10 Intake, IV Titration 151 Amount DAPTOmycin 800 mg In 50 Sodium Chloride 0.9% 50 ml @ 100 mls/hr IVPB Q24H [facility] Rx#:[id number] Gentamicin 70 mg In 101 Sodium Chloride 0.9% 100 ml @ 101.75 mls/hr IVPB Q12H [facility] Rx#:[id number] Oral 1840 150 240 Output: Urine 300 Stool 1 Other: Voiding Method Toilet # Voids 1 1 # Bowel Movements 1 1 - Exam PHYSICAL EXAM: VITAL SIGNS: As above GENERAL: Sitting up in bed, no acute distress HEENT: Conjunctivae normal. eyes normal. Oral mucosa moist NECK: No JVD. No thyroid enlargement. No LNs CARDIOVASCULAR: S1, S2 regular.Systolic murmur RESPIRATION: Good air entry Breath sounds CTA. ABDOMEN: Soft, nondistended, nontender . No guarding. no masses palpable. Bowel sounds heard. LEGS: Decreasing edema, nontender. PSYCHIATRY: Alert and oriented X3, mood and affect normal. NERVOUS SYSTEM: Cranial N 2-12 grossly normal. Moves all 4 limbs. Diffuse weakness, No focal deficits. Strength and sensation grossly intact. Skin: no rash. - Labs CBC & Chem 7: 06/13/19 06:06 06/13/19 06:06 Labs: Abnormal Lab Results - Last 24 Hours (Table) 06/12/19 06/12/19 06/13/19 Range/Units 16:54 21:07 06:06 RBC 2.59 L (3.80-5.40) m/uL Hgb 8.1 L (11.4-16.0) gm/dL Hct 27.2 L (34.0-46.0) % MCV 105.0 H (80.0-100.0) fL MCHC 29.9 L (31.0-37.0) g/dL RDW 16.8 H (11.5-15.5) % Neutrophils # 8.5 H (1.3-7.7) k/uL Lymphocytes # 0.6 L (1.0-4.8) k/uL POC Glucose (mg/dL) 224 H 214 H (75-99) mg/dL 06/13/19 06/13/19 Range/Units 06:35 11:35 RBC (3.80-5.40) m/uL Hgb (11.4-16.0) gm/dL Hct (34.0-46.0) % MCV (80.0-100.0) fL MCHC (31.0-37.0) g/dL RDW (11.5-15.5) % Neutrophils # (1.3-7.7) k/uL Lymphocytes # (1.0-4.8) k/uL POC Glucose (mg/dL) 126 H 124 H (75-99) mg/dL Microbiology - Last 24 Hours (Table) 06/10/19 05:40 Blood Culture - Preliminary Blood No Growth after 72 hours 06/11/19 05:29 Blood Culture Gram Stain - Final Blood Blood Culture - Final Methicillin resist S. aureus 06/12/19 06:35 Blood Culture - Preliminary Blood No Growth after 24 hours Assessment and Plan Assessment: Acute on chronic hypoxic respiratory failure secondary to multifactorial, early sepsis-secondary to MRSA bacteremia, present on admission , acute CHF exace rbation, acute COPD exacerbation, NSTEMI Acute NSTEMI Persistent MRSA Bacteremia, etiology unclear,[facility] reported heavy calcified aortic valve with no definite vegetations seen. Negative white blood cell scan. Possibly secondary to vancomycin failure. Etiology unclear Severe aortic stenosis Pulmonary hypertension hypertension Hyperlipidemia Gastroesophageal reflux disease Prior nicotine dependence Anxiety, depression Hyponatremia resolved Atelectasis Acute blood loss Anemia, status post transfusion of packed RBCs. ETT reported mild esophagitis with no evidence of peptic ulcer disease. Colonoscopy revealed 5-6 mm descending colon polyp status post polypectomy with scattered left-sided diverticulosis. Biopsies pending Plan: Continue on current medication regime, monitoring and symptomatically treatment. Maintain IV antibiotics of gentamicin and daptomycin. New repeat blood cultures drawn this morning. Discussed with infectious disease. If this latest set of blood cultures come back positive , patient will be transferred out to a tertiary center.Eventually will need cardiac catheterization versus stress as per cardiology. Prognosis guarded given multiple complex medical issues. The impression and plan of care has been dictated as directed. : I performed a history and examination of this patient, discussed the same with the dictator. I agree with the dictator's note ,documented as a scribe. Any additional findings or plans will be noted.
--- NOTE | 2019-06-13 14:49 | P.PN ---
Subjective Progress Note Date: 06/13/19 Patient was seen and examined this morning, she is comfortable today, denies any shortness of breath, and states that she had no further episodes of chest discomfort. Patient does state that she had an episode of chest discomfort which lasted approximately 20 minutes yesterday. Blood pressure 94/60 with a heart rate in the 90s, 93% on 5 L of oxygen. White blood cell count 21.4, hemoglobin 8.4, platelet count 205. Sodium 137, potassium 4.4, BUN 52, creatinine 0.9. 06/06/2019 Patient seen and examined this morning, complaining of some abdominal discomfort. It is noted this morning that her hemoglobin is down to 7.8, on admission her hemoglobin was 14.5. Blood cultures positive for gram-positive cocci in clusters. Blood pressure 108/68, heart rate in the 70s, 98% on 5 L of oxygen. White blood cell count 14.5, hemoglobin 7.8, platelet count 193. Sodium 136, potassium 4.2, BUN 45, creatinine 0.8. 06/07/2019 Patient seen and examined this morning, but pressure 112/70 with a heart rate in the 100, 98% on 5 L of oxygen. White blood cell count 13.0, hemoglobin 7.6, platelet count 192. Sodium 136, potassium 4.8, BUN 41, creatinine 0.7. 06/08/2019 patient seen and examined this morning, scheduled to undergo an EGD and colonoscopy. Denies any chest pain. blood pressure 90/50 with a heart rate in the 90s, 97% on 5 liters of oxygen. 06/12/2019 Patient was seen and examined today, overall feels well. Anticipating possible transfer to [facility] today. Hemodynamically she is stable, blood pressure 110/60 with a heart rate in the 80s, 94% on 4 L of oxygen. White blood cell count 11.5, hemoglobin 8.5, platelet count 157. Sodium 136, potassium 3.8, BUN 28, creatinine 0.8. 06/13/2019 Patient was seen and examined today, repeat blood cultures now growing MRSA. She continues to be on IV antibiotics in the form of daptomycin and gentamicin. Denies chest pain. Hemodynamically stable. Objective - Vital Signs Vital signs: Vital Signs Temp 98.3 F 06/13/19 07:00 Pulse 106 H 06/13/19 11:12 Resp 18 06/13/19 07:00 BP 110/61 06/13/19 07:00 Pulse Ox 94 L 06/13/19 07:00 Intake & Output 06/12/19 06/13/19 06/13/19 18:59 06:59 18:59 Intake Total 1850 351 480 Output Total 300 1 Balance 1550 350 480 Intake: IV 10 50 0.9 NS 50 Invasive Line 8 10 Intake, IV Titration 151 Amount DAPTOmycin 800 mg In 50 Sodium Chloride 0.9% 50 ml @ 100 mls/hr IVPB Q24H [facility] Rx#:[id number] Gentamicin 70 mg In 101 Sodium Chloride 0.9% 100 ml @ 101.75 mls/hr IVPB Q12H [facility] Rx#:[id number] Oral 1840 150 480 Output: Urine 300 Stool 1 Other: Voiding Method Toilet # Voids 1 1 1 # Bowel Movements 1 1 - Exam GENERAL: Well-appearing, well-nourished and in no acute distress. NECK: Supple without JVD or thyromegaly. LUNGS: Breath sounds clear to auscultation bilaterally. Respiration equal and unlabored. No wheezes, rales or rhonchi. HEART: Regular rate and rhythm without rubs or gallops. Systolic murmur audible at RUSB. S1 and S2 heard. EXTREMITIES: Normal range of motion, no edema. No clubbing or cyanosis. Peripheral pulses intact and strong. - Labs CBC & Chem 7: 06/13/19 06:06 06/13/19 06:06 Labs: Abnormal Lab Results - Last 24 Hours (Table) 06/12/19 06/12/19 06/13/19 Range/Units 16:54 21:07 06:06 RBC 2.59 L (3.80-5.40) m/uL Hgb 8.1 L (11.4-16.0) gm/dL Hct 27.2 L (34.0-46.0) % MCV 105.0 H (80.0-100.0) fL MCHC 29.9 L (31.0-37.0) g/dL RDW 16.8 H (11.5-15.5) % Neutrophils # 8.5 H (1.3-7.7) k/uL Lymphocytes # 0.6 L (1.0-4.8) k/uL POC Glucose (mg/dL) 224 H 214 H (75-99) mg/dL 06/13/19 06/13/19 Range/Units 06:35 11:35 RBC (3.80-5.40) m/uL Hgb (11.4-16.0) gm/dL Hct (34.0-46.0) % MCV (80.0-100.0) fL MCHC (31.0-37.0) g/dL RDW (11.5-15.5) % Neutrophils # (1.3-7.7) k/uL Lymphocytes # (1.0-4.8) k/uL POC Glucose (mg/dL) 126 H 124 H (75-99) mg/dL Microbiology - Last 24 Hours (Table) 06/12/19 11:43 Blood Culture - Preliminary Blood No Growth after 24 hours 06/12/19 11:08 Blood Culture - Preliminary Blood No Growth after 24 hours 06/10/19 05:40 Blood Culture - Preliminary Blood No Growth after 72 hours 06/11/19 05:29 Blood Culture Gram Stain - Final Blood Blood Culture - Final Methicillin resist S. aureus 06/12/19 06:35 Blood Culture - Preliminary Blood No Growth after 24 hours Assessment and Plan Plan: Impression/plan: #1 sepsis, with cultures positive for staph aureus #2 NSTEMI, episode of chest pain yesterday without EKG changes #3 elevated troponins possible non-ST elevated ME versus type II ME secondary to sepsis #4 paroxysmal atrial fibrillation with RVR, currently on Eliquis #5 chronic hypoxic respiratory failure, history of COPD #6 pulmonary hypertension #7 severe aortic stenosis #8 hypertension Plan From cardiology's perspective, we'll recommend to continue this patient on her current medications. We will make her a follow-up appointment to see Dr. Santana in the office post discharge. At which time an outpatient stress test may also be performed. DNP note has been reviewed, I agree with a documented findings and plan of care. Patient was seen and examined.
[2019-06-13 17:22] LABS: Glucose,Whole Blood 150 mg/dL (75-99)
[2019-06-13] MEDS: AMITRIPTYLINE HCL 25 MG TAB PO SCH (20:15)
[2019-06-13] MEDS: PRAMIPEXOLE 0.5 MG TAB PO SCH (20:15)
[2019-06-13 21:09] LABS: Glucose,Whole Blood 132 mg/dL (75-99)
--- NOTE | 2019-06-13 22:43 | PN ---
PROGRESS NOTE DATE OF SERVICE: 06/13/2019. REASON FOR FOLLOWUP: MRSA bacteremia. INTERVAL HISTORY: The patient is currently afebrile. The patient has been breathing comfortably. The patient denies having any chest pain or shortness of breath or cough. No nausea or vomiting. No abdominal pain. No diarrhea. PHYSICAL EXAMINATION: Her blood pressure is 118/71 with a pulse of 92, temperature 98.7. She is 95% on 4 L nasal cannula. General description is an elderly female lying in bed in no distress. RESPIRATORY SYSTEM: Unlabored breathing with decreased breath sounds at the base. No wheeze. HEART: S1, S2. Regular rate and rhythm. ABDOMEN: Soft. No tenderness. LABS: Hemoglobin 8.1, white count 9.7. Blood cultures from yesterday are so far negative. DIAGNOSTIC IMPRESSION AND PLAN: Patient with MRSA bacteremia. Blood cultures from yesterday are so far negative. If they remain negative at 72 hours, the patient will be able to get a PICC line on and be discharged to continue on IV daptomycin for a total of 6 weeks from the negative blood cultures. Gentamicin will be discontinued at discharge in the outpatient setting. If the blood culture from yesterday comes back positive tomorrow, I recommend transferring her to tertiary care. This were discussed in detail with the nurse practitioner for the admitting team. ALICIA / GINI: [id number] /
[2019-06-14 06:53] LABS: Glucose,Whole Blood 126 mg/dL (75-99)
[2019-06-14] MEDS: SYMBICORT 160-4.5 MCG INHALER INHALATION SCH ×2 (07:35→20:47)
[2019-06-14] MEDS: IPRATROPIUM-ALBUTEROL 3 ML NEB INHALATION SCH ×4 (07:35→20:47)
[2019-06-14] MEDS: INSULIN ASPART (NovoLOG) 100 UNIT/ML VIAL SQ SCH ×4 (08:08→21:09)
[2019-06-14] MEDS: ASPIRIN 81 MG PO SCH (08:15)
[2019-06-14] MEDS: PANTOPRAZOLE 40 MG TABLET PO SCH ×2 (08:15→17:16)
[2019-06-14] MEDS: FUROSEMIDE 20 MG TAB PO SCH (08:15)
[2019-06-14] MEDS: DOCUSATE 100 MG CAP PO SCH ×2 (08:15→20:53)
[2019-06-14] MEDS: ISOSORBIDE MONONITRATE ER 30 MG TAB.ER.24H PO SCH (08:16)
[2019-06-14] MEDS: METOPROLOL TARTRATE 25 MG TAB PO SCH ×2 (08:16→20:51)
[2019-06-14] MEDS: LORATADINE 10 MG TAB PO SCH (08:16)
[2019-06-14] MEDS: predniSONE 20 MG TAB PO SCH (08:17)
[2019-06-14] MEDS: MAG HYDROX/AL HYDROX/SIMETH 30 ML, LIDOCAINE VISCOUS 30 ML, diphenhydrAMINE ELIXIR 75 M... PO SCH ×12 (08:17→22:04)
[2019-06-14] MEDS: SENNOSIDES-DOCUSATE SODIUM 1 EACH TAB PO SCH ×2 (08:17→20:51)
[2019-06-14] MEDS: SERTRALINE 50 MG TAB PO SCH (08:17)
[2019-06-14] MEDS: prednisoLONE ACETATE 1% OPHTH DROPS 5 ML BTL BOTH EYES SCH ×3 (08:17→22:04)
[2019-06-14] MEDS: ILEVRO RIGHT EYE SCH (08:25)
[2019-06-14] MEDS: GENTAMICIN 70 MG in SODIUM CHLORIDE 0.9% 100 ML IVPB SCH ×2 (09:09→22:03)
--- NOTE | 2019-06-14 10:25 | P.DS ---
Providers Date of admission: 05/28/19 04:24 Expected date of discharge: 06/14/19 Attending physician: Sebastian Glez MD Consults: 05/28/19 04:24 Consult Physician Urgent Consulting Provider: Luci Santana Consult Reason/Comments: nstemi Do you want consulting provider notified?: Yes 05/28/19 06:16 Consult Physician Routine Consulting Provider: Kym Moreno Consult Reason/Comments: hypoxia Do you want consulting provider notified?: Yes 06/01/19 11:12 Consult Physician Routine Consulting Provider: Kalpesh Arellano Consult Reason/Comments: bacteremia Do you want consulting provider notified?: Already Contacted 06/06/19 15:46 Consult Physician Routine Consulting Provider: Kelly Daniel Consult Reason/Comments: anemia Do you want consulting provider notified?: Yes Primary care physician: Sebastian Glez MD Hospital Course: Final Diagnoses: Acute on chronic hypoxic respiratory failure secondary to multifactorial, early sepsis-secondary to MRSA bacteremia, present on admission , acute CHF exacerbation, acute COPD exacerbation, NSTEMI. Acute NSTEMI, possible type II GA secondary to sepsis, cardiac catheterization pending clearance of infection. Persistent MRSA Bacteremia, etiology unclear,AMARIS reported heavy calcified aortic valve with no definite vegetations seen. Negative white blood cell scan. Possibly secondary to vancomycin failure. Etiology unclear Severe aortic stenosis Pulmonary hypertension hypertension Hyperlipidemia Gastroesophageal reflux disease Prior nicotine dependence Anxiety, depression Hyponatremia resolved Atelectasis Acute blood loss Anemia, status post transfusion of packed RBCs. EGD reported mild esophagitis with no evidence of peptic ulcer disease. Colonoscopy revealed 5-6 mm descending colon polyp status post polypectomy with scattered left-sided diverticulosis. Biopsies pending Paroxysmal Atrial fibrillation with RVR Hospital course:This is a 73-year-old female admitted with acute on chronic hypoxic respiratory failure, CHF and COPD exacerbation, non-STEMI, persistent MRSA bacteremia and multiple other medical issues. Patient has been hospitalized for 17 days, maintained on multiple antibiotics, vancomycin,Zosyn gentamicin, daptomycin with repeated cultures continuing to reflect MRSA bacteremia, etiology unclear.AMARIS yesterday reported heavy calcified aortic valve with no definite vegetations seen. Chest CT performed yesterday reporting negative for pneumonia, small nodular density abutting the mediastinum in the right middle lobe, possible focal atelectatic change no definitive greater than 1 cm hilar or mediastinal lymph nodes, pulmonary hypertension, enlarged heart.EGD reported mild esophagitis with no evidence of peptic ulcer disease. Colonoscopy revealed 5-6 mm descending colon polyp status post polypectomy with scattered left-sided diverticulosis. Biopsies pending. WBC scan negative. Afebrile. Denies chest pain, palpitations, increased shortness of breath. Denies abdominal pain. No nausea vomiting or diarrhea. Patient therefore requires transfer to a tertiary center for further evaluation, testing. Discussed with patient, plan of care. Patient verbalizes understanding of need for transfer and gave consent for transfer. Patient is being transferred to [facility] in a stable condition with guarded prognosis. EXAM: GENERAL: Sitting up in bed, no acute distress HEENT: Conjunctivae normal. eyes normal. Oral mucosa moist NECK: No JVD. No thyroid enlargement. No LNs CARDIOVASCULAR: S1, S2 regular.Systolic murmur RESPIRATION: Unlabored, Good air entry Breath sounds CTA. ABDOMEN: Soft, nondistended, nontender . No guarding. no masses palpable. Bowel sounds heard. LEGS: Decreasing edema, nontender. PSYCHIATRY: Alert and oriented X3, mood and affect normal. NERVOUS SYSTEM: Cranial N 2-12 grossly normal. Moves all 4 limbs. Diffuse weakness, No focal deficits. Strength and sensation grossly intact. Skin: no rash. Microbiology 06/10/19 05:40 Blood Blood Culture - Preliminary No Growth after 96 hours 06/12/19 06:35 Blood Blood Culture - Preliminary No Growth after 48 hours 06/12/19 11:08 Blood Blood Culture Gram Stain - Preliminary 06/12/19 11:08 Blood Blood Culture - Preliminary Presumptive MRSA 06/13/19 06:06 Blood Blood Culture - Final 06/12/19 11:08 Blood Blood Culture - Final 06/12/19 11:43 Blood Blood Culture - Preliminary No Growth after 24 hours 06/11/19 05:29 Blood Blood Culture Gram Stain - Final 06/11/19 05:29 Blood Blood Culture - Final Methicillin resist S. aureus 06/11/19 05:29 Blood Blood Culture - Final 06/09/19 05:39 Blood Blood Culture Gram Stain - Final 06/09/19 05:39 Blood Blood Culture - Final Methicillin resist S. aureus 06/08/19 06:00 Blood Blood Culture Gram Stain - Final 06/08/19 06:00 Blood Blood Culture - Final Methicillin resist S. aureus 06/07/19 21:18 Blood Blood Culture Gram Stain - Final 06/07/19 21:18 Blood Blood Culture - Final Methicillin resist S. aureus 06/09/19 05:39 Blood Blood Culture - Final 06/06/19 05:56 Blood Blood Culture Gram Stain - Final 06/06/19 05:56 Blood Blood Culture - Final Methicillin resist S. aureus 06/05/19 06:40 Blood Blood Culture Gram Stain - Final 06/05/19 06:40 Blood Blood Culture - Final Methicillin resist S. aureus 06/08/19 06:00 Blood Blood Culture - Final 06/07/19 21:18 Blood Blood Culture - Final 06/04/19 16:54 Blood Blood Culture - Final 06/06/19 05:56 Blood Blood Culture - Final 06/04/19 16:54 Blood Blood Culture Gram Stain - Final 06/04/19 16:54 Blood Blood Culture - Final Methicillin resist S. aureus 06/05/19 06:40 Blood Blood Culture - Final 06/02/19 10:54 Blood Blood Culture Gram Stain - Final 06/02/19 10:54 Blood Blood Culture - Final Methicillin resist S. aureus 06/02/19 10:54 Blood Blood Culture - Final 05/29/19 05:25 Blood Blood Culture Gram Stain - Final 05/29/19 05:25 Blood Blood Culture - Final Methicillin resist S. aureus 05/28/19 04:09 Blood Blood Culture Gram Stain - Final 05/28/19 04:09 Blood Blood Culture - Final Methicillin resist S. aureus 05/28/19 14:35 Blood Blood Culture Gram Stain - Final 05/28/19 14:35 Blood Blood Culture - Final Methicillin resist S. aureus 05/29/19 05:25 Blood Blood Culture - Final 05/28/19 14:35 Blood Blood Culture - Final 05/28/19 04:09 Blood Blood Culture - Final The impression and plan of care has been dictated as directed. : I performed a history and examination of this patient, discussed the same with the dictator. I agree with the dictator's note ,documented as a scribe. Any additional findings or plans will be noted. Patient Condition at Discharge: Stable Plan - Discharge Summary Discharge Rx Participant: No New Discharge Prescriptions: No Action predniSONE See Taper PO DAILY Pramipexole Di-HCl [Mirapex] 1.5 mg PO HS Simvastatin 40 mg PO HS Sertraline [Zoloft] 50 mg PO DAILY Potassium Chloride ER [K-Dur 20] 20 meq PO DAILY Celecoxib [CeleBREX] 200 mg PO DAILY Amitriptyline HCl 25 mg PO HS Metoprolol Succinate [Toprol XL] 50 mg PO DAILY Lisinopril [Zestril] 10 mg PO DAILY Ipratropium-Albuterol Nebulize [Duoneb 0.5 mg-3 mg/3 ml Soln] 3 ml INHALATION RT-QID Fluticasone/Vilanterol [Breo Ellipta 200-25 Mcg INH] 1 puff INHALATION RT- DAILY cloNIDine HCL [Catapres] 0.1 mg PO BID Loteprednol Etabonate [Lotemax] 1 drop OP TID Furosemide [Lasix] 20 mg PO DAILY Omeprazole 40 mg PO DAILY Nepafenac [Ilevro] 1 drop RIGHT EYE DAILY Diclofenac Sodium Gel [Voltaren Gel] 2 gm TOPICAL TID Levofloxacin 500 mg PO DAILY Discharge Medication List Amitriptyline HCl 25 mg PO HS 05/28/19 [History] Celecoxib [CeleBREX] 200 mg PO DAILY 05/28/19 [History] Diclofenac Sodium Gel [Voltaren Gel] 2 gm TOPICAL TID 05/28/19 [History] Fluticasone/Vilanterol [Breo Ellipta 200-25 Mcg INH] 1 puff INHALATION RT-DAILY 05/28/19 [History] Furosemide [Lasix] 20 mg PO DAILY 05/28/19 [History] Ipratropium-Albuterol Nebulize [Duoneb 0.5 mg-3 mg/3 ml Soln] 3 ml INHALATION RT-QID 05/28/19 [History] Levofloxacin 500 mg PO DAILY 05/28/19 [History] Lisinopril [Zestril] 10 mg PO DAILY 05/28/19 [History] Loteprednol Etabonate [Lotemax] 1 drop OP TID 05/28/19 [History] Metoprolol Succinate [Toprol XL] 50 mg PO DAILY 05/28/19 [History] Nepafenac [Ilevro] 1 drop RIGHT EYE DAILY 05/28/19 [History] Omeprazole 40 mg PO DAILY 05/28/19 [History] Potassium Chloride ER [K-Dur 20] 20 meq PO DAILY 05/28/19 [History] Pramipexole Di-HCl [Mirapex] 1.5 mg PO HS 05/28/19 [History] Sertraline [Zoloft] 50 mg PO DAILY 05/28/19 [History] Simvastatin 40 mg PO HS 05/28/19 [History] cloNIDine HCL [Catapres] 0.1 mg PO BID 05/28/19 [History] predniSONE See Taper PO DAILY 05/28/19 [History] Follow up Appointment(s)/Referral(s): Luci Santana MD [STAFF PHYSICIAN] - 2 Weeks Sebastian Glez MD [Primary Care Provider] - 1-2 days [facility], [NON-STAFF] - Activity/Diet/Wound Care/Special Instructions: Cardio cleared for D/C.
[2019-06-14 11:27] LABS: Glucose,Whole Blood 151 mg/dL (75-99)
--- NOTE | 2019-06-14 16:13 | PN ---
PROGRESS NOTE DATE OF SERVICE: 06/14/2019 REASON FOR FOLLOWUP: MRSA bacteremia. INTERVAL HISTORY: The patient is currently afebrile. The patient has been breathing comfortably. The patient denies having any chest pain or shortness of breath or cough. No abdominal pain or diarrhea. PHYSICAL EXAMINATION: Blood pressure 149/81 with a pulse of 77, temperature 98.1. General description is an elderly female lying in bed in no distress. RESPIRATORY SYSTEM: Unlabored breathing. Clear to auscultation anteriorly. HEART: S1, S2. Regular rate and rhythm. ABDOMEN: Soft. No tenderness. LABS: No new labs have been obtained today. Blood cultures from 06/13/2019 are positive, though 06/12/2019 is negative. DIAGNOSTIC IMPRESSION AND PLAN: Patient with persistent MRSA bacteremia in this patient who did have an extensive workup, including a CT of abdomen and pelvis and chest which did not show any abnormality. Even the WBC scan was inconclusive and AMARIS was negative for any vegetation. The patient is currently on daptomycin at 8 mg/kg in addition to gentamicin. Concern is likely for the left hip hardware to be infected, for which the patient will be transferred to tertiary care. Questions and concerns were answered. MMODL / IJN: [id number] /
[2019-06-14 16:54] LABS: Glucose,Whole Blood 226 mg/dL (75-99)
[2019-06-14] MEDS: PRAMIPEXOLE 0.5 MG TAB PO SCH (20:52)
[2019-06-14 20:59] LABS: Glucose,Whole Blood 180 mg/dL (75-99)
[2019-06-14 21:28] VITALS: BP 105/68; PULSE 93; RESP 18; TEMP 98.5
[2019-06-14] MEDS: AMITRIPTYLINE HCL 25 MG TAB PO SCH (22:03)
--- NOTE | 2019-06-15 09:40 | CDI ---
Documentation Clarification Form Date: 06/15/19 From: Kimmy Ibarra CCS Phone: If you have a question about this query, please contact Tasha Liao, Legal Service Specialist at [phone] between 8am and 5pm. Admit Date: 05/28/19 Discharge Date: 06/14/19 Patient Name: Debbie Hopkins Visit Number: [id number] ATTENTION: The Clinical Documentation Specialists (CDI) and [facility] Coding Staff appreciate your assistance in clarifying documentation. Please respond to the clarification below the line at the bottom and electronically sign. The CDI & [facility] Coding staff will review the response and follow-up if needed. Please note: Queries are made part of the Legal Health Record. If you have any questions, please contact the author of this message via ITS. Dear Dr. Glez, Conflicting documentation has been found in the medical record: Bacteremia is documented in the PNs, Consult, Discharge Summary Sepsis is documented in the PNs, H&P, ED, Discharge Summary History/Risk Factors: COPD w/Exac, Acute Bronchitis, NV, CHF Clinical Indicators: Elevated LA, WBC, tachycardia, A/C hypoxic respiratory failure WBC: 14.4, 11.3, 17.9, 20.3 Lactic Acid: 2.2 Vitals: BP 192/60, DC 102, RR 20, Temp 98.6, O2 93% on 5L Blood Culture: MRSA Treatment: IV Zithromax, IV Zosyn, IV Vancomycin In your opinion, what is the most clinically appropriate diagnosis for this patient? Sepsis Bacteremia Other explanation of clinical findings Unable to determine (no explanation for clinical findings) Sepsis due to MRSA MTDD
== END 2019-06-14 23:30 | disposition short-term general hospital (02) | DRG 871 ==
LOC: EC 03:19 → 3SCARD 04:24 → 4SSUR 06-02 17:26 → 2SICU 06-03 12:50 → 3SCARD 06-04 06:17 → 4SSUR 06-13 20:39
PROVIDERS: ADMIT Family Medicine; ATTEND Family Medicine
PROC: B24BZZ4 Ultrasonography of Heart with Aorta, Transesophageal (ICD-10-PCS; principal; 2019-06-01 11:00)
PROC: 30233N1 Transfusion of Nonautologous Red Blood Cells into Peripheral Vein, Percutaneous Approach (ICD-10-PCS; 2019-06-09)
PROC: 0DBM8ZZ Excision of Descending Colon, Via Natural or Artificial Opening Endoscopic (ICD-10-PCS; 2019-06-09 12:00)
PROC: 0DB98ZX Excision of Duodenum, Via Natural or Artificial Opening Endoscopic, Diagnostic (ICD-10-PCS; 2019-06-09 12:00)
DX: A41.02 Sepsis due to Methicillin resistant Staphylococcus aureus (principal); I21.A1 Myocardial infarction type 2; J96.21 Acute and chronic respiratory failure with hypoxia; I50.23 Acute on chronic systolic (congestive) heart failure; K57.31 Diverticulosis of large intestine without perforation or abscess with bleeding; J44.1 Chronic obstructive pulmonary disease with (acute) exacerbation; E87.1 Hypo-osmolality and hyponatremia; E87.2 Acidosis; J98.11 Atelectasis; D62 Acute posthemorrhagic anemia; J44.0 Chronic obstructive pulmonary disease with (acute) lower respiratory infection; I27.20 Pulmonary hypertension, unspecified; I11.0 Hypertensive heart disease with heart failure; H91.90 Unspecified hearing loss, unspecified ear; J20.9 Acute bronchitis, unspecified; E87.5 Hyperkalemia; R73.9 Hyperglycemia, unspecified; E78.5 Hyperlipidemia, unspecified; F32.9 Major depressive disorder, single episode, unspecified; K21.0 Gastro-esophageal reflux disease with esophagitis; E66.9 Obesity, unspecified; G25.81 Restless legs syndrome; F41.9 Anxiety disorder, unspecified; I35.0 Nonrheumatic aortic (valve) stenosis; I48.0 Paroxysmal atrial fibrillation; I25.10 Atherosclerotic heart disease of native coronary artery without angina pectoris; D12.4 Benign neoplasm of descending colon; R94.6 Abnormal results of thyroid function studies; Z68.35 Body mass index [BMI] 35.0-35.9, adult; Z71.3 Dietary counseling and surveillance; Z79.1 Long term (current) use of non-steroidal anti-inflammatories (NSAID); Z79.899 Other long term (current) drug therapy; Z87.891 Personal history of nicotine dependence; Z99.81 Dependence on supplemental oxygen; Z98.890 Other specified postprocedural states; Z87.42 Personal history of other diseases of the female genital tract; Z87.81 Personal history of (healed) traumatic fracture; Z96.7 Presence of other bone and tendon implants; Z86.19 Personal history of other infectious and parasitic diseases; Z88.6 Allergy status to analgesic agent
CPT/HCPCS: 36415; 43239; 45385; 71045; 71250; 71275; 74177; 78806; 80048; 80053; 80061; 80170; 80202; 81001; 82550; 82553; 82565; 82607; 82728; 82746; 83036; 83540; 83550; 83605; 83735; 83880; 84132; 84439; 84443; 84484; 85025; 85027; 85045; 85610; 85652; 85730; 86140; 86850; 86900; 86901; 86920; 87040; 87077; 87186; 87502; 88305; 93005; 93306; 93312; 93320; 93325; 94640; 94760; 96361; 96365; 96367; 96375; 99291

== ENCOUNTER 2019-08-03 07:48 | Inpatient (IN) | payer MEDICARE, OTHER ==
[2019-08-03] MEDS ORDERED: methylPREDNISolone SOD SUCCI 125 MG/2 ML VIAL IV STA (07:55)
[2019-08-03] MEDS ORDERED: ALBUTEROL NEBULIZED 2.5 MG/3 ML INHALATION STA (07:55)
[2019-08-03] MEDS ORDERED: IPRATROPIUM 0.5 MG/2.5 ML NEBU INHALATION STA (07:55)
[2019-08-03] MEDS ORDERED: VANCOMYCIN IV PER PHARMACY 1 EACH MISC MISCELLANE PRN (07:57)
[2019-08-03] MEDS ORDERED: SODIUM CHLORIDE 0.9% 1,000 ML IV ONE (08:17)
--- NOTE | 2019-08-03 08:17 | ED ---
General Adult HPI - General Stated complaint: MAITE Time Seen by Provider: 08/03/19 07:55 Source: patient, RN notes reviewed, old records reviewed - History of Present Illness Initial comments: 73-year-old female presenting for evaluation of cough and dyspnea. Patient has history of COPD she is on 5 L home O2. Patient states her symptoms have progressed over the past 24 hours. She is reporting nasal congestion. EMS report temperature of 100.3. Patient has known valvular disease and has been scheduled to follow with cardiothoracic surgery for possible valve replacement. However she had an issue with bacteremia and was on IV antibiotics up until approximately one month ago. She states she is scheduled to see an infectious disease doctor prior to surgical evaluation. She denies orthopnea. Denies lower extremity swelling. Denies central radiating chest pain. She had gone to the grocery store within the past 72 hours. She was transported by EMS, given only supplemental oxygen. - Related Data Home Medications Medication Instructions Recorded Confirmed Amitriptyline HCl 25 mg PO HS 05/28/19 05/28/19 Fluticasone/Vilanterol [Breo 1 puff INHALATION RT-DAILY 05/28/19 05/28/19 Ellipta 200-25 Mcg INH] Furosemide [Lasix] 20 mg PO DAILY 05/28/19 05/28/19 Loteprednol Etabonate [Lotemax] 1 drop OP TID 05/28/19 05/28/19 Nepafenac [Ilevro] 1 drop RIGHT EYE DAILY 05/28/19 05/28/19 Pramipexole Di-HCl [Mirapex] 1.5 mg PO HS 05/28/19 05/28/19 Sertraline [Zoloft] 50 mg PO DAILY 05/28/19 05/28/19 Previous Rx's Medication Instructions Recorded ALPRAZolam [Xanax] 0.25 mg PO TID PRN tab 06/14/19 Acetaminophen Tab [Tylenol] 650 mg PO Q6HR PRN tab 06/14/19 Aspirin 81 mg PO DAILY chew 06/14/19 DAPTOmycin [Cubicin] 800 mg IVPB Q24H vial 06/14/19 Docusate [Colace] 100 mg PO BID cap 06/14/19 Fluticasone Nasal [place] [Flonase 2 spray EA NOSTRIL DAILY PRN spr 06/14/19 Nasal [place]] INSULIN ASPART (NovoLOG) [NovoLOG 0 unit SQ ACHS vial 06/14/19 (formulary)] Ipratropium-Albuterol Nebulize 3 ml INHALATION RT-Q2H PRN ml 06/14/19 [Duoneb 0.5 mg-3 mg/3 ml Soln] Ipratropium-Albuterol Nebulize 3 ml INHALATION RT-QID ml 06/14/19 [Duoneb 0.5 mg-3 mg/3 ml Soln] Isosorbide Mononitrate ER [Imdur] 30 mg PO DAILY tab.er.24h 06/14/19 Lidocaine Viscous [Xylocaine 30 ml PO TID ml 06/14/19 Viscous 2%] Mag Hydrox/Al Hydrox/Simeth 30 ml PO TID ml 06/14/19 [Maalox] Menthol [Nice Cough Drops] 1 each MUCOUS MEM Q4H PRN lozenge 06/14/19 Metoprolol Tartrate [Lopressor] 25 mg PO BID tab 06/14/19 Nitroglycerin Sl Tabs [Nitrostat] 0.4 mg SUBLINGUAL Q5M PRN tab 06/14/19 Nystatin 100,000 Unit/ml Susp 3,000,000 unit PO TID ml 06/14/19 [Mycostatin Oral Susp] Pantoprazole [Protonix] 40 mg PO AC-BID tablet. 06/14/19 Sennosides-Docusate Sodium 2 each PO BID tab 06/14/19 [Senokot-S] diphenhydrAMINE ELIXIR [Benadryl 75 mg PO TID ml 06/14/19 Elixir] predniSONE [Deltasone] 20 mg PO DAILY tab 06/14/19 Allergies Allergy/AdvReac Type Severity Reaction Status Date / Time aspirin AdvReac Unknown Verified 08/03/19 08:38 Review of Systems ROS Statement: Those systems with pertinent positive or pertinent negative responses have been documented in the HPI. ROS Other: All systems not noted in ROS Statement are negative. Past Medical History Past Medical History: COPD Additional Past Medical History / Comment(s): Emphysema, 4-5L home O2, miscarriage History of Any Multi-Drug Resistant Organisms: MRSA Date of last positivie culture/infection: 06/11/19 MDRO Source:: Blood Past Surgical History: Unable to Obtain Additional Past Surgical History / Comment(s): fibroid adhesions Past Anesthesia/Blood Transfusion Reactions: No Reported Reaction Past Psychological History: Unable to Obtain Smoking Status: Former smoker Past Alcohol Use History: None Reported Past Drug Use History: None Reported General Exam General appearance: alert, in distress Head exam: Present: atraumatic, normocephalic Eye exam: Present: normal appearance, PERRL Neck exam: Present: normal inspection Respiratory exam: Present: respiratory distress, wheezes, rhonchi, accessory muscle use Cardiovascular Exam: Present: normal rhythm, tachycardia GI/Abdominal exam: Present: soft. Absent: distended, tenderness, guarding, rebound Extremities exam: Present: normal inspection. Absent: pedal edema Neurological exam: Present: alert, oriented X3. Absent: motor sensory deficit Skin exam: Present: warm, dry, intact. Absent: cyanosis, diaphoretic Course Vital Signs 08/03/19 08/03/19 08/03/19 08:00 08:06 08:10 Temperature Pulse Rate 126 H 126 H Respiratory 26 H 25 H Rate Blood Pressure 79/53 O2 Sat by Pulse 99 70 L 97 Oximetry 08/03/19 08/03/19 08/03/19 08:20 08:30 08:35 Temperature 100.0 F H Pulse Rate 124 H 122 H 124 H Respiratory 25 H 25 H 26 H Rate Blood Pressure 74/53 119/107 77/53 O2 Sat by Pulse 92 L 96 98 Oximetry 08/03/19 08/03/19 08/03/19 08:36 08:39 08:40 Temperature Pulse Rate 122 H 116 H Respiratory 26 H 26 H 21 Rate Blood Pressure 89/53 89/54 O2 Sat by Pulse 96 99 Oximetry 08/03/19 08/03/19 08/03/19 08:50 08:53 09:00 Temperature Pulse Rate 117 H 117 H 118 H Respiratory 21 16 Rate Blood Pressure 90/75 86/59 O2 Sat by Pulse 98 100 Oximetry 08/03/19 09:10 Temperature Pulse Rate 123 H Respiratory Rate Blood Pressure O2 Sat by Pulse Oximetry EKG Findings - EKG Comments: EKG Findings:: EKG: Sinus tachycardia, rate of 126, RI interval 156, QRS duration 82, QTC [address] segment elevation. Medical Decision Making - Medical Decision Making 73-year-old female presenting with cough dyspnea fever. Review of the medical record does reveal that the patient had MRSA bacteremia. Given the fever and elevated white count of 17 she is initiated on vancomycin. Chest x-ray con cerning for left lower lobe pneumonia. Additional antibiotics of cefepime and then admitted for healthcare associated pneumonia. Patient has significant troponin elevation, 1.25 which appears consistent with troponin elevation from previous admission one month ago. She has severe aortic stenosis and apparently was scheduled for valve replacement at [facility]. She has a significantly elevated BNP which is suspect is secondary to her aortic stenosis. She is denying central chest pain. X-ray showing left lower lobe pneumonia. Coronavirus has been sent and she will be kept in isolation precautions. She has been under negative pressure room while in the emergency department. I discussed case with Dr. Glez who is very familiar with the patient. He is able to see the patient while she is still in the emergency department. Diagnosis: Aortic stenosis, type II myocardial infarction, sepsis, left lower lobe pneumonia, rule out coronavirus. - Lab Data Result diagrams: 08/03/19 08:10 08/03/19 08:10 Lab Results 08/03/19 08/03/19 08/03/19 Range/Units 08:10 08:10 08:10 WBC 17.5 H (3.8-10.6) k/uL RBC 4.47 (3.80-5.40) m/uL Hgb 12.3 (11.4-16.0) gm/dL Hct 38.7 (34.0-46.0) % MCV 86.6 D (80.0-100.0) fL MCH 27.4 (25.0-35.0) pg MCHC 31.7 (31.0-37.0) g/dL RDW 16.7 H (11.5-15.5) % Plt Count 89 L D (150-450) k/uL Neutrophils % 95 % Lymphocytes % 2 % Monocytes % 3 % Eosinophils % 0 % Basophils % 0 % Neutrophils # 16.6 H (1.3-7.7) k/uL Lymphocytes # 0.3 L (1.0-4.8) k/uL Monocytes # 0.5 (0-1.0) k/uL Eosinophils # 0.0 (0-0.7) k/uL Basophils # 0.0 (0-0.2) k/uL Manual Slide Review Performed Hypochromasia Moderate Poikilocytosis Slight Anisocytosis Slight PT 10.4 (9.0-12.0) sec INR 1.0 (<1.2) APTT 25.1 (22.0-30.0) sec VBG pH (7.31-7.41) VBG pCO2 (37-51) mmHg VBG HCO3 (24-28) mmol/L Sodium 129 L (137-145) mmol/L Potassium 5.3 H (3.5-5.1) mmol/L Chloride 96 L (98-107) mmol/L Carbon Dioxide 22 (22-30) mmol/L Anion Gap 11 mmol/L BUN 47 H (7-17) mg/dL Creatinine 2.12 H (0.52-1.04) mg/dL Est GFR (CKD-EPI)AfAm 26 (>60 ml/min/1.73 sqM) Est GFR (CKD-EPI)NonAf 23 (>60 ml/min/1.73 sqM) Glucose 139 H (74-99) mg/dL Plasma Lactic Acid Barron (0.7-2.0) mmol/L Calcium 9.0 (8.4-10.2) mg/dL Magnesium 2.1 (1.6-2.3) mg/dL Total Bilirubin 0.9 (0.2-1.3) mg/dL AST 41 H (14-36) U/L ALT 21 (4-34) U/L Alkaline Phosphatase 72 (38-126) U/L Troponin I (0.000-0.034) ng/mL NT-Pro-B Natriuret Pep pg/mL Total Protein 6.7 (6.3-8.2) g/dL Albumin 3.7 (3.5-5.0) g/dL Urine Color Urine Appearance (Clear) Urine pH (5.0-8.0) Ur Specific [place] (1.001-1.035) Urine Protein (Negative) Urine Glucose (UA) (Negative) Urine Ketones (Negative) Urine Blood (Negative) Urine Nitrite (Negative) Urine Bilirubin (Negative) Urine Urobilinogen (<2.0) mg/dL Ur Leukocyte Esterase (Negative) Urine RBC (0-5) /hpf Urine WBC (0-5) /hpf Ur Squamous Epith Cells (0-4) /hpf Urine Bacteria (None) /hpf Urine Mucus (None) /hpf Influenza Type A RNA (Not Detectd) Influenza Type B (PCR) (Not Detectd) 08/03/19 08/03/19 08/03/19 Range/Units 08:10 08:10 08:10 WBC (3.8-10.6) k/uL RBC (3.80-5.40) m/uL Hgb (11.4-16.0) gm/dL Hct (34.0-46.0) % MCV (80.0-100.0) fL MCH (25.0-35.0) pg MCHC (31.0-37.0) g/dL RDW (11.5-15.5) % Plt Count (150-450) k/uL Neutrophils % % Lymphocytes % % Monocytes % % Eosinophils % % Basophils % % Neutrophils # (1.3-7.7) k/uL Lymphocytes # (1.0-4.8) k/uL Monocytes # (0-1.0) k/uL Eosinophils # (0-0.7) k/uL Basophils # (0-0.2) k/uL Manual Slide Review Hypochromasia Poikilocytosis Anisocytosis PT (9.0-12.0) sec INR (<1.2) APTT (22.0-30.0) sec VBG pH (7.31-7.41) VBG pCO2 (37-51) mmHg VBG HCO3 (24-28) mmol/L Sodium (137-145) mmol/L Potassium (3.5-5.1) mmol/L Chloride (98-107) mmol/L Carbon Dioxide (22-30) mmol/L Anion Gap mmol/L BUN (7-17) mg/dL Creatinine (0.52-1.04) mg/dL Est GFR (CKD-EPI)AfAm (>60 ml/min/1.73 sqM) Est GFR (CKD-EPI)NonAf (>60 ml/min/1.73 sqM) Glucose (74-99) mg/dL Plasma Lactic Acid [place]ron 1.9 (0.7-2.0) mmol/L Calcium (8.4-10.2) mg/dL Magnesium (1.6-2.3) mg/dL Total Bilirubin (0.2-1.3) mg/dL AST (14-36) U/L ALT (4-34) U/L Alkaline Phosphatase (38-126) U/L Troponin I 1.250 H* (0.000-0.034) ng/mL NT-Pro-B Natriuret Pep 68642 pg/mL Total Protein (6.3-8.2) g/dL Albumin (3.5-5.0) g/dL Urine Color Urine Appearance (Clear) Urine pH (5.0-8.0) Ur Specific [place] (1.001-1.035) Urine Protein (Negative) Urine Glucose (UA) (Negative) Urine Ketones (Negative) Urine Blood (Negative) Urine Nitrite (Negative) Urine Bilirubin (Negative) Urine Urobilinogen (<2.0) mg/dL Ur Leukocyte Esterase (Negative) Urine RBC (0-5) /hpf Urine WBC (0-5) /hpf Ur Squamous Epith Cells (0-4) /hpf Urine Bacteria (None) /hpf Urine Mucus (None) /hpf Influenza Type A RNA (Not Detectd) Influenza Type B (PCR) (Not Detectd) 08/03/19 08/03/19 08/03/19 Range/Units 08:10 08:10 08:10 WBC (3.8-10.6) k/uL RBC (3.80-5.40) m/uL Hgb (11.4-16.0) gm/dL Hct (34.0-46.0) % MCV (80.0-100.0) fL MCH (25.0-35.0) pg MCHC (31.0-37.0) g/dL RDW (11.5-15.5) % Plt Count (150-450) k/uL Neutrophils % % Lymphocytes % % Monocytes % % Eosinophils % % Basophils % % Neutrophils # (1.3-7.7) k/uL Lymphocytes # (1.0-4.8) k/uL Monocytes # (0-1.0) k/uL Eosinophils # (0-0.7) k/uL Basophils # (0-0.2) k/uL Manual Slide Review Hypochromasia Poikilocytosis Anisocytosis PT (9.0-12.0) sec INR (<1.2) APTT (22.0-30.0) sec VBG pH 7.49 H (7.31-7.41) VBG pCO2 31 L (37-51) mmHg VBG HCO3 24 (24-28) mmol/L Sodium (137-145) mmol/L Potassium (3.5-5.1) mmol/L Chloride (98-107) mmol/L Carbon Dioxide (22-30) mmol/L Anion Gap mmol/L BUN (7-17) mg/dL Creatinine (0.52-1.04) mg/dL Est GFR (CKD-EPI)AfAm (>60 ml/min/1.73 sqM) Est GFR (CKD-EPI)NonAf (>60 ml/min/1.73 sqM) Glucose (74-99) mg/dL Plasma Lactic Acid [place] (0.7-2.0) mmol/L Calcium (8.4-10.2) mg/dL Magnesium (1.6-2.3) mg/dL Total Bilirubin (0.2-1.3) mg/dL AST (14-36) U/L ALT (4-34) U/L Alkaline Phosphatase (38-126) U/L Troponin I (0.000-0.034) ng/mL NT-Pro-B Natriuret Pep pg/mL Total Protein (6.3-8.2) g/dL Albumin (3.5-5.0) g/dL Urine Color Yellow Urine Appearance Clear (Clear) Urine pH 7.0 (5.0-8.0) Ur Specific [place] 1.013 (1.001-1.035) Urine Protein Trace H (Negative) Urine Glucose (UA) Negative (Negative) Urine Ketones Negative (Negative) Urine Blood Small H (Negative) Urine Nitrite Negative (Negative) Urine Bilirubin Negative (Negative) Urine Urobilinogen <2.0 (<2.0) mg/dL Ur Leukocyte Esterase Trace H (Negative) Urine RBC 3 (0-5) /hpf Urine WBC 5 (0-5) /hpf Ur Squamous Epith Cells <1 (0-4) /hpf Urine Bacteria Many H (None) /hpf Urine Mucus Rare H (None) /hpf Influenza Type A RNA Not Detected (Not Detectd) Influenza Type B (PCR) Not Detected (Not Detectd) Critical Care Time Critical Care Time: Yes Total Critical Care Time: 35 Disposition Clinical Impression: Sepsis, NSTEMI (non-ST elevated myocardial infarction), HCAP (healthcare- associated pneumonia), Aortic stenosis Disposition: ADMITTED IP TO THIS HOSP Condition: Serious Is patient prescribed a controlled substance at d/c from ED?: No Referrals: Sebastian Glez MD [Primary Care Provider] - 1-2 days Decision to Admit Reason: Admit from EC Decision Date: 08/03/19 Decision Time: 09:38
[2019-08-03 08:40] LABS: VBG PH 7.49 (7.31-7.41)
[2019-08-03 08:46] LABS: Albumin 3.7 g/dL (3.5-5.0); Anisocytosis Slight; Basophils % (A) 0 %; Eosinophils % (A) 0 %; HCT 38.7 % (34.0-46.0); HGB 12.3 gm/dL (11.4-16.0); Hypochromasia Moderate; Lymphocytes # (A) 0.3 k/uL (1.0-4.8); Lymphocytes % (A) 2 %; MCH 27.4 pg (25.0-35.0); MCHC 31.7 g/dL (31.0-37.0); Magnesium 2.1 mg/dL (1.6-2.3); Mean Platelet Volume 9.4; Monocytes # (A) 0.5 k/uL (0-1.0); Monocytes % (A) 3 %; Neutrophils # (A) 16.6 k/uL (1.3-7.7); Neutrophils % (A) 95 %; Poikilocytosis Slight; Potassium 5.3 mmol/L (3.5-5.1); RBC 4.47 m/uL (3.80-5.40); RDW 16.7 % (11.5-15.5); Total Bilirubin 0.9 mg/dL (0.2-1.3); Total Protein 6.7 g/dL (6.3-8.2); WBC 17.5 k/uL (3.8-10.6)
[2019-08-03 08:48] LABS: MCV 86.6 fL (80.0-100.0)
[2019-08-03 08:56] LABS: Appearance,Urine Clear (Clear); Bacteria,Urine Many /hpf; Bilirubin,Urine Negative (Negative); Blood,Urine Small (Negative); Color,Urine Yellow; Glucose,Urine (UA) Negative (Negative); Ketones,Urine Negative (Negative); Leukocyte Esterase,Urine Trace (Negative); Mucus,Urine Rare /hpf; Nitrite,Urine Negative (Negative); Protein,Urine Trace (Negative); RBC,Urine 3 /hpf (0-5); Specific Gravity,Urine 1.013 (1.001-1.035); Squamous Epithelial Cell,Urine <1 /hpf (0-4); Urobilinogen,Urine <2.0 mg/dL (<2.0); WBC,Urine 5 /hpf (0-5)
[2019-08-03 09:03] LABS: Partial Thromboplastin Time 25.1 sec (22.0-30.0); Prothrombin Time 10.4 sec (9.0-12.0)
[2019-08-03] MEDS ORDERED: CEFEPIME 2 GM in SODIUM CHLORIDE 0.9% 100 ML IVPB STA (09:05)
[2019-08-03 09:06] LABS: Platelet Count 89 k/uL (150-450)
--- NOTE | 2019-08-03 09:11 | XR ---
EXAMINATION TYPE: XR chest 1V portable DATE OF EXAM: 08/03/2019 COMPARISON: 05/28/2019 INDICATION: Difficulty breathing TECHNIQUE: Single frontal view of the chest is obtained. FINDINGS: The heart size is enlarged. The pulmonary vasculature is normal. Mild left lower lobe infiltrate may be present. Some extension into the lingula may be present with m ild shadowing of the portion of the heart border. IMPRESSION: 1. Left lower lobe or lingular infiltrate. Correlate for pneumonia.
[2019-08-03] MEDS ORDERED: HEPARIN SODIUM,PORCINE 5,000 UNIT/ML 1 ML VIAL IV ONE (09:21)
[2019-08-03] MEDS ORDERED: VANCOMYCIN 1,750 MG in SODIUM CHLORIDE 0.9% 500 ML 500 ML IVPB ONE (09:30)
[2019-08-03] MEDS ORDERED: AZITHROMYCIN 500 MG in SODIUM CHLORIDE 0.9% 250 ML IVPB STA (09:38)
[2019-08-03] MEDS ORDERED: NALOXONE 0.4 MG/ML 1 ML VIAL IV PRN (09:39)
[2019-08-03] MEDS ORDERED: SODIUM CHLORIDE 0.9% 500 ML 500 ML IV ONE ×2 (10:28→10:53)
[2019-08-03] MEDS: HEPARIN SOD,PORK IN 0.45% NACL 25,000 UNIT in 0.45% NACL 1 250ML.BAG IV SCH (10:30)
[2019-08-03 12:37] LABS: Glucose,Whole Blood 206 mg/dL (75-99)
--- NOTE | 2019-08-03 14:38 | P.CNPUL ---
History of Present Illness Consult date: 08/03/19 Requesting physician: Eliazar Messina Reason for consult: dyspnea, cough Chief complaint: Dyspnea on cough History of present illness: 73-year-old female patient of Dr. Glez, with extensive medical history including history of COPD on home oxygen at 5 L, known history of valvular heart disease, pending surgery for possible valve replacement. On 05/28/2019 patient had an admission in this hospital and was diagnosed with MRSA bacteremia, multiple follow-up cultures positive for MRSA. There was a concern about endocarditis, and the transesophageal echocardiogram on 06/01/2019 did not show any evidence of definite vegetation, but did find heavily calcified aortic valve with severe aortic stenosis, mitral and tricuspid valves were normal no evidence of vegetation, mild mitral regurgitation, left ventricle systolic function was normal, intra-atrial septum was intact. Other medical history includes previous history of tobacco dependence, non-ST segment elevated myocardial infarction, severe pulmonary hypertension, hyperlipidemia, hypertension, depression, GERD. On 08/03/2019 patient presented to the emergency department with symptoms of increased dyspnea, cough, nasal congestion and fever of 100.3F. She states she has been on IV antibiotics for 4 months for history of MRSA bacteremia. Her IV antibiotics have been discontinued a month ago related to patient developing an issue with bacteremia. Patient denied any chest pain, denied any orthopnea, no lower extremity swelling. She states she was at the grocery store shopping in the last 3 days and she feels like she may have overdone it. Workup in the emergency department included chest x-ray which showed possibility of left lower lobe infiltrate. Labs were reviewed showing leukocytosis with CBC of 17.5, hemo globin of 12, quite large and profile was within normal limits, sodium was 129, potassium is 5.3, chloride was 96, BUN was 47, creatinine was 2.12, plasma lactic acid was 1.9, AST was 41, ALT was 21, alkaline phosphatase was 72, troponin was 1.250, proBNP was 28,009 100, urinalysis showed small amount of blood, trace leuk trase, but no definite sign of infection, influenza screen was negative, COVID 19 testing was initiated and results are pending at this time, patient was hypotensive in the emergency department was systolic in the 70s, and febrile with a temp of 100.3F, she was given a total of 2 L and IV fluid boluses, her blood pressure has improved, patient was transferred to the intens linda care unit, where she is currently being seen, she is resting in bed in no acute distress, she is sinus tachycardia on the monitor with a rate of 103 bpm, blood pressure is 98/62, a is on 5 L of oxygen with a pulse ox of 98%, she is answering questions appropriately, no altered mentation, no complaints of chest pain, no complaints of abdominal pain, lung sounds are clear, no rhonchi, no wheezing, antibiotics in the form of cefepime and vancomycin have been initiated. Review of Systems All systems: negative Constitutional: Denies chills, Denies fever Eyes: denies blurred vision, denies pain Ears, nose, mouth and throat: Denies headache, Denies sore throat Cardiovascular: Denies chest pain, Denies shortness of breath Respiratory: Reports dyspnea, Reports home oxygen, Denies cough Gastrointestinal: Denies abdominal pain, Denies diarrhea, Denies nausea, Denies vomiting Genitourinary: Denies dysuria, Denies hematuria Musculoskeletal: Denies myalgias Integumentary: Denies pruritus, Denies rash Neurological: Denies numbness, Denies weakness Psychiatric: Denies anxiety, Denies depression Endocrine: Denies fatigue, Denies weight change Past Medical History Past Medical History: Heart Failure, COPD, GERD/Reflux, Hearing Disorder / Deafness, Hyperlipidemia, Hypertension, Myocardial Infarction (CO), Osteoa rthritis (OA), Respiratory Disorder Additional Past Medical History / Comment(s): Pt admitted to [facility] on 05/28/19 with acute on chronic respiratory failure-multifactoral/MRSA bacteremia with sepsis/acute CHF/aucte exacerbation of COPD/NSTEMI/severe aortic stenosis/pulmonary HTN, atelectasis/acute blood loss anemia/diverticular disease/colon polypectomy/mild esophagitis/ enlarged heart/r mid lobe nodule/ hyponatremia. Other hx: Home oxygen at 5L/[place] ATC, pt to have aortic valve replacement at [facility] but completed antibiotic for bacteremia about 1 week ago and will need clearance prior to surgery per pt, anemia, IBS, hemorrhoids, chronic back pain, herniated discs, arthritis in back and bilateral hips, [place] bilaterally. Last Myocardial Infarction Date:: 05/28/19 History of Any Multi-Drug Resistant Organisms: MRSA Date of last positivie culture/infection: 06/11/19 MDRO Source:: Blood Past Surgical History: Unable to Obtain, Orthopedic Surgery Additional Past Surgical History / Comment(s): AMARIS, EGDs, colonoscopies/recent polypectomy, PDA in 1949 and redo in 1952, D&C, surgery for ovarian cyst/ectopic , L leg plate/pin, bilateral eye surgery for glaucoma and cataracts, Past Anesthesia/Blood Transfusion Reactions: No Reported Reaction Additional Past Anesthesia/Blood Transfusion Reaction / Comment(s): Pt received blood without reaction last admission. Smoking Status: Former smoker - Past Family History Mother Family Medical History: No Reported History Additional Family Medical History / Comment(s): Mother was healthy Father Family Medical History: Cancer Additional Family Medical History / Comment(s): Father of lung cancer, he was a smoker. Medications and Allergies Home Medications Medication Instructions Recorded Confirmed Type Amitriptyline HCl 25 mg PO HS 05/28/19 08/03/19 History Fluticasone/Vilanterol [Breo 1 puff INHALATION RT-DAILY 05/28/19 08/03/19 History Ellipta 200-25 Mcg INH] Loteprednol Etabonate [Lotemax] 1 drop RIGHT EYE TID 05/28/19 08/03/19 History Nepafenac [Ilevro] 1 drop RIGHT EYE DAILY 05/28/19 08/03/19 History Pramipexole Di-HCl [Mirapex] 1.5 mg PO HS 05/28/19 08/03/19 History Sertraline [Zoloft] 50 mg PO DAILY 05/28/19 08/03/19 History Ipratropium-Albuterol Nebulize 3 ml INHALATION RT-QID ml 06/14/19 08/03/19 Rx [Duoneb 0.5 mg-3 mg/3 ml Soln] Nitroglycerin Sl Tabs [Nitrostat] 0.4 mg SUBLINGUAL Q5M PRN tab 06/14/19 08/03/19 Rx Albuterol Nebulized [Ventolin 1 vial INHALATION RT-Q6H 08/03/19 08/03/19 History Nebulized] Diclofenac Sodium Gel [Voltaren 1 gram TOPICAL TID 08/03/19 08/03/19 History Gel] Furosemide [Lasix] 40 mg PO DAILY 08/03/19 08/03/19 History Gabapentin [Gralise] 600 mg PO DAILY 08/03/19 08/03/19 History Lisinopril [Zestril] 10 mg PO DAILY 08/03/19 08/03/19 History Metoprolol Succinate (ER) [Toprol 50 mg PO DAILY 08/03/19 08/03/19 History XL] Ofloxacin 0.3% Ophth Soln [Ocuflox 1 drop RIGHT EYE DAILY 08/03/19 08/03/19 History Ophth Soln] Pantoprazole [Protonix] 40 mg PO DAILY 08/03/19 08/03/19 History Potassium Chloride ER [K-Dur 20] 20 meq PO DAILY 08/03/19 08/03/19 History Simvastatin [Zocor] 40 mg PO HS 08/03/19 08/03/19 History Tiotropium [place] [Spiriva 2 puff INHALATION RT-DAILY 08/03/19 08/03/19 History Respimat] cloNIDine HCL [Catapres] 0.1 mg PO BID 08/03/19 08/03/19 History Allergies Allergy/AdvReac Type Severity Reaction Status Date / Time aspirin Allergy Unknown Verified 08/03/19 10:58 Physical Exam Vitals: Vital Signs Temp Pulse Resp BP Pulse Ox 08/03/19 11:46 100.3 F H 08/03/19 11:04 113 H 22 80/36 95 08/03/19 11:00 114 H 21 84/67 99 08/03/19 10:50 113 H 24 101/67 97 08/03/19 10:47 114 H 20 101/67 97 08/03/19 10:40 119 H 21 98/62 98 08/03/19 10:30 115 H 21 82/58 98 08/03/19 10:26 112 H 25 H 83/53 98 08/03/19 10:20 113 H 26 H 107/64 08/03/19 10:10 115 H 27 H 63/25 08/03/19 10:00 117 H 23 88/64 97 08/03/19 09:50 116 H 32 H 81/54 99 08/03/19 09:40 121 H 47 H 67/37 96 08/03/19 09:30 120 H 20 96 08/03/19 09:20 118 H 27 H 97/65 96 08/03/19 09:10 120 H 17 112/67 96 08/03/19 09:00 118 H 16 86/59 100 08/03/19 08:53 117 H 08/03/19 08:50 117 H 21 90/75 98 08/03/19 08:40 116 H 21 89/54 99 08/03/19 08:39 122 H 26 H 89/53 96 08/03/19 08:36 26 H 08/03/19 08:35 100.0 F H 124 H 26 H 77/53 98 08/03/19 08:30 122 H 25 H 119/107 96 08/03/19 08:20 124 H 25 H 74/53 92 L 08/03/19 08:10 126 H 25 H 97 08/03/19 08:06 70 L 08/03/19 08:00 126 H 26 H 79/53 99 Intake and Output 08/02/19 08/03/19 08/03/19 22:59 06:59 14:59 Other: Weight 95.254 kg GENERAL EXAM: Alert, very pleasant, 73-year-old obese white female, on 5 L of oxygen with a pulse ox of 98%, comfortable in no apparent distress. HEAD: Normocephalic/atraumatic. EYES: Normal reaction of pupils, equal size. Conjunctiva pink, sclera white. NOSE: Clear with pink turbinates. THROAT: No erythema or exudates. NECK: No masses, no JVD, no thyroid enlargement, no adenopathy. CHEST: No chest wall deformity. Symmetrical expansion. LUNGS: Equal air entry with no crackles, wheeze, rhonchi or dullness. CVS: Regular rate and rhythm, normal S1 and S2, no gallops, no murmurs, no rubs ABDOMEN: Soft, nontender. No hepatosplenomegaly, normal bowel sounds, no guarding or rigidity. EXTREMITIES: No clubbing, no edema, no cyanosis, 2+ pulses and upper and lower extremities. MUSCULOSKELETAL: Muscle strength and tone normal. SPINE: No scoliosis or deformity SKIN: No rashes CENTRAL NERVOUS SYSTEM: Alert and oriented -3. No focal deficits, tone is normal in all 4 extremities. PSYCHIATRIC: Alert and oriented -3. Appropriate affect. Intact judgment and insight. Results - Laboratory Findings CBC and BMP: 08/03/19 08:10 08/03/19 08:10 PT/INR, D-dimer PT 10.4 sec (9.0-12.0) 08/03/19 08:10 INR 1.0 (<1.2) 08/03/19 08:10 Abnormal lab findings: Abnormal Labs 08/03/19 08/03/19 08/03/19 08:10 08:10 08:10 WBC 17.5 H RDW 16.7 H Plt Count 89 L D Neutrophils # 16.6 H Lymphocytes # 0.3 L VBG pH VBG pCO2 Sodium 129 L Potassium 5.3 H Chloride 96 L BUN 47 H Creatinine 2.12 H Glucose 139 H POC Glucose (mg/dL) AST 41 H Troponin I 1.250 H* Urine Protein Urine Blood Ur Leukocyte Esterase Urine Bacteria Urine Mucus 08/03/19 08/03/19 08/03/19 08:10 08:10 12:30 WBC RDW Plt Count Neutrophils # Lymphocytes # VBG pH 7.49 H VBG pCO2 31 L Sodium Potassium Chloride BUN Creatinine Glucose POC Glucose (mg/dL) 206 H AST Troponin I Urine Protein Trace H Urine Blood Small H Ur Leukocyte Esterase Trace H Urine Bacteria Many H Urine Mucus Rare H - Diagnostic Findings Chest x-ray: report reviewed, image reviewed Assessment and Plan Plan: Assessment: #1. Febrile illness of unknown etiology, with possibilities including left lung pneumonia, possibly healthcare acquired. Chest x-ray showed left lower lobe or lingular infiltrate. Possibility of COVID 19 is being ruled out #2. Hypotension, rule out septic shock #3. Elevated troponin, rule out possibility of non-ST elevated myocardial infarction #4. Elevated proBNP at 28,900, echocardiogram is pending #5. History of MRSA bacteremia in May 2019, patient was treated with IV antibiotics for 3 months, and antibiotics were discontinued a month ago #6. No evidence of endocarditis seen on the transesophageal echocardiogram on 10/31/2019 #7. Severe aortic valve stenosis pending evaluation for surgical intervention #8. Severe pulmonary hypertension with right-sided pressures of 79.7 mmHg #9. Chronic COPD with chronic hypercapnic respiratory failure on 5 L of oxygen #10. Former smoker, currently in remission #11. Hypertension #12. Hyperlipidemia #13. Depression #14. Chronic macrocytic anemia Plan: Continue with current antibiotics, patient is currently on cefepime and vancomycin, blood cultures have been sent, we'll try to send the sputum culture, Procalcitonin level is pending, COVID 19 results are pending. Monitor fever pattern, patient has been fluid resuscitated, blood pressure has improved, chest x-ray has been reviewed showing possibility of left lower lung infiltrate. Follow-up chest x-ray pneumonia, follow-up labs. Low-grade fevers today, we'll continue to monitor fever pattern. No altered mentation, no significant congestion, or wheezing. No complaints of chest pain. Follow-up troponins are ordered echocardiogram is pending. Patient is on heparin infusion, cardiology consultation is pending. I performed a history & physical examination of the patient and discussed their management with my nurse practitioner, Amanda Bateman. I reviewed the nurse practitioner's note and agree with the documented findings and plan of care. Lung sounds are positive for diminished breath sounds. The findings and the impression was discussed with the patient. I attest to the documentation by the nurse practitioner. Time with Patient: Greater than 30
[2019-08-03 14:39] VITALS: BMI 37.2
[2019-08-03] MEDS: HEPARIN SODIUM,PORCINE 5,000 UNIT/ML 1 ML VIAL IV PRN (17:54)
[2019-08-03] MEDS: ACETAMINOPHEN TAB 325 MG TAB PO PRN (17:56)
[2019-08-03] MEDS: ALBUTEROL INHALER 60 PUFF/8 GM INHALER (MHU) INHALATION SCH (19:51)
[2019-08-03] MEDS ORDERED: IPRATROPIUM-ALBUTEROL 3 ML NEB INHALATION SCH (20:00)
[2019-08-03] MEDS: PRAMIPEXOLE 0.5 MG TAB PO SCH (20:45)
[2019-08-03] MEDS: AMITRIPTYLINE HCL 25 MG TAB PO SCH (20:45)
[2019-08-03] MEDS: ATORVASTATIN 20 MG TAB PO SCH (20:45)
[2019-08-03 21:02] LABS: Glucose,Whole Blood 206 mg/dL (75-99)
[2019-08-03] MEDS: INSULIN ASPART (NovoLOG) 100 UNIT/ML VIAL SQ SCH (21:13)
[2019-08-04 05:41] LABS: Anisocytosis Slight; Basophils % (A) 0 %; Eosinophils % (A) 0 %; HCT 30.8 % (34.0-46.0); Hypochromasia Marked; Lymphocytes # (A) 0.3 k/uL (1.0-4.8); Lymphocytes % (A) 2 %; MCH 27.2 pg (25.0-35.0); MCV 90.8 fL (80.0-100.0); Monocytes # (A) 0.6 k/uL (0-1.0); Monocytes % (A) 3 %; Neutrophils # (A) 15.3 k/uL (1.3-7.7); Neutrophils % (A) 93 %; RBC 3.39 m/uL (3.80-5.40); RDW 16.9 % (11.5-15.5); WBC 16.4 k/uL (3.8-10.6)
[2019-08-04 05:43] LABS: HGB 9.2 gm/dL (11.4-16.0); Platelet Count 87 k/uL (150-450)
[2019-08-04 05:51] LABS: Glucose,Whole Blood 195 mg/dL (75-99)
[2019-08-04] MEDS: PANTOPRAZOLE 40 MG TABLET PO SCH (06:58)
--- NOTE | 2019-08-04 07:45 | XR ---
EXAMINATION TYPE: XR chest 1V portable DATE OF EXAM: 08/04/2019 COMPARISON: 08/03/2019 HISTORY: COPD and shortness of breath TECHNIQUE: Single frontal view of the chest is obtained. FINDINGS: The lingular opacity appears slightly improved from the prior but partially obscures the l eft heart border. Remainder the lungs are well aerated. Old fracture deformity of a lateral mid right rib. Diffuse osseous demineralization is seen. Cardiomediastinal silhouette is enlarged. IMPRESSION: Slightly improved lingular opacity suspicious for unifocal pneumonia.
[2019-08-04] MEDS ORDERED: VANCOMYCIN 1,750 MG in SODIUM CHLORIDE 0.9% 500 ML 500 ML IVPB ONE (08:00)
[2019-08-04 08:01] LABS: Glucose,Whole Blood 182 mg/dL (75-99)
[2019-08-04] MEDS: INSULIN ASPART (NovoLOG) 100 UNIT/ML VIAL SQ SCH ×4 (08:11→20:32)
[2019-08-04] MEDS: ALBUTEROL INHALER 60 PUFF/8 GM INHALER (MHU) INHALATION SCH ×4 (08:20→20:01)
[2019-08-04] MEDS: SYMBICORT 160-4.5 MCG INHALER INHALATION SCH ×2 (08:20→20:02)
--- NOTE | 2019-08-04 08:44 | P.HPIM ---
History of Present Illness H&P Date: 08/03/19 Chief Complaint: shortness of breath, fever Debbie Hopkins is a 73 yo F with PMH of COPD GOLD stage 4 on 5 L home O2, severe aortic stenosis pending AVR, pulmonary HTN, MT and recent prolonged admission 04/2019-06/2019 for persistent bacteremia. During her previous admission she remained MRSA bacteremic despite 2 week course of IV vancomycin and then 1 week course of daptomycin. At that time her AMARIS was negative for vegetation but did show heavily calcified aortic valve. A tagged WBC scan at that time was negative. She was eventually transferred to [facility] for her persistent bacteremia and they performed MRI of her spine and diagnosed her with probably discitis. She completed her course of IV antibiotics about 2 weeks ago and had been self isolating at home due to COVID. She reports that about a week ago she went grocery shopping but had otherwise been in isolation. Pt reports that over the past 3-4 days she has experienced progressive worsening cough and shortness of breath. In the ED she was tachycardic, tachypneic, hypotensive and febrile to 100.3. WBC 17.5k, trop 1.2, BNP 29k, procal 2.2. Influenza negative, COVID sent to state lab. Review of Systems All systems: negative Constitutional: Reports chills, Reports fatigue, Reports fever Eyes: denies blurred vision, denies pain Ears, nose, mouth and throat: Denies headache, Denies sore throat Cardiovascular: Reports chest pain, Reports dyspnea on exertion, Reports shor tness of breath Respiratory: Reports congestion, Reports cough, Reports dyspnea, Reports home oxygen Gastrointestinal: Denies abdominal pain, Denies diarrhea, Denies nausea, Denies vomiting Genitourinary: Denies dysuria, Denies hematuria Musculoskeletal: Denies myalgias Integumentary: Denies pruritus, Denies rash Neurological: Denies numbness, Denies weakness Psychiatric: Denies anxiety, Denies depression Endocrine: Denies fatigue, Denies weight change Past Medical History Past Medical History: Heart Failure, COPD, GERD/Reflux, Hearing Disorder / Deafness, Hyperlipidemia, Hypertension, Myocardial Infarction (MT), Osteoarthritis (OA), Respiratory Disorder Additional Past Medical History / Comment(s): Pt admitted to [facility] on 05/28/19 with acute on chronic respiratory failure-multifactoral/MRSA bacteremia with sepsis/acute CHF/aucte exacerbation of COPD/NSTEMI/severe aortic stenosis/pulmonary HTN, atelectasis/acute blood loss anemia/diverticular disease/colon polypectomy/mild esophagitis/ enlarged heart/r mid lobe nodule/ hy ponatremia. Other hx: Home oxygen at 5L/NC ATC, pt to have aortic valve replacement at [facility] but completed antibiotic for bacteremia about 1 week ago and will need clearance prior to surgery per pt, anemia, IBS, hemorrhoids, chronic back pain, herniated discs, arthritis in back and bilateral hips, [place] bilaterally. Last Myocardial Infarction Date:: 05/28/19 History of Any Multi-Drug Resistant Organisms: MRSA Date of last positivie culture/infection: 06/11/19 MDRO Source:: Blood Past Surgical History: Unable to Obtain, Orthopedic Surgery Additional Past Surgical History / Comment(s): AMARIS, EGDs, colonoscopies/recent polypectomy, PDA in 1949 and redo in 1951, D&C, surgery for ovarian cyst/ectopic , L leg plate/pin, bilateral eye surgery for glaucoma and cataracts, Past Anesthesia/Blood Transfusion Reactions: No Reported Reaction Additional Past Anesthesia/Blood Transfusion Reaction / Comment(s): Pt received blood without reaction last admission. Smoking Status: Former smoker - Past Family History Mother Family Medical History: No Reported History Additional Family Medical History / Comment(s): Mother was healthy Father Family Medical History: Cancer Additional Family Medical History / Comment(s): Father of lung cancer, he was a smoker. Medications and Allergies Home Medications Medication Instructions Recorded Confirmed Type Amitriptyline HCl 25 mg PO HS 05/28/19 08/03/19 History Fluticasone/Vilanterol [Breo 1 puff INHALATION RT-DAILY 05/28/19 08/03/19 History Ellipta 200-25 Mcg INH] Loteprednol Etabonate [Lotemax] 1 drop RIGHT EYE TID 05/28/19 08/03/19 History Nepafenac [Ilevro] 1 drop RIGHT EYE DAILY 05/28/19 08/03/19 History Pramipexole Di-HCl [Mirapex] 1.5 mg PO HS 05/28/19 08/03/19 History Sertraline [Zoloft] 50 mg PO DAILY 05/28/19 08/03/19 History Ipratropium-Albuterol Nebulize 3 ml INHALATION RT-QID ml 06/14/19 08/03/19 Rx [Duoneb 0.5 mg-3 mg/3 ml Soln] Nitroglycerin Sl Tabs [Nitrostat] 0.4 mg SUBLINGUAL Q5M PRN tab 06/14/19 08/03/19 Rx Albuterol Nebulized [Ventolin 1 vial INHALATION RT-Q6H 08/03/19 08/03/19 History Nebulized] Diclofenac Sodium Gel [Voltaren 1 gram TOPICAL TID 08/03/19 08/03/19 History Gel] Furosemide [Lasix] 40 mg PO DAILY 08/03/19 08/03/19 History Gabapentin [Gralise] 600 mg PO DAILY 08/03/19 08/03/19 History Lisinopril [Zestril] 10 mg PO DAILY 08/03/19 08/03/19 History Metoprolol Succinate (ER) [Toprol 50 mg PO DAILY 08/03/19 08/03/19 History XL] Ofloxacin 0.3% Ophth Soln [Ocuflox 1 drop RIGHT EYE DAILY 08/03/19 08/03/19 History Ophth Soln] Pantoprazole [Protonix] 40 mg PO DAILY 08/03/19 08/03/19 History Potassium Chloride ER [K-Dur 20] 20 meq PO DAILY 08/03/19 08/03/19 History Simvastatin [Zocor] 40 mg PO HS 08/03/19 08/03/19 History Tiotropium Littcarr [Spiriva 2 puff INHALATION RT-DAILY 08/03/19 08/03/19 History Respimat] cloNIDine HCL [Catapres] 0.1 mg PO BID 08/03/19 08/03/19 History Allergies Allergy/AdvReac Type Severity Reaction Status Date / Time aspirin Allergy Unknown Verified 08/03/19 10:58 Physical Exam Vitals: Vital Signs Temp Pulse Resp BP Pulse Ox 08/04/19 06:00 92 17 106/75 99 08/04/19 05:00 104 H 19 111/75 95 08/04/19 04:00 98.0 F 95 20 105/67 95 08/04/19 03:00 97 20 102/87 96 08/04/19 02:00 91 22 91/67 95 08/04/19 01:00 96 18 100/72 95 08/04/19 00:11 95 18 91/61 95 08/04/19 00:00 98.6 F 94 22 86/59 95 08/03/19 23:44 20 08/03/19 23:00 98 20 90/70 94 L 08/03/19 22:00 99 18 90/69 94 L 08/03/19 21:00 103 H 20 92/63 95 08/03/19 20:00 98.7 F 104 H 23 88/56 95 08/03/19 19:00 110 H 18 105/78 93 L 08/03/19 18:00 117 H 34 H 106/62 88 L 08/03/19 17:00 101.6 F H 107 H 22 111/80 96 08/03/19 16:00 99.2 F 111 H 24 118/90 96 08/03/19 15:46 112 H 19 118/90 95 08/03/19 14:00 24 101/74 97 08/03/19 13:00 20 97/65 96 08/03/19 12:00 99.8 F H 112 H 22 96/71 96 08/03/19 11:46 100.3 F H 08/03/19 11:04 113 H 22 80/36 95 08/03/19 11:00 114 H 21 84/67 99 08/03/19 10:50 113 H 24 101/67 97 08/03/19 10:47 114 H 20 101/67 97 08/03/19 10:40 119 H 21 98/62 98 08/03/19 10:30 115 H 21 82/58 98 08/03/19 10:26 112 H 25 H 83/53 98 08/03/19 10:20 113 H 26 H 107/64 08/03/19 10:10 115 H 27 H 63/25 08/03/19 10:00 117 H 23 88/64 97 08/03/19 09:50 116 H 32 H 81/54 99 08/03/19 09:40 121 H 47 H 67/37 96 08/03/19 09:30 120 H 20 96 08/03/19 09:20 118 H 27 H 97/65 96 08/03/19 09:10 120 H 17 112/67 96 08/03/19 09:00 118 H 16 86/59 100 08/03/19 08:53 117 H 08/03/19 08:50 117 H 21 90/75 98 08/03/19 08:40 116 H 21 89/54 99 08/03/19 08:39 122 H 26 H 89/53 96 08/03/19 08:36 26 H 08/03/19 08:35 100.0 F H 124 H 26 H 77/53 98 08/03/19 08:30 122 H 25 H 119/107 96 08/03/19 08:20 124 H 25 H 74/53 92 L Intake and Output 08/03/19 08/04/19 08/04/19 22:59 06:59 14:59 Intake Total 983.5 253.656 20 Output Total 4 Balance 979.5 253.656 20 Intake: IV 910 160 20 0.9 Normal Saline 60 160 20 Azithromycin 500 mg In 250 Sodium Chloride 0.9% 250 ml @ 250 mls/hr IVPB ONCE STA Rx#:[id number] Sodium Chloride 0.9% 500 100 ml 500 ml @ 999 mls/hr IV .Q31M ONE Rx#:[id number] Vancomycin 1,750 mg In 500 Sodium Chloride 0.9% 500 ml 500 ml @ 167 mls/hr IVPB ONCE ONE Rx#: [id number] Intake, IV Titration 73.5 93.656 Amount Heparin Sod,Pork in 0.45% 73.5 93.656 NaCl 25,000 unit In 0.45 % NaCl 1 250ml.bag @ 12 UNITS/KG/HR 11.43 mls/hr IV .[id number] [facility] Rx#: [id number] Output: Urine 3 Stool 1 Other: Voiding Method Bedpan Bedpan # Voids 1 1 1 # Bowel Movements 1 Weight 90.5 kg General: well nourished, well developed, NAD. Vitals reviewed Eyes: PERRL, EOMI, conjunctiva normal HENT: normocephalic, mucus membranes moist Neck: supple, no JVD Lungs: normal respiratory effort, no wheezes or rales CV: Regular rate and rhythm, no murmur. Peripheral pulses 2+ Abdomen: soft, nondistended, no organomegaly Lymph: no cervical or axillary LAD Skin: warm and dry. Neuro: A&Ox3, normal mood and affect Results CBC & Chem 7: 08/04/19 04:51 08/04/19 04:51 Labs: Abnormal Lab Results - Last 24 Hours (Table) 08/03/19 08/03/19 08/03/19 Range/Units 08:10 08:10 08:10 WBC 17.5 H (3.8-10.6) k/uL RBC (3.80-5.40) m/uL Hgb (11.4-16.0) gm/dL Hct (34.0-46.0) % MCHC (31.0-37.0) g/dL RDW 16.7 H (11.5-15.5) % Plt Count 89 L D (150-450) k/uL Neutrophils # 16.6 H (1.3-7.7) k/uL Lymphocytes # 0.3 L (1.0-4.8) k/uL APTT (22.0-30.0) sec VBG pH (7.31-7.41) VBG pCO2 (37-51) mmHg Sodium 129 L (137-145) mmol/L Potassium 5.3 H (3.5-5.1) mmol/L Chloride 96 L (98-107) mmol/L Carbon Dioxide (22-30) mmol/L BUN 47 H (7-17) mg/dL Creatinine 2.12 H (0.52-1.04) mg/dL Glucose 139 H (74-99) mg/dL POC Glucose (mg/dL) (75-99) mg/dL Calcium (8.4-10.2) mg/dL AST 41 H (14-36) U/L Troponin I 1.250 H* (0.000-0.034) ng/mL Procalcitonin (0.02-0.09) ng/mL Urine Protein (Negative) Urine Blood (Negative) Ur Leukocyte Esterase (Negative) Urine Bacteria (None) /hpf Urine Mucus (None) /hpf 08/03/19 08/03/19 08/03/19 Range/Units 08:10 08:10 08:10 WBC (3.8-10.6) k/uL RBC (3.80-5.40) m/uL Hgb (11.4-16.0) gm/dL Hct (34.0-46.0) % MCHC (31.0-37.0) g/dL RDW (11.5-15.5) % Plt Count (150-450) k/uL Neutrophils # (1.3-7.7) k/uL Lymphocytes # (1.0-4.8) k/uL APTT (22.0-30.0) sec VBG pH 7.49 H (7.31-7.41) VBG pCO2 31 L (37-51) mmHg Sodium (137-145) mmol/L Potassium (3.5-5.1) mmol/L Chloride (98-107) mmol/L Carbon Dioxide (22-30) mmol/L BUN (7-17) mg/dL Creatinine (0.52-1.04) mg/dL Glucose (74-99) mg/dL POC Glucose (mg/dL) (75-99) mg/dL Calcium (8.4-10.2) mg/dL AST (14-36) U/L Troponin I (0.000-0.034) ng/mL Procalcitonin 2.24 H (0.02-0.09) ng/mL Urine Protein Trace H (Negative) Urine Blood Small H (Negative) Ur Leukocyte Esterase Trace H (Negative) Urine Bacteria Many H (None) /hpf Urine Mucus Rare H (None) /hpf 08/03/19 08/03/19 08/03/19 Range/Units 12:30 16:00 16:00 WBC (3.8-10.6) k/uL RBC (3.80-5.40) m/uL Hgb (11.4-16.0) gm/dL Hct (34.0-46.0) % MCHC (31.0-37.0) g/dL RDW (11.5-15.5) % Plt Count (150-450) k/uL Neutrophils # (1.3-7.7) k/uL Lymphocytes # (1.0-4.8) k/uL APTT 32.2 H (22.0-30.0) sec VBG pH (7.31-7.41) VBG pCO2 (37-51) mmHg Sodium (137-145) mmol/L Potassium (3.5-5.1) mmol/L Chloride (98-107) mmol/L Carbon Dioxide (22-30) mmol/L BUN (7-17) mg/dL Creatinine (0.52-1.04) mg/dL Glucose (74-99) mg/dL POC Glucose (mg/dL) 206 H (75-99) mg/dL Calcium (8.4-10.2) mg/dL AST (14-36) U/L Troponin I 1.100 H* (0.000-0.034) ng/mL Procalcitonin (0.02-0.09) ng/mL Urine Protein (Negative) Urine Blood (Negative) Ur Leukocyte Esterase (Negative) Urine Bacteria (None) /hpf Urine Mucus (None) /hpf 08/03/19 08/03/19 08/04/19 Range/Units 20:00 21:01 00:18 WBC (3.8-10.6) k/uL RBC (3.80-5.40) m/uL Hgb (11.4-16.0) gm/dL Hct (34.0-46.0) % MCHC (31.0-37.0) g/dL RDW (11.5-15.5) % Plt Count (150-450) k/uL Neutrophils # (1.3-7.7) k/uL Lymphocytes # (1.0-4.8) k/uL APTT 72.4 H (22.0-30.0) sec VBG pH (7.31-7.41) VBG pCO2 (37-51) mmHg Sodium (137-145) mmol/L Potassium (3.5-5.1) mmol/L Chloride (98-107) mmol/L Carbon Dioxide (22-30) mmol/L BUN (7-17) mg/dL Creatinine (0.52-1.04) mg/dL Glucose (74-99) mg/dL POC Glucose (mg/dL) 206 H (75-99) mg/dL Calcium (8.4-10.2) mg/dL AST (14-36) U/L Troponin I 0.956 H* (0.000-0.034) ng/mL Procalcitonin (0.02-0.09) ng/mL Urine Protein (Negative) Urine Blood (Negative) Ur Leukocyte Esterase (Negative) Urine Bacteria (None) /hpf Urine Mucus (None) /hpf 08/04/19 08/04/19 08/04/19 Range/Units 04:51 04:51 05:48 WBC 16.4 H (3.8-10.6) k/uL RBC 3.39 L (3.80-5.40) m/uL Hgb 9.2 L D (11.4-16.0) gm/dL Hct 30.8 L (34.0-46.0) % MCHC 30.0 L (31.0-37.0) g/dL RDW 16.9 H (11.5-15.5) % Plt Count 87 L (150-450) k/uL Neutrophils # 15.3 H (1.3-7.7) k/uL Lymphocytes # 0.3 L (1.0-4.8) k/uL APTT (22.0-30.0) sec VBG pH (7.31-7.41) VBG pCO2 (37-51) mmHg Sodium 134 L (137-145) mmol/L Potassium (3.5-5.1) mmol/L Chloride (98-107) mmol/L Carbon Dioxide 21 L (22-30) mmol/L BUN 41 H (7-17) mg/dL Creatinine 1.61 H (0.52-1.04) mg/dL Glucose 170 H (74-99) mg/dL POC Glucose (mg/dL) 195 H (75-99) mg/dL Calcium 8.0 L (8.4-10.2) mg/dL AST (14-36) U/L Troponin I (0.000-0.034) ng/mL Procalcitonin (0.02-0.09) ng/mL Urine Protein (Negative) Urine Blood (Negative) Ur Leukocyte Esterase (Negative) Urine Bacteria (None) /hpf Urine Mucus (None) /hpf 08/04/19 Range/Units 07:59 WBC (3.8-10.6) k/uL RBC (3.80-5.40) m/uL Hgb (11.4-16.0) gm/dL Hct (34.0-46.0) % MCHC (31.0-37.0) g/dL RDW (11.5-15.5) % Plt Count (150-450) k/uL Neutrophils # (1.3-7.7) k/uL Lymphocytes # (1.0-4.8) k/uL APTT (22.0-30.0) sec VBG pH (7.31-7.41) VBG pCO2 (37-51) mmHg Sodium (137-145) mmol/L Potassium (3.5-5.1) mmol/L Chloride (98-107) mmol/L Carbon Dioxide (22-30) mmol/L BUN (7-17) mg/dL Creatinine (0.52-1.04) mg/dL Glucose (74-99) mg/dL POC Glucose (mg/dL) 182 H (75-99) mg/dL Calcium (8.4-10.2) mg/dL AST (14-36) U/L Troponin I (0.000-0.034) ng/mL Procalcitonin (0.02-0.09) ng/mL Urine Protein (Negative) Urine Blood (Negative) Ur Leukocyte Esterase (Negative) Urine Bacteria (None) /hpf Urine Mucus (None) /hpf Microbiology - Last 24 Hours (Table) 08/03/19 08:25 Blood Culture Gram Stain - Preliminary Blood Blood Culture - Preliminary Staphylococcus aureus 08/03/19 08:25 Blood Culture - Final Blood Thrombosis Risk Factor Assmnt - Choose All That Apply Any of the Below Risk Factors Present?: Yes Each Factor Represents 1 point: Abnormal pulmonary function (COPD), Acute MT, Obesity (BMI >25), Sepsis (< 1month), Serious lung disease incl. pneumonia (< 1month) Other Risk Factors: Yes Each Risk Factor Represents 2 Points: Age 61-74 years Other congenital or acquired thrombophilia - If yes, enter type in comment: No Thrombosis Risk Factor Assessment Total Risk Factor Score: 7 Thrombosis Risk Factor Assessment Level: High Risk Assessment and Plan (1) Septic shock Current Visit: Yes Status: Acute Code(s): A41.9 - SEPSIS, UNSPECIFIED ORGANISM; R65.21 - SEVERE SEPSIS WITH SEPTIC SHOCK SNOMED Code(s): 77037154 (2) Acute and chronic respiratory failure Current Visit: Yes Status: Acute Code(s): J96.20 - ACUTE AND CHR RESP FAILURE, UNSP W HYPOXIA OR HYPERCAPNIA SNOMED Code(s): 40605573 (3) Cardiomyopathy Current Visit: Yes Status: Acute Code(s): I42.9 - CARDIOMYOPATHY, UNSPECIFIED SNOMED Code(s): 13147411 (4) Valvular heart disease Current Visit: Yes Status: Acute Code(s): I38 - ENDOCARDITIS, VALVE UNSPECIFIED SNOMED Code(s): 076792 (5) HCAP (healthcare-associated pneumonia) Current Visit: Yes Status: Acute Code(s): J18.9 - PNEUMONIA, UNSPECIFIED ORGANISM SNOMED Code(s): 132924246 (6) NSTEMI (non-ST elevated myocardial infarction) Current Visit: Yes Status: Acute Code(s): I21.4 - NON-ST ELEVATION (NSTEMI) MYOCARDIAL INFARCTION SNOMED Code(s): 90092304 (7) Fever Current Visit: No Status: Acute Code(s): R50.9 - FEVER, UNSPECIFIED SNOMED Code(s): 542003811 (8) Hypoxia Current Visit: No Status: Acute Code(s): R09.02 - HYPOXEMIA SNOMED Code(s): 628287991 (9) MRSA bacteremia Current Visit: No Status: Acute Code(s): R78.81 - BACTEREMIA SNOMED Code(s): 36691387442775589 Plan: 1. Septic shock. Blood culture with gram positive cocci. LLL infiltrate on CXR. Continue IVF. Azithromycin and Vancomycin, pharmacy to dose. ID consult. Consider endocarditis vs discitis vs HCAP. Droplet precautions pending COVID test 2. Acute on chronic respiratory failure. Pulmonary consult. Treat underlying cause. Titrate O2 to 88-90% saturation. Continue symbicort and albuterol 3. NSTEMI. Suspect demand ischemia due to sepsis. Cardiology consult 4. Elevated BNP 5. Valvular heart disease DVT prophylaxis heparin
[2019-08-04] MEDS: HEPARIN SODIUM,PORCINE 5,000 UNIT/ML 1 ML VIAL IV PRN ×2 (09:39→16:30)
[2019-08-04] MEDS: GABAPENTIN 300 MG CAP PO SCH (09:40)
[2019-08-04] MEDS: METOPROLOL SUCCINATE (ER) 50 MG TAB.ER.24H PO SCH (09:40)
[2019-08-04] MEDS: SERTRALINE 50 MG TAB PO SCH (09:41)
[2019-08-04] MEDS: VANCOMYCIN 1,500 MG in SODIUM CHLORIDE 0.9% 250 ML IVPB SCH (10:05)
[2019-08-04] MEDS: HEPARIN SOD,PORK IN 0.45% NACL 25,000 UNIT in 0.45% NACL 1 250ML.BAG IV SCH ×2 (10:05→16:32)
--- NOTE | 2019-08-04 11:00 | P.PN ---
Subjective Progress Note Date: 08/04/19 Principal diagnosis: Dyspnea, cough 73-year-old female patient of Dr. Glez, with extensive medical history including history of COPD on home oxygen at 5 L, known history of valvular heart disease, pending surgery for possible valve replacement. On 05/28/2019 patient had an admission in this hospital and was diagnosed with MRSA bacteremia, multiple follow-up cultures positive for MRSA. There was a concern about endocarditis, and the transesophageal echocardiogram on 06/01/2019 did not show any evidence of definite vegetation, but did find heavily calcified aortic valve with severe aortic stenosis, mitral and tricuspid valves were normal no evidence of vegetation, mild mitral regurgitation, left ventricle systolic function was normal, intra-atrial septum was intact. Other medical history includes previous history of tobacco dependence, non-ST segment elevated myocardial infarction, severe pulmonary hypertension, hyperlipidemia, hypertension, depression, GERD. On 08/03/2019 patient presented to the emergency department with symptoms of increased dyspnea, cough, nasal congestion and fever of 100.3F. She states she has been on IV antibiotics for 4 months for history of MRSA bacteremia. Her IV antibiotics have been discontinued a month ago related to patient developing an issue with bacteremia. Patient denied any chest pain, denied any orthopnea, no lower extremity swelling. She states she was at the grocery store shopping in the last 3 days and she feels like she may have overdone it. Workup in the emergency department included chest x-ray which showed possibility of left lower lobe infiltrate. Labs were reviewed showing leukocytosis with CBC of 17.5, hemoglobin of 12, quite large and profile was within normal limits, sodium was 129, potassium is 5.3, chloride was 96, BUN was 47, creatinine was 2.12, plasma lactic acid was 1.9, AST was 41, ALT was 21, alkaline phosphatase was 72, troponin was 1.250, proBNP was 28,009 100, urinalysis showed small amount of blood, trace leuk trase, but no definite sign of infection, influenza screen was negative, COVID 19 testing was initiated and results are pending at this time, patient was hypotensive in the emergency department was systolic in the 70s, and febrile with a temp of 100.3F, she was given a total of 2 L and IV fluid boluses, her blood pressure has improved, patient was transferred to the intensive care unit, where she is currently being seen, she is resting in bed in no acute distress, she is sinus tachycardia on the monitor with a rate of 103 bpm, blood pressure is 98/62, a is on 5 L of oxygen with a pulse ox of 98%, she is answering questions appropriately, no altered mentation, no complaints of chest pain, no complaints of abdominal pain, lung sounds are clear, no rhonchi, no wheezing, antibiotics in the form of cefepime and vancomycin have been initiated. On 08/04/2019 patient seen in follow-up in the intensive care unit. She is awake and alert, oriented 3, in no acute distress, no complaints of chest pain, no complaints of worsening dyspnea, she is currently on 5 L of oxygen, and her pulse ox is 94-98%, she is afebrile today, her last episode of fever was y esterday in the afternoon at 5:00 with a temp of 101.6F. COVID 19 testing is pending. Pt is hemodynamic stable, she remains on heparin infusion for elevated troponins, 0.9 normal saline at a rate of 20 ML per hour, current antibiotic coverage is a form of cefepime and vancomycin and her blood culture showed Staphylococcus aureus on the preliminary Gram stain, final culture is pending. ID service has been consulted, and their recommendation is pending. Likely patient is asymptomatic, today's labs have been reviewed showing white blood cell, 16.4, hemoglobin is 9.2, Levaquin was 87, sodium is 134, potassium is 5.0, chloride is 102, CO2 is 21, BUN is 41, creatinine is 1.6 Objective - Vital Signs Vital signs: Vital Signs Temp 98.5 F 08/04/19 08:00 Pulse 105 H 08/04/19 09:00 Resp 22 08/04/19 09:00 BP 117/80 08/04/19 09:00 Pulse Ox 94 L 08/04/19 09:00 Intake & Output 08/03/19 08/04/19 08/04/19 18:59 06:59 18:59 Intake Total 963.5 333.656 142.844 Output Total 3 1 0 Balance 960.5 332.656 142.844 Weight 95.254 kg 90.5 kg Intake: IV 890 240 60 0.9 Normal Saline 220 60 Azithromycin 500 mg In 250 Sodium Chloride 0.9% 250 ml @ 250 mls/hr IVPB ONCE STA Rx#:[id number] Sodium Chloride 0.9% 500 140 20 ml 500 ml @ 999 mls/hr IV .Q31M ONE Rx#:[id number] Vancomycin 1,750 mg In 500 Sodium Chloride 0.9% 500 ml 500 ml @ 167 mls/hr IVPB ONCE ONE Rx#: [id number] Intake, IV Titration 73.5 93.656 82.844 Amount Heparin Sod,Pork in 0.45% 73.5 93.656 82.844 NaCl 25,000 unit In 0.45 % NaCl 1 250ml.bag @ 12 UNITS/KG/HR 11.43 mls/hr IV .[id number] [facility] Rx#: [id number] Output: Urine 3 0 0 Stool 1 Other: Voiding Method Bedpan Bedpan # Voids 1 1 # Bowel Movements 1 1 - Exam GENERAL EXAM: Alert, very pleasant, 73-year-old obese white female, on 5 L of oxygen with a pulse ox of 98%, comfortable in no apparent distress. HEAD: Normocephalic/atraumatic. EYES: Normal reaction of pupils, equal size. Conjunctiva pink, sclera white. NOSE: Clear with pink turbinates. THROAT: No erythema or exudates. NECK: No masses, no JVD, no thyroid enlargement, no adenopathy. CHEST: No chest wall deformity. Symmetrical expansion. LUNGS: Equal air entry with no crackles, wheeze, rhonchi or dullness. CVS: Regular rate and rhythm, normal S1 and S2, no gallops, no murmurs, no rubs ABDOMEN: Soft, nontender. No hepatosplenomegaly, normal bowel sounds, no guarding or rigidity. EXTREMITIES: No clubbing, no edema, no cyanosis, 2+ pulses and upper and lower extremities. MUSCULOSKELETAL: Muscle strength and tone normal. SPINE: No scoliosis or deformity SKIN: No rashes CENTRAL NERVOUS SYSTEM: Alert and oriented -3. No focal deficits, tone is normal in all 4 extremities. PSYCHIATRIC: Alert and oriented -3. Appropriate affect. Intact judgment and insight. - Labs CBC & Chem 7: 08/04/19 04:51 08/04/19 04:51 Labs: Abnormal Lab Results - Last 24 Hours (Table) 08/03/19 08/03/19 08/03/19 Range/Units 08:10 12:30 16:00 WBC (3.8-10.6) k/uL RBC (3.80-5.40) m/uL Hgb (11.4-16.0) gm/dL Hct (34.0-46.0) % MCHC (31.0-37.0) g/dL RDW (11.5-15.5) % Plt Count (150-450) k/uL Neutrophils # (1.3-7.7) k/uL Lymphocytes # (1.0-4.8) k/uL APTT 32.2 H (22.0-30.0) sec Sodium (137-145) mmol/L Carbon Dioxide (22-30) mmol/L BUN (7-17) mg/dL Creatinine (0.52-1.04) mg/dL Glucose (74-99) mg/dL POC Glucose (mg/dL) 206 H (75-99) mg/dL Calcium (8.4-10.2) mg/dL Troponin I (0.000-0.034) ng/mL Procalcitonin 2.24 H (0.02-0.09) ng/mL 08/03/19 08/03/19 08/03/19 Range/Units 16:00 20:00 21:01 WBC (3.8-10.6) k/uL RBC (3.80-5.40) m/uL Hgb (11.4-16.0) gm/dL Hct (34.0-46.0) % MCHC (31.0-37.0) g/dL RDW (11.5-15.5) % Plt Count (150-450) k/uL Neutrophils # (1.3-7.7) k/uL Lymphocytes # (1.0-4.8) k/uL APTT (22.0-30.0) sec Sodium (137-145) mmol/L Carbon Dioxide (22-30) mmol/L BUN (7-17) mg/dL Creatinine (0.52-1.04) mg/dL Glucose (74-99) mg/dL POC Glucose (mg/dL) 206 H (75-99) mg/dL Calcium (8.4-10.2) mg/dL Troponin I 1.100 H* 0.956 H* (0.000-0.034) ng/mL Procalcitonin (0.02-0.09) ng/mL 08/04/19 08/04/19 08/04/19 Range/Units 00:18 04:51 04:51 WBC 16.4 H (3.8-10.6) k/uL RBC 3.39 L (3.80-5.40) m/uL Hgb 9.2 L D (11.4-16.0) gm/dL Hct 30.8 L (34.0-46.0) % MCHC 30.0 L (31.0-37.0) g/dL RDW 16.9 H (11.5-15.5) % Plt Count 87 L (150-450) k/uL Neutrophils # 15.3 H (1.3-7.7) k/uL Lymphocytes # 0.3 L (1.0-4.8) k/uL APTT 72.4 H (22.0-30.0) sec Sodium 134 L (137-145) mmol/L Carbon Dioxide 21 L (22-30) mmol/L BUN 41 H (7-17) mg/dL Creatinine 1.61 H (0.52-1.04) mg/dL Glucose 170 H (74-99) mg/dL POC Glucose (mg/dL) (75-99) mg/dL Calcium 8.0 L (8.4-10.2) mg/dL Troponin I (0.000-0.034) ng/mL Procalcitonin (0.02-0.09) ng/mL 08/04/19 08/04/19 08/04/19 Range/Units 05:48 07:59 08:23 WBC (3.8-10.6) k/uL RBC (3.80-5.40) m/uL Hgb (11.4-16.0) gm/dL Hct (34.0-46.0) % MCHC (31.0-37.0) g/dL RDW (11.5-15.5) % Plt Count (150-450) k/uL Neutrophils # (1.3-7.7) k/uL Lymphocytes # (1.0-4.8) k/uL APTT 32.4 H (22.0-30.0) sec Sodium (137-145) mmol/L Carbon Dioxide (22-30) mmol/L BUN (7-17) mg/dL Creatinine (0.52-1.04) mg/dL Glucose (74-99) mg/dL POC Glucose (mg/dL) 195 H 182 H (75-99) mg/dL Calcium (8.4-10.2) mg/dL Troponin I (0.000-0.034) ng/mL Procalcitonin (0.02-0.09) ng/mL Microbiology - Last 24 Hours (Table) 08/03/19 08:25 Blood Culture Gram Stain - Preliminary Blood Blood Culture - Preliminary Staphylococcus aureus 08/03/19 08:25 Blood Culture - Final Blood Assessment and Plan Plan: Assessment: #1. Febrile illness of unknown etiology, with possibilities including left lung pneumonia, possibly healthcare acquired, and bacteremia, blood culture came back positive for Staphylococcus aureus on the preliminary report, final report is pending, aspect recurrent MRSA bacteremia. Chest x-ray showed left lower lobe or lingular infiltrate. Possibility of COVID 19 is being ruled out #2. Hypotension, rule out septic shock #3. Elevated troponin, rule out possibility of non-ST elevated myocardial infarction #4. Elevated proBNP at 28,900, echocardiogram is pending #5. History of MRSA bacteremia in May 2019, patient was treated with IV antibiotics for 3 months, and antibiotics were discontinued a month ago #6. No evidence of endocarditis seen on the transesophageal echocardiogram on 10/31/2019 #7. Severe aortic valve stenosis pending evaluation for surgical intervention #8. Severe pulmonary hypertension with right-sided pressures of 79.7 mmHg #9. Chronic COPD with chronic hypercapnic respiratory failure on 5 L of oxygen #10. Former smoker, currently in remission #11. Hypertension #12. Hyperlipidemia #13. Depression #14. Chronic macrocytic anemia Plan: Continue current antibiotics, ID service recommendations are pending, patient has been afebrile overnight, no altered mentation, hemodynamically she is stable, no complaints of worsening dyspnea or chest pain, today's chest x-ray has been reviewed showing slightly improved lingular opacity. Clinical patient is stable, and could be considered for transfer out of the intensive care unit to [facility]. I performed a history & physical examination of the patient and discussed their management with my nurse practitioner, Amanda Bateman. I reviewed the nurse practitioner's note and agree with the documented findings and plan of care. Lung sounds are positive for diminished breath sounds. The findings and the impression was discussed with the patient. I attest to the documentation by the nurse practitioner. Time with Patient: Less than 30
--- NOTE | 2019-08-04 11:40 | CONS ---
CONSULTATION A 73-year-old lady with history of aortic stenosis, COPD, hypertension, who was admitted to hospital with cough and shortness of breath. Her history is significant for COPD, recent MRSA bacteremia and was admitted to [facility] where she was being evaluated for possible aortic valve replacement. Patient on her initial presentation was short of breath, mild nasal congestion and fever. Chest x-ray showed possible left lower lobe infiltrate. BNP is elevated. She was mildly hypotensive on her initial presentation and had elevated troponin. Cardiology has been consulted because of the elevated troponin. Her tropes were 1.2, 1.1 and 0.9. EKG showed sinus tachycardia with nonspecific ST-T wave changes. LABS: Show a potassium of 5 and creatinine is 1.6. I need to review records from [facility], not quite sure if she had a cardiac catheterization or not. I will leave her on heparin for another day and I will stop it tomorrow. PAST MEDICAL HISTORY: Significant for COPD, aortic stenosis, hypertension, and dyslipidemia. MEDICATIONS: Include Catapres, Zocor, Zoloft, Mirapex, K-Dur, Protonix, Toprol, Zestril, Lasix, amitriptyline, and Ventolin. Patient is allergic to ASPIRIN. FAMILY HISTORY: Negative for premature coronary artery disease. SOCIAL HISTORY: Negative for current smoking, EtOH abuse or drug abuse. REVIEW OF SYSTEMS: HEENT: Significant for nasal congestion. CARDIAC: As described above. RESPIRATORY: As described above. GI: Negative. GENITOURINARY: Negative. ALLERGY/IMMUNOLOGY: Negative. SKIN: Negative. MUSCULOSKELETAL: Significant for arthritis. PSYCHOSOCIAL: Negative. DERM: Negative. CONSTITUTIONAL: Significant for febrile illness. Rest of the system review is not relevant. On exam, comfortable at rest. Vital signs are stable. There is no jugular venous distention. Chest exam reveals good air entry bilaterally. Heart exam reveals first and second heart sounds. No gallop. Has an ejection systolic murmur in the aortic area. Abdomen is soft. Exam of extremities did not reveal any edema. Peripheral pulses are palpable. ASSESSMENT: 1. Severe aortic stenosis, awaiting aortic valve replacement. 2. Hypertension. 3. Dyslipidemia. 4. Chronic obstructive pulmonary disease. 5. Non ST-segment elevation myocardial infarction. PLAN: I will continue the patient on IV heparin for another day. Review records from [facility]. Patient had elevated troponin. We need to decide on what the angiogram showed in the past and what we need to do. Thank you for allowing us to participate in this pleasant lady. ALICIA / CAROLINAN: [id number] /
[2019-08-04 12:32] LABS: Glucose,Whole Blood 173 mg/dL (75-99)
--- NOTE | 2019-08-04 12:35 | CDI ---
Documentation Clarification Form Date: 08/04/2019 12:15:02 PM From: Violette Barba Admit Date: 08/03/2019 09:39:00 AM Patient Name: Debbie Hopkins Visit Number: [id number] Discharge Date: ATTENTION: The Clinical Documentation Specialists (CDI) and [facility] Coding Staff appreciate your assistance in clarifying documentation. Please respond to the clarification below the line at the bottom and electronically sign. The CDI & [facility] Coding staff will review the response and follow-up if needed. Please note: Queries are made part of the Legal Health Record. If you have any questions, please contact the author of this message via ITS. Dr. Sebastian Glez Conflicting documentation has been found in the medical record: 08/02 H&P Acute on chronic respiratory failure 08/02 Pulmonary Consult and 08/03 Progress note Chronic COPD with chronic hypercapnic respiratory failure on 5L of oxygen History/Risk Factors: 73-year-old female presents to the ED for evaluation of cough and dyspnea with a temperature of 100.3. Medical history of COPD on home oxygen at 5L. Clinical Indicators: Vss 08/02 08:00 79/53 126 99% 5L nasal cannula 08/03 12:00 96/71 112 99.8 Axillary 22 96% 5L nasal cannula Treatment: 08/02 Ventolin QID, 5L oxygen via nasal cannula 08/03 Symbicort In your opinion, what is the most clinically appropriate diagnosis for this patient? Chronic respiratory failure Acute on chronic respiratory failure Other explanation of clinical findings Unable to determine (no explanation for clinical findings) (Last Revision: August 2017) Chronic respiratory failure MTDD
--- NOTE | 2019-08-04 13:45 | P.PN ---
Subjective Progress Note Date: 08/04/19 Debbie Hopkins is a 73 yo F with PMH of COPD GOLD stage 4 on 5 L home O2, severe aortic stenosis pending AVR, pulmonary HTN, MD and recent prolonged admission 04/2019-06/2019 for persistent bacteremia. During her previous admission she remained MRSA bacteremic despite 2 week course of IV vancomycin and then 1 week course of daptomycin. At that time her AMARIS was negative for vegetation but did show heavily calcified aortic valve. A tagged WBC scan at that time was negative. She was eventually transferred to [facility] for her persistent bacteremia and they performed MRI of her spine and diagnosed her with probably discitis. She completed her course of IV antibiotics about 2 weeks ago and had been self isolating at home due to COVID. She reports that about a week ago she went grocery shopping but had otherwise been in isolation. Pt reports that over the past 3-4 days she has experienced progressive worsening cough and shortness of breath. In the ED she was tachycardic, tachypneic, hypotensive and febrile to 100.3. WBC 17.5k, trop 1.2, BNP 29k, procal 2.2. Influenza negative, COVID sent to state lab. 08/04/2019 patient is now telemetry overflow as per manufacturing industrial engineer. Vital signs stable, maintaining O2 sats in the 90s on 5 L nasal cannula. Chest x-ray reporting slightly improved lingular capacity suspicious for unifocal pneumonia. Afebrile, T-max 101.6. Covid 19 testing pending. Blood culture times reporting gram-positive cocci, second blood culture pending. Maintained on IV antibiotics of vancomycin. Creatinine improving down to 1.61. Possibly switch to daptomycin, infectious disease consulted, recommendations pending. Anticoagulated on heparin drip. Objective - Vital Signs Vital signs: Vital Signs Temp 98.5 F 08/04/19 08:00 Pulse 105 H 08/04/19 09:00 Resp 22 08/04/19 09:00 BP 117/80 08/04/19 09:00 Pulse Ox 94 L 08/04/19 09:00 Intake & Output 08/03/19 08/04/19 08/04/19 18:59 06:59 18:59 Intake Total 963.5 333.656 142.844 Output Total 3 1 0 Balance 960.5 332.656 142.844 Weight 95.254 kg 90.5 kg Intake: IV 890 240 60 0.9 Normal Saline 220 60 Azithromycin 500 mg In 250 Sodium Chloride 0.9% 250 ml @ 250 mls/hr IVPB ONCE STA Rx#:[id number] Sodium Chloride 0.9% 500 140 20 ml 500 ml @ 999 mls/hr IV .Q31M ONE Rx#:[id number] Vancomycin 1,750 mg In 500 Sodium Chloride 0.9% 500 ml 500 ml @ 167 mls/hr IVPB ONCE ONE Rx#: [id number] Intake, IV Titration 73.5 93.656 82.844 Amount Heparin Sod,Pork in 0.45% 73.5 93.656 82.844 NaCl 25,000 unit In 0.45 % NaCl 1 250ml.bag @ 12 UNITS/KG/HR 11.43 mls/hr IV .[id number] [facility] Rx#: [id number] Output: Urine 3 0 0 Stool 1 Other: Voiding Method Bedpan Bedpan # Voids 1 1 # Bowel Movements 1 1 - Exam General: well nourished, well developed, NAD. Vitals reviewed Eyes: PERRL, EOMI, conjunctiva normal HENT: normocephalic, mucus membranes moist Neck: supple, no JVD Lungs: normal respiratory effort, no wheezes or rales CV: Regular rate and rhythm, systolic murmur. Peripheral pulses 2+ Abdomen: soft, nondistended, no organomegaly Lymph: no cervical or axillary LAD Skin: warm and dry. Neuro: A&Ox3, normal mood and affect Microbiology 08/03/19 08:25 Blood Blood Culture Gram Stain - Preliminary 08/03/19 08:25 Blood Blood Culture - Preliminary Staphylococcus aureus 08/03/19 08:25 Blood Blood Culture - Final - Labs CBC & Chem 7: 08/04/19 04:51 08/04/19 04:51 Labs: Abnormal Lab Results - Last 24 Hours (Table) 08/03/19 08/03/19 08/03/19 Range/Units 08:10 16:00 16:00 WBC (3.8-10.6) k/uL RBC (3.80-5.40) m/uL Hgb (11.4-16.0) gm/dL Hct (34.0-46.0) % MCHC (31.0-37.0) g/dL RDW (11.5-15.5) % Plt Count (150-450) k/uL Neutrophils # (1.3-7.7) k/uL Lymphocytes # (1.0-4.8) k/uL APTT 32.2 H (22.0-30.0) sec Sodium (137-145) mmol/L Carbon Dioxide (22-30) mmol/L BUN (7-17) mg/dL Creatinine (0.52-1.04) mg/dL Glucose (74-99) mg/dL POC Glucose (mg/dL) (75-99) mg/dL Plasma Lactic Acid Barron (0.7-2.0) mmol/L Calcium (8.4-10.2) mg/dL Troponin I 1.100 H* (0.000-0.034) ng/mL Procalcitonin 2.24 H (0.02-0.09) ng/mL 08/03/19 08/03/19 08/04/19 Range/Units 20:00 21:01 00:18 WBC (3.8-10.6) k/uL RBC (3.80-5.40) m/uL Hgb (11.4-16.0) gm/dL Hct (34.0-46.0) % MCHC (31.0-37.0) g/dL RDW (11.5-15.5) % Plt Count (150-450) k/uL Neutrophils # (1.3-7.7) k/uL Lymphocytes # (1.0-4.8) k/uL APTT 72.4 H (22.0-30.0) sec Sodium (137-145) mmol/L Carbon Dioxide (22-30) mmol/L BUN (7-17) mg/dL Creatinine (0.52-1.04) mg/dL Glucose (74-99) mg/dL POC Glucose (mg/dL) 206 H (75-99) mg/dL Plasma Lactic Acid Barron (0.7-2.0) mmol/L Calcium (8.4-10.2) mg/dL Troponin I 0.956 H* (0.000-0.034) ng/mL Procalcitonin (0.02-0.09) ng/mL 03/27/20 03/27/20 03/27/20 Range/Units 04:51 04:51 05:48 WBC 16.4 H (3.8-10.6) k/uL RBC 3.39 L (3.80-5.40) m/uL Hgb 9.2 L D (11.4-16.0) gm/dL Hct 30.8 L (34.0-46.0) % MCHC 30.0 L (31.0-37.0) g/dL RDW 16.9 H (11.5-15.5) % Plt Count 87 L (150-450) k/uL Neutrophils # 15.3 H (1.3-7.7) k/uL Lymphocytes # 0.3 L (1.0-4.8) k/uL APTT (22.0-30.0) sec Sodium 134 L (137-145) mmol/L Carbon Dioxide 21 L (22-30) mmol/L BUN 41 H (7-17) mg/dL Creatinine 1.61 H (0.52-1.04) mg/dL Glucose 170 H (74-99) mg/dL POC Glucose (mg/dL) 195 H (75-99) mg/dL Plasma Lactic Acid Barron (0.7-2.0) mmol/L Calcium 8.0 L (8.4-10.2) mg/dL Troponin I (0.000-0.034) ng/mL Procalcitonin (0.02-0.09) ng/mL 08/04/19 08/04/19 08/04/19 Range/Units 07:59 08:23 12:01 WBC (3.8-10.6) k/uL RBC (3.80-5.40) m/uL Hgb (11.4-16.0) gm/dL Hct (34.0-46.0) % MCHC (31.0-37.0) g/dL RDW (11.5-15.5) % Plt Count (150-450) k/uL Neutrophils # (1.3-7.7) k/uL Lymphocytes # (1.0-4.8) k/uL APTT 32.4 H (22.0-30.0) sec Sodium (137-145) mmol/L Carbon Dioxide (22-30) mmol/L BUN (7-17) mg/dL Creatinine (0.52-1.04) mg/dL Glucose (74-99) mg/dL POC Glucose (mg/dL) 182 H (75-99) mg/dL Plasma Lactic Acid Barron 2.1 H* (0.7-2.0) mmol/L Calcium (8.4-10.2) mg/dL Troponin I (0.000-0.034) ng/mL Procalcitonin (0.02-0.09) ng/mL 08/04/19 Range/Units 12:31 WBC (3.8-10.6) k/uL RBC (3.80-5.40) m/uL Hgb (11.4-16.0) gm/dL Hct (34.0-46.0) % MCHC (31.0-37.0) g/dL RDW (11.5-15.5) % Plt Count (150-450) k/uL Neutrophils # (1.3-7.7) k/uL Lymphocytes # (1.0-4.8) k/uL APTT (22.0-30.0) sec Sodium (137-145) mmol/L Carbon Dioxide (22-30) mmol/L BUN (7-17) mg/dL Creatinine (0.52-1.04) mg/dL Glucose (74-99) mg/dL POC Glucose (mg/dL) 173 H (75-99) mg/dL Plasma Lactic Acid Barron (0.7-2.0) mmol/L Calcium (8.4-10.2) mg/dL Troponin I (0.000-0.034) ng/mL Procalcitonin (0.02-0.09) ng/mL Microbiology - Last 24 Hours (Table) 08/03/19 08:25 Blood Culture Gram Stain - Preliminary Blood Blood Culture - Preliminary Staphylococcus aureus 08/03/19 08:25 Blood Culture - Final Blood Assessment and Plan Assessment: (1) Septic shock Current Visit: Yes Status: Acute Code(s): A41.9 - SEPSIS, UNSPECIFIED ORGA NIS; R65.21 - SEVERE SEPSIS WITH SEPTIC SHOCK SNOMED Code(s): 04586635 (2) Acute and chronic respiratory failure Current Visit: Yes Status: Acute Code(s): J96.20 - ACUTE AND CHR RESP FAILURE, UNSP W HYPOXIA OR HYPERCAPNIA SNOMED Code(s): 94151444 (3) Cardiomyopathy Current Visit: Yes Status: Acute Code(s): I42.9 - CARDIOMYOPATHY, UNSPECIFIED SNOMED Code(s): 69060585 (4) Valvular heart disease, severe aortic stenosis Current Visit: Yes Status: Acute Code(s): I38 - ENDOCARDITIS, VALVE UNSPECIFIED SNOMED Code(s): 261666 (5) HCAP (healthcare-associated pneumonia) Current Visit: Yes Status: Acute Code(s): J18.9 - PNEUMONIA, UNSPECIFIED ORGANISM SNOMED Code(s): 834726737 (6) NSTEMI (non-ST elevated myocardial infarction), suspect demand ischemia secondary to sepsis Current Visit: Yes Status: Acute Code(s): I21.4 - NON-ST ELEVATION (NSTEMI) MYOCARDIAL INFARCTION SNOMED Code(s): 22469077 (7) Fever, etiology unclear, suspect related to recurrent MRSA bacteremia, final cultures pending. Possible left lung pneumonia, healthcare acquired, Covid- 19 testing pending. Current Visit: No Status: Acute Code(s): R50.9 - FEVER, UNSPECIFIED SNOMED Code(s): 230103319 (8) Hypoxia Current Visit: No Status: Acute Code(s): R09.02 - HYPOXEMIA SNOMED Code(s): 546925202 (9) MRSA bacteremia Current Visit: No Status: Acute Code(s): R78.81 - BACTEREMIA SNOMED Code(s): 36357977857603951 (10) pulmonary hypertension. Plan continue on current medication regime ,monitoring and symptomatic treatment. Follow cultures closely/ Covid 19 testing pending. Continue on anticoagulation via heparin drip as per cardiology. Antibiotics/recommendations as per infectious disease. Cleared for transfer out of ICU to the telemetry unit as per manufacturing industrial engineer. Prognosis guarded given multiple complex medical issues The impression and plan of care has been dictated as directed. : I performed a history and examination of this patient, discussed the same with the dictator. I agree with the dictator's note ,documented as a scribe. Any additional findings or plans will be noted.
[2019-08-04] MEDS ORDERED: SODIUM CHLORIDE 0.9% 1,000 ML IV ONE (15:09)
[2019-08-04] MEDS: ACETAMINOPHEN TAB 325 MG TAB PO PRN ×2 (15:24→23:12)
[2019-08-04 17:15] LABS: Glucose,Whole Blood 172 mg/dL (75-99)
[2019-08-04] MEDS: PRAMIPEXOLE 0.5 MG TAB PO SCH (20:12)
[2019-08-04] MEDS: AMITRIPTYLINE HCL 25 MG TAB PO SCH (20:12)
[2019-08-04] MEDS: ATORVASTATIN 20 MG TAB PO SCH (20:12)
[2019-08-04 20:29] LABS: Glucose,Whole Blood 240 mg/dL (75-99)
--- NOTE | 2019-08-05 00:19 | P.CONS ---
History of Present Illness - Reason for Consult Consult date: 08/04/19 bacteremia Requesting physician: Sebastian Glez - Chief Complaint fever and shortness of breath x few days - History of Present Illness Patient is a 73-year female who was recently admitted at this facility patient did have evidence of persistent MRSA bacteremia for the patient have extensive work-up that was negative including AMARIS WBC scan subsequently the nay ent was transferred to [facility] apparently the patient was diagnosed there with a lumbar discitis and she was advised a 6-week course of IV antibiotic which apparently the patient completed about a week ago and the PICC line was subsequent discontinued the patient now presenting back to the hospital with a chief complaints of increasing shortness of breath and cough for the symptom getting worse for about 24 hours before the patient called EMS and the patient was brought to the hospital on arrival to the ER patient initially has been running a low-grade fever 100.3 200 subsequently spiked a fever of 101.7 ~400 yesterday patient has been tachycardic and hypoxic requiring supplemental oxygen patient has been admitted to the ICU she was also noted to have elevated white blood 17.5 thousand lactic acid was elevated as well she is being tested for COVID-19 infection blood cultures drawn came back positive with gram- positive cocci that prompted this infectious disease consultation patient with a mild elevation is afebrile she is complaining of some shortness of breath but denies having any chest pain or cough no nausea no vomiting no abdominal pain no diarrhea she may complaining of pain to the low back area more of a dull aching intensity could be a 5-7 out of 10 and no radiation denies any bowel or bladder problems. Review of Systems Positive point has been mentioned in HPI rest of the systems are negative. Past Medical History Past Medical History: Heart Failure, COPD, GERD/Reflux, Hearing Disorder / Deafness, Hyperlipidemia, Hypertension, Myocardial Infarction (AR), Osteoarthritis (OA), Respiratory Disorder Additional Past Medical History / Comment(s): Pt admitted to [facility] on 05/28/19 with acute on chronic respiratory failure-multifactoral/MRSA bacteremia with sepsis/acute CHF/aucte exacerbation of COPD/NSTEMI/severe aortic stenosis/pulmonary HTN, atelectasis/acute blood loss anemia/diverticular disease/colon polypectomy/mild esophagitis/ enlarged heart/r mid lobe nodule/ hyponatremia. Other hx: Home oxygen at 5L/NC ATC, pt to have aortic valve replacement at [facility] but completed antibiotic for bacteremia about 1 week ago and will need clearance prior to surgery per pt, anemia, IBS, hemorrhoids, chronic back pain, herniated discs, arthritis in back and bilateral hips, ATQASUK bilaterally. Last Myocardial Infarction Date:: 05/28/19 History of Any Multi-Drug Resistant Organisms: MRSA Year Discovered:: 06/11/19 MDRO Source:: Blood Past Surgical History: Unable to Obtain, Orthopedic Surgery Additional Past Surgical History / Comment(s): AMARIS, EGDs, colonoscopies/recent polypectomy, PDA in 1949 and redo in 1952, D&C, surgery for ovarian cyst/ectopic , L leg plate/pin, bilateral eye surgery for glaucoma and cataracts, Past Anesthesia/Blood Transfusion Reactions: No Reported Reaction Additional Past Anesthesia/Blood Transfusion Reaction / Comm: Pt received blood without reaction last admission. Smoking Status: Former smoker - Past Family History Mother Family Medical History: No Reported History Additional Family Medical History / Comment(s): Mother was healthy Father Family Medical History: Cancer Additional Family Medical History / Comment(s): Father of lung cancer, he was a smoker. Medications and Allergies Home Medications Medication Instructions Recorded Confirmed Type Amitriptyline HCl 25 mg PO HS 05/28/19 08/03/19 History Fluticasone/Vilanterol [Breo 1 puff INHALATION RT-DAILY 05/28/19 08/03/19 History Ellipta 200-25 Mcg INH] Loteprednol Etabonate [Lotemax] 1 drop RIGHT EYE TID 05/28/19 08/03/19 History Nepafenac [Ilevro] 1 drop RIGHT EYE DAILY 05/28/19 08/03/19 History Pramipexole Di-HCl [Mirapex] 1.5 mg PO HS 05/28/19 08/03/19 History Sertraline [Zoloft] 50 mg PO DAILY 05/28/19 08/03/19 History Ipratropium-Albuterol Nebulize 3 ml INHALATION RT-QID ml 06/14/19 08/03/19 Rx [Duoneb 0.5 mg-3 mg/3 ml Soln] Nitroglycerin Sl Tabs [Nitrostat] 0.4 mg SUBLINGUAL Q5M PRN tab 06/14/19 Rx Albuterol Nebulized [Ventolin 1 vial INHALATION RT-Q6H 08/03/19 08/03/19 History Nebulized] Diclofenac Sodium Gel [Voltaren 1 gram TOPICAL TID 08/03/19 08/03/19 History Gel] Furosemide [Lasix] 40 mg PO DAILY 08/03/19 08/03/19 History Gabapentin [Gralise] 600 mg PO DAILY 08/03/19 08/03/19 History Lisinopril [Zestril] 10 mg PO DAILY 08/03/19 08/03/19 History Metoprolol Succinate (ER) [Toprol 50 mg PO DAILY 08/03/19 08/03/19 History XL] Ofloxacin 0.3% Ophth Soln [Ocuflox 1 drop RIGHT EYE DAILY 08/03/19 08/03/19 History Ophth Soln] Pantoprazole [Protonix] 40 mg PO DAILY 08/03/19 08/03/19 History Potassium Chloride ER [K-Dur 20] 20 meq PO DAILY 08/03/19 08/03/19 History Simvastatin [Zocor] 40 mg PO HS 08/03/19 08/03/19 History Tiotropium [place] [Spiriva 2 puff INHALATION RT-DAILY 08/03/19 08/03/19 History Respimat] cloNIDine HCL [Catapres] 0.1 mg PO BID 08/03/19 08/03/19 History Allergies Allergy/AdvReac Type Severity Reaction Status Date / Time aspirin Allergy Unknown Verified 08/03/19 10:58 Physical Exam Vitals: Vital Signs Temp Pulse Resp BP Pulse Ox 08/04/19 21:00 104 H 14 101/64 95 08/04/19 20:00 99.1 F 104 H 24 89/58 95 08/04/19 19:00 106 H 27 H 90/67 93 L 08/04/19 18:00 109 H 18 90/65 93 L 08/04/19 17:00 112 H 26 H 93/66 93 L 08/04/19 16:23 94 L 08/04/19 16:00 99.4 F 114 H 27 H 96/63 94 L 08/04/19 15:00 115 H 22 93/58 94 L 08/04/19 14:00 116 H 19 97/66 93 L 08/04/19 13:00 117 H 25 H 103/70 93 L 08/04/19 12:00 98.5 F 115 H 22 128/98 91 L 08/04/19 11:00 128 H 29 H 138/93 93 L 08/04/19 10:00 110 H 20 119/73 95 08/04/19 09:00 105 H 22 117/80 94 L 08/04/19 08:00 98.5 F 96 22 110/72 98 08/04/19 07:00 97 20 119/79 99 08/04/19 06:00 92 17 106/75 99 08/04/19 05:00 104 H 19 111/75 95 08/04/19 04:00 98.0 F 95 20 105/67 95 08/04/19 03:00 97 20 102/87 96 08/04/19 02:00 91 22 91/67 95 08/04/19 01:00 96 18 100/72 95 08/04/19 00:11 95 18 91/61 95 08/04/19 00:00 98.6 F 94 22 86/59 95 08/03/19 23:44 20 08/03/19 23:00 98 20 90/70 94 L Intake and Output 08/04/19 08/04/19 08/04/19 06:59 14:59 22:59 Intake Total 253.656 998.624 6388 Output Total 200 350 Balance 253.656 292.844 770 Intake: IV 160 160 120 0.9 Normal Saline 160 160 100 Vancomycin 1,750 mg In 20 Sodium Chloride 0.9% 500 ml 500 ml @ 167 mls/hr IVPB ONCE ONE Rx#: [id number] Intake, IV Titration 93.656 891.291 8129 Amount Heparin Sod,Pork in 0.45% 93.656 82.844 NaCl 25,000 unit In 0.45 % NaCl 1 250ml.bag @ 12 UNITS/KG/HR 11.43 mls/hr IV .[id number] [facility], 1928–1983 Rx#: [id number] Sodium Chloride 0.9% 1, 1000 000 ml @ 999 mls/hr IV . Q1H1M ONE Rx#:[id number] Vancomycin 1,500 mg In 250 Sodium Chloride 0.9% 250 ml @ 125 mls/hr IVPB Q24HR [facility], [facility]1983 Rx#:[id number] Output: Urine 200 350 Other: Voiding Method Bedpan Bedpan Bedpan # Voids 1 1 # Bowel Movements 1 Weight 90.5 kg GENERAL DESCRIPTION: Elderly female lying in bed, no distress. No tachypnea or accessory muscle of respiration use. HEENT: Shows Pallor , no scleral icterus. Oral mucous membrane is dry. NECK: Trachea central, no thyromegaly. LUNGS: Unlabored breathing. Decreased breath sound at the base. No wheeze or crackle. HEART: S1, S2, regular rate and rhythm. ABDOMEN: Soft, no tenderness , guarding or rigidity EXTREMITIES: No edema of feet. SKIN: No rash, no masses palpable. NEUROLOGICAL: The patient is awake, alert, oriented x3, mood and affect normal. Results CBC & Chem 7: 08/04/19 04:51 08/04/19 04:51 Labs: Abnormal Lab Results - Last 24 Hours (Table) 08/04/19 08/04/19 08/04/19 Range/Units 00:18 04:51 04:51 WBC 16.4 H (3.8-10.6) k/uL RBC 3.39 L (3.80-5.40) m/uL Hgb 9.2 L D (11.4-16.0) gm/dL Hct 30.8 L (34.0-46.0) % MCHC 30.0 L (31.0-37.0) g/dL RDW 16.9 H (11.5-15.5) % Plt Count 87 L (150-450) k/uL Neutrophils # 15.3 H (1.3-7.7) k/uL Lymphocytes # 0.3 L (1.0-4.8) k/uL APTT 72.4 H (22.0-30.0) sec Sodium 134 L (137-145) mmol/L Carbon Dioxide 21 L (22-30) mmol/L BUN 41 H (7-17) mg/dL Creatinine 1.61 H (0.52-1.04) mg/dL Glucose 170 H (74-99) mg/dL POC Glucose (mg/dL) (75-99) mg/dL Plasma Lactic Acid Barron (0.7-2.0) mmol/L Calcium 8.0 L (8.4-10.2) mg/dL 08/04/19 08/04/1920 Range/Units 05:48 07:59 08:23 WBC (3.8-10.6) k/uL RBC (3.80-5.40) m/uL Hgb (11.4-16.0) gm/dL Hct (34.0-46.0) % MCHC (31.0-37.0) g/dL RDW (11.5-15.5) % Plt Count (150-450) k/uL Neutrophils # (1.3-7.7) k/uL Lymphocytes # (1.0-4.8) k/uL APTT 32.4 H (22.0-30.0) sec Sodium (137-145) mmol/L Carbon Dioxide (22-30) mmol/L BUN (7-17) mg/dL Creatinine (0.52-1.04) mg/dL Glucose (74-99) mg/dL POC Glucose (mg/dL) 195 H 182 H (75-99) mg/dL Plasma Lactic Acid Barron (0.7-2.0) mmol/L Calcium (8.4-10.2) mg/dL 08/04/19 08/04/19 08/04/19 Range/Units 12:01 12:31 15:44 WBC (3.8-10.6) k/uL RBC (3.80-5.40) m/uL Hgb (11.4-16.0) gm/dL Hct (34.0-46.0) % MCHC (31.0-37.0) g/dL RDW (11.5-15.5) % Plt Count (150-450) k/uL Neutrophils # (1.3-7.7) k/uL Lymphocytes # (1.0-4.8) k/uL APTT 36.2 H (22.0-30.0) sec Sodium (137-145) mmol/L Carbon Dioxide (22-30) mmol/L BUN (7-17) mg/dL Creatinine (0.52-1.04) mg/dL Glucose (74-99) mg/dL POC Glucose (mg/dL) 173 H (75-99) mg/dL Plasma Lactic Acid Barron 2.1 H* (0.7-2.0) mmol/L Calcium (8.4-10.2) mg/dL 08/04/19 08/04/19 Range/Units 17:14 20:27 WBC (3.8-10.6) k/uL RBC (3.80-5.40) m/uL Hgb (11.4-16.0) gm/dL Hct (34.0-46.0) % MCHC (31.0-37.0) g/dL RDW (11.5-15.5) % Plt Count (150-450) k/uL Neutrophils # (1.3-7.7) k/uL Lymphocytes # (1.0-4.8) k/uL APTT (22.0-30.0) sec Sodium (137-145) mmol/L Carbon Dioxide (22-30) mmol/L BUN (7-17) mg/dL Creatinine (0.52-1.04) mg/dL Glucose (74-99) mg/dL POC Glucose (mg/dL) 172 H 240 H (75-99) mg/dL Plasma Lactic Acid Barron (0.7-2.0) mmol/L Calcium (8.4-10.2) mg/dL Microbiology - Last 24 Hours (Table) 08/03/19 08:25 Blood Culture Gram Stain - Preliminary Blood Blood Culture - Preliminary Staphylococcus aureus 08/03/19 08:25 Blood Culture - Final Blood Assessment and Plan Assessment: patient presented hospital with sepsis in this patient who did have a fever tachycardia elevated white count now with evidence of gram-positive bacteremia likely MRSA in this patient who recently did have persistent bacteremia which was thought to be related to lumbar discitis however the patient is not very clear about her history. (1) Gram-positive bacteremia Current Visit: Yes Status: Acute Code(s): R78.81 - BACTEREMIA SNOMED Code(s): 940076957014 (2) Sepsis Current Visit: Yes Status: Acute Code(s): A41.9 - SEPSIS, UNSPECIFIED O RGANISM SNOMED Code(s): 33651414 Plan: 1-vancomycin pharmacy to dose her with a target trough of 15 while watching her kidney function and Vanco trough closely. 2-blood culture will be repeated daily to document clearance of her bacteremia 3-MRI of the lumbosacral spine 4-obtain records from [facility] of recent admission We will follow on clinical condition and cultures to further adjust medication if needed Thank you for this consultation we will follow the patient along with you Time with Patient: Greater than 30
[2019-08-05] MEDS: HEPARIN SOD,PORK IN 0.45% NACL 25,000 UNIT in 0.45% NACL 1 250ML.BAG IV SCH (01:41)
[2019-08-05 05:03] LABS: Anisocytosis Slight; Basophils % (A) 0 %; Eosinophils # (A) 0.1 k/uL (0-0.7); Eosinophils % (A) 0 %; HCT 28.7 % (34.0-46.0); HGB 8.5 gm/dL (11.4-16.0); Hypochromasia Marked; Lymphocytes # (A) 0.5 k/uL (1.0-4.8); Lymphocytes % (A) 3 %; MCH 27.2 pg (25.0-35.0); MCHC 29.7 g/dL (31.0-37.0); MCV 91.8 fL (80.0-100.0); Mean Platelet Volume 10.7; Monocytes # (A) 0.8 k/uL (0-1.0); Monocytes % (A) 5 %; Neutrophils # (A) 15.3 k/uL (1.3-7.7); Neutrophils % (A) 90 %; RBC 3.13 m/uL (3.80-5.40); RDW 16.3 % (11.5-15.5); WBC 17.1 k/uL (3.8-10.6)
[2019-08-05 05:09] LABS: Platelet Count 83 k/uL (150-450)
[2019-08-05 05:23] LABS: Calcium 7.6 mg/dL (8.4-10.2); Potassium 5.6 mmol/L (3.5-5.1)
[2019-08-05 05:38] LABS: Large Platelets Present; Polychromasia Present
--- NOTE | 2019-08-05 06:46 | XR ---
EXAMINATION TYPE: XR chest 1V portable DATE OF EXAM: 08/05/2019 HISTORY: Shortness of breath. REFERENCE: Previous study dated 08/04/2019. FINDINGS: There is multichamber cardiac enlargement. There has been further clearing of the left ling ular infiltrate. There is mild vascular congestion. I could not exclude a small left effusion. IMPRESSION: 1. CONTINUED CLEARING OF THE PATIENT'S LEFT LINGULAR INFILTRATE. 2. CARDIOMEGALY. 3. I COULD NOT EXCLUDE A SMALL, LEFT EFFUSION.
[2019-08-05] MEDS: PANTOPRAZOLE 40 MG TABLET PO SCH (06:50)
[2019-08-05] MEDS: INSULIN ASPART (NovoLOG) 100 UNIT/ML VIAL SQ SCH ×3 (07:02→19:27)
[2019-08-05 07:03] LABS: Glucose,Whole Blood 117 mg/dL (75-99)
[2019-08-05] MEDS: ALBUTEROL INHALER 60 PUFF/8 GM INHALER (MHU) INHALATION SCH ×4 (07:48→19:39)
[2019-08-05] MEDS: SYMBICORT 160-4.5 MCG INHALER INHALATION SCH ×2 (07:49→19:39)
[2019-08-05] MEDS: VANCOMYCIN 1,500 MG in SODIUM CHLORIDE 0.9% 250 ML IVPB SCH (08:15)
[2019-08-05] MEDS: SERTRALINE 50 MG TAB PO SCH (08:16)
[2019-08-05] MEDS: GABAPENTIN 300 MG CAP PO SCH (08:16)
[2019-08-05] MEDS: METOPROLOL SUCCINATE (ER) 50 MG TAB.ER.24H PO SCH (08:17)
[2019-08-05 11:38] LABS: Amorphous Sediment,Urine Rare /hpf; Appearance,Urine Cloudy (Clear); Bacteria,Urine Rare /hpf; Bilirubin,Urine Negative (Negative); Blood,Urine Small (Negative); Color,Urine Yellow; Glucose,Urine (UA) Negative (Negative); Hyaline Casts,Urine 1 /lpf (0-2); Ketones,Urine Negative (Negative); Leukocyte Esterase,Urine Negative (Negative); Mucus,Urine Rare /hpf; Nitrite,Urine Negative (Negative); PH, Urine 5.5 (5.0-8.0); Protein,Urine Trace (Negative); RBC,Urine 3 /hpf (0-5); Specific Gravity,Urine 1.018 (1.001-1.035); Squamous Epithelial Cell,Urine <1 /hpf (0-4); Urobilinogen,Urine <2.0 mg/dL (<2.0); WBC,Urine 2 /hpf (0-5)
[2019-08-05] MEDS ORDERED: SODIUM CHLORIDE 0.9% 500 ML 500 ML IV ONE (11:45)
[2019-08-05 12:01] LABS: Glucose,Whole Blood 122 mg/dL (75-99)
--- NOTE | 2019-08-05 12:39 | PN ---
PROGRESS NOTE Debbie is a 73-year-old lady who has aortic stenosis and is currently waiting for aortic valve replacement at [facility], has MRSA bacteremia. She completed 6 weeks of antibiotics, comes back in with a febrile illness, became somewhat tachycardiac and hypoxic and required supplemental oxygen. Patient is being tested for COVID, but her blood cultures have come back positive for gram-positive cocci. This morning she became somewhat hypotensive. Her heart rate is around 100 beats per minute. Blood pressure is 88/69, respiratory rate is 18, O2 saturation is 98%. A detailed physical exam has not been performed to save the personal protective equipment in a patient who is still in COVID isolation. LABS: Show a hemoglobin of 8.5, potassium is 5.6, BUN is 51, creatinine is 1.6. ASSESSMENT: 1. Aortic stenosis, awaiting aortic valve replacement. 2. MRSA septicemia. 3. Hypertension. 4. Dyslipidemia. 5. Chronic obstructive pulmonary disease. 6. Non ST-segment elevation myocardial infarction. PLAN: I am going to stop the IV heparin at this time put her on subcu heparin. Continue the Lipitor. Give her metoprolol 12.5 b.i.d. MMODL / IJN: [id number] /
--- NOTE | 2019-08-05 13:22 | P.PN ---
Subjective 73 yo F with PMH of COPD GOLD stage 4 on 5 L home O2, severe aortic stenosis pending AVR, pulmonary HTN, MA and recent prolonged admission 04/2019-06/2019 for persistent bacteremia. During her previous admission she remained MRSA bacteremic despite 2 week course of IV vancomycin and then 1 week course of daptomycin. At that time her AMARIS was negative for vegetation but did show heavily calcified aortic valve. A tagged WBC scan at that time was negative. She was eventually transferred to [facility] for her persistent bacteremia and they performed MRI of her spine and diagnosed her with probably discitis. She completed her course of IV antibiotics about 2 weeks ago and had been self isolating at home due to COVID. She reports that about a week ago she went grocery shopping but had otherwise been in isolation. Pt reports that over the past 3-4 days she has experienced progressive worsening cough and shortness of breath. In the ED she was tachycardic, tachypneic, hypotensive and febrile to 100.3. WBC 17.5k, trop 1.2, BNP 29k, procal 2.2. Influenza negative, COVID sent to state lab. 08/04/2019 patient is now telemetry overflow as per specifications checker. Vital signs stable, maintaining O2 sats in the 90s on 5 L nasal cannula. Chest x-ray reporting slightly improved lingular capacity suspicious for unifocal pneumonia. Afebrile, T-max 101.6. Covid 19 testing pending. Blood culture times reporting gram-positive cocci, second blood culture pending. Maintained on IV antibiotics of vancomycin. Creatinine improving down to 1.61. Possibly switch to daptomycin, infectious disease consulted, recommendations pending. Anticoagulated on heparin drip. 08/05/2019 Patient is on BiPAP at this time patient appears to be volume depleted significantly with hypotension hyponatremia patient will be started on surfaces of normal saline there is a concern of CHF on the chest x-ray I'll obtain a BNP. Patient can use to have MRSA bacteremia Review of systems: Unable to obtain due to her clinical condition All inpatient medications were reviewed and appropriate changes in these medications as dictated in the interval history and assessment and plan. Objective - Vital Signs Vital signs: Vital Signs Temp 98.5 F 08/05/19 12:00 Pulse 107 H 08/05/19 13:00 Resp 26 H 08/05/19 13:00 BP 109/95 03/28/20 13:00 Pulse Ox 79 L 08/05/19 13:00 Intake & Output 08/04/19 08/05/19 08/05/19 18:59 06:59 18:59 Intake Total 1552.844 407.208 620 Output Total 350 200 627 Balance 1202.844 207.208 -7 Weight 94.2 kg Intake: IV 220 260 620 0.9 Normal Saline 200 260 620 Vancomycin 1,750 mg In 20 Sodium Chloride 0.9% 500 ml 500 ml @ 167 mls/hr IVPB ONCE ONE Rx#: [id number] Intake, IV Titration 1332.844 147.208 Amount Heparin Sod,Pork in 0.45% 82.844 147.208 NaCl 25,000 unit In 0.45 % NaCl 1 250ml.bag @ 12 UNITS/KG/HR 11.43 mls/hr IV .[id number] [facility] Rx#: [id number] Sodium Chloride 0.9% 1, 1000 000 ml @ 999 mls/hr IV . Q1H1M ONE Rx#:[id number] Vancomycin 1,500 mg In 250 Sodium Chloride 0.9% 250 ml @ 125 mls/hr IVPB Q24HR [facility] Rx#:[id number] Output: Urine 350 200 625 Stool 2 Other: Voiding Method Bedpan Bedpan Bedpan # Voids 1 - Exam PHYSICAL EXAMINATION: GENERAL: Patient is on BiPAP not in significant respiratory distress on BiPAP sleeping and arousable HEENT: Pupils are round and equally reacting to light. EOMI. No scleral icterus. No conjunctival pallor. Normocephalic, atraumatic. No pharyngeal erythema. No thyromegaly. CARDIOVASCULAR: S1 and S2 present. No murmurs, rubs, or gallops. PULMONARY: Chest is clear to auscultation, no wheezing or crackles. ABDOMEN: Soft, nontender, nondistended, normoactive bowel sounds. No palpable organomegaly. MUSCULOSKELETAL: No joint swelling or deformity. EXTREMITIES: No cyanosis, clubbing, or pedal edema. NEUROLOGICAL: Gross neurological examination did not reveal any focal deficits. SKIN: No rashes. - Labs CBC & Chem 7: 08/05/19 04:40 08/05/19 04:40 Labs: Abnormal Lab Results - Last 24 Hours (Table) 08/04/19 08/04/19 08/04/19 Range/Units 15:44 17:14 20:27 WBC (3.8-10.6) k/uL RBC (3.80-5.40) m/uL Hgb (11.4-16.0) gm/dL Hct (34.0-46.0) % MCHC (31.0-37.0) g/dL RDW (11.5-15.5) % Plt Count (150-450) k/uL Neutrophils # (1.3-7.7) k/uL Lymphocytes # (1.0-4.8) k/uL APTT 36.2 H (22.0-30.0) sec Sodium (137-145) mmol/L Potassium (3.5-5.1) mmol/L Carbon Dioxide (22-30) mmol/L BUN (7-17) mg/dL Creatinine (0.52-1.04) mg/dL Glucose (74-99) mg/dL POC Glucose (mg/dL) 172 H 240 H (75-99) mg/dL Calcium (8.4-10.2) mg/dL Urine Appearance (Clear) Urine Protein (Negative) Urine Blood (Negative) Amorphous Sediment (None) /hpf Urine Bacteria (None) /hpf Urine Mucus (None) /hpf 08/04/19 08/05/19 08/05/19 Range/Units 22:58 04:40 04:40 WBC 17.1 H (3.8-10.6) k/uL RBC 3.13 L (3.80-5.40) m/uL Hgb 8.5 L (11.4-16.0) gm/dL Hct 28.7 L (34.0-46.0) % MCHC 29.7 L (31.0-37.0) g/dL RDW 16.3 H (11.5-15.5) % Plt Count 83 L (150-450) k/uL Neutrophils # 15.3 H (1.3-7.7) k/uL Lymphocytes # 0.5 L (1.0-4.8) k/uL APTT 41.6 H (22.0-30.0) sec Sodium 131 L (137-145) mmol/L Potassium 5.6 H (3.5-5.1) mmol/L Carbon Dioxide 19 L (22-30) mmol/L BUN 51 H (7-17) mg/dL Creatinine 1.65 H (0.52-1.04) mg/dL Glucose 130 H (74-99) mg/dL POC Glucose (mg/dL) (75-99) mg/dL Calcium 7.6 L (8.4-10.2) mg/dL Urine Appearance (Clear) Urine Protein (Negative) Urine Blood (Negative) Amorphous Sediment (None) /hpf Urine Bacteria (None) /hpf Urine Mucus (None) /hpf 08/05/19 08/05/19 08/05/19 Range/Units 04:40 07:01 10:00 WBC (3.8-10.6) k/uL RBC (3.80-5.40) m/uL Hgb (11.4-16.0) gm/dL Hct (34.0-46.0) % MCHC (31.0-37.0) g/dL RDW (11.5-15.5) % Plt Count (150-450) k/uL Neutrophils # (1.3-7.7) k/uL Lymphocytes # (1.0-4.8) k/uL APTT 49.1 H (22.0-30.0) sec Sodium (137-145) mmol/L Potassium (3.5-5.1) mmol/L Carbon Dioxide (22-30) mmol/L BUN (7-17) mg/dL Creatinine (0.52-1.04) mg/dL Glucose (74-99) mg/dL POC Glucose (mg/dL) 117 H (75-99) mg/dL Calcium (8.4-10.2) mg/dL Urine Appearance Cloudy H (Clear) Urine Protein Trace H (Negative) Urine Blood Small H (Negative) Amorphous Sediment Rare H (None) /hpf Urine Bacteria Rare H (None) /hpf Urine Mucus Rare H (None) /hpf 08/05/19 Range/Units 12:00 WBC (3.8-10.6) k/uL RBC (3.80-5.40) m/uL Hgb (11.4-16.0) gm/dL Hct (34.0-46.0) % MCHC (31.0-37.0) g/dL RDW (11.5-15.5) % Plt Count (150-450) k/uL Neutrophils # (1.3-7.7) k/uL Lymphocytes # (1.0-4.8) k/uL APTT (22.0-30.0) sec Sodium (137-145) mmol/L Potassium (3.5-5.1) mmol/L Carbon Dioxide (22-30) mmol/L BUN (7-17) mg/dL Creatinine (0.52-1.04) mg/dL Glucose (74-99) mg/dL POC Glucose (mg/dL) 122 H (75-99) mg/dL Calcium (8.4-10.2) mg/dL Urine Appearance (Clear) Urine Protein (Negative) Urine Blood (Negative) Amorphous Sediment (None) /hpf Urine Bacteria (None) /hpf Urine Mucus (None) /hpf Microbiology - Last 24 Hours (Table) 08/03/19 08:25 Blood Culture Gram Stain - Preliminary Blood Blood Culture - Preliminary Staphylococcus aureus Assessment and Plan Plan: -Severe sepsis and septic shock and bacteremia with MRSA: Possible source being discitis patient remains on IV vancomycin. Patient remains bacteremic repeat blood cultures will be obtained. -Acute hypoxic and hypercapnic respiratory failure secondary to sepsis and COPD exacerbation. -Hyponatremia hypovolemic hyponatremia patient will be started on IV fluids with close monitoring her BNP is highly elevated. Echocardiogram is pending Elevated troponin secondary to sepsis no evidence of acute myocardial infarction values following the patient -Severe pulmonary hypertension severe aortic valvular stenosis -Hypertension -8 on chronic hypercapnic respiratory failure secondary to COPD with possible exacerbation -Hypertension -Hyperlipidemia -Depression
--- NOTE | 2019-08-05 13:48 | P.PN ---
Subjective Progress Note Date: 08/05/19 Principal diagnosis: Dyspnea, cough 73-year-old female patient of Dr. Glez, with extensive medical history including history of COPD on home oxygen at 5 L, known history of valvular heart disease, pending surgery for possible valve replacement. On 05/28/2019 patient had an admission in this hospital and was diagnosed with MRSA bacteremia, multiple follow-up cultures positive for MRSA. There was a concern about endocarditis, and the transesophageal echocardiogram on 06/01/2019 did not show any evidence of definite vegetation, but did find heavily calcified aortic valve with severe aortic stenosis, mitral and tricuspid valves were normal no evidence of vegetation, mild mitral regurgitation, left ventricle systolic function was normal, intra-atrial septum was intact. Other medical history includes previous history of tobacco dependence, non-ST segment elevated myocardial infarction, severe pulmonary hypertension, hyperlipidemia, hypertension, depression, GERD. On 08/03/2019 patient presented to the emergency department with symptoms of increased dyspnea, cough, nasal congestion and fever of 100.3F. She states she has been on IV antibiotics for 4 months for history of MRSA bacteremia. Her IV antibiotics have been discontinued a month ago related to patient developing an issue with bacteremia. Patient denied any chest pain, denied any orthopnea, no lower extremity swelling. She states she was at the grocery store shopping in the last 3 days and she feels like she may have overdone it. Workup in the emergency department included chest x-ray which showed possibility of left lower lobe infiltrate. Labs were reviewed showing leukocytosis with CBC of 17.5, hemoglobin of 12, quite large and profile was within normal limits, sodium was 129, potassium is 5.3, chloride was 96, BUN was 47, creatinine was 2.12, plasma lactic acid was 1.9, AST was 41, ALT was 21, alkaline phosphatase was 72, troponin was 1.250, proBNP was 28,009 100, urinalysis showed small amount of blood, trace leuk trase, but no definite sign of infection, influenza screen was negative, COVID 19 testing was initiated and results are pending at this time, patient was hypotensive in the emergency department was systolic in the 70s, and febrile with a temp of 100.3F, she was given a total of 2 L and IV fluid boluses, her blood pressure has improved, patient was transferred to the intensive care unit, where she is currently being seen, she is resting in bed in no acute distress, she is sinus tachycardia on the monitor with a rate of 103 bpm, blood pressure is 98/62, a is on 5 L of oxygen with a pulse ox of 98%, she is answering questions appropriately, no altered mentation, no complaints of chest pain, no complaints of abdominal pain, lung sounds are clear, no rhonchi, no wheezing, antibiotics in the form of cefepime and vancomycin have been initiated. On 08/04/2019 patient seen in follow-up in the intensive care unit. She is awake and alert, oriented 3, in no acute distress, no complaints of chest pain, no complaints of worsening dyspnea, she is currently on 5 L of oxygen, and her pulse ox is 94-98%, she is afebrile today, her last episode of fever was y esterday in the afternoon at 5:00 with a temp of 101.6F. COVID 19 testing is pending. Pt is hemodynamic stable, she remains on heparin infusion for elevated troponins, 0.9 normal saline at a rate of 20 ML per hour, current antibiotic coverage is a form of cefepime and vancomycin and her blood culture showed Staphylococcus aureus on the preliminary Gram stain, final culture is pending. ID service has been consulted, and their recommendation is pending. Likely patient is asymptomatic, today's labs have been reviewed showing white blood cell, 16.4, hemoglobin is 9.2, Levaquin was 87, sodium is 134, potassium is 5.0, chloride is 102, CO2 is 21, BUN is 41, creatinine is 1.6. The patient is seen today 08/05/2019 in follow-up in the intensive care unit. She is somewhat lethargic and with labored respirations. She is maintaining O2 saturations in the 90s on 5 L/m per nasal cannula. Chest x-ray is showing clearing of the patient's lingular infiltrate. There is evidence of cardiomegaly and small left pleural effusion. She is somewhat hypotensive. Slightly tachycardic. Afebrile. She is an IV of 0.9 normal saline at 20 ML's per hour. Heparin drip weight-based protocol. Blood cultures with preliminary Staphylococcus aureus. White count 17.1. Hemoglobin 8.5. Platelets 83. Lym phocytes 0.5. Sodium 131. Potassium 5.6. Bicarb 19. Creatinine 1.65. Covid 19 pending. She is currently on vancomycin, Symbicort and albuterol. Objective - Vital Signs Vital signs: Vital Signs Temp 98.5 F 08/05/19 12:00 Pulse 107 H 08/05/19 13:00 Resp 26 H 08/05/19 13:00 BP 109/95 08/05/19 13:00 Pulse Ox 79 L 08/05/19 13:00 Intake & Output 08/04/19 08/05/19 08/05/19 18:59 06:59 18:59 Intake Total 1552.844 407.208 620 Output Total 350 200 627 Balance 1202.844 207.208 -7 Weight 94.2 kg Intake: IV 220 260 620 0.9 Normal Saline 200 260 620 Vancomycin 1,750 mg In 20 Sodium Chloride 0.9% 500 ml 500 ml @ 167 mls/hr IVPB ONCE ONE Rx#: [id number] Intake, IV Titration 1332.844 147.208 Amount Heparin Sod,Pork in 0.45% 82.844 147.208 NaCl 25,000 unit In 0.45 % NaCl 1 250ml.bag @ 12 UNITS/KG/HR 11.43 mls/hr IV .[id number] [facility] Rx#: [id number] Sodium Chloride 0.9% 1, 1000 000 ml @ 999 mls/hr IV . Q1H1M ONE Rx#:[id number] Vancomycin 1,500 mg In 250 Sodium Chloride 0.9% 250 ml @ 125 mls/hr IVPB Q24HR [facility] [place] Rx#:[id number] Output: Urine 350 200 625 Stool 2 Other: Voiding Method Bedpan Bedpan Bedpan # Voids 1 - Exam GENERAL EXAM: Drowsy 73-year-old obese white female, on 5 L of oxygen, and mild respiratory distress. HEAD: Normocephalic/atraumatic. EYES: Normal reaction of pupils, equal size. Conjunctiva pink, sclera white. NOSE: Clear with pink turbinates. THROAT: No erythema or exudates. NECK: No masses, no JVD, no thyroid enlargement, no adenopathy. CHEST: No chest wall deformity. Symmetrical expansion. LUNGS: Equal air entry with crackles in the left lung base. CVS: Regular rate and rhythm, normal S1 and S2, no gallops, no murmurs, no rubs ABDOMEN: Soft, nontender. No hepatosplenomegaly, normal bowel sounds, no guarding or rigidity. EXTREMITIES: No clubbing, no edema, no cyanosis, 2+ pulses and upper and lower extremities. MUSCULOSKELETAL: Muscle strength and tone normal. SPINE: No scoliosis or deformity SKIN: No rashes CENTRAL NERVOUS SYSTEM: No focal deficits, tone is normal in all 4 extremities. PSYCHIATRIC: Somewhat somnolent. Arousable. - Labs CBC & Chem 7: 08/05/19 04:40 08/05/19 04:40 Labs: Abnormal Lab Results - Last 24 Hours (Table) 08/04/19 08/04/19 08/04/19 Range/Units 15:44 17:14 20:27 WBC (3.8-10.6) k/uL RBC (3.80-5.40) m/uL Hgb (11.4-16.0) gm/dL Hct (34.0-46.0) % MCHC (31.0-37.0) g/dL RDW (11.5-15.5) % Plt Count (150-450) k/uL Neutrophils # (1.3-7.7) k/uL Lymphocytes # (1.0-4.8) k/uL APTT 36.2 H (22.0-30.0) sec Sodium (137-145) mmol/L Potassium (3.5-5.1) mmol/L Carbon Dioxide (22-30) mmol/L BUN (7-17) mg/dL Creatinine (0.52-1.04) mg/dL Glucose (74-99) mg/dL POC Glucose (mg/dL) 172 H 240 H (75-99) mg/dL Calcium (8.4-10.2) mg/dL Urine Appearance (Clear) Urine Protein (Negative) Urine Blood (Negative) Amorphous Sediment (None) /hpf Urine Bacteria (None) /hpf Urine Mucus (None) /hpf 08/04/19 08/05/19 08/05/19 Range/Units 22:58 04:40 04:40 WBC 17.1 H (3.8-10.6) k/uL RBC 3.13 L (3.80-5.40) m/uL Hgb 8.5 L (11.4-16.0) gm/dL Hct 28.7 L (34.0-46.0) % MCHC 29.7 L (31.0-37.0) g/dL RDW 16.3 H (11.5-15.5) % Plt Count 83 L (150-450) k/uL Neutrophils # 15.3 H (1.3-7.7) k/uL Lymphocytes # 0.5 L (1.0-4.8) k/uL APTT 41.6 H (22.0-30.0) sec Sodium 131 L (137-145) mmol/L Potassium 5.6 H (3.5-5.1) mmol/L Carbon Dioxide 19 L (22-30) mmol/L BUN 51 H (7-17) mg/dL Creatinine 1.65 H (0.52-1.04) mg/dL Glucose 130 H (74-99) mg/dL POC Glucose (mg/dL) (75-99) mg/dL Calcium 7.6 L (8.4-10.2) mg/dL Urine Appearance (Clear) Urine Protein (Negative) Urine Blood (Negative) Amorphous Sediment (None) /hpf Urine Bacteria (None) /hpf Urine Mucus (None) /hpf 08/05/19 08/05/19 08/05/19 Range/Units 04:40 07:01 10:00 WBC (3.8-10.6) k/uL RBC (3.80-5.40) m/uL Hgb (11.4-16.0) gm/dL Hct (34.0-46.0) % MCHC (31.0-37.0) g/dL RDW (11.5-15.5) % Plt Count (150-450) k/uL Neutrophils # (1.3-7.7) k/uL Lymphocytes # (1.0-4.8) k/uL APTT 49.1 H (22.0-30.0) sec Sodium (137-145) mmol/L Potassium (3.5-5.1) mmol/L Carbon Dioxide (22-30) mmol/L BUN (7-17) mg/dL Creatinine (0.52-1.04) mg/dL Glucose (74-99) mg/dL POC Glucose (mg/dL) 117 H (75-99) mg/dL Calcium (8.4-10.2) mg/dL Urine Appearance Cloudy H (Clear) Urine Protein Trace H (Negative) Urine Blood Small H (Negative) Amorphous Sediment Rare H (None) /hpf Urine Bacteria Rare H (None) /hpf Urine Mucus Rare H (None) /hpf 08/05/19 Range/Units 12:00 WBC (3.8-10.6) k/uL RBC (3.80-5.40) m/uL Hgb (11.4-16.0) gm/dL Hct (34.0-46.0) % MCHC (31.0-37.0) g/dL RDW (11.5-15.5) % Plt Count (150-450) k/uL Neutrophils # (1.3-7.7) k/uL Lymphocytes # (1.0-4.8) k/uL APTT (22.0-30.0) sec Sodium (137-145) mmol/L Potassium (3.5-5.1) mmol/L Carbon Dioxide (22-30) mmol/L BUN (7-17) mg/dL Creatinine (0.52-1.04) mg/dL Glucose (74-99) mg/dL POC Glucose (mg/dL) 122 H (75-99) mg/dL Calcium (8.4-10.2) mg/dL Urine Appearance (Clear) Urine Protein (Negative) Urine Blood (Negative) Amorphous Sediment (None) /hpf Urine Bacteria (None) /hpf Urine Mucus (None) /hpf Microbiology - Last 24 Hours (Table) 08/03/19 08:25 Blood Culture Gram Stain - Preliminary Blood Blood Culture - Preliminary Staphylococcus aureus Assessment and Plan Assessment: #1. Sepsis and febrile illness with preliminary blood cultures positive for Staphylococcus aureus along with left lung pneumonia, possibly healthcare acquired, Chest x-ray showed left lower lobe or lingular infiltrate. Possibility of COVID 19 is being ruled out #2. Hypotension, rule out septic shock #3. Elevated troponin, rule out possibility of non-ST elevated myocardial infarction #4. Elevated proBNP at 28,900, echocardiogram is pending #5. History of MRSA bacteremia in May 2019, patient was treated with IV antibiotics for 3 months, and antibiotics were discontinued a month ago #6. No evidence of endocarditis seen on the transesophageal echocardiogram on 10/31/2019 #7. Severe aortic valve stenosis pending evaluation for surgical intervention #8. Severe pulmonary hypertension with right-sided pressures of 79.7 mmHg #9. Chronic COPD with chronic hypercapnic respiratory failure on 5 L of oxygen #10. Former smoker, currently in remission #11. Hypertension #12. Hyperlipidemia #13. Depression #14. Chronic macrocytic anemia Plan: The patient was seen and evaluated by Dr. Luz Chest x-ray and labs reviewed We'll add 500 mL 0.9 normal saline bolus for marginal hypotension Place her on BiPAP 10/5 and 50% FiO2 Continue vancomycin Covid 19 testing pending We'll continue to monitor her closely here in the intensive care unit Critical care time 35 minutes I, the cosigning physician, performed a history & physical examination of the patient. Lungs sounds with crackles in left posterior base. Maintaining good O2 saturations in the 90s on BiPAP 10/5 and 50% FiO2. I discussed the assessment and plan of care with my nurse practitioner, Mary Ann Melgar. I attest to the above note as dictated by her. Time with Patient: Greater than 30
[2019-08-05] MEDS ORDERED: SODIUM CHLORIDE 0.9% 1,000 ML IV SCH (15:00)
[2019-08-05 16:27] VITALS: BP 94/71
[2019-08-05 17:30] LABS: ABG Base Excess -6.5 mmol/L; ABG HCO3 20 mmol/L (21-25); ABG Oxygen Saturation 99.4 % (94-97); ABG PCO2 42 mmHg (35-45); ABG PH 7.29 (7.35-7.45); ABG PO2 160 mmHg (83-108); ABG TCO2 21 mmol/L (19-24); Allen Test Performed? Yes
[2019-08-05 17:48] LABS: Glucose,Whole Blood 126 mg/dL (75-99)
[2019-08-05] MEDS ORDERED: SUCCINYLCHOLINE CHLORIDE VIAL 200 MG/10 ML VIAL IV ONE (18:00)
[2019-08-05] MEDS ORDERED: ROCURONIUM BROMIDE 10 MG/ML 5 ML VIAL IV ONE (18:00)
[2019-08-05] MEDS ORDERED: ETOMIDATE 2 MG/ML 10 ML VIAL ONE (18:00)
[2019-08-05] MEDS: PROPOFOL 1,000 MG in EMPTY BAG 1 BAG IV SCH ×2 (18:30→21:22)
[2019-08-05 18:48] LABS: ABG Base Excess -7.6 mmol/L; ABG HCO3 21 mmol/L (21-25); ABG Oxygen Saturation 91.7 % (94-97); ABG PCO2 53 mmHg (35-45); ABG PO2 73 mmHg (83-108); ABG TCO2 22 mmol/L (19-24); Allen Test Performed? Yes
[2019-08-05 19:22] LABS: Hemoglobin A1C 5.7 % (4.0-6.0)
--- NOTE | 2019-08-05 19:23 | PN ---
PROGRESS NOTE DATE OF SERVICE: 08/05/2019. REASON FOR FOLLOWUP: MRSA bacteremia. INTERVAL HISTORY: The patient is currently afebrile. The patient is slightly confused and is requiring BiPAP though hemodynamically stable, not on pressor support. She was unable to provide any history. No vomiting or any diarrhea has been reported by the nursing staff. PHYSICAL EXAMINATION: Blood pressure 97/59 with a pulse of 106. Temperature of 98.6. She is 95% on BiPAP. General description is an elderly female lying in bed in no distress. Respiratory system: Unlabored breathing, decreased intensity of breath sounds. No wheeze. Heart S1, S2. Regular rate and rhythm. Abdomen soft, no tenderness. LABS: Hemoglobin 8.5, white count 17.1. BUN of 51, creatinine 1.65. Blood culture finalized with MRSA. DIAGNOSTIC IMPRESSION AND PLAN: Patient with MRSA bacteremia in this patient with recent diagnosis of lumbar discitis could be the source. Will be obtaining an MRI of the lumbosacral spine once the patient is out of the current isolation. She is on vancomycin. Blood cultures will be repeated to document clearance of bacteremia and monitor her kidney function closely. Continue supportive care. MMODL / IJN: [id number] /
[2019-08-05] MEDS: NOREPINEPHRINE 4 MG in SODIUM CHLORIDE 0.9% 250 ML IV SCH ×2 (19:30→22:36)
--- NOTE | 2019-08-05 20:17 | XR ---
EXAMINATION TYPE: XR chest 1V portable DATE OF EXAM: 08/05/2019 CLINICAL HISTORY: Difficulty breathing had to be intubated. TECHNIQUE: Single AP portable semiupright view of the chest is obtained. COMPARISON: Chest x-ray from earlier today an older studies FINDINGS: Endotracheal tube terminates at superior aortic knob level, approximately 2 to 3 cm above scott. New orogastric tube projects below diaphragm. Osseous structures remain demineralized. There is cardiomegaly with atherosclerotic thoracic aorta. T here is chronic parenchymal change with persistent patchy left lower lung increased opacity. Right sven ng remains clear. IMPRESSION: 1. New endotracheal and orogastric tubes satisfactory in position. 2. Cardiomegaly and chronic parenchymal changes with persistent left mid to lower lung acute infiltra te and/or atelectasis.
[2019-08-05] MEDS: PRAMIPEXOLE 0.5 MG TAB PO SCH (20:23)
[2019-08-05] MEDS: AMITRIPTYLINE HCL 25 MG TAB PO SCH (20:23)
[2019-08-05] MEDS: ATORVASTATIN 20 MG TAB PO SCH (20:24)
[2019-08-05] MEDS ORDERED: DEXTROSE 5% IN WATER 100 ML with AMIODARONE 150 MG IV ONE ×2 (20:43→22:14)
[2019-08-05] MEDS ORDERED: HEPARIN SODIUM,PORCINE 5,000 UNIT/ML 1 ML VIAL IV PRN (20:44)
[2019-08-05] MEDS ORDERED: HEPARIN SODIUM,PORCINE 5,000 UNIT/ML 1 ML VIAL IV ONE (20:44)
[2019-08-05] MEDS ORDERED: HEPARIN SOD,PORK IN 0.45% NACL 25,000 UNIT in 0.45% NACL 1 250ML.BAG IV SCH (20:45)
[2019-08-05] MEDS ORDERED: METOPROLOL TARTRATE 12.5 MG TAB PO SCH (21:00)
[2019-08-05] MEDS ORDERED: HEPARIN SODIUM,PORCINE 5,000 UNIT/ML 1 ML VIAL SQ SCH (21:00)
[2019-08-05] MEDS ORDERED: CHLORHEXIDINE GLUCONATE 15 ML CUP MUCOUS MEM SCH (21:00)
[2019-08-05] MEDS ORDERED: EPINEPHrine 10 ML SYRINGE (0.1 MG/ML) ONE (21:37)
[2019-08-05] MEDS ORDERED: SODIUM BICARB 8.4% 50 ML SYR (1 MEQ/ML) ONE (21:37)
[2019-08-05] MEDS ORDERED: DEXTROSE 5% IN WATER 50 ML BAG ONE (21:37)
[2019-08-05] MEDS ORDERED: AMIODARONE 50 MG/ML 3 ML VIAL IV ONE (21:37)
[2019-08-05 21:57] LABS: Glucose,Whole Blood 213 mg/dL (75-99)
[2019-08-05] MEDS ORDERED: AMIODARONE 360 MG in DEXTROSE 5% IN WATER 200 ML IV ONE ×2 (22:14)
[2019-08-05 22:23] LABS: Anisocytosis Slight; Hypochromasia Marked; MCH 27.2 pg (25.0-35.0); MCHC 29.1 g/dL (31.0-37.0); MCV 93.5 fL (80.0-100.0); Mean Platelet Volume 10.6; RBC 3.31 m/uL (3.80-5.40); RDW 16.6 % (11.5-15.5)
[2019-08-05 22:25] LABS: Platelet Count 93 k/uL (150-450)
[2019-08-05] MEDS ORDERED: DEXTROSE 5% IN WATER 1,000 ML with SODIUM BICARB (1 MEQ/ML) 150 ML IV SCH (22:30)
--- NOTE | 2019-08-05 22:45 | ED ---
Medical Decision Making - Medical Decision Making I was called to the bedside from the emergency department to place a central line for this patient who had just been coded. Please see the procedure note. Triple lumen central venous catheter was placed without complications. - Lab Data Result diagrams: 08/05/19 22:00 08/05/19 04:40 Lab Results 08/03/19 08/03/19 08/03/19 Range/Units 08:10 08:10 08:10 WBC 17.5 H (3.8-10.6) k/uL RBC 4.47 (3.80-5.40) m/uL Hgb 12.3 (11.4-16.0) gm/dL Hct 38.7 (34.0-46.0) % MCV 86.6 D (80.0-100.0) fL MCH 27.4 (25.0-35.0) pg MCHC 31.7 (31.0-37.0) g/dL RDW 16.7 H (11.5-15.5) % Plt Count 89 L D (150-450) k/uL Neutrophils % 95 % Lymphocytes % 2 % Monocytes % 3 % Eosinophils % 0 % Basophils % 0 % Neutrophils # 16.6 H (1.3-7.7) k/uL Lymphocytes # 0.3 L (1.0-4.8) k/uL Monocytes # 0.5 (0-1.0) k/uL Eosinophils # 0.0 (0-0.7) k/uL Basophils # 0.0 (0-0.2) k/uL Manual Slide Review Performed Hypochromasia Moderate Poikilocytosis Slight Anisocytosis Slight PT 10.4 (9.0-12.0) sec INR 1.0 (<1.2) APTT 25.1 (22.0-30.0) sec VBG pH (7.31-7.41) VBG pCO2 (37-51) mmHg VBG HCO3 (24-28) mmol/L Sodium 129 L (137-145) mmol/L Potassium 5.3 H (3.5-5.1) mmol/L Chloride 96 L (98-107) mmol/L Carbon Dioxide 22 (22-30) mmol/L Anion Gap 11 mmol/L BUN 47 H (7-17) mg/dL Creatinine 2.12 H (0.52-1.04) mg/dL Est GFR (CKD-EPI)AfAm 26 (>60 ml/min/1.73 sqM) Est GFR (CKD-EPI)NonAf 23 (>60 ml/min/1.73 sqM) Glucose 139 H (74-99) mg/dL Plasma Lactic Acid Barron (0.7-2.0) mmol/L Calcium 9.0 (8.4-10.2) mg/dL Magnesium 2.1 (1.6-2.3) mg/dL Total Bilirubin 0.9 (0.2-1.3) mg/dL AST 41 H (14-36) U/L ALT 21 (4-34) U/L Alkaline Phosphatase 72 (38-126) U/L Troponin I (0.000-0.034) ng/mL NT-Pro-B Natriuret Pep pg/mL Total Protein 6.7 (6.3-8.2) g/dL Albumin 3.7 (3.5-5.0) g/dL Procalcitonin (0.02-0.09) ng/mL Urine Color Urine Appearance (Clear) Urine pH (5.0-8.0) Ur Specific Ramsay (1.001-1.035) Urine Protein (Negative) Urine Glucose (UA) (Negative) Urine Ketones (Negative) Urine Blood (Negative) Urine Nitrite (Negative) Urine Bilirubin (Negative) Urine Urobilinogen (<2.0) mg/dL Ur Leukocyte Esterase (Negative) Urine RBC (0-5) /hpf Urine WBC (0-5) /hpf Ur Squamous Epith Cells (0-4) /hpf Urine Bacteria (None) /hpf Urine Mucus (None) /hpf Coronavirus (PCR) Influenza Type A RNA (Not Detectd) Influenza Type B (PCR) (Not Detectd) 08/03/19 08/03/19 08/03/19 Range/Units 08:10 08:10 08:10 WBC (3.8-10.6) k/uL RBC (3.80-5.40) m/uL Hgb (11.4-16.0) gm/dL Hct (34.0-46.0) % MCV (80.0-100.0) fL MCH (25.0-35.0) pg MCHC (31.0-37.0) g/dL RDW (11.5-15.5) % Plt Count (150-450) k/uL Neutrophils % % Lymphocytes % % Monocytes % % Eosinophils % % Basophils % % Neutrophils # (1.3-7.7) k/uL Lymphocytes # (1.0-4.8) k/uL Monocytes # (0-1.0) k/uL Eosinophils # (0-0.7) k/uL Basophils # (0-0.2) k/uL Manual Slide Review Hypochromasia Poikilocytosis Anisocytosis PT (9.0-12.0) sec INR (<1.2) APTT (22.0-30.0) sec VBG pH (7.31-7.41) VBG pCO2 (37-51) mmHg VBG HCO3 (24-28) mmol/L Sodium (137-145) mmol/L Potassium (3.5-5.1) mmol/L Chloride (98-107) mmol/L Carbon Dioxide (22-30) mmol/L Anion Gap mmol/L BUN (7-17) mg/dL Creatinine (0.52-1.04) mg/dL Est GFR (CKD-EPI)AfAm (>60 ml/min/1.73 sqM) Est GFR (CKD-EPI)NonAf (>60 ml/min/1.73 sqM) Glucose (74-99) mg/dL Plasma Lactic Acid Barron 1.9 (0.7-2.0) mmol/L Calcium (8.4-10.2) mg/dL Magnesium (1.6-2.3) mg/dL Total Bilirubin (0.2-1.3) mg/dL AST (14-36) U/L ALT (4-34) U/L Alkaline Phosphatase (38-126) U/L Troponin I 1.250 H* (0.000-0.034) ng/mL NT-Pro-B Natriuret Pep 29151 pg/mL Total Protein (6.3-8.2) g/dL Albumin (3.5-5.0) g/dL Procalcitonin (0.02-0.09) ng/mL Urine Color Urine Appearance (Clear) Urine pH (5.0-8.0) Ur Specific Ramsay (1.001-1.035) Urine Protein (Negative) Urine Glucose (UA) (Negative) Urine Ketones (Negative) Urine Blood (Negative) Urine Nitrite (Negative) Urine Bilirubin (Negative) Urine Urobilinogen (<2.0) mg/dL Ur Leukocyte Esterase (Negative) Urine RBC (0-5) /hpf Urine WBC (0-5) /hpf Ur Squamous Epith Cells (0-4) /hpf Urine Bacteria (None) /hpf Urine Mucus (None) /hpf Coronavirus (PCR) Influenza Type A RNA (Not Detectd) Influenza Type B (PCR) (Not Detectd) 08/03/19 08/03/19 08/03/19 Range/Units 08:10 08:10 08:10 WBC (3.8-10.6) k/uL RBC (3.80-5.40) m/uL Hgb (11.4-16.0) gm/dL Hct (34.0-46.0) % MCV (80.0-100.0) fL MCH (25.0-35.0) pg MCHC (31.0-37.0) g/dL RDW (11.5-15.5) % Plt Count (150-450) k/uL Neutrophils % % Lymphocytes % % Monocytes % % Eosinophils % % Basophils % % Neutrophils # (1.3-7.7) k/uL Lymphocytes # (1.0-4.8) k/uL Monocytes # (0-1.0) k/uL Eosinophils # (0-0.7) k/uL Basophils # (0-0.2) k/uL Manual Slide Review Hypochromasia Poikilocytosis Anisocytosis PT (9.0-12.0) sec INR (<1.2) APTT (22.0-30.0) sec VBG pH 7.49 H (7.31-7.41) VBG pCO2 31 L (37-51) mmHg VBG HCO3 24 (24-28) mmol/L Sodium (137-145) mmol/L Potassium (3.5-5.1) mmol/L Chloride (98-107) mmol/L Carbon Dioxide (22-30) mmol/L Anion Gap mmol/L BUN (7-17) mg/dL Creatinine (0.52-1.04) mg/dL Est GFR (CKD-EPI)AfAm (>60 ml/min/1.73 sqM) Est GFR (CKD-EPI)NonAf (>60 ml/min/1.73 sqM) Glucose (74-99) mg/dL Plasma Lactic Acid Barron (0.7-2.0) mmol/L Calcium (8.4-10.2) mg/dL Magnesium (1.6-2.3) mg/dL Total Bilirubin (0.2-1.3) mg/dL AST (14-36) U/L ALT (4-34) U/L Alkaline Phosphatase (38-126) U/L Troponin I (0.000-0.034) ng/mL NT-Pro-B Natriuret Pep pg/mL Total Protein (6.3-8.2) g/dL Albumin (3.5-5.0) g/dL Procalcitonin (0.02-0.09) ng/mL Urine Color Yellow Urine Appearance Clear (Clear) Urine pH 7.0 (5.0-8.0) Ur Specific Ramsay 1.013 (1.001-1.035) Urine Protein Trace H (Negative) Urine Glucose (UA) Negative (Negative) Urine Ketones Negative (Negative) Urine Blood Small H (Negative) Urine Nitrite Negative (Negative) Urine Bilirubin Negative (Negative) Urine Urobilinogen <2.0 (<2.0) mg/dL Ur Leukocyte Esterase Trace H (Negative) Urine RBC 3 (0-5) /hpf Urine WBC 5 (0-5) /hpf Ur Squamous Epith Cells <1 (0-4) /hpf Urine Bacteria Many H (None) /hpf Urine Mucus Rare H (None) /hpf Coronavirus (PCR) Influenza Type A RNA Not Detected (Not Detectd) Influenza Type B (PCR) Not Detected (Not Detectd) 08/03/19 08/03/19 Range/Units 08:10 08:10 WBC (3.8-10.6) k/uL RBC (3.80-5.40) m/uL Hgb (11.4-16.0) gm/dL Hct (34.0-46.0) % MCV (80.0-100.0) fL MCH (25.0-35.0) pg MCHC (31.0-37.0) g/dL RDW (11.5-15.5) % Plt Count (150-450) k/uL Neutrophils % % Lymphocytes % % Monocytes % % Eosinophils % % Basophils % % Neutrophils # (1.3-7.7) k/uL Lymphocytes # (1.0-4.8) k/uL Monocytes # (0-1.0) k/uL Eosinophils # (0-0.7) k/uL Basophils # (0-0.2) k/uL Manual Slide Review Hypochromasia Poikilocytosis Anisocytosis PT (9.0-12.0) sec INR (<1.2) APTT (22.0-30.0) sec VBG pH (7.31-7.41) VBG pCO2 (37-51) mmHg VBG HCO3 (24-28) mmol/L Sodium (137-145) mmol/L Potassium (3.5-5.1) mmol/L Chloride (98-107) mmol/L Carbon Dioxide (22-30) mmol/L Anion Gap mmol/L BUN (7-17) mg/dL Creatinine (0.52-1.04) mg/dL Est GFR (CKD-EPI)AfAm (>60 ml/min/1.73 sqM) Est GFR (CKD-EPI)NonAf (>60 ml/min/1.73 sqM) Glucose (74-99) mg/dL Plasma Lactic Acid Barron (0.7-2.0) mmol/L Calcium (8.4-10.2) mg/dL Magnesium (1.6-2.3) mg/dL Total Bilirubin (0.2-1.3) mg/dL AST (14-36) U/L ALT (4-34) U/L Alkaline Phosphatase (38-126) U/L Troponin I (0.000-0.034) ng/mL NT-Pro-B Natriuret Pep pg/mL Total Protein (6.3-8.2) g/dL Albumin (3.5-5.0) g/dL Procalcitonin 2.24 H (0.02-0.09) ng/mL Urine Color Urine Appearance (Clear) Urine pH (5.0-8.0) Ur Specific Ramsay (1.001-1.035) Urine Protein (Negative) Urine Glucose (UA) (Negative) Urine Ketones (Negative) Urine Blood (Negative) Urine Nitrite (Negative) Urine Bilirubin (Negative) Urine Urobilinogen (<2.0) mg/dL Ur Leukocyte Esterase (Negative) Urine RBC (0-5) /hpf Urine WBC (0-5) /hpf Ur Squamous Epith Cells (0-4) /hpf Urine Bacteria (None) /hpf Urine Mucus (None) /hpf Coronavirus (PCR) [facility] Influenza Type A RNA (Not Detectd) Influenza Type B (PCR) (Not Detectd) Disposition Clinical Impression: Sepsis, NSTEMI (non-ST elevated myocardial infarction), HCAP (healthcare- associated pneumonia), Aortic stenosis Disposition: ADMITTED IP TO THIS HOSP Condition: Serious Procedures - [place] Protocol (Time Out) Nurse: Shayla Sánchez F - Central Line Placement Right Femoral Consent Obtained: emergent situation Patient Placed on Monitor/Pulse Ox: Yes MD Prep: mask, gown, gloves Central Line Prep: Chlorhexidine scrub Local Anesthesia Used: Lidocaine 1% Ultrasound Used for Placement: No Central Line Lumen Inserted: triple Central Line Position: good blood return, all ports aspirated, flushed, capped, sutured in place with nylon Dressing Applied: Tegaderm Patient Tolerated Procedure: no complications Complications: none
[2019-08-05] MEDS ORDERED: NOREPINEPHRINE 32 MG in SODIUM CHLORIDE 0.9% 250 ML IV SCH (22:48)
[2019-08-05 22:51] LABS: Band Neutrophils % 1 %; Lymphocytes # (M) 2.34 k/uL (1.0-4.8); Monocytes # (M) 2.34 k/uL (0-1.0); Neutrophils % (M) 87 %; Nucleated Red Blood Cells 0 /100 WBC (0-0); Total Cells Counted 100
[2019-08-05 22:53] LABS: Polychromasia Present
--- NOTE | 2019-08-05 23:16 | P.EN ---
patient had code blue 3 times first time she had Vtach and received a shock, and two round of epi, loaded with amiodarone , then had RSC. she coded after that by about 10 minutes this time was asystole. had to get three rounds of epi, and bicarb then had RSC. then patient showed NSVT , amiodarone drip ordered. patient coded a third time, with PEA. received bicard , two rounds of epi and then had return of spontaneuos circulation please refer to code blue sheet for exact timing and medications given. family notified, and verbalized that patient never wished to have poor quality of life, or intubated, but then changed her mind last minute and decided to be intubated. but sister in law confirmed that the patient would not like to have poor outcomes or poor quality of life, and deferred to medical doctors if we think she would have poor outcome to stop resuscitation efforts if she continues to code. they had a recent in the family and she understand these measure s. and she reported it was hard for them to make these decisions regarding code status. Dr. Glez notified. Dr. Luz notified. patient EKG checked there is new first degree AV block. recent AMARIS from few days ago showed no valvular vegetations. 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 pending COVID 19 results Ph 7.2 with mixed respiratory and metabolic acidosis IVF with normal saline bolus of 1 L I gave patient another 50 meq of bicarb then ordered bicarb drip at 75 cc/hr of 150meq in 1 L D5% continue with levophed titrate to maintain map >65 continue amiodarone drip defer to cardiology further workup defer to pulmonary vent setting adjustments
[2019-08-06 00:10] LABS: Albumin 2.7 g/dL (3.5-5.0); Total Bilirubin 0.7 mg/dL (0.2-1.3); Total Protein 5.3 g/dL (6.3-8.2)
[2019-08-06 00:19] LABS: Potassium 6.1 mmol/L (3.5-5.1)
[2019-08-06] MEDS ORDERED: AMIODARONE 360 MG in DEXTROSE 5% IN WATER 200 ML IV ONE ×2 (00:32)
[2019-08-06] MEDS: INSULIN ASPART (NovoLOG) 100 UNIT/ML VIAL SQ SCH (00:34)
[2019-08-06 02:29] VITALS: RESP 26; TEMP 98.1
[2019-08-06 03:35] VITALS: PULSE 121
[2019-08-06] MEDS ORDERED: MORPHINE SULFATE 2 MG/ML SYRINGE IV PRN (03:45)
[2019-08-06] MEDS ORDERED: SODIUM CHLORIDE 0.9% 1,000 ML IV SCH (03:45)
[2019-08-06] MEDS ORDERED: AMIODARONE 300 MG in DEXTROSE 5% IN WATER 250 ML IV SCH ×4 (04:14→06:32)
--- NOTE | 2019-08-07 13:13 | P.DS ---
Providers Date of admission: 08/03/19 09:39 Expected date of discharge: 08/06/19 Attending physician: Sebastian Glez MD Consults: 08/03/19 09:40 Consult Physician Routine Consulting Provider: Ludin Goldman Consult Reason/Comments: Aortic stenosis, troponin elevation Do you want consulting provider notified?: Already Contacted 08/03/19 10:53 Consult Physician Routine Consulting Provider: Eliazar Luz Consult Reason/Comments: Left lower lobe pneumonia, COPD Do you want consulting provider notified?: Yes 08/03/19 19:54 Consult Physician Routine Consulting Provider: Kalpesh Arellano Consult Reason/Comments: positive blood cultures Do you want consulting provider notified?: Already Contacted Primary care physician: Sebastian Glez MD Hospital Course: Patient coded 3 times later in the day on August 05 2019 and the patient was resuscitated and was unsuccessful. Subsequently . Please refer to the documentation from the physician who ran the code for exact time of Patient Condition at Discharge: Serious Plan - Discharge Summary Discharge Rx Participant: No New Discharge Prescriptions: No Action Pramipexole Di-HCl [Mirapex] 1.5 mg PO HS Sertraline [Zoloft] 50 mg PO DAILY Amitriptyline HCl 25 mg PO HS Fluticasone/Vilanterol [Breo Ellipta 200-25 Mcg INH] 1 puff INHALATION RT- DAILY Loteprednol Etabonate [Lotemax] 1 drop RIGHT EYE TID Nepafenac [Ilevro] 1 drop RIGHT EYE DAILY Ipratropium-Albuterol Nebulize [Duoneb 0.5 mg-3 mg/3 ml Soln] 3 ml INHALATION RT-QID ml Nitroglycerin Sl Tabs [Nitrostat] 0.4 mg SUBLINGUAL Q5M PRN tab PRN Reason: Chest Pain Pantoprazole [Protonix] 40 mg PO DAILY Furosemide [Lasix] 40 mg PO DAILY Albuterol Nebulized [Ventolin Nebulized] 1 vial INHALATION RT-Q6H Simvastatin [Zocor] 40 mg PO HS Potassium Chloride ER [K-Dur 20] 20 meq PO DAILY Ofloxacin 0.3% Ophth Soln [Ocuflox Ophth Soln] 1 drop RIGHT EYE DAILY Metoprolol Succinate (ER) [Toprol XL] 50 mg PO DAILY Lisinopril [Zestril] 10 mg PO DAILY Gabapentin [Gralise] 600 mg PO DAILY Diclofenac Sodium Gel [Voltaren Gel] 1 gram TOPICAL TID cloNIDine HCL [Catapres] 0.1 mg PO BID Tiotropium [place] [Spiriva Respimat] 2 puff INHALATION RT-DAILY Discharge Medication List Amitriptyline HCl 25 mg PO HS 05/28/19 [History] Fluticasone/Vilanterol [Breo Ellipta 200-25 Mcg INH] 1 puff INHALATION RT-DAILY 05/28/19 [History] Loteprednol Etabonate [Lotemax] 1 drop RIGHT EYE TID 05/28/19 [History] Nepafenac [Ilevro] 1 drop RIGHT EYE DAILY 05/28/19 [History] Pramipexole Di-HCl [Mirapex] 1.5 mg PO HS 05/28/19 [History] Sertraline [Zoloft] 50 mg PO DAILY 05/28/19 [History] Ipratropium-Albuterol Nebulize [Duoneb 0.5 mg-3 mg/3 ml Soln] 3 ml INHALATION RT-QID ml 06/14/19 [Rx] Nitroglycerin Sl Tabs [Nitrostat] 0.4 mg SUBLINGUAL Q5M PRN tab 06/14/19 [Rx] Albuterol Nebulized [Ventolin Nebulized] 1 vial INHALATION RT-Q6H 08/03/19 [History] Diclofenac Sodium Gel [Voltaren Gel] 1 gram TOPICAL TID 08/03/19 [History] Furosemide [Lasix] 40 mg PO DAILY 08/03/19 [History] Gabapentin [Gralise] 600 mg PO DAILY 08/03/19 [History] Lisinopril [Zestril] 10 mg PO DAILY 08/03/19 [History] Metoprolol Succinate (ER) [Toprol XL] 50 mg PO DAILY 08/03/19 [History] Ofloxacin 0.3% Ophth Soln [Ocuflox Ophth Soln] 1 drop RIGHT EYE DAILY 08/03/19 [History] Pantoprazole [Protonix] 40 mg PO DAILY 08/03/19 [History] Potassium Chloride ER [K-Dur 20] 20 meq PO DAILY 08/03/19 [History] Simvastatin [Zocor] 40 mg PO HS 08/03/19 [History] Tiotropium [place] [Spiriva Respimat] 2 puff INHALATION RT-DAILY 08/03/19 [History] cloNIDine HCL [Catapres] 0.1 mg PO BID 08/03/19 [History] Follow up Appointment(s)/Referral(s): Sebastian Glez MD [Primary Care Provider] - 1-2 days [facility], [NON-STAFF] - 1-2 Days Discharge Disposition: - Preliminary Cause of Preliminary Cause of : Septic discitis, MRSA bacteremia
--- NOTE | 2019-08-08 13:04 | CDI ---
Documentation Clarification Form Date: 08/08/19 From: Cynthia Barraza Phone: If you have a question about this query, please contact Tasha Liao, Print Production Associate at [phone] between 8am and 5pm. Admit Date: 08/03/19 Discharge Date: 08/06/19 Patient Name: BROOKE INIGUEZ Visit Number: [id number] ATTENTION: The Clinical Documentation Specialists (CDI) and [facility] Coding Staff appreciate your assistance in clarifying documentation. Please respond to the clarification below the line at the bottom and electronically sign. The CDI & [facility] Coding staff will review the response and follow-up if needed. Please note: Queries are made part of the Legal Health Record. If you have any questions, please contact the author of this message via ITS. Dear Dr. Nicanor Brandon, CHF is documented in the H&P, Dr Luz's consult, Dr Arellano's consult and your 08/04 PN. History/Risk Factors: Sepsis due to MRSA, septic shock, Type II [place], HCAP pneumonia, acute on chronic hypoxic/hypercapnia respiratory failure Clinical Indicators: She develop acute on chronic respiratory failure (hypoxic & hypercapnia). Started on IV fluids with close monitoring her BNP is higly elevated. VS/Pulse OX: 08/04-P-105, P-27,BP-89/63, O2-94 BNP: 08/02-69334 & 08/04-44513 05/29/19 Echocardiogram Results: overall left ventricular systolic function is low-normal w EF between 50-55%. Chest X Ray: 08/02-heart is enlarged. 08/04-Cardiomegaly. Treatment: Lasix 40 mg po In your professional opinion, can you please clarify the acuity and type of CHF if known? TYPE Systolic Heart Failure Diastolic Heart Failure Systolic & Diastolic Heart Failure ACUITY Acute Chronic Acute on Chronic Heart Failure Unable to Determine Other, please specify POA Yes No no heart failure MTDD
--- NOTE | 2019-08-15 12:01 | CDI ---
In responding to this query, please exercise your independent professional judgment. The [facility] Coding Staff and Clinical Documentation Specialists appreciate your assistance in clarifying documentation, maintaining compliance with coding guidelines, accurately documenting patients condition and capturing severity of illness. The fact that a question is asked does not imply that any particular answer is desired or expected. Communication forms are a method of clarifying documentation and are made part of the Legal Health Record. Thank you in advance for your clarification. Last Revision July 2019 Documentation Clarification Form Date: 08/15/2019 11:53:00 AM From: Christi MAURICION,CCDS,RN Phone: [phone] Admit Date: 08/03/2019 09:39:00 AM Patient Name: Debbie Hopkins Visit Number: [id number] Discharge Date: 08/06/2019 07:01:[address] Brandon Coding guidelines do not allow coding professionals to code based on laboratory results; therefore, your input is requested. The COVID-19 test obtained on 08/03/2019 was reported as Negative on 08/10/2019 Per case summary preliminary cause of is septic discitis, MRSA bacteremia Patient history/risk factors: 73 yo F with PMH of CHF, Malnutrition, COPD GOLD stage 4 on home o2 @5Lnc, severe aortic stenosis, pulmonary hypertension and prolonged admission 04/10/2020 for persistent bacteremia. Was transferred to [facility] for persistent bacteremia for that admission, presenting 08/03/2019 with septic shock and found to have MRSA bacteremia, Pt was noted to have self isolated for last 2 weeks but was placed in COVID precautions with note of LLL infiltrate on chest xray in 08/03/2019 [facility] Clinical Indicators acute on chronic hypoxic and hypercapnia resp failure, pneumonia HCAP note, type 2 [place] Patient reported fever, chills and fatigue CXR/CT 08/03/2019 mid left lower infiltrate to 08/04 chest left mid to lower lung acute infiltrate of atelectasis VS in ED Triage BP 79/53 : T: 100.3 P126 : , R 26 , Sat Procalcitonin 2.4 WBC 08/02 17.5 to 39 on 08/04 Blood cultures MRSA 08/02 & 08/04 Influenza test obtained08/03/2019 reported as negative Treatment: Vancomycin, pressors, mechanical ventilation isolation Pulmonary consult08/03/2019 possibility of COVID is being ruled out ID legal consultant 08/04/2019: Vancomycin and MRI of Lumbosacral spine Zithromax and Cefepime started and dcd 08/03/2019 In order to capture the severity of condition, please clarify the COVID-19 status: COVID-19 ruled out False negative, treating for COVID-19 based on these clinical indicators: Other, please specify Unable to determine COVID-19 ruled out MTDD
--- NOTE | 2019-08-15 12:14 | CDI ---
Documentation Clarification Form Date: 08/15/2019 12:02:07 PM From: Christi FRANCIS,CCDS,RN Admit Date: 08/03/2019 09:39:00 AM Patient Name: Debbie Hopkins Visit Number: [id number] Discharge Date: 08/06/2019 07:01:00 AM ATTENTION: The Clinical Documentation Specialists (CDI) and [facility] Coding Staff appreciate your assistance in clarifying documentation. Please respond to the clarification below the line at the bottom and electronically sign. The CDI & [facility] Coding staff will review the response and follow-up if needed. Please note: Queries are made part of the Legal Health Record. If you have any questions, please contact the author of this message via ITS. Dr. Nicanor Brandon Coding guidelines do not allow coding professionals to code based on laboratory results; therefore, your input is requested. History/Risk Factors: 73 yo F with PMH of CHF, Malnutrition, COPD GOLD stage 4 on home o2 @5Lnc, severe aortic stenosis, pulmonary hypertension and prolonged admission 04/10/2020 for persistent bacteremia. Was transferred to [facility] for persistent bacteremia for that admission, presenting 08/03/2019 with septic shock and found to have MRSA bacteremia, Sales And Catering Coordinator ID 08/03 notes vancomycin pharmacy to dose with target trough of 15 while watching her kidney function closely Clinical indicators: PN 08/04 notes her creatinine was 2.12 and today is 1.6 Creatinine 08/02 of 2.12 to 1.6 then on 08/04 of 1.84 Bun 47-46 08/02 GFR 26-37-36-31 Treatment: Blood pressure support with Levophed and 4lns Fluid bolus Clinical significance of diagnostic testing and treatment CANNOT be assumed or coded without physician documentation of significance if any. Please clarify what abnormal laboratory signifies: Acute kidney Injury Unable to determine Other, please specify (Last Revision: February 2017) Unable to determine MTDD
--- NOTE | 2019-08-15 12:21 | CDI ---
Documentation Clarification Form Date: 08/15/2019 From: Christi FRANCIS,CCDS,RN Phone: [phone] Admit Date: 08/03/2019 09:39:00 AM Patient Name: Debbie Hopkins Visit Number: [id number] Discharge Date: 08/06/2019 07:01:00 AM ATTENTION: The Clinical Documentation Specialists (CDI) and [facility] Coding Staff appreciate your assistance in clarifying documentation. Please respond to the clarification below the line at the bottom and electronically sign. The CDI & [facility] Coding staff will review the response and follow-up if needed. Please note: Queries are made part of the Legal Health Record. If you have any questions, please contact the author of this message via ITS. Dr. Nicanor Brandon Please render your opinion on clinical significance if any of platelets noted of 83 on PN 08/05/2019 History/Risk Factors: 73 yo F with PMH of CHF, Malnutrition, COPD GOLD stage 4 on home o2 @5Lnc, severe aortic stenosis, pulmonary hypertension and prolonged admission 04/10/2020 for persistent bacteremia. Was transferred to [facility] for persistent bacteremia for that admission, presenting 08/03/2019 with septic shock and found to have MRSA bacteremia Clinical indicators sepsis with septic shock Platelets 08/02-08/04 89-87-83-93 Treatment: lab monitoring Clinical significance of diagnostic testing and treatment CANNOT be assumed or coded without physician documentation of significance if any. Please clarify what abnormal laboratory signifies: Thrombocytopenia Abnormal Lab Value not clinically significant Unable to determine Other, please specify (Last Revision: February 2017) Unable to determine MTDD
== END 2019-08-06 07:01 | disposition expired | DRG 871 ==
LOC: EC 07:48 → 3SCARD 09:39 → 2SICU 11:12
PROVIDERS: ADMIT Family Medicine; ATTEND Family Medicine
PROC: 5A1935Z Respiratory Ventilation, Less than 24 Consecutive Hours (ICD-10-PCS; principal; 2019-08-05)
PROC: 0BH17EZ Insertion of Endotracheal Airway into Trachea, Via Natural or Artificial Opening (ICD-10-PCS; principal; 2019-08-05)
PROC: 3E0G76Z Introduction of Nutritional Substance into Upper GI, Via Natural or Artificial Opening (ICD-10-PCS; principal; 2019-08-05)
PROC: 3E043XZ Introduction of Vasopressor into Central Vein, Percutaneous Approach (ICD-10-PCS; principal; 2019-08-05)
PROC: 0D9670Z Drainage of Stomach with Drainage Device, Via Natural or Artificial Opening (ICD-10-PCS; principal; 2019-08-05)
PROC: 06HM33Z Insertion of Infusion Device into Right Femoral Vein, Percutaneous Approach (ICD-10-PCS; 2019-08-05)
PROC: 5A12012 Performance of Cardiac Output, Single, Manual (ICD-10-PCS; 2019-08-05)
DX: A41.02 Sepsis due to Methicillin resistant Staphylococcus aureus (principal); I21.A1 Myocardial infarction type 2; J96.21 Acute and chronic respiratory failure with hypoxia; R65.21 Severe sepsis with septic shock; J18.9 Pneumonia, unspecified organism; J96.22 Acute and chronic respiratory failure with hypercapnia; I47.2 Ventricular tachycardia; I42.9 Cardiomyopathy, unspecified; E87.4 Mixed disorder of acid-base balance; E87.1 Hypo-osmolality and hyponatremia; M46.36 Infection of intervertebral disc (pyogenic), lumbar region; I27.20 Pulmonary hypertension, unspecified; I11.0 Hypertensive heart disease with heart failure; I50.9 Heart failure, unspecified; I46.9 Cardiac arrest, cause unspecified; Z66 Do not resuscitate; J43.9 Emphysema, unspecified; Z20.828 Contact with and (suspected) exposure to other viral communicable diseases; I08.0 Rheumatic disorders of both mitral and aortic valves; E86.1 Hypovolemia; Y95 Nosocomial condition; G89.29 Other chronic pain; M47.9 Spondylosis, unspecified; F32.9 Major depressive disorder, single episode, unspecified; E78.5 Hyperlipidemia, unspecified; K58.9 Irritable bowel syndrome, unspecified; M16.0 Bilateral primary osteoarthritis of hip; K64.9 Unspecified hemorrhoids; D53.9 Nutritional anemia, unspecified; R40.2144 Coma scale, eyes open, spontaneous, 24 hours or more after hospital admission; R40.2254 Coma scale, best verbal response, oriented, 24 hours or more after hospital admission; R40.2364 Coma scale, best motor response, obeys commands, 24 hours or more after hospital admission; E66.9 Obesity, unspecified; Z68.36 Body mass index [BMI] 36.0-36.9, adult; K57.90 Diverticulosis of intestine, part unspecified, without perforation or abscess without bleeding; H40.9 Unspecified glaucoma; K21.0 Gastro-esophageal reflux disease with esophagitis; H91.90 Unspecified hearing loss, unspecified ear; I25.2 Old myocardial infarction; Z99.81 Dependence on supplemental oxygen; Z79.51 Long term (current) use of inhaled steroids; Z79.899 Other long term (current) drug therapy; Z71.3 Dietary counseling and surveillance; Z87.891 Personal history of nicotine dependence; Z86.010 Personal history of colon polyps; Z86.14 Personal history of Methicillin resistant Staphylococcus aureus infection; Z98.890 Other specified postprocedural states; Z87.42 Personal history of other diseases of the female genital tract; Z98.42 Cataract extraction status, left eye; Z98.41 Cataract extraction status, right eye; Z88.6 Allergy status to analgesic agent; Z80.1 Family history of malignant neoplasm of trachea, bronchus and lung; Z81.2 Family history of tobacco abuse and dependence
CPT/HCPCS: 36415; 36600; 71045; 80048; 80053; 81001; 82803; 82805; 83036; 83605; 83735; 83880; 84145; 84484; 85025; 85610; 85730; 87040; 87077; 87186; 87502; 92950; 93005; 94002; 94003; 94640; 94660; 96361; 96365; 96375; 99291